=== PATIENT | male | born 1980 | race Caucasian/White ===

== ENCOUNTER 2021-01-06 10:34 | Outpatient (REF) | payer OTHER, SELFPAY | END 2021-01-06 10:35 | disposition home or self-care (01) | LOC: HO.LAB 10:34 | PROVIDERS: PCP Internal Medicine; Visit Provider Physician Assistant | DX: Z13.89 Encounter for screening for other disorder (principal) ==

== ENCOUNTER 2021-03-19 10:41 | Emergency (ER) | payer OTHER, SELFPAY ==
[2021-03-19 10:49] VITALS: BP 145/75; PULSE 93; RESP 16; TEMP 36.6; O2SAT 97; BMI 47.9
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
[2021-03-19 11:49] LABS: MANUAL DIFF FLAG NO
[2021-03-19 11:49] LABS: Appearance Urine CLEAR; Color Urine YELLOW; Glucose Urine UA 100 MG/DL (NEG); Leukocyte Esterase Urine NEG (NEG); Nitrite Urine NEG (NEG); Specific Gravity - Urine >= 1.030 (1.005-1.025); Urine Blood NEG (NEG); Urine Ketones 5 MG/DL (NEG); Urine Protein NEG (NEG-TRACE)
[2021-03-19 11:53] LABS: Basophils Absolute Auto 0.1 X10*3/uL (0.0-0.2); Basophils Percent Auto 0.5 % (0-2); Eosinophils Absolute Auto 0.3 X10*3/uL (0.0-0.4); Eosinophils Percent Auto 2.5 % (0-4); Hematocrit 42.9 % (42-52); Hemoglobin 13.9 g/dl (14.0-18.0); Imm Gran Abs Auto 0.04 X10*3/uL (0.00-0.03); Imm Gran Pct Auto 0.4 % (0.0-0.4); Mean Corpuscular HGB Conc 32.4 g/dl (31.0-36.0); Mean Corpuscular Hemoglobin 27.8 pg (27.0-33.0); Mean Corpuscular Volume 85.8 fL (80-98); Mean Platelet Volume 10.7 fL (9.4-12.4); Monocytes Absolute Auto 0.5 X10*3/uL (0.1-1.2); Monocytes Percent Auto 4.5 % (2-11); Neutrophils Absolute Auto 7.3 X10*3/uL (2.0-8.3); Neutrophils Percent Auto 72.1 % (45-73); Platelet Count 343 X10*3/uL (160-400); Red Cell Distribution Width 13.1 % (11.0-16.0); White Blood Count 10.2 X10*3/uL (4.8-10.8)
[2021-03-19 11:55] LABS: Amphetamine Screen Urine Not Detected (Not Detect); Barbiturates, Urine Not Detected (Not Detect); Benzodiazepines Screen Urine Not Detected (Not Detect); Cannabinoid Screen Urine Not Detected (Not Detect); Cocaine Screen Urine Not Detected (Not Detect); Fentanyl, urine Not Detected (Not Detect); Opiate Screen Urine Not Detected (Not Detect); Phencyclidine Screen Urine Not Detected (Not Detect)
[2021-03-19 11:55] LABS: COVID-19 Test Negative (Negative); IDNOW Serial# 9DD0AD1C
[2021-03-19 12:03] LABS: Ethanol < 10 mg/dL
[2021-03-19 12:05] LABS: Alanine Aminotransferase 43 U/L (0-40); Albumin Level 4.4 g/dL (3.5-5.0); Alkaline Phosphatase 139 U/L (39-117); Anion Gap 13 (12-20); Aspartate Amino Transferase 27 U/L (5-37); Bilirubin Direct 0.2 mg/dL (0.0-0.5); Bilirubin Total 0.6 mg/dL (0.0-1.0); Blood Urea Nitrogen 9 mg/dL (9-16); Calcium 9.5 mg/dL (8.4-10.2); Carbon Dioxide 27 mmol/L (22-29); Chloride 104 mmol/L (96-108); Creatinine Clr Calc Pharmacy 156.9; Estimated Glomerular Filt Rate > 60; Glucose Random 221 mg/dL (60-115); Lipase 32 U/L (8-78); Potassium 4.2 mmol/L (3.3-5.1); Sodium 140 mmol/L (135-145); Total Protein 7.3 g/dL (6.5-8.0)
--- NOTE | 2021-03-19 12:53 | PHA.MEDREC ---
Pharmacy Consult ? Medication Reconciliation Pharmacy has completed the medication reconciliation. There are no remarkable issues for provider's attention. Lily Lemus, MonicaD
--- NOTE | 2021-03-19 12:54 | PC.NURSE ---
Smart sheet sent to N. Pt resting quietly in bed watching tv at this time, TARUN.
[2021-03-19 14:10] LABS: Glucose, Whole Blood 270 mg/dL (60-115)
--- NOTE | 2021-03-19 16:09 | PC.NURSE ---
Per N a clinician will not be out here until 10 pm.
[2021-03-19 16:10] VITALS: RESP 16
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
== END 2021-03-19 19:08 | disposition home or self-care (01) ==
PROVIDERS: Emergency Provider Emergency Medicine; PCP Internal Medicine
DX: F33.1 Major depressive disorder, recurrent, moderate (principal); F25.9 Schizoaffective disorder, unspecified; F41.1 Generalized anxiety disorder; F43.0 Acute stress reaction; Z79.899 Other long term (current) drug therapy; Z20.822 Contact with and (suspected) exposure to COVID-19; Z87.891 Personal history of nicotine dependence
CPT/HCPCS: 36415; 80048; 80076; 80307; 81003; 82077; 82947; 83690; 85025; 87635; 99284

== ENCOUNTER 2022-01-02 11:40 | Inpatient (IN) | payer OTHER, SELFPAY ==
[2022-01-02 11:49] VITALS: BP 116/80; BP 124/86; PULSE 82; PULSE 95; RESP 16; TEMP 36.2; O2SAT 94; O2SAT 99; BMI 43.0
--- NOTE | 2022-01-02 12:24 | ED_ITS ---
HPI - General Adult General Chief complaint: General Medical Stated complaint: L sided weakness Time Seen by Provider: 01/02/22 12:11 Source: EMS Mode of arrival: EMS History of Present Illness HPI narrative: This is a 41 years old male with history of bipolar, schizophrenia, hypertension presented to the emergency department after a panic attack in [place]. He appeared very anxious, denies any SI and HI. Onset (ago): hour(s) (1) Radiation: non-radiation Severity: mild Relieving factors: none Exacerbating factors: none Related Data Home Medications Medication Instructions Recorded Confirmed albuterol sulfate 90 mcg/actuation 2 puff inhalation Q6H PRN Wheezing 06/16/20 03/19/21 aerosol inhaler clonidine HCl 0.1 mg tablet 0.1 mg PO BEDTIME 09/15/20 03/19/21 gabapentin 100 mg capsule 200 mg PO BEDTIME 09/15/20 03/19/21 lurasidone 80 mg tablet 80 mg PO QAM 01/06/21 03/19/21 hydroxyzine HCl 50 mg tablet 50 mg PO Q6H PRN anxiety 03/19/21 03/19/21 Previous Rx's Medication Instructions Recorded triamcinolone acetonide 0.025 % 1 appl topical BID #15 grams 06/15/20 topical cream blood-glucose meter (FreeStyle #1 ea 12/05/20 Lite Meter) atorvastatin 20 mg tablet 20 mg PO DAILY #90 tabs 12/29/20 lisinopril 5 mg tablet 5 mg PO DAILY #90 tabs 01/06/21 folic acid 1 mg tablet 1 mg PO DAILY #90 tabs 03/04/21 cholecalciferol (vitamin D3) 50 50 mcg PO DAILY #90 caps 03/07/21 mcg (2,000 unit) capsule (D3-2000) insulin aspart U-100 100 unit/mL 35 unit (0.35 mL) subcut BIDAC #15 04/26/21 (3 mL) subcutaneous pen (Novolog mL Flexpen U-100 Insulin aspart) metformin 500 mg tablet 1,000 mg PO BID #360 tabs 04/30/21 dulaglutide 1.5 mg/0.5 mL 1.5 mg (0.5 mL) subcut QWEEK #2 mL 06/13/21 subcutaneous pen injector (Trulicity) omeprazole 20 mg capsule,delayed 20 mg PO DAILY #30 caps 06/13/21 release alcohol swabs (Alcohol Pads) 1 pad topical QID #100 pad 08/06/21 insulin detemir U-100 100 unit/mL 80 unit (0.8 mL) subcut BID #30 mL 08/07/21 (3 mL) subcutaneous pen (Levemir FlexTouch U-100 Insulin) blood sugar diagnostic (FreeStyle #100 ea 08/31/21 Lite Strips) Allergies Allergy/AdvReac Type Severity Reaction Status Date / Time morphine [Morphine] Allergy Unknown HIVES Verified 01/02/22 11:58 shellfish derived Allergy Redness of Verified 01/02/22 11:58 Skin Iodinated Contrast Media AdvReac Anxiety Verified 01/02/22 11:58 [Contrast Dye] Review of Systems ENT: Reports system reviewed and no additional complaints, except as documented Musculoskeletal: Musculoskeletal: Reports no additional musculoskeletal complaints Psychiatric: Psychiatric: Reports anxiety [facility] Past Medical History Medical History Diabetes mellitus Essential (primary) hypertension GERD (gastroesophageal reflux disease) Schizoaffective disorder Surgical History No pertinent past surgical history Family History Family History Father Heart disease Chronic mental illness Depression Mother Cancer Sister Cancer Social History Social History Housing: Apartment Alcohol intake: current Alcohol intake frequency: holidays/special occasions only Patient Tobacco Use Status: Former Tobacco user e-Cigarette/Vaping Use: Never Used Advance Directives: No Advance Directives Information Provided: Yes service: No Current occupational status: disabled Physical Exam ED Vital Signs: Vital Signs - 24 hr 01/02/22 11:49 Temperature 97.2 F Pulse Rate 95 Respiratory Rate 16 Blood Pressure 116/80 Pulse Oximetry 94 Oxygen Delivery Method Room Air BMI result Body Mass Index 43.0 Const General: no acute distress, well developed and alert Nutritional Appearance: average body habitus Orientation/consciousness: patient oriented x3 HENMT Head: Yes normal to inspection Mouth: Normal oral and palatal mucosa present Neck Neck: Yes normal visual inspection Chest Chest palpation & inspection: normal inspection of the chest Resp Effort & Inspection: normal respiratory effort Auscultation: clear to auscultation bilaterally Cardio Jugular venous distension: no JVD Rate: regular rate Rhythm: regular rhythm GI Inspection: Yes normal to inspection Palpation (GI): Soft to palpation, not firm, nontender and no guarding General: Yes no CVA tenderness Back/Spine/Pelvis Back: no CVA tenderness Neuro General: patient oriented x3, gait normal, Normal light touch and pain sensation, no focal motor deficits and CN's II-XI intact bilaterally Cranial nerves: Yes CN's II-XII intact bilaterally Psych Affect: Animated affect present and Anxious affect present Attitude: cooperative Thought content: suicidality, no homicidality and no delusions Course Reevaluation(s) Reevaluation #1: we are waiting for crisis eval signed out to Dr Smallwood Medical Decision Making Lab Data Labs: Lab Results 01/02/22 01/02/22 Range/Units 12:37 15:41 POC Glucose 185 H (60-115) mg/dL COVID-19 (JULIO C) Negative (Negative) COVID-19 Clin Com See Note Discharge Plan Discharge Clinical Impression: Anxiety, Bipolar 1 disorder Patient Disposition: Still a Patient Prescriptions: No Action triamcinolone acetonide 0.025 % cream 1 appl topical BID Qty: 15 1RF albuterol sulfate 90 mcg/actuation HFA aerosol inhaler 2 puff inhalation Q6H PRN (Reason: Wheezing) (DME) blood-glucose meter [FreeStyle Lite Meter] Kit See Rx Instructions .ROUTE .MEDSUPPLY Qty: 1 0RF Rx Instructions: TEST 2 TIMES DAILY atorvastatin 20 mg tablet 20 mg PO DAILY Qty: 90 1RF folic acid 1 mg tablet 1 mg PO DAILY Qty: 90 0RF cholecalciferol (vitamin D3) [D3-2000] 50 mcg (2,000 unit) capsule 50 mcg PO DAILY Qty: 90 2RF insulin aspart U-100 [Novolog Flexpen U-100 Insulin] 100 unit/mL (3 mL) insulin pen 35 unit subcut BIDAC Qty: 15 1RF Rx Instructions: IF BG > 450 GIVE 50 UNITS metformin 500 mg tablet 1,000 mg PO BID Qty: 360 1RF Trulicity 1.5 mg/0.5 mL pen injector 1.5 mg subcut QWEEK Qty: 2 2RF omeprazole 20 mg capsule,delayed release(/EC) 20 mg PO DAILY Qty: 30 2RF alcohol swabs [Alcohol Pads] Pads, Medicated 1 pad topical QID Qty: 100 0RF Levemir FlexTouch U-100 Insuln 100 unit/mL (3 mL) insulin pen 80 unit subcut BID Qty: 30 2RF (DME) FreeStyle Lite Strips Strip See Rx Instructions .Route Qty: 100 0RF Rx Instructions: Check Blood sugar twice a day before meals hydroxyzine HCl 50 mg tablet 50 mg PO Q6H PRN (Reason: anxiety) Latuda 80 mg tablet 80 mg PO QAM lisinopril 5 mg tablet 5 mg PO DAILY Qty: 90 1RF gabapentin 100 mg capsule 200 mg PO BEDTIME clonidine HCl 0.1 mg tablet 0.1 mg PO BEDTIME
[2022-01-02 12:41] LABS: Glucose, Whole Blood 185 mg/dL (60-115)
--- NOTE | 2022-01-02 15:15 | MHC.CARE ---
CARE team did consult on PT today after MD referred him due to panic attack, history of bipolar disorder, anxiety and schizophrenia. Pt presents with pressured speech/hyper verbal, paranoia with labile mood. 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 He also takes out 4 bottles of medication and appears confused about his medication and what they are used for. Pt is difficult to engage on conversation as thoughts are disorganized at times. CARE team calls aunt who is his emergency contact and she reports Pt has been getting worse over the past 4 months, he believes he is homeless and went to another town to live in a [facility] despite having an apartment. Aunt reports audio hallucinations of voices that tell him to kill himself., he has a gambling problem, angers very quickly and has been reporting multiple somatic complaints over the past 4 months. In addition, he used to have an RN to administered his medications,however they terminated services and aunt states I know he can't do his medications on his own . Aunt reports he is need of inpatient level of care, medication and mood stabilization for safety. CARE team recommendation is for crisis evaluation, monotypist CARE team ELIDIA Paulson agreeable with plan.
[2022-01-02 16:01] LABS: COVID-19 Test Negative (Negative); IDNOW Serial# 16C4AD1C
[2022-01-02 16:15] LABS: Appearance Urine CLEAR; Color Urine YELLOW; Glucose Urine UA NEG (NEG); Leukocyte Esterase Urine NEG (NEG); Nitrite Urine NEG (NEG); PH 5.5 (5.0-8.0); Specific Gravity - Urine >= 1.030 (1.005-1.025); Urine Blood NEG (NEG); Urine Ketones NEG (NEG); Urine Protein NEG (NEG-TRACE)
[2022-01-02 16:15] LABS: MANUAL DIFF FLAG NO
[2022-01-02 16:17] LABS: Basophils Absolute Auto 0.1 X10*3/uL (0.0-0.2); Basophils Percent Auto 0.5 % (0-2); Eosinophils Absolute Auto 0.3 X10*3/uL (0.0-0.4); Eosinophils Percent Auto 2.5 % (0-4); Hemoglobin 13.3 g/dl (14.0-18.0); Imm Gran Abs Auto 0.04 X10*3/uL (0.00-0.03); Imm Gran Pct Auto 0.3 % (0.0-0.4); Lymphocytes Absolute Auto 2.8 X10*3/uL (1.2-4.9); Lymphocytes Percent Auto 21.5 % (20-40); Mean Corpuscular HGB Conc 32.4 g/dl (31.0-36.0); Mean Corpuscular Hemoglobin 27.6 pg (27.0-33.0); Mean Corpuscular Volume 85.1 fL (80.0-98.0); Mean Platelet Volume 11.2 fL (9.4-12.4); Monocytes Absolute Auto 0.5 X10*3/uL (0.1-1.2); Monocytes Percent Auto 4.1 % (2-11); Neutrophils Absolute Auto 9.2 x10*3/uL (2.0-8.3); Neutrophils Percent Auto 71.1 % (45-73); Platelet Count 294 X10*3/uL (160-400); Red Blood Count 4.82 X10*6/uL (4.60-5.80); Red Cell Distribution Width 12.9 % (11.0-16.0); White Blood Count 12.9 X10*3/uL (4.8-10.8)
[2022-01-02 16:23] LABS: Amphetamine Screen Urine Not Detected (Not Detect); Barbiturates, Urine Not Detected (Not Detect); Benzodiazepines Screen Urine Not Detected (Not Detect); Cannabinoid Screen Urine Not Detected (Not Detect); Cocaine Screen Urine Not Detected (Not Detect); Fentanyl, urine Not Detected (Not Detect); Opiate Screen Urine Not Detected (Not Detect); Phencyclidine Screen Urine Not Detected (Not Detect)
[2022-01-02 16:30] LABS: Mucus Urine 1+ /LPF; Squamous Epithelial Cell Urine 1+ /LPF
[2022-01-02 16:31] LABS: Bacteria Urine TRACE /LPF; RBC Urine 0-2 /HPF (0); WBC Urine 0-2 /HPF (0-4)
[2022-01-02 16:55] LABS: Alanine Aminotransferase 26 U/L (0-40); Albumin Level 4.4 g/dL (3.5-5.0); Alkaline Phosphatase 129 U/L (39-117); Anion Gap 14 (12-20); Aspartate Amino Transferase 18 U/L (5-37); Bilirubin Total 0.3 mg/dL (0.0-1.0); Blood Urea Nitrogen 16 mg/dL (9-16); Calcium 9.5 mg/dL (8.4-10.2); Carbon Dioxide 26 mmol/L (22-29); Chloride 101 mmol/L (96-108); Creatinine Clr Calc Pharmacy 151.5; Estimated Glomerular Filt Rate > 60; Glucose Random 270 mg/dL (60-115); Potassium 4.5 mmol/L (3.3-5.1); Sodium 136 mmol/L (135-145); Total Protein 7.5 g/dL (6.5-8.0)
[2022-01-02 17:49] LABS: Glucose, Whole Blood 310 mg/dL (60-115)
[2022-01-02 18:19] LABS: Glucose, Whole Blood 289 mg/dL (60-115)
[2022-01-02] MEDS: Insulin Lispro 100 UNIT/ML 3 ML VIAL 6 UNIT SUBCUT (18:34)
[2022-01-02 19:46] VITALS: BP 133/64; PULSE 101; RESP 20; TEMP 36.8; O2SAT 96
[2022-01-02 20:41] LABS: Glucose, Whole Blood 191 mg/dL (60-115)
[2022-01-02] MEDS: Insulin Lispro 100 UNIT/ML 3 ML VIAL SUBCUT (20:54)
--- NOTE | 2022-01-02 20:55 | PC.NURSE ---
POC 191 covered with 2 units of insulin per order.
--- NOTE | 2022-01-02 21:24 | PC.NURSE ---
[facility] bed search team called, medical record faxed at [phone] per request
[2022-01-02] MEDS: cloNIDine HCL 0.1 MG TABLET PO (23:46)
[2022-01-02 23:52] VITALS: BP 125/83; PULSE 76; RESP 16; TEMP 36; O2SAT 97
--- NOTE | 2022-01-03 05:22 | PC.NURSE ---
Patient slept through the night, no distress observed/reported, patient is hyper-verbal/tangential/pressured speech, VSS, med rec completed, pending provider's approval, disposition per N is section 12 inpatient bed search, behavior non concerning, will continue to monitor.
--- NOTE | 2022-01-03 07:04 | PC.NURSE ---
patient appears to remain asleep at present respirations appear to be unlabored patienbt appears in no distress
[2022-01-03 07:11] LABS: Glucose, Whole Blood 310 mg/dL (60-115)
[2022-01-03] MEDS: Insulin Lispro 100 UNIT/ML 3 ML VIAL SUBCUT ×3 (07:17→18:36)
[2022-01-03 08:02] VITALS: BP 140/86; PULSE 78; RESP 14; TEMP 36; O2SAT 98
--- NOTE | 2022-01-03 08:45 | PC.NURSE ---
patient calling administrative offices and threatening to [facility], cordless phone removed.
[2022-01-03] MEDS: Ondansetron ODT 4 MG TAB.RAPDIS TRANSLINGU (11:21)
[2022-01-03] MEDS: Throat Lozenge, Medicated LOZENGE 1 LOZENGE MUCOUS MEM (11:24)
[2022-01-03 12:18] LABS: Glucose, Whole Blood 294 mg/dL (60-115)
--- NOTE | 2022-01-03 15:01 | MHC.CARE ---
CARE Team meets with pt, as he continues to ask to be discharged. He presents with ulysses; flight of ideas mood lability, rapid and pressured speech, religiosity and delusional thinking. Pt is placed on a sect 12.
--- NOTE | 2022-01-03 15:13 | PC.NURSE ---
Consult had with pts nurse prior to approach. Pt continues to present with ulysses, pressured speech, labile mood, and agitation. Pt is unable to maintain focus necessary to engage in conversation or any intervention presented to him. Pts nurse is aware.
--- NOTE | 2022-01-03 15:51 | P.CNPS_ITS ---
History of Present Illness Date of Service: 01/03/2022 Chief Complaint: L sided weakness Reason for Consult: ulysses Discussed with referring provider: Yes Sources of Information: patient interviewed, chart reviewed and crisis/core team assessment reviewed HPI Narrative: Mr. Sutherland is a 41 year-old male with hx of Bipolar 1 disorder versus schizoaffective disorder bipolar type. He was initially brought in to [facility] ED due to panic attack. In the ED, utox is neg. Pt presents as hyperverbal, pressured speech, flight of ideas and labile. He has been calling LAW OFFICE MANAGER of hospital stating that he will [facility] the hospital because he receive paperwork from ED that says that he was a smoker and on the same page says he has never smoke. Pt asks if I would tell him the truth or not as he can tell if someone is a liar, stating that in the past God has made people fall if they lie. Pt jumps from topic of wanting to [facility] this hospital to recommending this policy writer sales different jobs I could apply to that he would give me recommendations, such as working in cancer treatment. He becomes very upset when discussing discharge as he states he is doing well and wants to be discharge as soon as possible. He denies SI/HI. He then throws food on the floor, as he reports he is upset about being here in the hospital. He does report that when not stable he is very irritable and talkative, which this policy writer sales pointed out is how he is currently presenting. Past Psychiatric History: Inpatient: many in the past but unknown last one OP: he currently denies having OP psychiatrist. Past trials: latuda, unknown other trials Medical Evaluation Reviewed: Yes [facility] Medical History Diabetes mellitus Essential (primary) hypertension GERD (gastroesophageal reflux disease) Schizoaffective disorder Surgical History No pertinent past surgical history Diagnostics Vital Signs (24Hr): Vital Signs - 24 hr 01/02/22 19:46 01/02/22 23:52 01/03/22 08:02 Temperature 98.3 F 96.8 F 96.8 F Pulse Rate 101 H 76 78 Respiratory Rate 20 16 14 Blood Pressure 133/64 125/83 140/86 H Pulse Oximetry 96 97 98 Oxygen Delivery Method Room Air Room Air Room Air BMI result Body Mass Index 43.0 Labs Results: 01/02/22 16:11 01/02/22 16:11 Labs: Laboratory Results - last 48 hr 01/02/22 01/02/22 01/02/22 12:37 15:41 16:03 WBC RBC Hgb Hct MCV MCH MCHC RDW Plt Count MPV Immature Gran % (Auto) Neut % (Auto) Lymph % (Auto) Mchenry % (Auto) Eos % (Auto) Baso % (Auto) Lymph # (Auto) Mchenry # (Auto) Eos # (Auto) Baso # (Auto) Abs Immat Gran (auto) Absolute Neuts (auto) Absolute Nucleated RBC Nucleated RBC % (auto) Sodium Potassium Chloride Carbon Dioxide Anion Gap BUN Creatinine Estim Creat Clear Calc Estimated GFR POC Glucose 185 H Random Glucose Calcium Total Bilirubin AST ALT Alkaline Phosphatase Total Protein Albumin Urine Color Urine Appearance Urine pH Ur Specific Gunn[place] Urine Protein Urine Glucose (UA) Urine Ketones Urine Blood Urine Nitrite Ur Leukocyte Esterase Urine RBC Urine WBC Ur Squamous Epith Cells Urine Bacteria Urine Mucus Urine Opiates Screen Not Detected Urine Fentanyl Screen Not Detected Ur Barbiturates Screen Not Detected Ur Phencyclidine Scrn Not Detected Ur Amphetamines Screen Not Detected U Benzodiazepines Scrn Not Detected Urine Cocaine Screen Not Detected U Marijuana (THC) Screen Not Detected COVID-19 (JULIO C) Negative COVID-19 Clin Com See Note 01/02/22 01/02/22 01/02/22 16:03 16:11 16:11 WBC 12.9 H RBC 4.82 Hgb 13.3 L Hct 41.0 L MCV 85.1 MCH 27.6 MCHC 32.4 RDW 12.9 Plt Count 294 MPV 11.2 Immature Gran % (Auto) 0.3 Neut % (Auto) 71.1 Lymph % (Auto) 21.5 Mchenry % (Auto) 4.1 Eos % (Auto) 2.5 Baso % (Auto) 0.5 Lymph # (Auto) 2.8 Mchenry # (Auto) 0.5 Eos # (Auto) 0.3 Baso # (Auto) 0.1 Abs Immat Gran (auto) 0.04 H Absolute Neuts (auto) 9.2 H Absolute Nucleated RBC 0.000 Nucleated RBC % (auto) 0.0 Sodium 136 Potassium 4.5 Chloride 101 Carbon Dioxide 26 Anion Gap 14 BUN 16 Creatinine 0.83 Estim Creat Clear Calc 151.5 Estimated GFR > 60 POC Glucose Random Glucose 270 H Calcium 9.5 Total Bilirubin 0.3 AST 18 ALT 26 Alkaline Phosphatase 129 H Total Protein 7.5 Albumin 4.4 Urine Color YELLOW Urine Appearance CLEAR Urine pH 5.5 Ur Specific Gunnison >= 1.030 H Urine Protein NEG Urine Glucose (UA) NEG Urine Ketones NEG Urine Blood NEG Urine Nitrite NEG Ur Leukocyte Esterase NEG Urine RBC 0-2 Urine WBC 0-2 Ur Squamous Epith Cells 1+ Urine Bacteria TRACE Urine Mucus 1+ Urine Opiates Screen Urine Fentanyl Screen Ur Barbiturates Screen Ur Phencyclidine Scrn Ur Amphetamines Screen U Benzodiazepines Scrn Urine Cocaine Screen U Marijuana (THC) Screen COVID-19 (JULIO C) COVID-19 [facility] 01/02/22 01/02/22 01/02/22 17:45 18:16 20:38 WBC RBC Hgb Hct MCV MCH MCHC RDW Plt Count MPV Immature Gran % (Auto) Neut % (Auto) Lymph % (Auto) Mchenry % (Auto) Eos % (Auto) Baso % (Auto) Lymph # (Auto) Mchenry # (Auto) Eos # (Auto) Baso # (Auto) Abs Immat Gran (auto) Absolute Neuts (auto) Absolute Nucleated RBC Nucleated RBC % (auto) Sodium Potassium Chloride Carbon Dioxide Anion Gap BUN Creatinine Estim Creat Clear Calc Estimated GFR POC Glucose 310 H 289 H 191 H Random Glucose Calcium Total Bilirubin AST ALT Alkaline Phosphatase Total Protein Albumin Urine Color Urine Appearance Urine pH Ur Specific [place] Urine Protein Urine Glucose (UA) Urine Ketones Urine Blood Urine Nitrite Ur Leukocyte Esterase Urine RBC Urine WBC Ur Squamous Epith Cells Urine Bacteria Urine Mucus Urine Opiates Screen Urine Fentanyl Screen Ur Barbiturates Screen Ur Phencyclidine Scrn Ur Amphetamines Screen U Benzodiazepines Scrn Urine Cocaine Screen U Marijuana (THC) Screen COVID-19 (JULIO C) COVID-19 [facility] 01/03/22 01/03/22 07:06 12:15 WBC RBC Hgb Hct MCV MCH MCHC RDW Plt Count MPV Immature Gran % (Auto) Neut % (Auto) Lymph % (Auto) Mchenry % (Auto) Eos % (Auto) Baso % (Auto) Lymph # (Auto) Mchenry # (Auto) Eos # (Auto) Baso # (Auto) Abs Immat Gran (auto) Absolute Neuts (auto) Absolute Nucleated RBC Nucleated RBC % (auto) Sodium Potassium Chloride Carbon Dioxide Anion Gap BUN Creatinine Estim Creat Clear Calc Estimated GFR POC Glucose 310 H 294 H Random Glucose Calcium Total Bilirubin AST ALT Alkaline Phosphatase Total Protein Albumin Urine Color Urine Appearance Urine pH Ur Specific [place] Urine Protein Urine Glucose (UA) Urine Ketones Urine Blood Urine Nitrite Ur Leukocyte Esterase Urine RBC Urine WBC Ur Squamous Epith Cells Urine Bacteria Urine Mucus Urine Opiates Screen Urine Fentanyl Screen Ur Barbiturates Screen Ur Phencyclidine Scrn Ur Amphetamines Screen U Benzodiazepines Scrn Urine Cocaine Screen U Marijuana (THC) Screen COVID-19 (JULIO C) COVID-19 Clin Com Mental Status Exam Mental Status Exam Narrative: Appearance: MO, wearing hospital gown, poor hygiene in NAD Behavior:irritable at times, but mostly cooperative psychomotor:agitation noted Speech:pressured, hyperverbal, spontaneous Thought process:flight of ideas Thought content:wanting to go, [facility], giving career advise to staff Mood: fine Affect: labile SI:denies HI:denies VH/AH:none Delusions:scientology delusions, some grandiosity Insight/judgment:impaired x 2. Memory/cog: alert, not oriented to situation. Medications Medications Current Medications Benzocaine (Throat Lozenge, Medicated Lozenge) 1 lozenge MUCOUS MEM ONCE PRN PRN Reason: Cough Last Admin: 01/03/22 11:24 Dose: 1 lozenge Insulin Human Lispro (Insulin Lispro 100 Unit/Ml 3 Ml Vial) 0 unit SUBCUT QIDACHS [facility]; Protocol Stop: 01/03/22 18:19 Last Admin: 01/03/22 13:40 Dose: 6 unit Lurasidone HCl (Lurasidone Hcl 40 Mg Tablet) 40 mg PO DAILY@1700 BOOGIE Olanzapine (Olanzapine 10 Mg Tablet) 10 mg PO Q6H PRN PRN Reason: agitation Ondansetron HCl (Ondansetron Odt 4 Mg Tab.Rapdis) 4 mg TRANSLINGU ONCE PRN PRN Reason: Nausea and Vomiting Last Admin: 01/03/22 11:21 Dose: 4 mg Allergies Allergies Allergy/AdvReac Type Severity Reaction Status Date / Time morphine [Morphine] Allergy Unknown HIVES Verified 01/02/22 11:58 shellfish derived Allergy Redness of Verified 01/02/22 11:58 Skin Iodinated Contrast Media AdvReac Anxiety Verified 01/02/22 11:58 [Contrast Dye] Assessment & Plan Assessment & Plan (1) Bipolar 1 disorder: Status: Acute Code(s): F31.9 - Bipolar disorder, unspecified Plan Mr. Sutherland is a 41 year-old male with hx of Bipolar, presented to [facility] ED initially for panic attacks however, pt presents with flight of ideas, hyperverbal, pressured labile mood. utox neg. Pt presents as disorganized, irritable, labile. PLAN 1. Pt meets criteria for ILOC for further stabilization, safety and containment. 2. restart latuda 40mg po daily with dinner, titrate 3. consider mood stabilizer 4. Olanzapine prn for agitation. I spent minutes with the patient and/or on the patient floor today, greater than?50% of which was spent counseling/coordinating care.
[2022-01-03 18:22] LABS: Glucose, Whole Blood 187 mg/dL (60-115)
[2022-01-03] MEDS: Lurasidone HCl 40 MG TABLET PO (18:36)
--- NOTE | 2022-01-04 | ECG_ITS ---
Test Reason : cp Blood Pressure : / mmHG Vent. Rate : 075 BPM Atrial Rate : 075 BPM P-R Int : 158 ms QRS Dur : 080 ms QT Int : 366 ms P-R-T Axes : 056 041 030 degrees QTc Int : 408 ms Normal sinus rhythm Normal ECG When compared with ECG of 25-NOV-2014 10:48, No significant change was found Referred By: Francesca Long Electronically Signed By:BRENDA HOGAN MD
--- NOTE | 2022-01-04 05:35 | PC.NURSE ---
Patient slept through the night, no distress observed/reported, patient is hyper-verbal/tangential, medication compliant, behavior unpredictable, VSS, disposition per [facility] is section 12 inpatient bed search, will continue to monitor.
--- NOTE | 2022-01-04 07:06 | PC.NURSE ---
patient appears to remain asleep respirations are even and unlabored patient appears in no distress
--- NOTE | 2022-01-04 10:37 | PC.NURSE ---
patient pushes emerghency button states feels like he cant stop shaking checked vital signs, all wnl offered meds which were declined
[2022-01-04 10:38] VITALS: BP 108/78; PULSE 83; RESP 15; O2SAT 98
[2022-01-04 14:26] LABS: COVID-19 Test Negative (Negative); IDNOW Serial# 16C4AD1C
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
--- NOTE | 2022-01-04 18:33 | PC.ADMIT ---
Nurse Admission Note Adrián is a a 41-year-old male admitted to ED Pod and transferred to M3 via wheelchair. Pt was a 12b but signed a CV and 3-day while on the unit. Pt was evaluated by [facility] wendy after arriving via EMS for panic attacks. Presenting diagnoses include schizoaffective disorder bipolar type, mild intellectual disability and gambling disorder. Pt also presented to ED with symptoms of ulysses marked by labile mood, tangential thought process, confucianism preoccupation, and agitated behavior (throwing food/substances on floor, clogging toilets with toilet paper). Pt has a hx of inpatient psychiatric admissions but is unknown to [facility]. Upon arrival to [facility], pt appeared to exhibit manic behavior. Speech was loud, expansive and pressured. Pt was extremely hyper-verbal and difficult to redirect. He was very paranoid of anyone knowing his name or stealing his belongings. This RN was unable to do a complete admission assessment due to patient's delusional thought process.
[2022-01-04 21:53] LABS: Glucose, Whole Blood 299 mg/dL (60-115)
[2022-01-04] MEDS: Insulin Lispro 100 UNIT/ML 3 ML VIAL SUBCUT (23:10)
[2022-01-04] MEDS: metFORMIN HCl 1,000 MG TABLET 1000 MG PO (23:11)
[2022-01-04 23:16] VITALS: BP 140/78; PULSE 88; TEMP 36.6; O2SAT 96
--- NOTE | 2022-01-05 05:26 | PC.NURSE ---
HS medications for 01/04/22=only accepted sliding scale insulin coverage and metformin given late due to admission time/process.
[2022-01-05] MEDS: Omeprazole 20 MG CAPSULE.DR PO (05:39)
[2022-01-05 08:57] LABS: Estimated Average Glucose 286 mg/dL; Hemoglobin A1c % 11.6 %
[2022-01-05 09:04] LABS: Glucose, Whole Blood 305 mg/dL (60-115)
[2022-01-05 09:11] LABS: Alanine Aminotransferase 19 U/L (0-40); Alkaline Phosphatase 121 U/L (39-117); Anion Gap 12 (12-20); Aspartate Amino Transferase 12 U/L (5-37); Bilirubin Total 0.2 mg/dL (0.0-1.0); Blood Urea Nitrogen 13 mg/dL (9-16); Calcium 9.4 mg/dL (8.4-10.2); Carbon Dioxide 29 mmol/L (22-29); Chloride 100 mmol/L (96-108); Cholesterol 209 mg/dL; Creatinine Clr Calc Pharmacy 142.9; Estimated Glomerular Filt Rate > 60; Glucose Fasting 330 mg/dL (60-99); HDL Cholesterol 35 mg/dL; LDL Cholesterol Calculated 125 mg/dl; Potassium 4.9 mmol/L (3.3-5.1); Sodium 136 mmol/L (135-145); Total Protein 7.1 g/dL (6.5-8.0); Triglycerides 246 mg/dL
--- NOTE | 2022-01-05 09:11 | MHC.CLN ---
Addendum entered by Rosario Gordon RD 01/05/22 11:27: ADVISED PATIENT OF CHANGE TO DIET. UNDERSTOOD THAT DIET CHANGE MADE DUE TO DM/HIGH BLOOD SUGARS. NO CONCERNS WITH DIET CHANGE. Original Note: NUTRITION CHANGED DIET TO DIABETIC 2000 KCALS. A1C=11.6 SHOWING POOR BLOOD GLUCOSE CONTROL. DX DM AND TAKES HUMALOG AND METFORMIN.
[2022-01-05 09:23] VITALS: BP 134/72; PULSE 91; RESP 17; TEMP 36.6; O2SAT 98
[2022-01-05 09:31] LABS: Thyroid Stimulating Hormone 1.61 uIU/mL (0.32-4.0)
[2022-01-05] MEDS: Insulin Lispro 100 UNIT/ML 3 ML VIAL SUBCUT ×3 (09:34→18:22)
[2022-01-05] MEDS: Lithium Carbonate 300 MG CAPSULE 600 MG PO (09:35)
[2022-01-05] MEDS: metFORMIN HCl 1,000 MG TABLET 1000 MG PO ×2 (09:35→18:22)
[2022-01-05 09:55] LABS: Folate 7.9 ng/mL (> or = 4.0); Vitamin B12 424 pg/mL (200-900)
[2022-01-05 12:55] LABS: Glucose, Whole Blood 225 mg/dL (60-115)
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
[2022-01-05] MEDS: OLANZapine ODT 10 MG TAB.RAPDIS 20 MG TRANSLINGU (16:22)
[2022-01-05 17:55] LABS: Glucose, Whole Blood 213 mg/dL (60-115)
[2022-01-05] MEDS: Lurasidone HCl 80 MG TABLET PO (18:22)
[2022-01-05 22:00] VITALS: RESP 16
[2022-01-06 07:00] VITALS: BMI 43.1
[2022-01-06 08:00] VITALS: BP 120/68; PULSE 71; RESP 16; TEMP 36.7; O2SAT 97
[2022-01-06 08:30] LABS: Glucose, Whole Blood 255 mg/dL (60-115)
[2022-01-06] MEDS: Insulin Lispro 100 UNIT/ML 3 ML VIAL SUBCUT ×4 (08:47→21:40)
[2022-01-06] MEDS: metFORMIN HCl 1,000 MG TABLET 1000 MG PO ×2 (08:48→17:32)
[2022-01-06] MEDS: Lithium Carbonate 300 MG CAPSULE 600 MG PO ×2 (08:48→21:40)
[2022-01-06] MEDS: Omeprazole 20 MG CAPSULE.DR PO (08:48)
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
[2022-01-06 11:31] LABS: Glucose, Whole Blood 280 mg/dL (60-115)
[2022-01-06 17:30] LABS: Glucose, Whole Blood 208 mg/dL (60-115)
[2022-01-06] MEDS: Lurasidone HCl 80 MG TABLET PO (17:32)
[2022-01-06 18:00] VITALS: BP 137/90; PULSE 87; RESP 18; TEMP 36.7; O2SAT 97
[2022-01-06 21:34] LABS: Glucose, Whole Blood 217 mg/dL (60-115)
[2022-01-06] MEDS: Magnesium Hydrox/Alum Hydrox 30 ML ORAL.SUSP PO (21:40)
[2022-01-06] MEDS: Atorvastatin Calcium 20 MG TABLET PO (21:40)
[2022-01-07 08:18] VITALS: BP 138/76; PULSE 85; RESP 17; TEMP 36.6; O2SAT 99
[2022-01-07] MEDS: Omeprazole 20 MG CAPSULE.DR PO (08:19)
[2022-01-07] MEDS: Lithium Carbonate 300 MG CAPSULE 600 MG PO ×2 (08:19→21:19)
[2022-01-07] MEDS: metFORMIN HCl 1,000 MG TABLET 1000 MG PO ×2 (08:20→18:03)
[2022-01-07 08:58] LABS: Glucose, Whole Blood 218 mg/dL (60-115)
[2022-01-07] MEDS: Insulin Lispro 100 UNIT/ML 3 ML VIAL SUBCUT ×3 (09:26→22:28)
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
--- NOTE | 2022-01-07 12:28 | PC.NURSE ---
This RN attempted to check lunch POC. Patient refused to allow POC. 11:30 Elpidio held d/t pt declining POC
[2022-01-07] MEDS: Lurasidone HCl 80 MG TABLET PO (18:03)
[2022-01-07 18:09] LABS: Glucose, Whole Blood 244 mg/dL (60-115)
[2022-01-07 21:10] VITALS: BP 132/85; PULSE 102; TEMP 36.7; O2SAT 98
[2022-01-07] MEDS: cloNIDine HCL 0.1 MG TABLET PO (21:18)
[2022-01-07] MEDS: Atorvastatin Calcium 20 MG TABLET PO (21:19)
[2022-01-07] MEDS: Magnesium Hydrox/Alum Hydrox 30 ML ORAL.SUSP PO (21:19)
[2022-01-07 22:27] LABS: Glucose, Whole Blood 213 mg/dL (60-115)
[2022-01-08] MEDS: Omeprazole 20 MG CAPSULE.DR PO (06:00)
[2022-01-08 09:00] VITALS: BP 117/63; PULSE 70; RESP 20; TEMP 36.6; O2SAT 98
[2022-01-08 09:13] LABS: Glucose, Whole Blood 187 mg/dL (60-115)
[2022-01-08] MEDS: metFORMIN HCl 1,000 MG TABLET 1000 MG PO ×2 (09:42→17:41)
[2022-01-08] MEDS: Lithium Carbonate 300 MG CAPSULE 600 MG PO ×2 (09:42→21:22)
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
[2022-01-08] MEDS: Insulin Lispro 100 UNIT/ML 3 ML VIAL SUBCUT ×4 (11:22→21:32)
[2022-01-08] MEDS: Acetaminophen 325 MG TABLET 650 MG PO (11:22)
[2022-01-08 12:48] LABS: Glucose, Whole Blood 271 mg/dL (60-115)
[2022-01-08] MEDS: Lidocaine 4 % Patch ADH..PATCH 2 PATCH TRANSDERMA (14:49)
--- NOTE | 2022-01-08 15:19 | PC.NURSE ---
Patient reports I can't breathe . No reparatory distress observed. No wheeze or SOB observed. Declines when newswriter asks to listen to listen to lung sounds. VS 142/88, HR 118, 96%RA. RR20. PRN medications administered Hydroxyzine and Olanzapine. Patient reports his heart is beating so fast . Patient then placed call to 911 stating staff is not listening. Inhaler offered however patient pushed writers hand away. Security called for additional support although not immediately available. Patient went to end of girard crying loudly for brief period. Staff support given although patient is difficult to redirect at this time. Requested inhaler, offered to patient although reported he has a machine at home and inhaler won't work. Ambulating girard with staff, assisted in calling mother. Respiratory called, nebulizer treatment requested, stated they would come see patient.
[2022-01-08] MEDS: Lurasidone HCl 80 MG TABLET PO (17:41)
[2022-01-08 17:46] LABS: Glucose, Whole Blood 233 mg/dL (60-115)
[2022-01-08 21:18] VITALS: BP 129/80; PULSE 88; TEMP 36.8; O2SAT 96
[2022-01-08] MEDS: Atorvastatin Calcium 20 MG TABLET PO (21:22)
[2022-01-08 21:28] LABS: Glucose, Whole Blood 262 mg/dL (60-115)
[2022-01-09] MEDS: Omeprazole 20 MG CAPSULE.DR PO (06:22)
[2022-01-09 08:30] VITALS: BP 137/72; PULSE 86; RESP 20; TEMP 36.6; O2SAT 99
[2022-01-09 08:55] LABS: Glucose, Whole Blood 282 mg/dL (60-115)
[2022-01-09] MEDS: Lithium Carbonate 300 MG CAPSULE 600 MG PO ×2 (09:01→20:59)
[2022-01-09] MEDS: metFORMIN HCl 1,000 MG TABLET 1000 MG PO ×2 (09:01→17:45)
[2022-01-09] MEDS: Insulin Lispro 100 UNIT/ML 3 ML VIAL SUBCUT ×4 (09:01→21:09)
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
[2022-01-09] MEDS: Throat Lozenge, Medicated LOZENGE 1 LOZENGE MUCOUS MEM (10:54)
[2022-01-09 13:02] LABS: Glucose, Whole Blood 230 mg/dL (60-115)
[2022-01-09] MEDS: Lurasidone HCl 80 MG TABLET PO (17:45)
[2022-01-09 17:51] LABS: Glucose, Whole Blood 265 mg/dL (60-115)
[2022-01-09 20:30] VITALS: BP 128/73; PULSE 82; RESP 18; TEMP 36.7; O2SAT 97
[2022-01-09] MEDS: Atorvastatin Calcium 20 MG TABLET PO (20:58)
[2022-01-09 21:07] LABS: Glucose, Whole Blood 271 mg/dL (60-115)
[2022-01-10 07:53] LABS: Glucose, Whole Blood 222 mg/dL (60-115)
[2022-01-10 08:30] VITALS: BP 125/72; PULSE 90; RESP 20; TEMP 36.4; O2SAT 98
[2022-01-10] MEDS: metFORMIN HCl 1,000 MG TABLET 1000 MG PO ×2 (08:56→18:11)
[2022-01-10] MEDS: Omeprazole 20 MG CAPSULE.DR PO (08:56)
[2022-01-10] MEDS: Lithium Carbonate 300 MG CAPSULE 600 MG PO ×2 (08:56→20:58)
[2022-01-10] MEDS: Insulin Lispro 100 UNIT/ML 3 ML VIAL SUBCUT ×4 (09:13→20:57)
--- NOTE | 2022-01-10 10:29 | P.PNPSI_ITS ---
Subjective Subjective Date of Service: 01/10/22 Reason For Visit: ulysses Subjective Notes: 3 Day Interim History: Pt presents as less hyperverbal and less pressured. He reports sleeping and eating well. He reports doing better as he notes he is calmer than when he came to hospital. He denies SI/HI. He is sleeping through the night. He reports he plans to continue OP psych services through [facility]. He also reports he goes to a day program in [place]. Medication Compliance: Yes Side effects from medications: No Review of Systems Review of Systems CVS: C/o chest pain, ordered EKG and reviewed, NSR, QTc 408, Denies palpitations, no SOB COMPONENT ENGINEER: No c/o dizziness, headache GI: No c/o Nausea, Vomiting, diarrhea, constipation or heartburn Reports system reviewed and no additional complaints, except as documented Musculoskeletal: Reports no additional musculoskeletal complaints Psychiatric: Reports anxiety Mental Status Exam Mental Status Exam Narrative: Appearance: MO, csually groomed, improved hygiene in NAD Behavior:calmer, cooperative psychomotor:no retardation or agitation noted Speech:clear, not pressured, still slightly hyperverbal, regular rhythm/volume, spontaneous Thought process:less flight of ideas. Thought content: more accepting of care, feeling calmer Mood: good Affect: less expansive SI:denies HI:denies VH/AH:none Delusions:no overt delusional content reported or noted. Insight/judgment:improving x 2. Memory/cog: alert, oriented x 3. Patient Appearance: Appropriate Patient Orientation: Person, Place, Time and Situation Level of Consciousness: Awake Patient Behavior: Talkative and Invasion - Personal Space Mood Description: Expansive Affect Description: Calm Patient Cognition Impaired: No Ability to Follow Directions: Fair Speech Pattern: Clear Diagnostics Vital Signs (24Hr): Vital Signs - 24 hr 01/09/22 20:30 01/10/22 08:30 Temperature 98.1 F 97.6 F Pulse Rate 82 90 Respiratory Rate 18 20 Blood Pressure 128/73 125/72 Pulse Oximetry 97 98 Oxygen Delivery Method Room Air Room Air BMI result Body Mass Index 43.1 Labs Results: 01/02/22 16:11 01/05/22 08:05 Labs: Laboratory Results - last 48 hr 01/08/22 01/08/22 01/08/22 12:43 17:40 21:21 POC Glucose 271 H 233 H 262 H 01/09/22 01/09/22 01/09/22 08:51 12:59 17:45 POC Glucose 282 H 230 H 265 H 01/09/22 01/10/22 20:57 07:46 POC Glucose 271 H 222 H Medications Medications Current Medications Acetaminophen (Acetaminophen 325 Mg Tablet) 650 mg PO Q6H PRN PRN Reason: Headache/Pain Mild Scale (1-3) Last Admin: 01/08/22 11:22 Dose: 650 mg Al Hydroxide/Mg Hydroxide (Magnesium Hydrox/Alum Hydrox 30 Ml Oral.Susp) 30 ml PO Q6H PRN PRN Reason: Heartburn/Nausea Last Admin: 01/07/22 21:19 Dose: 30 ml Atorvastatin Calcium (Atorvastatin Calcium 20 Mg Tablet) 20 mg PO BEDTIME [facility] Last Admin: 01/09/22 20:58 Dose: 20 mg Benzocaine (Throat Lozenge, Medicated Lozenge) 1 lozenge MUCOUS MEM ONCE PRN PRN Reason: Cough Last Admin: 01/09/22 10:54 Dose: 1 lozenge Benzocaine (Throat Lozenge, Medicated Lozenge) 1 lozenge MUCOUS MEM Q2H PRN PRN Reason: Sore Throat Clonidine HCl (Clonidine Hcl 0.1 Mg Tablet) 0.1 mg PO TID PRN; Protocol PRN Reason: hyperarousal Last Admin: 01/07/22 21:18 Dose: 0.1 mg Hydroxyzine HCl (Hydroxyzine Hcl 25 Mg Tablet) 25 mg PO Q6H PRN PRN Reason: Anxiety Ibuprofen (Ibuprofen 400 Mg Tablet) 400 mg PO TIDWM PRN PRN Reason: Pain, Moderate (Pain Scale 4-6 Insulin Human Lispro (Insulin Lispro 100 Unit/Ml 3 Ml Vial) 0 unit SUBCUT QIDACHS [facility]; Protocol Last Admin: 01/10/22 09:13 Dose: 4 unit Lidocaine (Lidocaine 4 % Patch Adh..Patch) 2 patch TRANSDERMA DAILY [facility]; Protocol Last Admin: 01/09/22 09:38 Dose: Not Given [place] Carbonate ([place] Carbonate 300 Mg Capsule) 600 mg PO BID [facility] Last Admin: 01/10/22 08:56 Dose: 600 mg Lorazepam (Lorazepam 1 Mg Tablet) 1 mg PO Q4H PRN PRN Reason: Anxiety Lurasidone HCl (Lurasidone Hcl 80 Mg Tablet) 80 mg PO DAILY@1700 [facility] Last Admin: 01/09/22 17:45 Dose: 80 mg Magnesium Hydroxide (Milk Of Magnesia 30 Ml Oral.Susp) 30 ml PO DAILY PRN PRN Reason: Constipation Metformin HCl (Metformin Hcl 1,000 Mg Tablet) 1,000 mg PO BIDWM [facility] Last Admin: 01/10/22 08:56 Dose: 1,000 mg Olanzapine (Olanzapine 10 Mg Tablet) 10 mg PO Q6H PRN PRN Reason: agitation Omeprazole (Omeprazole 20 Mg Capsule.Dr) 20 mg PO DAILY@0630 [facility] Last Admin: 01/10/22 08:56 Dose: 20 mg Ondansetron HCl (Ondansetron Odt 4 Mg Tab.Rapdis) 4 mg TRANSLINGU ONCE PRN PRN Reason: Nausea and Vomiting Last Admin: 01/03/22 11:21 Dose: 4 mg Allergies Allergies Allergy/AdvReac Type Severity Reaction Status Date / Time morphine [Morphine] Allergy Unknown HIVES Verified 01/02/22 11:58 shellfish derived Allergy Redness of Verified 01/02/22 11:58 Skin Iodinated Contrast Media AdvReac Anxiety Verified 01/02/22 11:58 [Contrast Dye] Assessment & Plan Assessment & Plan (1) Bipolar 1 disorder: Status: Acute Code(s): F31.9 - Bipolar disorder, unspecified Assessment and Plan: seems to be improving mood cerrato, less irritable, less manic- sleeping- redirectable somatic focus today used for diabetes management edu Plan Adrián is a 41 y.o. male who carries a dx of Bipolar 1 disorder versus schizoaffective disorder bipolar type. He presented to [facility] on 01/02/22 due to having a panic attack,? referred by a bystander due to manic presentation. Pt denies alcohol abuse. Utox is neg. Per [facility] crisis eval, pt stated ?I have demons in my body, I have snakes in my legs, just look at it, I feel nausea when people pray for me. ? Plan: 1. still on 3day, 15 minutes checks 2. continue current medications, olanzapine prn for agitation. ativan for anxiety 3. obtain collateral information 4. aftercare planning 01/06 continue lithium 600mg po BID, Latuda 80mg po dinner, prn olanzapine +ativan 01/07 continue current medications 01/08 no change to treatment plan. 7/17 no change 01/10 continue current medications, lithium level scheduled for 01/12/2022. Plan dc on 01/12/22. I spent minutes with the patient and/or on the patient floor today, great er than?50% of which was spent counseling/coordinating care. Reason for contiued inpatient stay Substantial Risk for: harm to others and inability to function
[2022-01-10 12:24] LABS: Glucose, Whole Blood 211 mg/dL (60-115)
[2022-01-10] MEDS: Ibuprofen 400 MG TABLET PO (13:15)
[2022-01-10] MEDS: LORazepam 1 MG TABLET PO (15:59)
[2022-01-10 17:28] LABS: Glucose, Whole Blood 261 mg/dL (60-115)
[2022-01-10 18:00] VITALS: BP 126/80; PULSE 88; RESP 20; TEMP 36.7; O2SAT 96
[2022-01-10] MEDS: Lurasidone HCl 80 MG TABLET PO (18:11)
[2022-01-10] MEDS: Atorvastatin Calcium 20 MG TABLET PO (20:58)
[2022-01-10 21:10] LABS: Glucose, Whole Blood 276 mg/dL (60-115)
[2022-01-11] MEDS: cloNIDine HCL 0.1 MG TABLET PO (00:47)
[2022-01-11 08:20] VITALS: BP 129/69; PULSE 77; RESP 18; TEMP 36.7; O2SAT 98
[2022-01-11 08:34] LABS: Glucose, Whole Blood 251 mg/dL (60-115)
[2022-01-11] MEDS: Lithium Carbonate 300 MG CAPSULE 600 MG PO ×2 (08:35→21:30)
[2022-01-11] MEDS: Omeprazole 20 MG CAPSULE.DR PO (08:35)
[2022-01-11] MEDS: metFORMIN HCl 1,000 MG TABLET 1000 MG PO ×2 (08:35→18:02)
[2022-01-11] MEDS: Insulin Lispro 100 UNIT/ML 3 ML VIAL SUBCUT ×4 (09:20→21:30)
--- NOTE | 2022-01-11 12:00 | P.PNPSI_ITS ---
Subjective Subjective Date of Service: 01/11/22 Reason For Visit: ulysses Subjective Notes: Conditional Voluntary and 3 Day Interim History: Pt had two incidents of agitation yesterday when requesting staff to help him switch insurance. He was informed this is something he has to do either on his own or with aid of health insurance office manager at health center. He was calmer this morning, slightly less pressured, still hyperverbal. He denies SI/HI. He reports medications helping mood in that he notes he is calmer. He reports he plans to continue OP psych services through [facility]. He also reports he goes to a day program in [place]. Medication Compliance: Yes Side effects from medications: No Review of Systems Review of Systems CVS: C/o chest pain, ordered EKG and reviewed, NSR, QTc 408, Denies palpitations, no SOB [employer]: No c/o dizziness, headache GI: No c/o Nausea, Vomiting, diarrhea, constipation or heartburn Reports system reviewed and no additional complaints, except as documented Musculoskeletal: Reports no additional musculoskeletal complaints Psychiatric: Reports anxiety Mental Status Exam Mental Status Exam Narrative: Appearance: MO, csually groomed, improved hygiene in NAD Behavior:calmer, cooperative psychomotor:no retardation or agitation noted Speech:clear, not pressured, still slightly hyperverbal, regular rhythm/volume, spontaneous Thought process:less flight of ideas. Thought content: more accepting of care, feeling calmer Mood: good Affect: less expansive SI:denies HI:denies VH/AH:none Delusions:no overt delusional content reported or noted. Insight/judgment:improving x 2. Memory/cog: alert, oriented x 3. Patient Appearance: Appropriate Patient Orientation: Person, Place, Time and Situation Level of Consciousness: Awake Patient Behavior: Talkative and Invasion - Personal Space Mood Description: Expansive Affect Description: Calm Patient Cognition Impaired: No Ability to Follow Directions: Fair Speech Pattern: Clear Diagnostics Vital Signs (24Hr): Vital Signs - 24 hr 01/10/22 18:00 01/11/22 08:20 Temperature 98.1 F 98.0 F Pulse Rate 88 77 Respiratory Rate 20 18 Blood Pressure 126/80 129/69 Pulse Oximetry 96 98 Oxygen Delivery Method Room Air Room Air BMI result Body Mass Index 43.1 Labs Results: 01/02/22 16:11 01/05/22 08:05 Labs: Laboratory Results - last 48 hr 01/09/22 01/09/22 01/09/22 12:59 17:45 20:57 POC Glucose 230 H 265 H 271 H 01/10/22 01/10/22 01/10/22 07:46 12:19 17:23 POC Glucose 222 H 211 H 261 H 01/10/22 01/11/22 20:56 08:30 POC Glucose 276 H 251 H Medications Medications Current Medications Acetaminophen (Acetaminophen 325 Mg Tablet) 650 mg PO Q6H PRN PRN Reason: Headache/Pain Mild Scale (1-3) Last Admin: 01/08/22 11:22 Dose: 650 mg Al Hydroxide/Mg Hydroxide (Magnesium Hydrox/Alum Hydrox 30 Ml Oral.Susp) 30 ml PO Q6H PRN PRN Reason: Heartburn/Nausea Last Admin: 01/07/22 21:19 Dose: 30 ml Atorvastatin Calcium (Atorvastatin Calcium 20 Mg Tablet) 20 mg PO BEDTIME BOOGIE Last Admin: 01/10/22 20:58 Dose: 20 mg Benzocaine (Throat Lozenge, Medicated Lozenge) 1 lozenge MUCOUS MEM ONCE PRN PRN Reason: Cough Last Admin: 01/09/22 10:54 Dose: 1 lozenge Benzocaine (Throat Lozenge, Medicated Lozenge) 1 lozenge MUCOUS MEM Q2H PRN PRN Reason: Sore Throat Clonidine HCl (Clonidine Hcl 0.1 Mg Tablet) 0.1 mg PO TID PRN; Protocol PRN Reason: hyperarousal Last Admin: 01/11/22 00:47 Dose: 0.1 mg Hydroxyzine HCl (Hydroxyzine Hcl 25 Mg Tablet) 25 mg PO Q6H PRN PRN Reason: Anxiety Ibuprofen (Ibuprofen 400 Mg Tablet) 400 mg PO TIDWM PRN PRN Reason: Pain, Moderate (Pain Scale 4-6 Last Admin: 01/10/22 13:15 Dose: 400 mg Insulin Human Lispro (Insulin Lispro 100 Unit/Ml 3 Ml Vial) 0 unit SUBCUT QIDACHS [facility]; Protocol Last Admin: 01/11/22 09:20 Dose: 6 unit Lidocaine (Lidocaine 4 % Patch Adh..Patch) 2 patch TRANSDERMA DAILY [facility]; Protocol Last Admin: 01/11/22 08:38 Dose: Not Given Pastoria Carbonate (Pastoria Carbonate 300 Mg Capsule) 600 mg PO BID [facility] Last Admin: 01/11/22 08:35 Dose: 600 mg Lorazepam (Lorazepam 1 Mg Tablet) 1 mg PO Q4H PRN PRN Reason: Anxiety Last Admin: 01/10/22 15:59 Dose: 1 mg Lurasidone HCl (Lurasidone Hcl 80 Mg Tablet) 80 mg PO DAILY@1700 [facility] Last Admin: 01/10/22 18:11 Dose: 80 mg Magnesium Hydroxide (Milk Of Magnesia 30 Ml Oral.Susp) 30 ml PO DAILY PRN PRN Reason: Constipation Metformin HCl (Metformin Hcl 1,000 Mg Tablet) 1,000 mg PO BIDWM [facility] Last Admin: 01/11/22 08:35 Dose: 1,000 mg Olanzapine (Olanzapine 10 Mg Tablet) 10 mg PO Q6H PRN PRN Reason: agitation Omeprazole (Omeprazole 20 Mg Capsule.Dr) 20 mg PO DAILY@0630 [facility] Last Admin: 01/11/22 08:35 Dose: 20 mg Ondansetron HCl (Ondansetron Odt 4 Mg Tab.Rapdis) 4 mg TRANSLINGU ONCE PRN PRN Reason: Nausea and Vomiting Last Admin: 01/03/22 11:21 Dose: 4 mg Allergies Allergies Allergy/AdvReac Type Severity Reaction Status Date / Time morphine [Morphine] Allergy Unknown HIVES Verified 01/02/22 11:58 shellfish derived Allergy Redness of Verified 01/02/22 11:58 Skin Iodinated Contrast Media AdvReac Anxiety Verified 01/02/22 11:58 [Contrast Dye] Assessment & Plan Assessment & Plan (1) Bipolar 1 disorder: Status: Acute Code(s): F31.9 - Bipolar disorder, unspecified Assessment and Plan: seems to be improving mood cerrato, less irritable, less manic- sleeping- redirectable somatic focus today used for diabetes management edu Frantz Adrián is a 41 y.o. male who carries a dx of Bipolar 1 disorder versus schizoaffective disorder bipolar type. He presented to [facility] ED on 01/02/22 due to having a panic attack,? referred by a bystander due to manic presentation. Pt denies alcohol abuse. Utox is neg. Per [facility] crisis eval, pt stated ?I have demons in my body, I have snakes in my legs, just look at it, I feel nausea when people pray for me. ? Plan: 1. still on 3day, 15 minutes checks 2. continue current medications, olanzapine prn for agitation. ativan for anxiety 3. obtain collateral information 4. aftercare planning 01/06 continue lithium 600mg po BID, Latuda 80mg po dinner, prn olanzapine +ativan 01/07 continue current medications 01/08 no change to treatment plan. 01/09 no change 01/10 continue current medications, lithium level scheduled for 01/12/2022. Plan dc on 01/12/22. 01/11 continue current medications. I spent minutes with the patient and/or on the patient floor today, greater than?50% of which was spent counseling/coordinating care. Reason for contiued inpatient stay Substantial Risk for: inability to function
[2022-01-11 12:58] LABS: Glucose, Whole Blood 218 mg/dL (60-115)
[2022-01-11 17:38] LABS: Glucose, Whole Blood 287 mg/dL (60-115)
[2022-01-11] MEDS: Ibuprofen 400 MG TABLET PO (18:02)
[2022-01-11] MEDS: Lurasidone HCl 80 MG TABLET PO (18:02)
[2022-01-11 21:25] LABS: Glucose, Whole Blood 282 mg/dL (60-115)
[2022-01-11 21:30] VITALS: BP 159/75; PULSE 89; RESP 18; TEMP 36.6; O2SAT 97
[2022-01-11] MEDS: Atorvastatin Calcium 20 MG TABLET PO (21:30)
[2022-01-12] MEDS: Omeprazole 20 MG CAPSULE.DR PO (05:18)
--- NOTE | 2022-01-12 07:32 | P.DS_ITS ---
DS: Providers Provider Date of admission: 01/04/22 16:23 Primary care physician: None Physician DS: Diagnosis Discharge Diagnosis (1) Bipolar 1 disorder: Status: Acute DS: Medications Discharge Medications Home Medications: Home Medications Medication Instructions Recorded Confirmed dulaglutide 1.5 mg/0.5 mL 1.5 mg subcut QWEEK 01/02/22 01/02/22 subcutaneous pen injector (Trulicity) Previous Rx's Medication Instructions Recorded atorvastatin 20 mg tablet 20 mg PO BEDTIME #30 tabs 01/12/22 lithium carbonate 450 mg 900 mg PO BEDTIME #60 tabs 01/12/22 tablet,extended release lurasidone 80 mg tablet (Latuda) 80 mg PO DAILY@1700 #30 tabs 01/12/22 metformin 1,000 mg tablet 1,000 mg PO BIDWM #60 tabs 01/12/22 omeprazole 20 mg capsule,delayed 20 mg PO DAILY@0630 #30 caps 01/12/22 release Data Data Completed and Pending Completed studies during hospitalization [Text1]: 01/05/22 01/05/22 01/05/22 08:05 08:05 08:05 Sodium 136 Potassium 4.9 Chloride 100 Carbon Dioxide 29 Anion Gap 12 BUN 13 Creatinine 0.88 Estim Creat Clear Calc 142.9 Estimated GFR > 60 POC Glucose Fasting Glucose 330 H Estimat Average Glucose 286 Hemoglobin A1c % 11.6 Calcium 9.4 Total Bilirubin 0.2 AST 12 ALT 19 Alkaline Phosphatase 121 H Total Protein 7.1 Albumin 4.0 Triglycerides 246 Cholesterol 209 LDL Cholesterol, Calc 125 HDL Cholesterol 35 Vitamin B12 424 Folate 7.9 TSH 1.61 01/05/22 01/05/22 01/05/22 08:52 12:51 17:49 Sodium Potassium Chloride Carbon Dioxide Anion Gap BUN Creatinine Estim Creat Clear Calc Estimated GFR POC Glucose 305 H 225 H 213 H Fasting Glucose Estimat Average Glucose Hemoglobin A1c % Calcium Total Bilirubin AST ALT Alkaline Phosphatase Total Protein Albumin Triglycerides Cholesterol LDL Cholesterol, Calc HDL Cholesterol Vitamin B12 Folate TSH 01/06/22 01/06/22 01/06/22 08:26 11:25 17:23 Sodium Potassium Chloride Carbon Dioxide Anion Gap BUN Creatinine Estim Creat Clear Calc Estimated GFR POC Glucose 255 H 280 H 208 H Fasting Glucose Estimat Average Glucose Hemoglobin A1c % Calcium Total Bilirubin AST ALT Alkaline Phosphatase Total Protein Albumin Triglycerides Cholesterol LDL Cholesterol, Calc HDL Cholesterol Vitamin B12 Folate TSH 01/06/22 01/07/22 01/07/22 21:31 08:51 17:12 Sodium Potassium Chloride Carbon Dioxide Anion Gap BUN Creatinine Estim Creat Clear Calc Estimated GFR POC Glucose 217 H 218 H 244 H Fasting Glucose Estimat Average Glucose Hemoglobin A1c % Calcium Total Bilirubin AST ALT Alkaline Phosphatase Total Protein Albumin Triglycerides Cholesterol LDL Cholesterol, Calc HDL Cholesterol Vitamin B12 Folate [facility] 01/07/22 01/08/22 01/08/22 22:23 09:10 12:43 Sodium Potassium Chloride Carbon Dioxide Anion Gap BUN Creatinine Estim Creat Clear Calc Estimated GFR POC Glucose 213 H 187 H 271 H Fasting Glucose Estimat Average Glucose Hemoglobin A1c % Calcium Total Bilirubin AST ALT Alkaline Phosphatase Total Protein Albumin Triglycerides Cholesterol LDL Cholesterol, Calc HDL Cholesterol Vitamin B12 Folate [facility] 01/08/22 01/08/22 01/09/22 17:40 21:21 08:51 Sodium Potassium Chloride Carbon Dioxide Anion Gap BUN Creatinine Estim Creat Clear Calc Estimated GFR POC Glucose 233 H 262 H 282 H Fasting Glucose Estimat Average Glucose Hemoglobin A1c % Calcium Total Bilirubin AST ALT Alkaline Phosphatase Total Protein Albumin Triglycerides Cholesterol LDL Cholesterol, Calc HDL Cholesterol Vitamin B12 Folate [facility] 01/09/22 01/09/22 01/09/22 12:59 17:45 20:57 Sodium Potassium Chloride Carbon Dioxide Anion Gap BUN Creatinine Estim Creat Clear Calc Estimated GFR POC Glucose 230 H 265 H 271 H Fasting Glucose Estimat Average Glucose Hemoglobin A1c % Calcium Total Bilirubin AST ALT Alkaline Phosphatase Total Protein Albumin Triglycerides Cholesterol LDL Cholesterol, Calc HDL Cholesterol Vitamin B12 Folate [facility] 01/10/22 01/10/22 01/10/22 07:46 12:19 17:23 Sodium Potassium Chloride Carbon Dioxide Anion Gap BUN Creatinine Estim Creat Clear Calc Estimated GFR POC Glucose 222 H 211 H 261 H Fasting Glucose Estimat Average Glucose Hemoglobin A1c % Calcium Total Bilirubin AST ALT Alkaline Phosphatase Total Protein Albumin Triglycerides Cholesterol LDL Cholesterol, Calc HDL Cholesterol Vitamin B12 Folate [facility] 01/10/22 01/11/22 01/11/22 20:56 08:30 12:40 Sodium Potassium Chloride Carbon Dioxide Anion Gap BUN Creatinine Estim Creat Clear Calc Estimated GFR POC Glucose 276 H 251 H 218 H Fasting Glucose Estimat Average Glucose Hemoglobin A1c % Calcium Total Bilirubin AST ALT Alkaline Phosphatase Total Protein Albumin Triglycerides Cholesterol LDL Cholesterol, Calc HDL Cholesterol Vitamin B12 Folate [facility] 01/11/22 01/11/22 17:33 21:20 Sodium Potassium Chloride Carbon Dioxide Anion Gap BUN Creatinine Estim Creat Clear Calc Estimated GFR POC Glucose 287 H 282 H Fasting Glucose Estimat Average Glucose Hemoglobin A1c % Calcium Total Bilirubin AST ALT Alkaline Phosphatase Total Protein Albumin Triglycerides Cholesterol LDL Cholesterol, Calc HDL Cholesterol Vitamin B12 Folate TSH DS: Summary Time Spent with Patient Time attestation: Total time spent providing and/or coordinating discharge services: Discharge Plan Discharge Patient Disposition: Home Health Service Discharge Diagnosis: bipolar disorder type 1 Referrals: Delores Ward (Therapy) [Other] - 01/18/22 10:00 am (IN OFFICE APPOINTMENT) Norah Hernandez (Psychiatry) [Other] - 02/14/22 3:00 pm (IN OFFICE APPOINTMENT -Psychiatric Evaluation ) Norah Hernandez (Psychiatry) [Other] - 03/16/22 11:00 am (IN OFFICE APPOINTMENT -Medication Management ) Roc Hwang MD [Physician] - 1 Week (Provider would call pt for follow up appt ) Discharge Medications: New atorvastatin 20 mg Tablet 20 mg PO BEDTIME Qty: 30 0RF lithium carbonate 450 mg tablet extended release 900 mg PO BEDTIME Qty: 60 0RF metformin 1,000 mg Tablet 1,000 mg PO BIDWM Qty: 60 0RF omeprazole 20 mg Capsule,Delayed Release(Dr/Ec) 20 mg PO DAILY@0630 Qty: 30 0RF Latuda 80 mg Tablet 80 mg PO DAILY@1700 Qty: 30 0RF Continued Trulicity 1.5 mg/0.5 mL pen injector 1.5 mg subcut QWEEK Discontinued metformin 500 mg tablet 2 tab PO BID atorvastatin 20 mg tablet 1 tab PO BEDTIME hydroxyzine HCl 50 mg tablet 1 tab PO Q6H PRN (Reason: anxiety) omeprazole 20 mg capsule,delayed release(DR/EC) 1 cap PO DAILY Latuda 80 mg tablet 1 tab PO QPM Discharge Orders: Discharge Order (Routine); Ordered 01/12/22 Ordered By: Shelly Conn Diet: Diabetic diet Activity on Discharge: As tolerated Stand Alone Forms: Patient Portal Discharge page, Community Support Care Plan Goals: 1. Maintain mood 2. No SI/HI 3. no aggression towards self or others. Health Concerns: Follow up with PCP Plan of Treatment: 1. Take medications as prescribed 2. Go to nearest ED or call 911 in event of emergency Assessment: Pt with less labile affect, less restorationism preoccupations. No SI/HI. No aggression towards self or others. Sleep improved. Discharge Date/Time: 01/12/22 09:03
[2022-01-12 08:00] VITALS: BP 137/83; PULSE 83; RESP 18; TEMP 36.2; O2SAT 97
[2022-01-12 08:00] LABS: Glucose, Whole Blood 258 mg/dL (60-115)
[2022-01-12] MEDS: Insulin Lispro 100 UNIT/ML 3 ML VIAL SUBCUT (08:01)
[2022-01-12] MEDS: metFORMIN HCl 1,000 MG TABLET 1000 MG PO (08:01)
[2022-01-12] MEDS: Lithium Carbonate 300 MG CAPSULE 600 MG PO (08:01)
[2022-01-12 09:35] LABS: Lithium 0.56 mmol/L (0.60-1.20)
[2022-01-12 09:40] LABS: Creatinine Clr Calc Pharmacy 155.4; Estimated Glomerular Filt Rate > 60
[2022-01-12 10:02] LABS: TSH reflex Free T4 3.76 uIU/mL (0.32-4.0)
--- NOTE | 2022-01-12 11:13 | P.DS_ITS ---
DS: Providers Provider Date of Service: 01/12/22 Date of admission: 01/04/22 16:23 Date of discharge: 01/12/22 Primary care physician: None Physician Attending physician on discharge: Wes Hill DS: Diagnosis Discharge Diagnosis (1) Bipolar 1 disorder: Status: Acute DS: Medications Discharge Medications Home Medications: Home Medications Medication Instructions Recorded Confirmed dulaglutide 1.5 mg/0.5 mL 1.5 mg subcut QWEEK 01/02/22 01/02/22 subcutaneous pen injector (Trulicity) Previous Rx's Medication Instructions Recorded atorvastatin 20 mg tablet 20 mg PO BEDTIME #30 tabs 01/12/22 lithium carbonate 450 mg 900 mg PO BEDTIME #60 tabs 01/12/22 tablet,extended release lurasidone 80 mg tablet (Latuda) 80 mg PO DAILY@1700 #30 tabs 01/12/22 metformin 1,000 mg tablet 1,000 mg PO BIDWM #60 tabs 01/12/22 omeprazole 20 mg capsule,delayed 20 mg PO DAILY@0630 #30 caps 01/12/22 release Mental Status Exam Mental Status Exam Narrative: Appearance: MO, casually groomed, improved hygiene in NAD Behavior:calmer, cooperative psychomotor:no retardation or agitation noted Speech:clear, not pressured, regular rhythm/volume, spontaneous Thought process:tangential but not flight of ideas Thought content: more accepting of care, feeling calmer Mood: good Affect: less expansive SI:denies HI:denies VH/AH:none Delusions:no overt delusional content reported or noted. Insight/judgment:improving x 2. Memory/cog: alert, oriented x 3. DS: Summary Hospital Course Hospital Course: Subjective Notes: Calixto Warning, Conditional Voluntary and 3 Day Healthcare Proxy: No Guardianship: No Medical Problems Affecting Mental Status: No Narrative: Adrián is a 41 y.o. male who carries a dx of Bipolar 1 disorder versus schizoaffective disorder bipolar type. He presented to [facility] ED on 01/02/22 due to having a panic attack,? referred by a bystander due to manic presentation. Pt denies alcohol abuse. Utox is neg. Per [facility] crisis eval, pt stated ?I have demons in my body, I have snakes in my legs, just look at it, I feel nausea when people pray for me. I evaluated the pt this evening and upon interview he states ?I called the court office, this hospital will be completely shut down,? says he filed a police report and he is suing the hospital because ?Im not supposed to be on this unit.? Says a person from [facility] called 911 due to him having a panic attack. During the interview, pt says he is having an ?anxious panic attack,? complains chest pain, asks for an EKG. Pt denies depression, says ?Im happy, i?m always happy.? Denies SI/SIB. Feels safe. Denies A/VH. Pt presents as hyperverbal, pressured, labile, expansive, and manic. Says if he is ?not getting my food hot? then he will throw a chair, ?they gotta order what I asked for and bring it on time.? He is paranoid and has multiple somatic complaints. Says his ?kidney hurts and is red,? then points to his R abdomen. When told his UA and renal labs are wnl, he said he does not believe the results are real. He asks for a scan of his kidneys and chest, tells me he vomits blood when he has panic attacks. Reports he recently came back from [place], [place] after briefly moving there 08/2021-11/2021 because he was ?running from problems, people want to kill me.? He was homeless, in a correction while there. Prior to that he was hospitalized at [facility] in [place] in 0 07/2021. Had been non-adherent on meds due to the pharmacies in [place] not taking his insurance.? Past Psychiatric History: -Past meds: Latuda 80 mg last filled 07/2021 (from provider Andrea Valle at [facility] in [place]), prior to that it had not been filled since 04/2021 (from Katarzyna Reyez, psych POST PRODUCTION ASSISTANT at [facility]), Clonidine 0.1 mg QAM (prescribed in 07/2021), risperdal, abilify 30 mg, tr azodone, wellbutrin XL 150 mg. -No OP psych services. Previously at [facility], saw Katarzyna Reyez, Psych POST PRODUCTION ASSISTANT. Attends [employer] every week. -Hx of IPLOC, last at [facility] in [place] in 07/2021, [facility] 01/2021, [facility] 2018, [facility] 2016, and [facility] 2015. Hx of CCS and PHP admissions. -Hx of crisis eval on 08/17/21 after he asked [facility] staff to call 911 due to experiencing A/VH.? -Hx of inability to care for self, non-adherence with medication including for his diabetes, paranoia, assaultive ideation, and gambling addiction. Medical Evaluation Reviewed: Yes HOSPITAL COURSE On the unit, Mr. Sutherland was admitted on a CV and placed on 15 minutes checks for safety. Pt presented as labile, agitated, adventism delusions, HI towards neighbors and poor sleep. He denied SI. After discussing risks, benefits and alternative treatment options, pt agreed to continue latuda which was titrated to 80mg po daily with dinner. He also agreed to start lithium for mood stabilization. His affect gradually presented as much less labile. He reported less adventism delusions. He was much less hyperverbal. He showed increased insight into his symptoms and need for treatment. He denied SI/HI. He did not show any signs of aggression towards self or others several days prior to discharge. Collateral information gathered from his aunt who denied safety concerns at time of discharge and reported that pt appeared in much improved conditions. Status at Discharge Cognitive/behavioral status at discharge: Pt with much less labile affect. No SI/HI. Less adventism delusions. No signs of aggression towards self or others. He was sleeping and eating well. No VH/AH. Functional status at discharge: independent ambulation Overall status at discharge: patient is not back to baseline Time Spent with Patient Time attestation: Total time spent providing and/or coordinating discharge services: Discharge Plan Discharge Patient Disposition: Home Health Service Discharge Diagnosis: bipolar disorder type 1 Referrals: Delores Ward (Therapy) [Other] - 01/18/22 10:00 am (IN OFFICE APPOINTMENT) Norah Hernandez (Psychiatry) [Other] - 02/14/22 3:00 pm (IN OFFICE APPOINTMENT -Psychiatric Evaluation ) Norah Hernandez (Psychiatry) [Other] - 03/16/22 11:00 am (IN OFFICE APPOINTMENT -Medication Management ) Roc Hwang MD [Physician] - 1 Week (Provider would call pt for follow up appt ) Discharge Medications: New atorvastatin 20 mg Tablet 20 mg PO BEDTIME Qty: 30 0RF lithium carbonate 450 mg tablet extended release 900 mg PO BEDTIME Qty: 60 0RF metformin 1,000 mg Tablet 1,000 mg PO BIDWM Qty: 60 0RF omeprazole 20 mg Capsule,Delayed Release(Dr/Ec) 20 mg PO DAILY@0630 Qty: 30 0RF Latuda 80 mg Tablet 80 mg PO DAILY@1700 Qty: 30 0RF Continued Trulicity 1.5 mg/0.5 mL pen injector 1.5 mg subcut QWEEK Discontinued metformin 500 mg tablet 2 tab PO BID atorvastatin 20 mg tablet 1 tab PO BEDTIME hydroxyzine HCl 50 mg tablet 1 tab PO Q6H PRN (Reason: anxiety) omeprazole 20 mg capsule,delayed release(DR/EC) 1 cap PO DAILY Latuda 80 mg tablet 1 tab PO QPM Discharge Orders: Discharge Order (Routine); Ordered 01/12/22 Ordered By: Shelly Conn Diet: Diabetic diet Activity on Discharge: As tolerated Stand Alone Forms: Patient Portal Discharge page, Community Support Care Plan Goals: 1. Maintain mood 2. No SI/HI 3. no aggression towards self or others. Health Concerns: Follow up with PCP Plan of Treatment: 1. Take medications as prescribed 2. Go to nearest ED or call 911 in event of emergency Assessment: Pt with less labile affect, less adventism preoccupations. No SI/HI. No aggression towards self or others. Sleep improved. Discharge Date/Time: 01/12/22 09:03
== END 2022-01-12 09:03 | disposition home health service (06) | DRG 885 ==
LOC: HO.ED 16:09 → HO.PADLT16 01-04 16:30
PROVIDERS: Physician Assistant Medical; Admitting Provider Psychiatry & Neurology Psychiatry; Emergency Provider Emergency Medicine; Visit Provider Social Worker
DX: F31.9 Bipolar disorder, unspecified (principal); R45.851 Suicidal ideations; K21.9 Gastro-esophageal reflux disease without esophagitis; I10 Essential (primary) hypertension; E11.9 Type 2 diabetes mellitus without complications; Z20.822 Contact with and (suspected) exposure to COVID-19; Z91.013 Allergy to seafood; Z91.041 Radiographic dye allergy status; Z88.5 Allergy status to narcotic agent; Z79.84 Long term (current) use of oral hypoglycemic drugs; Z79.899 Other long term (current) drug therapy
CPT/HCPCS: 36415; 80053; 80061; 80178; 80307; 81001; 82565; 82607; 82746; 82947; 83036; 84443; 85025; 87635; 93005; 99285

== ENCOUNTER 2022-04-08 08:43 | Emergency (ER) | payer OTHER, MEDICAID, SELFPAY ==
--- NOTE | ~2022-04-08 | XR_ITS ---
EXAMINATION: XR CHEST CLINICAL INFORMATION: Chest radiograph dated 11/25/2014. COMPARISON: None TECHNIQUE: Frontal view of the chest was obtained. FINDINGS: No significant abnormality is noted involving the heart, lungs, mediastinum, bony thorax or soft tissues. XR/XR chest 1V IMPRESSION: No acute cardiopulmonary process.
--- NOTE | ~2022-04-08 | CT_ITS ---
EXAMINATION: CT ABDOMEN AND PELVIS WITHOUT CONTRAST CLINICAL INFORMATION: Abdominal pain. Elevated white count COMPARISON: None TECHNIQUE: Multidetector volumetric imaging was performed from the superior aspect of the liver through the pubic symphysis. Sagittal and coronal reformatted images were obtained on the technologist's workstation. This CT examination was performed using dose optimization techniques as appropriate, variously including the following: *Automated exposure control *Adjustment of mA and/or kV according to patient size (this includes techniques or standardized protocols for targeted exams where dose is matched to indication/reason for exam; i.e. extremities or head) *Use of iterative reconstruction technique DLP: 1263 mGy-cm FINDINGS: LUNG BASES: The visualized lung bases are unremarkable. LIVER, GALLBLADDER, AND BILIARY TREE: Slight hepatic steatosis but no focal mass. No intrahepatic biliary dilatation. The gallbladder is unremarkable with no evidence of radiopaque gallstones, gallbladder wall thickening, or obvious pericholecystic inflammatory changes. PANCREAS: Unremarkable. SPLEEN: Unremarkable. ADRENAL GLANDS: Unremarkable. KIDNEYS AND URETERS: The kidneys are normal in size, shape, and attenuation. No hydronephrosis, hydroureter, or calculi seen. No perinephric stranding. BLADDER: Bladder is thick walled but decompressed. GASTROINTESTINAL TRACT: Appendix normal. No bowel obstruction or left lower quadrant inflammatory change. ABDOMINAL WALL: No significant hernia is appreciated. LYMPH NODES: Normal. VASCULAR: Minor atherosclerotic change at the iliac bifurcation. No aneurysm. PELVIC VISCERA: Seminal vesicles and prostate are age-appropriate. OSSEOUS STRUCTURES: There is spondylitic and degenerative change in the lower thoracic spine. CT/CT abdomen pelvis wo IV con IMPRESSION: Thick walled bladder which is decompressed. Cystitis not excluded. Please correlate with laboratory values. The appendix is normal.
[2022-04-08 08:57] VITALS: BP 137/83; BP 146/80; PULSE 100; PULSE 85; RESP 16; TEMP 36.9; O2SAT 96; O2SAT 98; BMI 44.7
[2022-04-08 09:35] LABS: MANUAL DIFF FLAG NO
[2022-04-08 09:40] LABS: Basophils Absolute Auto 0.1 X10*3/uL (0.0-0.2); Basophils Percent Auto 0.3 % (0-2); Eosinophils Absolute Auto 0.2 X10*3/uL (0.0-0.4); Eosinophils Percent Auto 1.5 % (0-4); Hematocrit 37.8 % (42.0-52.0); Hemoglobin 12.3 g/dl (14.0-18.0); Imm Gran Abs Auto 0.07 X10*3/uL (0.00-0.03); Imm Gran Pct Auto 0.4 % (0.0-0.4); Lymphocytes Absolute Auto 1.4 X10*3/uL (1.2-4.9); Lymphocytes Percent Auto 8.7 % (20-40); Mean Corpuscular HGB Conc 32.5 g/dl (31.0-36.0); Mean Corpuscular Hemoglobin 27.8 pg (27.0-33.0); Mean Corpuscular Volume 85.3 fL (80.0-98.0); Mean Platelet Volume 10.5 fL (9.4-12.4); Monocytes Absolute Auto 0.9 X10*3/uL (0.1-1.2); Monocytes Percent Auto 5.6 % (2-11); Neutrophils Absolute Auto 13.7 x10*3/uL (2.0-8.3); Neutrophils Percent Auto 83.5 % (45-73); Platelet Count 323 X10*3/uL (160-400); Red Blood Count 4.43 X10*6/uL (4.60-5.80); Red Cell Distribution Width 13.1 % (11.0-16.0); White Blood Count 16.4 X10*3/uL (4.8-10.8)
--- NOTE | 2022-04-08 09:43 | ED_ITS ---
HPI - General Adult General Chief complaint: Abdominal Pain Stated complaint: ABD DISTENTION Time Seen by Provider: 04/08/22 09:01 Source: patient Mode of arrival: ambulatory Limitations: no limitations History of Present Illness HPI narrative: 41 yold malel with pmh fo schizophrenia, Bipolar, DM, GERD, HTN presents to the ED for chest pain for one year and abdominal pain for one year. Patient denies any suicidal/homicidal thoughts. Patient was seen at [facility] and states nothing was done. patient denies any dysuria, hematuria, fever, chills, leg swelling, calf pain, coughing up blood, recent long travel, recent surgery, or any history of blood clots. Related Data Home Medications Medication Instructions Recorded Confirmed dulaglutide 1.5 mg/0.5 mL 1.5 mg subcut QWEEK 01/02/22 01/02/22 subcutaneous pen injector (Trulicity) Previous Rx's Medication Instructions Recorded atorvastatin 20 mg tablet 20 mg PO BEDTIME #30 tabs 01/12/22 lithium carbonate 450 mg 900 mg PO BEDTIME #60 tabs 01/12/22 tablet,extended release lurasidone 80 mg tablet (Latuda) 80 mg PO DAILY@1700 #30 tabs 01/12/22 metformin 1,000 mg tablet 1,000 mg PO BIDWM #60 tabs 01/12/22 omeprazole 20 mg capsule,delayed 20 mg PO DAILY@0630 #30 caps 01/12/22 release naproxen 500 mg tablet 500 mg PO BID PRN pain 10 days #20 04/08/22 tabs Allergies Allergy/AdvReac Type Severity Reaction Status Date / Time morphine [Morphine] Allergy Unknown HIVES Verified 01/02/22 11:58 shellfish derived Allergy Redness of Verified 01/02/22 11:58 Skin Iodinated Contrast Media AdvReac Anxiety Verified 01/02/22 11:58 [Contrast Dye] Review of Systems Review of Systems: Chest pain abdominal pain for 1 year Yes all other systems are reviewed and are negative [facility] Past Medical History Medical History Diabetes mellitus Essential (primary) hypertension GERD (gastroesophageal reflux disease) Schizoaffective disorder Surgical History No pertinent past surgical history Family History Family History Father Heart disease Chronic mental illness Depression Mother Cancer Sister Cancer Social History Social History Household Members: Unknown / Unable to assess Housing: Apartment Unable to assess alcohol history related to: Unknown Alcohol intake: former Patient Tobacco Use Status: Former Tobacco user e-Cigarette/Vaping Use: Never Used service: No Current occupational status: disabled Sexual orientation: Don't Know Physical Exam ED Vital Signs: Vital Signs - 24 hr 04/08/22 08:57 04/08/22 10:10 04/08/22 11:57 Temperature 98.5 F 97.9 F 97.6 F Pulse Rate 85 77 81 Respiratory Rate 16 24 H 15 Blood Pressure 137/83 141/80 H 141/92 H Pulse Oximetry 96 92 95 Oxygen Delivery Method Room Air Room Air Room Air 04/08/22 12:00 Temperature 97.9 F Pulse Rate 71 Respiratory Rate 14 Blood Pressure 159/96 H Pulse Oximetry 96 Oxygen Delivery Method Room Air BMI result Body Mass Index 44.7 Const General: cooperative, healthy appearing, comfortable, no acute distress, well developed, alert, awake and Physically active Orientation/consciousness: patient oriented x3 HENMT Head: Yes normal to inspection, Yes No palpable skull fracture present, Yes normocephalic, Yes atraumatic and No abrasion Eyes General: appearance normal, both eyes and all related structures Neck Neck: Yes normal visual inspection, Yes full ROM, Yes no lymphadenopathy, Yes no meningeal signs, Yes trachea midline, Yes supple, No anterior neck swelling and No tender Chest Chest palpation & inspection: normal inspection of the chest and normal palp ation of entire chest wall Resp Effort & Inspection: normal respiratory effort and able to speak in complete sentences Auscultation: clear to auscultation bilaterally Cardio Jugular venous distension: no JVD Heart sounds: S1 normal heart sound present and S2 normal heart sound present GI Other: Patient obese. He states abdomen is normal size. Abdomen is not hard. Negative for fluid shift. Negative for Telencgtasia Inspection: Yes normal to inspection, No abdominal wall ecchymosis and No distended Palpation (GI): Soft to palpation, not firm, nontender, no guarding and not rigid General: No CVA tenderness and Yes no CVA tenderness Back/Spine/Pelvis Back: no CVA tenderness, No CVA tenderness and No back tenderness Skin General skin exam: no rashes or lesions noted and elasticity normal Neuro General: patient oriented x3, gait normal, tone normal and no meningeal signs Cranial nerves: Yes CN's II-XII intact bilaterally Extrem Other: Bilateral lower extremities negative for swelling, pitting edema, calf tenderness General: Yes normal to inspection and Yes full ROM Psych Other: Flat affect Appearance: grossly normal and well kempt Mental Status: mental status grossly normal Thought process: Tangential thought process present Course Course Course Narrative: Patient any distress. Patient not suicidal homicidal. Patient talking in a tangent not in distress. Will do basic labs. Reevaluation(s) Reevaluation #1: EKG negative STEMI. Two troponins negative. Not suspecting PE. No need for D- dimer. Perc score 0. BNP negative chest x-ray negative for cardiomegaly. Not suspecting CHF. Abdominal CT scan normal. Patient is sleeping comfortably in bed. UA negative for UTI. Patient is safe for discharge. Chest x-ray normal Time: 15:46 Medical Decision Making [facility] Narrative Medical decision making narrative: Chest pain abdominal pain Lab Data Result diagrams: 04/08/22 09:29 04/08/22 09:29 Labs: Lab Results 04/08/22 04/08/22 04/08/22 Range/Units 09:29 09:29 09:29 WBC 16.4 H (4.8-10.8) X10*3/uL RBC 4.43 L (4.60-5.80) X10*6/uL Hgb 12.3 L (14.0-18.0) g/dl Hct 37.8 L (42.0-52.0) % MCV 85.3 (80.0-98.0) fL MCH 27.8 (27.0-33.0) pg MCHC 32.5 (31.0-36.0) g/dl RDW 13.1 (11.0-16.0) % Plt Count 323 (160-400) X10*3/uL MPV 10.5 (9.4-12.4) fL Immature Gran % (Auto) 0.4 (0.0-0.4) % Neut % (Auto) 83.5 H (45-73) % Lymph % (Auto) 8.7 L (20-40) % [place] % (Auto) 5.6 (2-11) % Eos % (Auto) 1.5 (0-4) % Baso % (Auto) 0.3 (0-2) % Lymph # (Auto) 1.4 (1.2-4.9) X10*3/uL [place] # (Auto) 0.9 (0.1-1.2) X10*3/uL Eos # (Auto) 0.2 (0.0-0.4) X10*3/uL Baso # (Auto) 0.1 (0.0-0.2) X10*3/uL Abs Immat Gran (auto) 0.07 H (0.00-0.03) X10*3/uL Absolute Neuts (auto) 13.7 H (2.0-8.3) x10*3/uL Absolute Nucleated RBC 0.000 (0.0-0.012) X10*3/uL Nucleated RBC % (auto) 0.0 (0.0-0.2) /100WBC PT 11.9 (10.0-13.1) SEC INR 1.0 (0.9-1.1) APTT 32.4 (26.0-36.4) SEC Sodium 137 (135-145) mmol/L Potassium 4.1 (3.3-5.1) mmol/L Chloride 99 (96-108) mmol/L Carbon Dioxide 28 (22-29) mmol/L Anion Gap 14 (12-20) BUN 18 H (9-16) mg/dL Creatinine 0.82 (0.5-1.4) mg/dL Estim Creat Clear Calc 156.7 Estimated GFR > 60 Random Glucose 268 H (60-115) mg/dL Calcium 9.0 (8.4-10.2) mg/dL Total Bilirubin 0.5 (0.0-1.0) mg/dL AST 15 (5-37) U/L ALT 29 (0-40) U/L Alkaline Phosphatase 117 (39-117) U/L Troponin I High Sens (<3.5-35.0) ng/L B-Natriuretic Peptide (<100) pg/mL Total Protein 7.0 (6.5-8.0) g/dL Albumin 4.0 (3.5-5.0) g/dL Lipase 33 (8-78) U/L Urine Color Urine Appearance Urine pH (5.0-9.0) Ur Specific [place] (1.005-1.025) Urine Protein (Neg-Trace) mg/dL Urine Glucose (UA) (Negative) mg/dL Urine Ketones (Negative) mg/dL Urine Blood (Negative) Urine Nitrite (Negative) Ur Leukocyte Esterase (Negative) Urine RBC (0-2) /HPF Urine WBC (0-5) /HPF Ur Squamous Epith Cells (0-2) /HPF Urine Bacteria (None Seen) Hyaline Casts (0-2) /LPF 04/08/22 04/08/22 04/08/22 Range/Units 09:29 09:40 13:45 WBC (4.8-10.8) X10*3/uL RBC (4.60-5.80) X10*6/uL Hgb (14.0-18.0) g/dl Hct (42.0-52.0) % MCV (80.0-98.0) fL MCH (27.0-33.0) pg MCHC (31.0-36.0) g/dl RDW (11.0-16.0) % Plt Count (160-400) X10*3/uL MPV (9.4-12.4) fL Immature Gran % (Auto) (0.0-0.4) % Neut % (Auto) (45-73) % Lymph % (Auto) (20-40) % [place] % (Auto) (2-11) % Eos % (Auto) (0-4) % Baso % (Auto) (0-2) % Lymph # (Auto) (1.2-4.9) X10*3/uL [place] # (Auto) (0.1-1.2) X10*3/uL Eos # (Auto) (0.0-0.4) X10*3/uL Baso # (Auto) (0.0-0.2) X10*3/uL Abs Immat Gran (auto) (0.00-0.03) X10*3/uL Absolute Neuts (auto) (2.0-8.3) x10*3/uL Absolute Nucleated RBC (0.0-0.012) X10*3/uL Nucleated RBC % (auto) (0.0-0.2) /100WBC PT (10.0-13.1) SEC INR (0.9-1.1) APTT (26.0-36.4) SEC Sodium (135-145) mmol/L Potassium (3.3-5.1) mmol/L Chloride (96-108) mmol/L Carbon Dioxide (22-29) mmol/L Anion Gap (12-20) BUN (9-16) mg/dL Creatinine (0.5-1.4) mg/dL Estim Creat Clear Calc Estimated GFR Random Glucose (60-115) mg/dL Calcium (8.4-10.2) mg/dL Total Bilirubin (0.0-1.0) mg/dL AST (5-37) U/L ALT (0-40) U/L Alkaline Phosphatase (39-117) U/L Troponin I High Sens < 3.5 < 3.5 (<3.5-35.0) ng/L B-Natriuretic Peptide < 10 (<100) pg/mL Total Protein (6.5-8.0) g/dL Albumin (3.5-5.0) g/dL Lipase (8-78) U/L Urine Color Yellow Urine Appearance Clear Urine pH 7.0 (5.0-9.0) Ur Specific [place] >= 1.030 H (1.005-1.025) Urine Protein Negative (Neg-Trace) mg/dL Urine Glucose (UA) >=1000 H (Negative) mg/dL Urine Ketones Trace (Negative) mg/dL Urine Blood Negative (Negative) Urine Nitrite Negative (Negative) Ur Leukocyte Esterase Negative (Negative) Urine RBC 0-2 (0-2) /HPF Urine WBC 0-5 (0-5) /HPF Ur Squamous Epith Cells 0-2 (0-2) /HPF Urine Bacteria None Seen (None Seen) Hyaline Casts 0-2 (0-2) /LPF ECG Data Interpretation: Normal sinus rhythm. Ventricular rate 75. KS interval 154. QRS 84 pr QTC 4 8. Negative STEMI Discharge Plan Discharge Clinical Impression: Chest pain, Abdominal pain Patient Disposition: Home, Self-Care Instructions: Chest Pain (DC), Abdominal Pain (ED) Additional Instructions: EKG, chest x-ray, troponins, PNB, abdominal CT scans came back negative. Please follow-up with the primary care provider. Return to ED for any weakness, dizziness, chest pain, shortness of breath, abdominal pain, fever, chills, dysuria, hematuria, or any other concerning symptoms. Prescriptions: New naproxen 500 mg tablet 500 mg PO BID PRN (Reason: pain) 10 Days Qty: 20 0RF No Action Trulicity 1.5 mg/0.5 mL pen injector 1.5 mg subcut QWEEK atorvastatin 20 mg Tablet 20 mg PO BEDTIME Qty: 30 0RF lithium carbonate 450 mg tablet extended release 900 mg PO BEDTIME Qty: 60 0RF metformin 1,000 mg Tablet 1,000 mg PO BIDWM Qty: 60 0RF omeprazole 20 mg Capsule,Delayed Release(Dr/Ec) 20 mg PO DAILY@0630 Qty: 30 0RF Latuda 80 mg Tablet 80 mg PO DAILY@1700 Qty: 30 0RF Interventions: ED Discharge Assessment Last Done: 04/08/22 16:16 Discharge Date/Time: 04/08/22 16:17 Print Language: Burkinan
[2022-04-08 09:52] LABS: Appearance Urine Clear; Color Urine Yellow; Glucose Urine UA >=1000 mg/dL (Negative); Leukocyte Esterase Urine Negative (Negative); Nitrite Urine Negative (Negative); Specific Gravity - Urine >= 1.030 (1.005-1.025); UMIC TRIGGER UACC YES; Urine Blood Negative (Negative); Urine Ketones Trace mg/dL (Negative); Urine Protein Negative (Neg-Trace)
[2022-04-08 09:52] LABS: Prothrombin Time 11.9 SEC (10.0-13.1)
--- NOTE | 2022-04-08 09:54 | ECG_ITS ---
Test Reason : chest pain for 1yr Blood Pressure : / mmHG Vent. Rate : 075 BPM Atrial Rate : 075 BPM P-R Int : 154 ms QRS Dur : 084 ms QT Int : 366 ms P-R-T Axes : 011 039 013 degrees QTc Int : 408 ms Normal sinus rhythm Normal ECG When compared with ECG of 04-JAN-2022 22:47, No significant changes seen Referred By: Randy Cleary Electronically Signed By:LINCOLN CHEATHAM MD
[2022-04-08 09:55] LABS: Partial Thromboplastin Time 32.4 SEC (26.0-36.4)
[2022-04-08 09:58] LABS: Bacteria Urine None Seen (None Seen); Hyaline Casts Urine 0-2 /LPF (0-2); RBC Urine 0-2 /HPF (0-2); Squamous Epithelial Cell Urine 0-2 /HPF (0-2); WBC Urine 0-5 /HPF (0-5)
[2022-04-08 10:02] LABS: Alanine Aminotransferase 29 U/L (0-40); Alkaline Phosphatase 117 U/L (39-117); Anion Gap 14 (12-20); Aspartate Amino Transferase 15 U/L (5-37); Bilirubin Total 0.5 mg/dL (0.0-1.0); Blood Urea Nitrogen 18 mg/dL (9-16); Carbon Dioxide 28 mmol/L (22-29); Chloride 99 mmol/L (96-108); Creatinine Clr Calc Pharmacy 156.7; Estimated Glomerular Filt Rate > 60; Glucose Random 268 mg/dL (60-115); Lipase 33 U/L (8-78); Potassium 4.1 mmol/L (3.3-5.1); Sodium 137 mmol/L (135-145)
[2022-04-08 10:10] VITALS: BP 141/80; PULSE 77; RESP 24; TEMP 36.6; O2SAT 92
[2022-04-08 10:10] LABS: B Type Natriuretic Peptide < 10 pg/mL (<100); Troponin-I High Sensitivity < 3.5 ng/L (<3.5-35.0)
[2022-04-08 11:57] VITALS: BP 141/92; PULSE 81; RESP 15; TEMP 36.4; O2SAT 95
[2022-04-08 12:00] VITALS: BP 159/96; PULSE 71; RESP 14; TEMP 36.6; O2SAT 96
[2022-04-08 14:12] LABS: Troponin-I High Sensitivity < 3.5 ng/L (<3.5-35.0)
== END 2022-04-08 16:17 | disposition home or self-care (01) ==
PROVIDERS: Physician Assistant; Emergency Provider Student in an Organized Health Care Education/Training Program
DX: R07.89 Other chest pain (principal); R10.32 Left lower quadrant pain; R06.02 Shortness of breath; Z79.899 Other long term (current) drug therapy; Z87.891 Personal history of nicotine dependence
CPT/HCPCS: 36415; 71045; 74176; 80053; 81001; 83690; 83880; 84484; 85025; 85610; 85730; 93005; 99284

== ENCOUNTER 2022-06-02 15:30 | Emergency (ER) | payer OTHER, MEDICAID, SELFPAY ==
[2022-06-02 15:51] VITALS: BP 152/95; PULSE 106; RESP 20; TEMP 36.7; O2SAT 97; BMI 40.3
--- NOTE | 2022-06-02 15:51 | ED.ABDPAIN ---
HPI - Abdominal Pain General Chief Complaint: Nausea/Vomiting/Diarrhea <Jennifer Ibrahim NP - Last Filed: 06/02/22 15:54> Stated Complaint: Abdominal Pain/ Headache <Jennifer Ibrahim NP - Last Filed: 06/02/22 15:54> Time Seen by Provider: 06/03/22 06:38 <Jennifer Ibrahim NP - Last Filed: 06/02/22 15:54> Source: patient <Stephan Infante MD - Last Filed: 06/03/22 07:10> Mode of arrival: ambulatory <Stephan Infante MD - Last Filed: 06/03/22 07:10> Limitations: no limitations <Stephan Infante MD - Last Filed: 06/03/22 07:10> History of Present Illness HPI narrative: 41-year-old male who presents emergency department for evaluation of headache, abdominal pain, nausea, vomiting, diarrhea, subjective fever, chills, cough x4 days. The patient states that he has been vomiting 2 to 3 times a day. He states he has also had 2-3 episodes of loose, watery diarrheal stools. The patient states that he has felt hot and cold but did not take his temperature. He denied rhinorrhea or sore throat. He states that is an occasional nonproductive cough. Denies chest pain he states he feels weak and fatigued and short of breath. He denied frequency, urgency or dysuria. Patient states he was evaluated yesterday at [facility] Emergency Department and diagnosed with a stomach virus and discharged home. Patient states he is homeless and he has soiled himself several times secondary to his diarrhea therefore he came to the emergency department for evaluation. He states that he is having abdominal pain, he points to his epigastric area when asked to localize the pain. He states that it is a constant, burning sensation which is relieved by vomiting. The pain is 6/10 at its worst. <Stephan Infante MD - Last Filed: 06/03/22 07:10> Related Data Home Medications: Home Medications Medication Instructions Recorded Confirmed dulaglutide 1.5 mg/0.5 mL 1.5 mg subcut QWEEK 01/02/22 01/02/22 subcutaneous pen injector (Trulicity) Previous Rx's Medication Instructions Recorded atorvastatin 20 mg tablet 20 mg PO BEDTIME #30 tabs 01/12/22 lithium carbonate 450 mg 900 mg PO BEDTIME #60 tabs 01/12/22 tablet,extended release lurasidone 80 mg tablet (Latuda) 80 mg PO DAILY@1700 #30 tabs 01/12/22 metformin 1,000 mg tablet 1,000 mg PO BIDWM #60 tabs 01/12/22 omeprazole 20 mg capsule,delayed 20 mg PO DAILY@0630 #30 caps 01/12/22 release naproxen 500 mg tablet 500 mg PO BID PRN pain 10 days #20 04/08/22 tabs albuterol sulfate 90 mcg/actuation 2 puff inhalation Q4-6H PRN 06/03/22 aerosol inhaler (ProAir HFA) shortness of breath or wheezing #8.5 grams blood-glucose meter (FreeStyle #1 ea 06/03/22 System Kit) lancets 28 gauge (FreeStyle #100 ea 06/03/22 Lancets) loperamide 2 mg tablet (Imodium 2 mg PO QID PRN loose stool #14 06/03/22 A-D) tabs <Jennifer Ibrahim NP - Last Filed: 06/02/22 15:54> Allergies/Adverse Reactions: Allergies Allergy/AdvReac Type Severity Reaction Status Date / Time morphine [Morphine] Allergy Unknown HIVES Verified 01/02/22 11:58 shellfish derived Allergy Redness of Verified 01/02/22 11:58 Skin Iodinated Contrast Media AdvReac Anxiety Verified 01/02/22 11:58 [Contrast Dye] <Jennifer Ibrahim NP - Last Filed: 06/02/22 15:54> Review of Systems Review of Systems Yes all other systems are reviewed and are negative <Stephan Infante MD - Last Filed: 06/03/22 07:10> [facility] Past Medical History [facility] Narrative: Social history: He states that he is homeless, he has been homeless since 03/21/2022 states that he stays on the bus mainly since this free and he can ride the bus all day. He occasionally stays [facility] [place] [facility] and sleeps outside. He denies tobacco, alcohol and drug use. <Stephan Infante MD - Last Filed: 06/03/22 07:10> Medical History: Medical History Diabetes mellitus Essential (primary) hypertension GERD (gastroesophageal reflux disease) Schizoaffective disorder <Jennifer Ibrahim NP - Last Filed: 06/02/22 15:54> Surgical History: Surgical History No pertinent past surgical history <Jennifer Ibrahim NP - Last Filed: 06/02/22 15:54> Family History Family History: Family History Father Heart disease Chronic mental illness Depression Mother Cancer Sister Cancer <Jennifer Ibrahim NP - Last Filed: 06/02/22 15:54> Social History Social History: Social History Household Members: Unknown / Unable to assess Housing: Apartment Unable to assess alcohol history related to: Unknown Alcohol intake: former Patient Tobacco Use Status: Former Tobacco user e-Cigarette/Vaping Use: Never Used Advance Directives: No Advance Directives Information Provided: No service: No Current occupational status: disabled Sexual orientation: Don't Know <Jennifer Ibrahim NP - Last Filed: 06/02/22 15:54> Physical Exam ED Vital Signs: Vital Signs - 24 hr 06/02/22 15:51 06/03/22 01:25 06/03/22 04:36 Temperature 98.0 F 98.0 F 98.4 F Pulse Rate 106 H 83 68 Respiratory Rate 20 18 18 Blood Pressure 152/95 H 121/71 107/66 Pulse Oximetry 97 94 95 Oxygen Delivery Method Room Air Room Air Room Air BMI result Body Mass Index 40.3 <Jennifer Ibrahim NP - Last Filed: 06/02/22 15:54> Vital Signs - 24 hr 06/02/22 15:51 06/03/22 01:25 06/03/22 04:36 Temperature 98.0 F 98.0 F 98.4 F Pulse Rate 106 H 83 68 Respiratory Rate 20 18 18 Blood Pressure 152/95 H 121/71 107/66 Pulse Oximetry 97 94 95 Oxygen Delivery Method Room Air Room Air Room Air BMI result Body Mass Index 40.3 <Stephan Infante MD - Last Filed: 06/03/22 07:10> Const General: cooperative and no acute distress <MD Dorian Inman Last Filed: 06/03/22 07:10> Orientation/consciousness: oriented to person and oriented to place <MD Dorian Inman Last Filed: 06/03/22 07:10> Limitations: no limitations <MD Dorian Inman Last Filed: 06/03/22 07:10> HENMT Head: Yes normal to inspection, Yes normocephalic and Yes atraumatic <Stephan Infante MD - Last Filed: 06/03/22 07:10> Ears: external ears normal <MD Dorian Inman Last Filed: 06/03/22 07:10> General nose exam: Normal external nose present <MD Dorian Inman Last Filed: 06/03/22 07:10> Face and sinus: Yes normal facial exam <MD Dorian Inman Last Filed: 06/03/22 07:10> Mouth: Normal oral and palatal mucosa present <MD Dorian Inman Last Filed: 06/03/22 07:10> Throat: Yes posterior oropharynx normal <MD Dorian Inman Last Filed: 06/03/22 07:10> Eyes General: appearance normal, both eyes and all related structures <MD Dorian Inman Last Filed: 06/03/22 07:10> Pupils: Equal, round and reactive pupils present <MD Dorian Inman Last Filed: 06/03/22 07:10> Neck Neck: Yes normal visual inspection, Yes no lymphadenopathy, Yes trachea midline and Yes supple <MD Dorian Inman Last Filed: 06/03/22 07:10> Chest Chest palpation & inspection: normal inspection of the chest and normal palpation of entire chest wall <MD Dorian Inman Last Filed: 06/03/22 07:10> Resp Effort & Inspection: normal respiratory effort and able to speak in complete sentences <Stephan Infante MD - Last Filed: 06/03/22 07:10> Auscultation: clear to auscultation bilaterally <MD Dorian Inman Last Filed: 06/03/22 07:10> Cardio Rate: regular rate <Stephan Infante MD - Last Filed: 06/03/22 07:10> Rhythm: regular rhythm <Stephan Infante MD - Last Filed: 06/03/22 07:10> Heart sounds: S1 normal heart sound present, S2 normal heart sound present and no murmurs <Stephan Infante MD - Last Filed: 06/03/22 07:10> GI Inspection: Yes normal to inspection <MD Dorian Inman Last Filed: 06/03/22 07:10> Palpation (GI): Soft to palpation, Tenderness to palpation present (GI) (Mild epigastric pain) and no guarding <MD Dorian Inman Last Filed: 06/03/22 07:10> Auscultation: normal bowel sounds <MD Dorian Inman Last Filed: 06/03/22 07:10> General: Yes no CVA tenderness <Stephan Infante MD - Last Filed: 06/03/22 07:10> Back/Spine/Pelvis Back: no CVA tenderness <Stephan Infante MD - Last Filed: 06/03/22 07:10> Skin General skin exam: no rashes or lesions noted <MD Dorian Inman Last Filed: 06/03/22 07:10> Neuro General: oriented to person and oriented to place <Stephan Infante MD - Last Filed: 06/03/22 07:10> Cranial nerves: Yes CN's II-XII intact bilaterally and Yes Equal, round and reactive pupils present <MD Dorian Inman Last Filed: 06/03/22 07:10> Cognition (Neuro): normal cognition <MD Dorian Inman Last Filed: 06/03/22 07:10> Motor exam (neuro): 5/5 motor strength present throughout <Stephan Infante MD - Last Filed: 06/03/22 07:10> Extrem General: Yes normal to inspection <Stephan Infante MD - Last Filed: 06/03/22 07:10> Psych Appearance: grossly normal <Stephan Infante MD - Last Filed: 06/03/22 07:10> Speech and movement: Normal speech and movement present <Stephan Infante MD - Last Filed: 06/03/22 07:10> Affect: normal affect <Stephan Infante MD - Last Filed: 06/03/22 07:10> Attitude: cooperative <Stephan Infante MD - Last Filed: 06/03/22 07:10> Thought process: Normal thought process present <Stephan Infante MD - Last Filed: 06/03/22 07:10> Thought content: Normal thought content present <Stephan Infante MD - Last Filed: 06/03/22 07:10> Course Course Course Narrative: This is a rapid medical exam. Deferred HPI, ROS, PE to primary provider. 41 yo male with history of bipolar disorder, diabetes, htn, schizoaffective disorder, GERD here with complaints of 3 days of abdominal pain, vomiting, diarrhea. Patient was at [facility] today and had some tests done, received fluids and Zofran and was discharged. Patient comes to [place] [facility] with complaints of continued abdominal pain. Patient states he is homeless and believes he should be able to stay in the hospital for a few days until he is better. VSS <Jennifer Ibrahim NP - Last Filed: 06/02/22 15:54> This is a rapid medical exam. Deferred HPI, ROS, PE to primary provider. 41 yo male with history of bipolar disorder, diabetes, htn, schizoaffective disorder, GERD here with complaints of 3 days of abdominal pain, vomiting, diarrhea. Patient was at [facility] today and had some tests done, received fluids and Zofran and was discharged. Patient comes to [place] [facility] with complaints of continued abdominal pain. Patient states he is homeless and believes he should be able to stay in the hospital for a few days until he is better. S [id number]: Coarse: 41-year-old male who presents emergency department for evaluation viral-like illness with nausea, vomiting, subjective fever, cough, diarrhea, abdominal pain. Patient was seen yesterday at [facility] and discharged with a prescription for Zofran and diagnosed with an acute viral illness/gastroenteritis. Vital signs initially revealed tachycardia with a pulse of 106, repeat was 68. Exam did reveal midepigastric tenderness otherwise was unremarkable. Laboratory evaluation revealed an elevated WBC 23242, elevated glucose 197, LFTs and lipase were normal. Patient's COVID-19, influenza and RSV were negative. Patient was treated with Zofran 4 mg sublingually and Imodium 4 mg orally for his diarrhea. Patient will be prescribed Imodium 2 mg 4times a day for 3 days to help with his diarrhea. Patient is requesting that I prescribe a glucometer and lancets for him as well. He also is requesting a refill of his albuterol for his asthma. Patient will be discharged home. He was given printed and verbal instructions. <Stephan Infante MD - Last Filed: 06/03/22 07:10> Medical Decision Making Medical Decision Making Differential Diagnoses: Differential diagnosis (Gastritis, peptic ulcer disease, viral lung infection (influenza, COVID, RSV), infectious diarrhea, C diff) <Stephan Infante MD - Last Filed: 06/03/22 07:10> Consideration of admission/observation: Consideration of Admission/Observation (Yes) <Stephan Infante MD - Last Filed: 06/03/22 07:10> Discussion of management with other physician/healthcare provider/other source (e.g., hospitalist, food consultant, behavioral health): Discussion w/other physician/healthcare provider (No) My interpretation is <Stephan Infante MD - Last Filed: 06/03/22 07:10> Lab Attestation: I reviewed the patient's lab results. (Please see course) <Stephan Infante MD - Last Filed: 06/03/22 07:10> Non-ED record review: Review of External (Non-ED) Record (Yes) External record reviewed:: Office record <Stephan Infante MD - Last Filed: 06/03/22 07:10> Tests considered but not performed: Tests Considered But Not Performed (CT scan abdomen pelvis) <Stephan Infante MD - Last Filed: 06/03/22 07:10> Care significantly affected by Social Determinants of Health (e.g., housing and economic circumstances, unemployment): Care affected by Social Determinants of Health Patient's care limited by Social Determinants of Health: Inadequate housing and Other Social Determinant of Health (Schizophrenia bipolar disorder) <Stephan Infante MD - Last Filed: 06/03/22 07:10> Medications Administered Discontinued Medications Generic Name Dose Route Start Last Admin Trade Name Freq PRN Reason Stop Dose Admin Loperamide HCl 4 mg 06/03/22 06:49 06/03/22 07:04 Loperamide Hcl 2 Mg Capsule PO 06/03/22 06:50 4 mg ONCE ONE Administration Ondansetron HCl 4 mg 06/03/22 06:49 06/03/22 07:04 Ondansetron Odt 4 Mg Tab.Rapdis TRANSLINGU 06/03/22 06:50 4 mg ONCE STA Administration <Jennifer Ibrahim NP - Last Filed: 06/02/22 15:54> Medications Administered Discontinued Medications Generic Name Dose Route Start Last Admin Trade Name Freq PRN Reason Stop Dose Admin Loperamide HCl 4 mg 06/03/22 06:49 06/03/22 07:04 Loperamide Hcl 2 Mg Capsule PO 06/03/22 06:50 4 mg ONCE ONE Administration Ondansetron HCl 4 mg 06/03/22 06:49 06/03/22 07:04 Ondansetron Odt 4 Mg Tab.Rapdis TRANSLINGU 06/03/22 06:50 4 mg ONCE STA Administration <Stephan Infante MD - Last Filed: 06/03/22 07:10> Discharge Plan Discharge Clinical Impression: Viral syndrome, Homeless Vomiting Qualifiers: Vomiting type: unspecified Nausea presence: with nausea Qualified Code(s): R11.2 - Nausea with vomiting, unspecified Diarrhea Qualifiers: Diarrhea type: unspecified type Qualified Code(s): R19.7 - Diarrhea, unspecified <Jennifer Ibrahim NP - Last Filed: 06/02/22 15:54> Patient Disposition: Home, Self-Care <Jennifer Ibrahim NP - Last Filed: 06/02/22 15:54> Instructions: Acute Diarrhea (ED), Viral Syndrome (ED) <Jennifer Ibrahim NP - Last Filed: 06/02/22 15:54> Additional Instructions: User Zofran as prescribed by [facility] for nausea and vomiting Take Imodium 2 mg pills, 1 pill 4 times a day as needed for diarrhea. Use your albuterol inhaler 2 puffs every 4-6 hours as needed for shortness of breath Follow-up with your doctor in 2 days. Please return to the emergency department if your symptoms get worse or if you develop any symptoms that are concerning to you. <Jennifer Ibrahim NP - Last Filed: 06/02/22 15:54> Prescriptions: New loperamide [Imodium A-D] 2 mg tablet 2 mg PO QID PRN (Reason: loose stool) Qty: 14 0RF (DME) lancets [FreeStyle Lancets] 28 gauge misc See Rx Instructions .Route Qty: 100 0RF Rx Instructions: As directed albuterol sulfate [ProAir HFA] 90 mcg/actuation HFA aerosol inhaler 2 puff inhalation Q4-6H PRN (Reason: shortness of breath or wheezing) Qty: 8.5 0RF (DME) blood-glucose meter [FreeStyle System Kit] Kit See Rx Instructions .Route Qty: 1 0RF Rx Instructions: As directed No Action Trulicity 1.5 mg/0.5 mL pen injector 1.5 mg subcut QWEEK atorvastatin 20 mg Tablet 20 mg PO BEDTIME Qty: 30 0RF lithium carbonate 450 mg tablet extended release 900 mg PO BEDTIME Qty: 60 0RF metformin 1,000 mg Tablet 1,000 mg PO BIDWM Qty: 60 0RF omeprazole 20 mg Capsule,Delayed Release(Dr/Ec) 20 mg PO DAILY@0630 Qty: 30 0RF Latuda 80 mg Tablet 80 mg PO DAILY@1700 Qty: 30 0RF naproxen 500 mg tablet 500 mg PO BID PRN (Reason: pain) 10 Days Qty: 20 0RF <Jennifer Ibrahim NP - Last Filed: 06/02/22 15:54> Interventions: ED Discharge Assessment Last Done: 06/03/22 00:35 <Jennifer Ibrahim NP - Last Filed: 06/02/22 15:54>
[2022-06-02 16:54] LABS: MANUAL DIFF FLAG NO
[2022-06-02 16:56] LABS: Basophils Percent Auto 0.3 % (0-2); Eosinophils Absolute Auto 0.1 X10*3/uL (0.0-0.4); Eosinophils Percent Auto 0.6 % (0-4); Hematocrit 42.3 % (42.0-52.0); Hemoglobin 13.7 g/dl (14.0-18.0); Imm Gran Abs Auto 0.03 X10*3/uL (0.00-0.03); Imm Gran Pct Auto 0.2 % (0.0-0.4); Lymphocytes Absolute Auto 1.1 X10*3/uL (1.2-4.9); Lymphocytes Percent Auto 8.9 % (20-40); Mean Corpuscular HGB Conc 32.4 g/dl (31.0-36.0); Mean Corpuscular Hemoglobin 27.4 pg (27.0-33.0); Mean Corpuscular Volume 84.6 fL (80.0-98.0); Mean Platelet Volume 10.6 fL (9.4-12.4); Monocytes Absolute Auto 0.7 X10*3/uL (0.1-1.2); Monocytes Percent Auto 5.2 % (2-11); Neutrophils Absolute Auto 10.9 x10*3/uL (2.0-8.3); Neutrophils Percent Auto 84.8 % (45-73); Platelet Count 294 X10*3/uL (160-400); Red Cell Distribution Width 13.1 % (11.0-16.0); White Blood Count 12.8 X10*3/uL (4.8-10.8)
[2022-06-02 17:19] LABS: Alanine Aminotransferase 20 U/L (0-40); Albumin Level 4.3 g/dL (3.5-5.0); Alkaline Phosphatase 103 U/L (39-117); Anion Gap 13 (12-20); Aspartate Amino Transferase 19 U/L (5-37); Bilirubin Direct 0.3 mg/dL (0.0-0.5); Blood Urea Nitrogen 17 mg/dL (9-16); Calcium 9.4 mg/dL (8.4-10.2); Carbon Dioxide 28 mmol/L (22-29); Chloride 101 mmol/L (96-108); Creatinine Clr Calc Pharmacy 159.6; Estimated Glomerular Filt Rate > 60; Glucose Random 197 mg/dL (60-115); Lipase 14 U/L (8-78); Potassium 4.3 mmol/L (3.3-5.1); Sodium 138 mmol/L (135-145); Total Protein 7.3 g/dL (6.5-8.0)
[2022-06-02 17:34] LABS: Influenza A PCR NEGATIVE (Negative); Influenza B PCR NEGATIVE (Negative); Resp Syncy Virus RNA Qual PCR NEGATIVE (Negative); SARS COV2 PCR INHOUSE NEGATIVE (Negative)
[2022-06-02 17:50] LABS: Bilirubin Total 0.7 mg/dL (0.0-1.0)
[2022-06-03 01:25] VITALS: BP 121/71; PULSE 83; RESP 18; TEMP 36.7; O2SAT 94
[2022-06-03 04:36] VITALS: BP 107/66; PULSE 68; RESP 18; TEMP 36.9; O2SAT 95
[2022-06-03] MEDS: Ondansetron ODT 4 MG TAB.RAPDIS TRANSLINGU (07:04)
[2022-06-03] MEDS: Loperamide HCl 2 MG CAPSULE 4 MG PO (07:04)
== END 2022-06-03 07:20 | disposition home or self-care (01) ==
PROVIDERS: Nurse Practitioner Family; Emergency Provider Emergency Medicine Emergency Medical Services
DX: B34.9 Viral infection, unspecified (principal); R11.2 Nausea with vomiting, unspecified; R51.9 Headache, unspecified; R10.13 Epigastric pain; R19.7 Diarrhea, unspecified; Z20.822 Contact with and (suspected) exposure to COVID-19; Z87.891 Personal history of nicotine dependence; Z59.00 Homelessness unspecified; Z79.899 Other long term (current) drug therapy
CPT/HCPCS: 0241U; 36415; 80048; 80076; 83690; 85025; 99283

== ENCOUNTER 2022-06-25 01:15 | Emergency (ER) | payer OTHER, MEDICAID, SELFPAY ==
[2022-06-25 01:58] VITALS: BP 127/61; PULSE 88; RESP 20; TEMP 36.6; O2SAT 98; BMI 45.4
[2022-06-25 02:08] VITALS: BP 170/100; PULSE 86; O2SAT 97
[2022-06-25 03:24] VITALS: BP 156/79; PULSE 86; RESP 18; TEMP 36.7; O2SAT 97
--- OUTSIDE RECORDS SUMMARY | 2022-06-25 03:29 | XMS_ITS | Continuity of Care Document ---
:1980 Author Organization [employer] Address [address] [place] [id number]- Care Team Providers Name Role Phone Eri ARZOLA, Roc Stewart Primary Care Physician [place] [facility] 05/03/21 - 05/03/[address] [address]- Encounter Diagnosis Chest wall pain (Final) - 05/03/21 Discharge Disposition: A-D/C Home Attending Physician: Suzan Coelho DO Admitting Physician: Suzan Coelho DO Referring Physician: Not on Staff, Referring MD Allergies, Adverse Reactions, Alerts Substance Reaction Severity Status shellfish Active Morphine Sulfate SR Active Immunizations Not Given Vaccine Date Status Refusal Reason pneumococcal 23-valent vaccine 06/09/15 Not Given P atient Refuses Medications atorvastatin 20 mg oral tablet 1 tablet = 20 mg, By Mouth, Daily at bedtime, # 30 tablet, 0 Refills, Maintenance, 02/24/21 11:36:00EDT, Tablet, [facility] [id number], Partial fill upon patient request if the prescription is for a schedule II opioid drug. Start Date: 02/24/21 Status: OrderedcloNIDine 0.1 mg oral tablet 0.1 mg, 1, tablet, By Mouth, Daily, # 30 tablet, Refills 0, Tot. Refills 0, Maintenance, 02/24/21 11:37:00 EDT, Route to Pharmacy Electronically, [facility] [id number], Partialfill upon patient request if the prescription is... Start Date: 02/24/21 Status: Orderedgabapentin 100 mg oral capsule 200 mg, 2, capsule, By Mouth, Daily at bedtime, # 60 capsule, Refills 0, Tot. Refills 0, Maintenance, 02/24/21 11:37:00 EDT, Route to Pharmacy Electronically, [facility] [id number], Partial fill upon patient request if the pre... Start Date: 02/24/21 Status: OrderedhydrOXYzine hydrochloride 50 mg oral tablet 1 tablet = 50 mg, By Mouth, Every 6 hours, PRN as needed for anxiety, # 60 tablet, 0 Refills, Maintenance, 02/24/21 11:39:00 EDT, [facility] [id number], Partial fill upon patient request if the prescription is for a schedule I... Start Date: 02/24/21 Status: Orderedinsulin isophane human recombinant 100 u/ml subcutaneous injection = 35 units, Subcutaneous Injection, 2 times a day before breakfast and dinne, # 10 mL, 0 Refills, Maintenance, 02/24/21 11:37:00 EDT, Injection, [facility] [id number], Partial fill upon patient request if the prescription is f... Start Date: 02/24/21 Status: OrderedLevemir Inj Subcutaneous Infusion, 0 Refills, Maintenance, 04/17/21 1:39:00 EDT, Partial fill upon patient request if the prescription is for a schedule II opioid drug. Start Date: 04/17/21 Status: Orderedlisinopril 5 mg oral tablet 5 mg, 1, tablet, By Mouth, Daily, # 30 tablet, Refills 0, Tot. Refills 0, Maintenance, 02/24/21 11:36:00 EDT, Route to Pharmacy Electronically, [facility] [id number], Partial fill upon patient request if the prescription is fo... Start Date: 02/24/21 Status: Orderedlurasidone 80 mg oral tablet 1 tablet = 80 mg, By Mouth, Daily, # 30 tablet, 0 Refills, Maintenance, 02/24/21 11:37:00 EDT, Tablet, [facility] [id number], Partial fill upon patient request if the prescription is for a schedule II opioid drug. Start Date: 02/24/21 Status: OrderedmetFORMIN 500 mg oral tablet 2 each = 1,000 mg, By Mouth, 2 times a day with meals, # 120 tablet, 0 Refills, Maintenance, 02/24/21 11:36:00 EDT, Tablet, [place] - [id number], Partial fill upon patient request if the prescription is for a schedule II opio... Start Date: 02/24/21 Status: OrderedNovoLIN 70/30 FlexPen Subcutaneous Infusion, 0 Refills, Maintenance, 04/17/21 1:40:00 EDT, Partial fill upon patient request if the prescription is for a schedule II opioid drug. Start Date: 04/17/21 Status: OrderedTrulicity Pen 1.5 mg/0.5 mL subcutaneous solution 0.5 mL = 1.5 mg, Subcutaneous Injection, Every week, rotate injection sites, # 2 mL, 0 Refills, Maintenance, 04/17/21 1:37:00 EDT, Solution, Partial fill upon patient request if the prescription is fora schedule II opioid drug. Start Date: 04/17/21 Status: Ordered Problem List Condition Effective Dates Status Health Status Informant Asthma(Confirmed) Active Diabetes mellitus(Confirmed) Active GERD (gastroesophageal reflux Active disease)(Confirmed) Schizoaffective disorder(Confirmed) Active Results Radiology Reports Exam Date Time Procedure Performing Provider Status 05/03/21 2:56 AM Chest 2 Views Frontal and Lat Vero Lim; Auth (Verified) Notes:(Chest 2 Views Frontal and Lat) Reason For Exam: Chest Pain;Other:RESULT: Chest 2 Views Frontal and Lat Chest 2 Views Frontal and Lat Hx of Present Illness: cp x 6 days and coughing x 3 mths; Reason: Other:; Chest Pain; Clinical Question(s): Other: COMPARISON: 04/27/2021. FINDINGS: LINES AND TUBES: None. LUNGS AND PLEURA: Lung volumes are low, accentuating the pulmonary vasculature and mediastinal silhouette. No confluent airspace opacity. No pleural effusion. No pneumothorax. HEART, MEDIASTINUM AND JEROMY: Cardiomediastinal silhouette is accentuated due to low lung volumes. BONES AND SOFT TISSUES: No acute abnormality. IMPRESSION: No acute abnormality. WSN: [id number] Ordering Physician: Ignacio Grayson Dictated By: Bev Alegria MD Dictated Date/Time: 05/03/21 7:41 am Reviewed By: Bev Alegria MD Signed By: Bev Alegria MD Signed Date/Time: 05/03/21 7:41 am Transcribed By: DARWIN Transcribed Date/Time: 05/03/21 7:40 am Vital Signs Most recent to oldest [Reference Range]: 1 2 Weight 143 kg 143 kg (05/03/21 3:44 AM) (05/03/21 2:07 AM) Oxygen Saturation [94-100 %] 97 % 97 % (05/03/21 3:44 AM) (05/03/21 2:07 AM) Pulse Rate [55-90 bpm] 91 bpm 86 bpm *H* (05/03/21 2:07 AM) (05/03/21 3:44 AM) Blood Pressure [90-138/55-84 mm Hg] 113/73 mm Hg 121/ 76 mm Hg (05/03/21 3:44 AM) (05/03/21 2:07 AM) Respiratory Rate [16-30 br/min] 16 br/min 17 br/mi n (05/03/21 3:44 AM) (05/03/21 2:07 AM) Temperature [96.8-100.4 DegF] 98.8 DegF (05/03/21 2:07 AM) Mode of Delivery (Oxygen) Room air Room air (05/03/21 3:44 AM) (05/03/21 2:07 AM) Blood pressure sites Arm, left Arm, left (05/03/21 3:44 AM) (05/03/21 2:07 AM) Temperature Route Oral (05/03/21 2:07 AM) Dry Weight 143 kg 143 kg (05/03/21 3:44 AM) (05/03/21 2:07 AM) Social History Social History Type Response Smoking Status Never smoker entered on: 07/22/14 Sex
--- OUTSIDE RECORDS SUMMARY | 2022-06-25 03:29 | XMS_ITS | Continuity of Care Document ---
:1980 Author Organization [facility] [place] Address [address] [place] [address]- Care Team Providers Name Role Phone Eri ARZOLA, Roc Stewart Primary Care Physician [phone] [place] [facility] [place] 05/10/22 - 05/10/22 [facility] [place] [address] [place] [address]- Encounter Diagnosis Suicidal ideation (Final) - 05/10/22 Homelessness (Final) - 05/10/22 Discharge Disposition: A-D/C Home Attending Physician: Edmar Pena MD Admitting Physician: Edmar Pena MD Referring Physician: Not on Staff, Referring MD Allergies, Adverse Reactions, Alerts Substance Reaction Severity Status shellfish Active Morphine Sulfate SR Active Immunizations Not Given Vaccine Date Status Refusal Reason pneumococcal 23-valent vaccine 06/09/15 Not Given P atient Refuses Medications Albuterol (Eqv-ProAir HFA) 90 mcg/inh inhalation aerosol 2 puffs, Inhalation, Every 6 hours, FOR bronchospasm Start Date: 06/14/21 Status: Orderedatorvastatin 20 mg oral tablet 1 tablet = 20 mg, By Mouth, Daily at bedtime, # 30 tablet, 3 Refills, Maintenance, 12/05/21 18:04:00EDT, Tablet, [facility] [id number], Partial fill upon patient request if the prescription is for a schedule II opioid drug.,... Start Date: 12/05/21 Status: OrderedcloNIDine 0.1 mg oral tablet 0.1 mg, 1, tablet, By Mouth, Daily, # 30 tablet, Refills 0, Tot. Refills 0, Maintenance, 02/24/21 11:37:00 EDT, Route to Pharmacy Electronically, [facility] [id number], Partialfill upon patient request if the prescription is... Start Date: 02/24/21 Status: Ordereddexamethasone 6 mg oral tablet 1 tablet = 6 mg, By Mouth, Daily, INITIAL START FROM [facility] ON 06/09. Take medicine for 2 more days with final day of medication 06/19, 0 Refills, Maintenance, 06/17/21 12:38:00 EST, Tablet, Partial fill upon patient request if the prescriptio... Start Date: 06/17/21 Status: OrderedEliquis Starter Pack 5 mg oral tablet Take 10 Mg Twice a day for 6 days then reduce dose to 5 mg twice a day for 3 months of treatment original discharge 06/10/21, 0 Refills, Maintenance, 06/14/21 16:50:00 EST, Partial fill upon patient request if the prescription is for a schedule II op... Start Date: 06/14/21 Status: Orderedfolic acid 1 mg oral tablet 1 mg, 1, tablet, By Mouth, Daily, # 30 tablet, Refills 0, Maintenance, 06/14/21 16:57:00 EST, Partial fill upon patient request if the prescription is for a schedule II opioid drug. Start Date: 06/14/21 Status: OrderedFreestyle Lite Monitor See Instructions, # 1 each, Refills 5, Tot. Refills 5, Maintenance, use as directed for Type 2 Diabetes Mellitus, 12/05/21 18:25:00 EDT, Supply, 173, cm, 12/05/21 14:30:00 EDT, Height, 132.9, kg, 12/05/21 14:30:00 EDT, Dry Weight Start Date: 12/05/21 Stop Date: 06/03/22 Status: OrderedFreestyle Lite Test Strips See Instructions, # 200 each, Tot. Refills 5, Maintenance, use as directed for Type 2 Diabetes Mellitus, 12/05/21 18:25:00 EDT, Supply, 173, cm, 12/05/21 14:30:00 EDT, Height, 132.9, kg, 12/05/21 14:30:00 EDT, Dry Weight Start Date: 12/05/21 Stop Date: 01/04/22 Status: Orderedgabapentin 100 mg oral capsule 200 mg, 2, capsule, By Mouth, Daily at bedtime, # 60 capsule, Refills 0, Tot. Refills 0, Maintenance, 02/24/21 11:37:00 EDT, Route to Pharmacy Electronically, [facility] [id number], Partial fill upon patient request if the pre... Start Date: 02/24/21 Status: OrderedguaiFENesin 200 mg oral tablet 1 tablet = 200 mg, By Mouth, 4 times a day, PRN Cough, 0 Refills, Maintenance, 06/14/21 16:54:00 EST, Tablet, Partial fill upon patient request if the prescription is for a schedule II opioid drug. Start Date: 06/14/21 Status: OrderedhydrALAZINE 25 mg oral tablet 25 mg, 1, tablet, By Mouth, Daily, # 30 tablet, Refills 0, Maintenance, 06/14/21 16:56:00 EST, Partial fill upon patient request if the prescription is for a schedule II opioid drug. Start Date: 06/14/21 Status: OrderedhydrOXYzine hydrochloride 50 mg oral tablet 1 tablet = 50 mg, By Mouth, Every 6 hours, PRN as needed for anxiety, # 60 tablet, 3 Refills, Maintenance, 12/05/21 18:03:00 EDT, [facility] [id number], Partial fill upon patient request if the prescription is for a schedule I... Start Date: 12/05/21 Status: OrderedLevemir Inj = 85 units, Subcutaneous Infusion, 2 times a day, 0 Refills, Maintenance, 04/17/21 1:39:00 EDT, Partial fill upon patient request if the prescription is for a schedule II opioid drug. Start Date: 04/17/21 Status: Orderedlisinopril 5 mg oral tablet 5 mg, 1, tablet, By Mouth, Daily, # 30 tablet, Refills 0, Tot. Refills 0, Maintenance, 02/24/21 11:36:00 EDT, Route to Pharmacy Electronically, [facility] [id number], Partial fill upon patient request if the prescription is fo... Start Date: 02/24/21 Status: Orderedlurasidone 80 mg oral tablet 1 tablet = 80 mg, By Mouth, Daily, # 30 tablet, 0 Refills, Maintenance, 02/24/21 11:37:00 EDT, Tablet, [facility] [id number], Partial fill upon patient request if the prescription is for a schedule II opioid drug. Start Date: 02/24/21 Status: OrderedmetFORMIN 500 mg oral tablet 2 each = 1,000 mg, By Mouth, 2 times a day with meals, # 120 tablet, 3 Refills, Maintenance, 12/05/21 18:03:00 EDT, Tablet, [facility], [facility] [id number], Partial fill upon patient request if the prescription is for a schedule II opio... Start Date: 12/05/21 Status: OrderedNovoLOG 100 units/mL subcutaneous solution = 35 units, Subcutaneous Infusion, 2 times a day with meals, 0 Refills, Maintenance, 06/14/21 16:57:00 EST, Partial fill upon patient request if the prescription is for a schedule II opioid drug. Start Date: 06/14/21 Status: Orderedolmesartan 5 mg oral tablet 1 tablet = 5 mg, By Mouth, Daily, # 30 tablet, 3 Refills, Maintenance, 12/05/21 18:07:00 EDT, Tablet, [facility] [id number], Partial fill upon patient request if the prescription is for a schedule II opioid drug., 173, cm, ... Start Date: 12/05/21 Status: Orderedomeprazole 20 mg oral enteric coated capsule 1 capsule = 20 mg, By Mouth, Daily, # 30 capsule, 0 Refills, Maintenance, 06/14/21 17:08:00 EST, EC Capsule, Partial fill upon patient request if the prescription is for a schedule II opioid drug. Start Date: 06/14/21 Status: OrderedTrulicity Pen 1.5 mg/0.5 mL subcutaneous solution 0.5 mL = 1.5 mg, Subcutaneous Injection, Every week, rotate injection sites, # 2.5 mL, 3 Refills, Maintenance, 12/05/21 18:04:00 EDT, Solution, [facility] [id number], Partial fill upon patient request if the prescription is fo... Start Date: 12/05/21 Status: Ordered Problem List Condition Confirmation Course Effective Dates Status Health I nformant Status Asthma Confirmed Active Diabetes mellitus Confirmed Active GERD Confirmed Active (gastroesophageal reflux disease) Schizoaffective Confirmed Active disorder Severe obesity Confirmed Active Vital Signs Most recent to oldest [Reference Range]: 1 2 Height 175 cm (05/10/22 5:21 AM) Weight 113.6 kg (05/10/22 5:21 AM) Oxygen Saturation [94-100 %] 99 % 97 % (05/10/22 11:25 AM) (05/10/22 4:58 AM) Pulse Rate [55-90 bpm] 92 bpm 74 bpm *H* (05/10/22 4:58 AM) (05/10/22 11:25 AM) Blood Pressure [90-138/55-84 mm Hg] 134/99 mm Hg 128/ 79 mm Hg (05/10/22 11:25 AM) (05/10/22 4:58 AM) Respiratory Rate [16-30 br/min] 16 br/min 20 br/mi n (05/10/22 11:25 AM) (05/10/22 4:58 AM) Temperature [96.8-100.4 DegF] 98.8 DegF 98.4 DegF (05/10/22 11:25 AM) (05/10/22 4:58 AM) Mode of Delivery (Oxygen) Room air Room air (05/10/22 11:25 AM) (05/10/22 4:58 AM) Blood pressure sites Arm, right Arm, right (05/10/22 11:25 AM) (05/10/22 4:58 AM) Temperature Route Oral Oral (05/10/22 11:25 AM) (05/10/22 4:58 AM) Dry Weight 113.6 kg (05/10/22 5:21 AM) Social History Social History Type Response Smoking Status Never smoker entered on: 07/22/14 Sex Note Edmar Pena MD: PERFORM, SIGN, VERIFY Event Display: Patient Education Handout Authored Date: [id number] Patient Care team information Care Team PersonnelName: Alonso Field RN Position: S RN Member Role: Primary Care Nurse Name: Ander Meraz RN Position: S RN Member Role: Primary Care Nurse Name: Eva Ramirez RN Position: S RN Member Role: Primary Care Nurse Name: Edmar Chavira RN Position: S RN Member Role: Primary Care Nurse Name: Roc Hwang MD Position: Reference Physician Member Role: PCP Address: Address: [address] [place] [address]- Name: *[facility], ED Attending Position: [facility] ED Attendings Patient Name: Taylor Samuel RN Position: [facility] ED RN W/OE and Tasks Member Role: Patient Care Provider Name: Edmar Pena MD Position: [facility] ED Medicine MD Member Role: Admitting Physician Address: Address: [address] [place] [address] [place] [address]- Care Team Related PersonsName: MARINA SOTOMAYOR Address: home [address] [place] [address] Name: NONE, GIVEN Address: home XX XX, [place] [address]
--- OUTSIDE RECORDS SUMMARY | 2022-06-25 03:29 | XMS_ITS | Continuity of Care Document ---
:1980 Author Organization [facility] Address [address] [place] [address]- Care Team Providers Name Role Phone Eri ARZOLA, Roc Stewart Primary Care Physician [phone] [facility] [place] Date(s): 05/23/22 - 05/23/22 [facility] [address] [place] [address]- Discharge Disposition: A-D/C Walkout Attending Physician: Not on Staff, Attending MD Admitting Physician: Not on Staff, Admitting MD Referring Physician: Not on Staff, Referring [...] tablet, 3 Refills, Maintenance, 12/05/21 18:04:00EDT, Tablet, [facility] [id number], Partial fill upon patient request if the prescription is for a schedule II opioid drug.,... Start Date: 12/05/21 Status: OrderedcloNIDine 0.1 mg oral tablet 0.1 mg, 1, tablet, By Mouth, Daily, # 30 tablet, Refills 0, Tot. Refills 0, Maintenance, 02/24/21 11:37:00 EDT, Route to Pharmacy Electronically, [facility] [id number], Partialfill upon patient request if the prescription is... Start Date: 02/24/21 Status: Ordereddexamethasone 6 mg oral tablet 1 tablet = 6 mg, By Mouth, Daily, INITIAL START FROM [facility] ON 06/09. Take medicine for 2 more [...] 02/24/21 11:37:00 EDT, Route to Pharmacy Electronically, [facility] [id number], Partial fill upon patient request if the [...] tablet, 3 Refills, Maintenance, 12/05/21 18:03:00 EDT, [facility] [id number], Partial fill upon patient request if the [...] 02/24/21 11:36:00 EDT, Route to Pharmacy Electronically, [facility] [id number], Partial fill upon patient request if the prescription is fo... Start Date: 02/24/21 Status: Orderedlurasidone 80 mg oral tablet 1 tablet = 80 mg, By Mouth, Daily, # 30 tablet, 0 Refills, Maintenance, 02/24/21 11:37:00 EDT, Tablet, [facility] [id number], Partial fill upon patient request if the prescription is for a schedule II opioid drug. Start Date: 02/24/21 Status: OrderedmetFORMIN 500 mg oral tablet 2 each = 1,000 mg, By Mouth, 2 times a day with meals, # 120 tablet, 3 Refills, Maintenance, 12/05/21 18:03:00 EDT, Tablet, [facility] [id number], Partial fill upon patient request if the [...] 3 Refills, Maintenance, 12/05/21 18:07:00 EDT, Tablet, [facility] [id number], Partial fill upon patient request if the [...] 3 Refills, Maintenance, 12/05/21 18:04:00 EDT, Solution, [facility] [id number], Partial fill upon patient request if the prescription is fo... Start Date: 12/05/21 Status: Ordered Problem List Condition Confirmation Course Effective Dates Status Health I nformant Status Asthma Confirmed Active Diabetes mellitus Confirmed Active GERD Confirmed Active (gastroesophageal reflux disease) Obese class II Confirmed Active Schizoaffective Confirmed Active disorder Vital Signs Most recent to oldest 1 2 3 [Reference Range]: Height 172 cm 172 cm (05/23/22 1:51 AM) (05/23/22 1:07 AM) Weight 133.7 kg 109.09 kg (05/23/22 1:51 AM) (05/23/22 1:07 AM) Oxygen Saturation [94-100 97 % 97 % 98 % %] (05/23/22 6:31 AM) (05/23/22 3:09 AM) (05/23/22 1:07 AM) Pulse Rate [55-90 bpm] 71 bpm 72 bpm 79 bpm (05/23/22:31 AM) (05/23/22 3:09 AM) (05/23/22 1:07 AM) Body Mass Index 36.87 kg/m2 [18.5-24.99 kg/m2] *>HHI* (05/23/22 1:07 AM) Blood Pressure 132/72 mm Hg 128/75 mm Hg 129/66 mm Hg [90-138/55-84 mm Hg] (05/23/22:31 AM) (05/23/22 3:09 AM) (04/27 02/14 1:07 AM) Respiratory Rate [16-30 16 br/min br/min] (05/23/22 1:07 AM) Temperature [96.8-100.4 98.2 DegF 98.2 DegF 97.8 Deg F DegF] (05/23/22 6:31 AM) (05/23/22 3:09 AM) (05/23/22 1:07 AM) Mode of Delivery (Oxygen) Room air Room air Room a ir (05/23/22:31 AM) (05/23/22 3:09 AM) (05/23/22 1:07 AM) Blood pressure sites Arm, right Arm, left Arm, left (05/23/22:31 AM) (05/23/22 3:09 AM) (05/23/22 1:07 AM) Temperature Route Oral Oral Oral (05/23/22:31 AM) (05/23/22 3:09 AM) (05/23/22 1:07 AM) Dry Weight 133.7 kg (05/23/22 1:51 AM) Weight Obtained Via Patient/family stated (05/23/22 1:07 AM) Social History Social History Type Response Smoking Status Never smoker entered on: 1/27/15 Sex Patient Care team information Care Team PersonnelName: Alonso Field RN Position: S RN Member Role: Primary Care Nurse Name: Ander Meraz RN Position: S RN Member Role: Primary Care Nurse Name: Eva Ramirez RN Position: S RN Member Role: Primary Care Nurse Name: Edmar Chavira RN Position: S RN Member Role: Primary Care Nurse Name: Eri ARZOLA, Roc Stewart Position: Reference Physician Member Role: PCP Address: Address: [address] [place] [address]- Care Team Related PersonsName: MARINA SOTOMAYOR Address: home [address] [place] [address] Name: NONE, GIVEN Address: home XX [place], [place] [address]
--- OUTSIDE RECORDS SUMMARY | 2022-06-25 03:29 | XMS_ITS | Continuity of Care Document ---
:1980 Author Organization [facility] Address [address] [place] [address]- Care Team Providers Name Role Phone Eri ARZOLA, Roc Stewart Primary Care Physician [phone] Encounter [facility] [place] Date(s): 06/14/21 - 06/17/[address] [address] Encounter Diagnosis COVID-19 (Final) - 06/14/21 Hypoxia (Final) - 06/14/21 Pneumonia due to COVID-19 virus (Final) - 06/14/21 Discharge Disposition: A-Transfer VNA/Home Health Attending Physician: Taylor Pantoja MD Admitting Physician: Julianna Levine MD Referring Physician: Not on Staff, Referring [...] tablet, 0 Refills, Maintenance, 02/24/21 11:36:00EDT, Tablet, [place], [place] - [id number], Partial fill upon patient request if the prescription is for a schedule II opioid drug. Start Date: 02/24/21 Status: OrderedcloNIDine 0.1 mg oral tablet 0.1 mg, 1, tablet, By Mouth, Daily, # 30 tablet, Refills 0, Tot. Refills 0, Maintenance, 02/24/21 11:37:00 EDT, Route to Pharmacy Electronically, [place], [place] - [id number], Partialfill upon patient request if the prescription is... Start Date: 02/24/21 Status: Ordereddexamethasone 6 mg oral tablet 1 tablet = 6 mg, By Mouth, Daily, INITIAL START FROM [facility] ON 06/09. Take medicine for 2 [...] II opioid drug. Start Date: 06/14/21 Status: Orderedgabapentin 100 mg oral capsule 200 mg, 2, capsule, By Mouth, Daily at bedtime, # 60 capsule, Refills 0, Tot. Refills 0, Maintenance, 02/24/21 11:37:00 EDT, Route to Pharmacy Electronically, [place], [place] - [id number], Partial fill upon patient request if the pre... Start Date: 02/24/21 Status: Orderedgabapentin 100 mg oral capsule 200 mg, Capsule, By Mouth, 06/16/21 21:00:00 EST Start Date: 06/16/21 Stop Date: 06/16/21 Status: CompletedguaiFENesin 200 mg oral tablet 1 tablet = [...] tablet, 0 Refills, Maintenance, 02/24/21 11:39:00 EDT, [facility] [id number], Partial fill upon patient request if the prescription is for a schedule I... Start Date: 02/24/21 Status: OrderedLevemir Inj = 85 units, Subcutaneous Infusion, 2 times a day, 0 Refills, Maintenance, 04/17/21 1:39:00 EDT, Partial fill upon patient request if the prescription is for a schedule II opioid drug. Start Date: 04/17/21 Status: Orderedlisinopril 5 mg oral tablet 5 mg, Tablet, By Mouth, 06/17/21 9:00:00 EST Start Date: 06/17/21 Stop Date: 06/17/21 Status: Completedlisinopril 5 mg oral tablet 5 mg, 1, tablet, By Mouth, Daily, # 30 tablet, Refills 0, Tot. Refills 0, Maintenance, 02/24/21 11:36:00 EDT, Route to Pharmacy Electronically, [facility] [id number], Partial fill upon patient request if the prescription is fo... Start Date: 02/24/21 Status: Orderedlurasidone 80 mg oral tablet 1 tablet = 80 mg, By Mouth, Daily, # 30 tablet, 0 Refills, Maintenance, 02/24/21 11:37:00 EDT, Tablet, [facility] [id number], Partial fill upon patient request if the prescription is for a schedule II opioid drug. Start Date: 02/24/21 Status: OrderedmetFORMIN 500 mg oral tablet 2 each = 1,000 mg, By Mouth, 2 times a day with meals, # 120 tablet, 0 Refills, Maintenance, 02/24/21 11:36:00 EDT, Tablet, [facility] [id number], Partial fill upon patient request if the prescription is for a schedule II opio... Start Date: 02/24/21 Status: OrderedNovoLOG 100 units/mL subcutaneous solution = 35 units, Subcutaneous Infusion, 2 times a day with meals, 0 Refills, Maintenance, 06/14/21 16:57:00 EST, Partial fill upon patient request if the prescription is for a schedule II opioid drug. Start Date: 06/14/21 Status: Orderedomeprazole 20 mg oral enteric coated [...] mellitus(Confirmed) Active GERD (gastroesophageal reflux Active disease)(Confirmed) Obese class I(Confirmed) Active Schizoaffective disorder(Confirmed) Active Results Radiology Reports Exam Date Time Procedure Performing Provider Status 06/14/21 6:55 AM Chest Single Frontal View Jacqueline Arriola; Aut h (Verified) Notes:(Chest Single Frontal View) Reason For Exam: COVID 19;Shortness of Breath RESULT: Chest Single Frontal View Chest Single Frontal View INDICATION/CLINICAL QUESTION: Difficulty breathing.: COVID 19 positive test today. TECHNIQUE: PA chest 0649 hours 06/14/2021.. COMPARISON: 05/03/2021. FINDINGS: LINES AND TUBES: Absent. LUNGS AND PLEURA: Patchy opacity widely distributed throughout each lung. No dense consolidation, mass, effusion, or pneumothorax. HEART AND MEDIASTINAL CONTOURS: Normal. BONES AND SOFT TISSUES: No acute abnormality.. IMPRESSION: 1. Widespread patchy opacity both lungs. Given new onset of symptoms and the new COVID 19 positive test, the appearance is consistent with viral pneumonia. 2. No other abnormality. WSN: [id number] Ordering Physician: Ignacio Grayson Dictated By: Cr Callaway MD Dictated Date/Time: 06/14/21 7:14 am Reviewed By: Cr Callaway MD Signed By: Cr Callaway MD Signed Date/Time: 06/14/21 7:14 am Transcribed By: DARWIN Transcribed Date/Time: 06/14/21 7:11 am Vital Signs Most recent to oldest 1 2 3 [Reference Range]: Height 173 cm 173 cm 173 cm (06/17/21 12:00 AM) (06/16/21 7:50 PM) (06/16/21 3:54 AM) Weight 103.6 kg (06/14/21 7:30 PM) Oxygen Saturation [94-100 97 % 96 % 97 % %] (06/17/21 12:00 PM) (06/17/21 8:40 AM) (06/17/21 4:00 AM) Pulse Rate [55-90 bpm] 89 bpm 79 bpm 87 bpm (06/17/21 12:00 PM) (06/17/21 8:40 AM) (06/17/21 4:00 AM) Body Mass Index 34.62 [18.5-24.99] *>HHI* (06/14/21 7:30 PM) Blood Pressure 142/89 mm Hg 128/82 mm Hg 116/87 mm Hg [90-138/55-84 mm Hg] *H* (06/17/21 9:21 AM) ( 1 8:40 AM) (06/17/21 12:00 PM) Respiratory Rate [16-30 24 br/min 17 br/min 20 br/mi n br/min] (06/17/21 12:00 PM) (06/16/21 10:46 PM) ( 1 7:50 PM) Temperature [96.8-100.4 98.2 DegF 98.8 DegF 97.8 Deg F DegF] (06/17/21 12:00 PM) (06/17/21 8:40 AM) (06/17/21 4:00 AM) Liters per Minute 2 L/min 2 L/min 2 L/min (06/17/21 12:00 PM) (06/17/21 8:40 AM) (06/17/21 4:00 AM) Mode of Delivery (Oxygen) Nasal cannula Nasal cannula Nasal cannula (06/17/21 12:00 PM) (06/17/21 8:40 AM) (06/17/21 4:00 AM) Blood pressure sites Arm, right Arm, right Arm, left (06/17/21 12:00 PM) (06/17/21 8:40 AM) (06/17/21 4:00 AM) Temperature Route Oral Oral Oral (06/17/21 12:00 PM) (06/17/21 8:40 AM) (06/17/21 4:00 AM) Dry Weight 103.6 kg (06/14/21 7:30 PM) Social History Social History Type Response Smoking Status Never smoker entered on: 07/22/14 Sex
--- OUTSIDE RECORDS SUMMARY | 2022-06-25 03:29 | XMS_ITS | Continuity of Care Document ---
:1980 Author Organization [facility] Address [address] [place] [address]- Care Team Providers Name Role Phone Eri ARZOLA, Roc Stewart Primary Care Physician Encounter [facility] [place] Date(s): 12/06/21 - 12/06/[address] [address]- Encounter Diagnosis Diabetes (Final) - 12/06/21 Hyperglycemia (Final) - 12/06/21 Bipolar 1 disorder (Final) - 12/06/21 Discharge Disposition: A-D/C Home Attending Physician: Moises Llanes DO Admitting Physician: Moises Llanes DO Referring Physician: Not on Staff, Referring [...] tablet, 3 Refills, Maintenance, 12/05/21 18:04:00EDT, Tablet, [facility] [id number], Partial fill upon patient request if the prescription is for a schedule II opioid drug.,... Start Date: 12/05/21 Status: OrderedcloNIDine 0.1 mg oral tablet 0.1 mg, 1, tablet, By Mouth, Daily, # 30 tablet, Refills 0, Tot. Refills 0, Maintenance, 02/24/21 11:37:00 EDT, Route to Pharmacy Electronically, [facility] [id number], Partialfill upon patient request if the prescription is... Start Date: 02/24/21 Status: Ordereddexamethasone 6 mg oral tablet 1 tablet = 6 mg, By Mouth, Daily, INITIAL START FROM [facility] ON 06/09. Take medicine for 2 more [...] 02/24/21 11:37:00 EDT, Route to Pharmacy Electronically, [facility] [id number], Partial fill upon patient request if the [...] tablet, 3 Refills, Maintenance, 12/05/21 18:03:00 EDT, [facility] [id number], Partial fill upon patient request if the [...] 02/24/21 11:36:00 EDT, Route to Pharmacy Electronically, [facility] [id number], Partial fill upon patient request if the prescription is fo... Start Date: 02/24/21 Status: Orderedlurasidone 80 mg oral tablet 1 tablet = 80 mg, By Mouth, Daily, # 30 tablet, 0 Refills, Maintenance, 02/24/21 11:37:00 EDT, Tablet, [facility] [id number], Partial fill upon patient request if the prescription is for a schedule II opioid drug. Start Date: 02/24/21 Status: OrderedmetFORMIN 500 mg oral tablet 2 each = 1,000 mg, By Mouth, 2 times a day with meals, # 120 tablet, 3 Refills, Maintenance, 12/05/21 18:03:00 EDT, Tablet, [facility] [id number], Partial fill upon patient request if the [...] 3 Refills, Maintenance, 12/05/21 18:07:00 EDT, Tablet, [facility] [id number], Partial fill upon patient request if the [...] 3 Refills, Maintenance, 12/05/21 18:04:00 EDT, Solution, [facility] [id number], Partial fill upon patient request if the prescription is fo... Start Date: 12/05/21 Status: Ordered Problem List Condition Effective Dates Status Health Status Informant Asthma(Confirmed) Active Diabetes mellitus(Confirmed) Active GERD (gastroesophageal reflux Active disease)(Confirmed) Schizoaffective disorder(Confirmed) Active Severe obesity(Confirmed) Active Vital Signs Most recent to oldest [Reference Range]: 1 2 Oxygen Saturation [94-100 %] 96 % 98 % (12/06/21 1:28 PM) (12/06/21 12:33 PM) Pulse Rate [55-90 bpm] 63 bpm 78 bpm (12/06/21 1:28 PM) (12/06/21 12:33 PM) Blood Pressure [90-138/55-84 mm Hg] 142/84 mm Hg 134/ 91 mm Hg *H* (12/06/21 12:33 PM) (12/06/21 1:28 PM) Respiratory Rate [16-30 br/min] 16 br/min 20 br/mi n (12/06/21 1:28 PM) (12/06/21 12:33 PM) Temperature [96.8-100.4 DegF] 98.4 DegF (12/06/21 12:33 PM) Mode of Delivery (Oxygen) Room air Room air (12/06/21 1:28 PM) (12/06/21 12:33 PM) Blood pressure sites Arm, left Arm, left (12/06/21 1:28 PM) (12/06/21 12:33 PM) Temperature Route Oral (12/06/21 12:33 PM) Social History Social History Type Response Smoking Status Never smoker entered on: 07/22/14 Sex
--- OUTSIDE RECORDS SUMMARY | 2022-06-25 03:29 | XMS_ITS | Continuity of Care Document ---
:1980 Author Organization [facility] Address [address] [place] [address]- Care Team Providers Name Role Phone Eri ARZOLA, Roc Stewart Primary Care Physician Encounter [facility] [place] Date(s): 12/14/21 - 12/15/[address] [address]- Encounter Diagnosis Bilateral flank pain (Final) - 12/15/21 Discharge Disposition: A-D/C Home Attending Physician: Godfrey Iyer MD Admitting Physician: Godfrye Iyer MD Referring Physician: Not on Staff, Referring [...] tablet, 3 Refills, Maintenance, 12/05/21 18:04:00EDT, Tablet, [facility] [id number], Partial fill upon patient request if the prescription is for a schedule II opioid drug.,... Start Date: 12/05/21 Status: OrderedcloNIDine 0.1 mg oral tablet 0.1 mg, 1, tablet, By Mouth, Daily, # 30 tablet, Refills 0, Tot. Refills 0, Maintenance, 02/24/21 11:37:00 EDT, Route to Pharmacy Electronically, [facility] [id number], Partialfill upon patient request if the prescription is... Start Date: 02/24/21 Status: Ordereddexamethasone 6 mg oral tablet 1 tablet = 6 mg, By Mouth, Daily, IN[facility]IAL START FROM [facility] ON 06/09. Take medicine for 2 more [...] 02/24/21 11:37:00 EDT, Route to Pharmacy Electronically, [facility] [id number], Partial fill upon patient request if the [...] tablet, 3 Refills, Maintenance, 12/05/21 18:03:00 EDT, [facility] [id number], Partial fill upon patient request if the [...] 02/24/21 11:36:00 EDT, Route to Pharmacy Electronically, [facility] [id number], Partial fill upon patient request if the prescription is fo... Start Date: 02/24/21 Status: Orderedlurasidone 80 mg oral tablet 1 tablet = 80 mg, By Mouth, Daily, # 30 tablet, 0 Refills, Maintenance, 02/24/21 11:37:00 EDT, Tablet, [facility] [id number], Partial fill upon patient request if the prescription is for a schedule II opioid drug. Start Date: 02/24/21 Status: OrderedmetFORMIN 500 mg oral tablet 2 each = 1,000 mg, By Mouth, 2 times a day with meals, # 120 tablet, 3 Refills, Maintenance, 12/05/21 18:03:00 EDT, Tablet, [facility] [id number], Partial fill upon patient request if the [...] 3 Refills, Maintenance, 12/05/21 18:07:00 EDT, Tablet, [facility] [id number], Partial fill upon patient request if the [...] 3 Refills, Maintenance, 12/05/21 18:04:00 EDT, Solution, [facility] [id number], Partial fill upon patient request if the prescription is fo... Start Date: 12/05/21 Status: Ordered Problem List Condition Effective Dates Status Health Status Informant Asthma(Confirmed) Active Diabetes mellitus(Confirmed) Active GERD (gastroesophageal reflux Active disease)(Confirmed) Schizoaffective disorder(Confirmed) Active Severe obesity(Confirmed) Active Vital Signs Most recent to oldest 1 2 3 [Reference Range]: Weight 133 kg 133 kg 133 kg (12/15/21 6:04 AM) (12/15/21 12:44 AM) (12/15/21 12 :18 AM) Oxygen Saturation [94-100 %] 100 % 99 % 97 % (12/15/21 9:00 AM) (12/15/21 6:04 AM) (12/15/21 2:1 2 AM) Pulse Rate [55-90 bpm] 103 bpm 74 bpm 81 bpm *H* (12/15/21 6:04 AM) (12/15/21 2:12 AM) (12/15/21 9:00 AM) Blood Pressure [90-138/55-84 131/86 mm Hg 145/67 mm Hg 135 /92 mm Hg mm Hg] (12/15/21 9:00 AM) *H* (12/15/21 2:12 AM) (12/15/21 6:04 AM) Respiratory Rate [16-30 16 br/min 18 br/min br/min] (12/15/21 6:04 AM) (12/15/21 12:18 AM) Temperature [96.8-100.4 98.0 DegF 98.2 DegF 97.9 Deg F DegF] (12/15/21 6:04 AM) (12/15/21 2:12 AM) (12/15/21 12: 18 AM) Mode of Delivery (Oxygen) Room air Room air Room a ir (12/15/21 9:00 AM) (12/15/21 6:04 AM) (12/15/21 12: 18 AM) Blood pressure sites Arm, left Arm, left Arm, left (12/15/21 9:00 AM) (12/15/21 6:04 AM) (12/15/21 2:1 2 AM) Temperature Route Oral Axillary Oral (12/15/21 6:04 AM) (12/15/21 2:12 AM) (12/15/21 12: 18 AM) Dry Weight 133 kg 133 kg 133 kg (12/15/21 6:04 AM) (12/15/21 12:44 AM) (12/15/21 12 :18 AM) Weight Obtained Via Standing scale (12/15/21 12:18 AM) Dry Weight Obtained Via Standing scale (12/15/21 12:18 AM) Social History Social History Type Response Smoking Status Never smoker entered on: 07/22/14 Sex
--- OUTSIDE RECORDS SUMMARY | 2022-06-25 03:29 | XMS_ITS | Continuity of Care Document ---
:1980 Author Organization [facility] Address [address] [place] [address]- Care Team Providers Name Role Phone Eri ARZOLA, Roc Stewart Primary Care Physician Encounter [facility] [place] Date(s): 04/27/21 - 04/27/[address] [address]- Encounter Diagnosis Chest pain (Final) - 04/27/21 Discharge Disposition: A-D/C Home Attending Physician: Myriam Miller MD Admitting Physician: Myriam Miller MD Referring Physician: Not on Staff, Referring [...] tablet, 0 Refills, Maintenance, 02/24/21 11:36:00EDT, Tablet, [facility] [id number], Partial fill upon patient request if the prescription is for a schedule II opioid drug. Start Date: 02/24/21 Status: OrderedcloNIDine 0.1 mg oral tablet 0.1 mg, 1, tablet, By Mouth, Daily, # 30 tablet, Refills 0, Tot. Refills 0, Maintenance, 02/24/21 11:37:00 EDT, Route to Pharmacy Electronically, [facility] [id number], Partialfill upon patient request if the prescription is... Start Date: 02/24/21 Status: Orderedgabapentin 100 mg oral capsule 200 mg, 2, capsule, By Mouth, Daily at bedtime, # 60 capsule, Refills 0, Tot. Refills 0, Maintenance, 02/24/21 11:37:00 EDT, Route to Pharmacy Electronically, [facility] [id number], Partial fill upon patient request if the pre... Start Date: 02/24/21 Status: OrderedhydrOXYzine hydrochloride 50 mg oral tablet 1 tablet = 50 mg, By Mouth, Every 6 hours, PRN as needed for anxiety, # 60 tablet, 0 Refills, Maintenance, 02/24/21 11:39:00 EDT, [facility] [id number], Partial fill upon patient request if the prescription is for a schedule I... Start Date: 02/24/21 Status: Orderedinsulin isophane human recombinant 100 u/ml subcutaneous injection = 35 units, Subcutaneous Injection, 2 times a day before breakfast and dinne, # 10 mL, 0 Refills, Maintenance, 02/24/21 11:37:00 EDT, Injection, [facility] [id number], Partial fill upon patient request if the [...] 02/24/21 11:36:00 EDT, Route to Pharmacy Electronically, [facility] [id number], Partial fill upon patient request if the prescription is fo... Start Date: 02/24/21 Status: Orderedlurasidone 80 mg oral tablet 1 tablet = 80 mg, By Mouth, Daily, # 30 tablet, 0 Refills, Maintenance, 02/24/21 11:37:00 EDT, Tablet, [facility] [id number], Partial fill upon patient request if the prescription is for a schedule II opioid drug. Start Date: 02/24/21 Status: OrderedmetFORMIN 500 mg oral tablet 2 each = 1,000 mg, By Mouth, 2 times a day with meals, # 120 tablet, 0 Refills, Maintenance, 02/24/21 11:36:00 EDT, Tablet, [facility], [place] - [id number], Partial fill upon patient request if the [...] Exam Date Time Procedure Performing Provider Status 04/27/21 12:22 PM Chest 2 Views Frontal and Lat Foreign Marcial; Merlin (Verified) Notes:(Chest 2 Views Frontal and Lat) Reason For Exam: Chest Pain;Other:RESULT: Chest 2 Views Frontal and Lat Chest 2 Views Frontal and Lat INDICATION: Left-sided chest pain. COMPARISON: 04/17/2021. FINDINGS: LINES AND TUBES: None. LUNGS AND PLEURA: Clear lungs. Normal pulmonary vascularity. No pleural effusion. No pneumothorax. HEART, MEDIASTINUM AND JEROMY: Heart is normal in size. Normal upper mediastinal and hilar contour. BONES AND SOFT TISSUES: No acute abnormality. IMPRESSION: No acute abnormality. WSN: [id number] Ordering Physician: Ayo Hodgson Dictated By: Brandon Hay MD Dictated Date/Time: 04/27/21 12:24 p Reviewed By: Brandon Hay MD Signed By: Brandon Hay MD Signed Date/Time: 04/27/21 12:24 pm Transcribed By: DARWIN Transcribed Date/Time: 04/27/21 12:23 pm Vital Signs Most recent to oldest 1 2 3 [Reference Range]: Height 191 cm (04/27/21 2:15 PM) Weight 118.1 kg (04/27/21 2:15 PM) Oxygen Saturation [94-100 %] 99 % 98 % 98 % (04/27/21 6:09 PM) (04/27/21 2:15 PM) (04/27/21 1:3 3 PM) Pulse Rate [55-90 bpm] 77 bpm 79 bpm 89 bpm (04/27/21 6:09 PM) (04/27/21 2:15 PM) (04/27/21 1:3 3 PM) Blood Pressure [90-138/55-84 125/78 mm Hg 128/77 mm Hg 133 /71 mm Hg mm Hg] (04/27/21 6:09 PM) (04/27/21 2:15 PM) (04/27/21 1:3 3 PM) Respiratory Rate [16-30 19 br/min 20 br/min 20 br/mi n br/min] (04/27/21 6:09 PM) (04/27/21 2:15 PM) (04/27/21 1:3 3 PM) Temperature [96.8-100.4 DegF] 97.8 DegF 97.6 DegF 98 .1 DegF (04/27/21 6:09 PM) (04/27/21 2:15 PM) (04/27/21 1:3 3 PM) Liters per Minute 0 L/min (04/27/21 11:17 AM) Mode of Delivery (Oxygen) Room air Room air Room a ir (04/27/21 6:09 PM) (04/27/21 2:15 PM) (04/27/21 1:3 3 PM) Blood pressure sites Arm, left Arm, right Arm, left (04/27/21 6:09 PM) (04/27/21 2:15 PM) (04/27/21 1:3 3 PM) Temperature Route Oral Oral Oral (04/27/21 2:15 PM) (04/27/21 1:33 PM) (04/27/21 11: 17 AM) Dry Weight 118.1 kg (04/27/21 2:15 PM) Social History Social History Type Response Smoking Status Never smoker entered on: 07/22/14 Sex
--- OUTSIDE RECORDS SUMMARY | 2022-06-25 03:29 | XMS_ITS | Continuity of Care Document ---
:1980 Author Organization [facility] Address [address] [place] [address]- Care Team Providers Name Role Phone Eri ARZOLA, Roc Stewart Primary Care Physician Encounter [facility] [place] Date(s): 02/03/22 - 02/04/[address] [address]- Encounter Diagnosis Hyperglycemia (Final) - 02/03/22 Diabetes (Final) - 02/03/22 Hematoma of left foot (Final) - 02/03/22 Back pain (Final) - 02/03/22 Discharge Disposition: A-D/C Home Attending Physician: Henrietta Jha MD Admitting Physician: Henrietta Jha MD Referring Physician: Not on Staff, Referring [...] tablet, 3 Refills, Maintenance, 12/05/21 18:04:00EDT, Tablet, [place], [place] - [id number], Partial fill upon patient request if the prescription is for a schedule II opioid drug.,... Start Date: 12/05/21 Status: OrderedcloNIDine 0.1 mg oral tablet 0.1 mg, 1, tablet, By Mouth, Daily, # 30 tablet, Refills 0, Tot. Refills 0, Maintenance, 02/24/21 11:37:00 EDT, Route to Pharmacy Electronically, [place], [place] - [id number], Partialfill upon patient request if the prescription is... Start Date: 02/24/21 Status: Ordereddexamethasone 6 mg oral tablet 1 tablet = 6 mg, By Mouth, Daily, INITIAL START FROM [facility] ON 06/09. Take medicine for 2 more [...] 02/24/21 11:37:00 EDT, Route to Pharmacy Electronically, [facility] [id number], Partial fill upon patient request if the [...] tablet, 3 Refills, Maintenance, 12/05/21 18:03:00 EDT, [facility] [id number], Partial fill upon patient request if the [...] 02/24/21 11:36:00 EDT, Route to Pharmacy Electronically, [facility] [id number], Partial fill upon patient request if the prescription is fo... Start Date: 02/24/21 Status: Orderedlurasidone 80 mg oral tablet 1 tablet = 80 mg, By Mouth, Daily, # 30 tablet, 0 Refills, Maintenance, 02/24/21 11:37:00 EDT, Tablet, [facility] [id number], Partial fill upon patient request if the prescription is for a schedule II opioid drug. Start Date: 02/24/21 Status: OrderedmetFORMIN 500 mg oral tablet 2 each = 1,000 mg, By Mouth, 2 times a day with meals, # 120 tablet, 3 Refills, Maintenance, 12/05/21 18:03:00 EDT, Tablet, [facility] [id number], Partial fill upon patient request if the [...] 3 Refills, Maintenance, 12/05/21 18:07:00 EDT, Tablet, [facility] [id number], Partial fill upon patient request if the [...] 3 Refills, Maintenance, 12/05/21 18:04:00 EDT, Solution, [facility], [place] - [id number], Partial fill upon patient request if the prescription is fo... Start Date: 12/05/21 Status: Ordered Problem List Condition Effective Dates Status Health Status Informant Asthma(Confirmed) Active Diabetes mellitus(Confirmed) Active GERD (gastroesophageal reflux Active disease)(Confirmed) Schizoaffective disorder(Confirmed) Active Severe obesity(Confirmed) Active Vital Signs Most recent to oldest 1 2 3 [Reference Range]: Height 173 cm (02/03/22 9:03 PM) Weight 134 kg (02/03/22 9:03 PM) Oxygen Saturation [94-100 %] 97 % 91 % 98 % (02/04/22 12:09 AM) *L* (02/03/22 10:0 5 PM) (02/03/22 11:01 PM) Pulse Rate [55-90 bpm] 88 bpm 89 bpm 96 bpm (02/04/22 12:09 AM) (02/03/22 11:01 PM) *H* (02/03/22 10:05 P M) Body Mass Index [18.5-24.99] 44.77 *>HHI* (02/03/22 9:03 PM) Blood Pressure [90-138/55-84 142/84 mm Hg 130/80 mm Hg 120 /88 mm Hg mm Hg] *H* (02/03/22 11:01 PM) (02/03/22 10:0 5 PM) (02/04/22 12:09 AM) Respiratory Rate [16-30 20 br/min 18 br/min 20 br/mi n br/min] (02/04/22 12:09 AM) (02/03/22 11:01 PM) (02/03/22 1 0:05 PM) Temperature [96.8-100.4 98.2 DegF 98 DegF 97.9 Deg F DegF] (02/04/22 12:09 AM) (02/03/22 11:01 PM) (02/03/22 1 0:05 PM) Mode of Delivery (Oxygen) Room air Room air Room a ir (02/04/22 12:09 AM) (02/03/22 11:01 PM) (02/03/22 1 0:05 PM) Blood pressure sites Arm, right (02/03/22 9:03 PM) Temperature Route Oral Oral Oral (02/04/22 12:09 AM) (02/03/22 11:01 PM) (02/03/22 1 0:05 PM) Dry Weight 134 kg (02/03/22 9:03 PM) Weight Obtained Via Standing scale (02/03/22 9:03 PM) Dry Weight Obtained Via Standing scale (02/03/22 9:03 PM) Social History Social History Type Response Smoking Status Never smoker entered on: 07/22/14 Sex
--- OUTSIDE RECORDS SUMMARY | 2022-06-25 03:29 | XMS_ITS | Continuity of Care Document ---
:1980 Author Organization [facility] Address [address] [place] [address]- Care Team Providers Name Role Phone Eri ARZOLA, Roc Stewart Primary Care Physician Encounter [facility] [place] Date(s): 03/26/20 - 03/27/[address] [address]- [facility] Encounter Diagnosis Depression (Final) - 03/27/20 Gambling problem (Final) - 03/27/20 Discharge Disposition: A-D/C Home Attending Physician: Tracy Levi MD Admitting Physician: Tracy Levi MD Referring Physician: Not on Staff, Referring MD Allergies, Adverse Reactions, Alerts Substance Reaction Severity Status shellfish Active Morphine Sulfate SR Active Immunizations Not Given Vaccine Date Status Refusal Reason pneumococcal 23-valent vaccine 06/09/15 Not Given P atient Refuses Medications Abilify 15 mg oral tablet 2 tablet = 30 mg, By Mouth, Daily, FOR THOUGHTS, # 60 tablet, 0 Refills, Maintenance, 03/30/15 0:03:10, Tablet, 2 tablet By Mouth Daily,Instr:FOR THOUGHTS Start Date: 03/30/15 Status: Orderedalbuterol CFC free 90 mcg/inh inhalation aerosol 2 puffs, Inhalation, 4 times a day, PRN Wheezing/Shortness of Breath, # 1 each, 0 Refills, Maintenance, 03/30/15 0:03:17, 2 puffs Inhalation 4 times a day,PRN:Wheezing/Shortness of Breath Start Date: 03/30/15 Status: Orderedcholecalciferol 2000 intl units oral tablet = 2,000 International_Units, By Mouth, Daily, 0 Refills, Maintenance, 06/11/15 10:19:09, Tablet Start Date: 06/11/15 Status: OrderedHumalog Kwik Pen 100 units/mL subcutaneous injection Subcutaneous Infusion, tid sliding scale, per instructions, 0 Refills, Maintenance, 06/11/15 10:17:33 Start Date: 06/11/15 Status: OrderedLevemir Inj See Instructions, Subcutaneous Injection, Daily, 40 units Subcutaneous Infusion Daily, 0 Refills, Maintenance, 06/11/15 10:09:12 Start Date: 06/11/15 Status: Orderedlisinopril 5 mg oral tablet 1 tablet = 5 mg, By Mouth, Daily, FOR BLOOD PRESSURE, # 30 tablet, 0 Refills, Maintenance, 03/30/15 0:02:34, Tablet, 1 tablet By Mouth Daily,Instr:FOR BLOOD PRESSURE Start Date: 03/30/15 Status: Orderedmelatonin 3 mg oral tablet 2 tablet = 6 mg, By Mouth, Daily at bedtime, 0 Refills, Maintenance, 06/11/15 10:05:41, Tablet Start Date: 06/11/15 Status: OrderedmetFORMIN 500 mg oral tablet 2 tablet = 1,000 mg, By Mouth, 2 times a day, FOR BLOOD SUGAR/DIABETES, # 120 tablet, 0 Refills, Maintenance, 03/30/15 0:02:29, Tablet, 2 tablet By Mouth 2 times a day,Instr:FOR BLOOD SUGAR/DIABETES Start Date: 03/30/15 Status: Orderedomeprazole 20 mg oral delayed release tablet 1 tablet = 20 mg, By Mouth, Daily, 0 Refills, Maintenance, 06/11/15 10:05:12 Start Date: 06/11/15 Status: Orderedsimvastatin 40 mg oral tablet 1 tablet = 40 mg, By Mouth, Daily at bedtime, FOR CHOLESTEROL, # 30 tablet, 0 Refills, Maintenance, 03/30/15 0:01:56, Tablet, 1 tablet By Mouth Daily at bedtime,Instr:FOR CHOLESTEROL Start Date: 03/30/15 Status: OrderedTylenol Caplet Extra Strength = 1,000 mg, By Mouth, 3 times a day, PRN Pain , Mild, 0 Refills, Maintenance, 06/11/15 10:11:50 Start Date: 06/11/15 Status: OrderedWellbutrin XL 150 mg/24 hours oral tablet, extended release 1 tablet = 150 mg, By Mouth, Every 24 hours, 0 Refills, Maintenance, 06/11/15 10:06:33 Start Date: 06/11/15 Status: Ordered Problem List Condition Effective Dates Status Health Status Informant Asthma(Confirmed) Active Diabetes mellitus(Confirmed) Active GERD (gastroesophageal reflux Active disease)(Confirmed) Schizoaffective disorder(Confirmed) Active Vital Signs Most recent to oldest [Reference Range]: 1 2 Oxygen Saturation [94-100 %] 99 % 98 % (03/27/20 7:08 AM) (03/27/20 12:27 AM) Pulse Rate [55-90 bpm] 88 bpm 89 bpm (03/27/20 7:08 AM) (03/27/20 12:27 AM) Blood Pressure [90-138/55-84 mm Hg] 123/68 mm Hg 121/ 72 mm Hg (03/27/20 7:08 AM) (03/27/20 12:27 AM) Respiratory Rate [16-30 br/min] 18 br/min 16 br/mi n (03/27/20 7:08 AM) (03/27/20 12:27 AM) Temperature [96.8-100.4 DegF] 97.6 DegF 97.5 DegF (03/27/20 7:08 AM) (03/27/20 12:27 AM) Mode of Delivery (Oxygen) Room air Room air (03/27/20 7:08 AM) (03/27/20 12:27 AM) Blood pressure sites Arm, right Arm, right (03/27/20 7:08 AM) (03/27/20 12:27 AM) Temperature Route Oral Oral (03/27/20 7:08 AM) (03/27/20 12:27 AM) Social History Social History Type Response Smoking Status Never smoker entered on: 07/22/14 Sex
--- OUTSIDE RECORDS SUMMARY | 2022-06-25 03:29 | XMS_ITS | Continuity of Care Document ---
:1980 Author Organization [facility] Address [address] [place] [address]- Care Team Providers Name Role Phone Eri ARZOLA, Roc Stewart Primary Care Physician [phone] [place] [facility] [place] [facility] [address] [place] [address]- Discharge Disposition: A-D/C Home Attending Physician: Suzan [...] tablet, 3 Refills, Maintenance, 12/05/21 18:04:00EDT, Tablet, [facility] [id number], Partial fill upon patient request if the prescription is for a schedule II opioid drug.,... Start Date: 12/05/21 Status: OrderedcloNIDine 0.1 mg oral tablet 0.1 mg, 1, tablet, By Mouth, Daily, # 30 tablet, Refills 0, Tot. Refills 0, Maintenance, 02/24/21 11:37:00 EDT, Route to Pharmacy Electronically, [facility] [id number], Partialfill upon patient request if the prescription is... Start Date: 02/24/21 Status: Ordereddexamethasone 6 mg oral tablet 1 tablet = 6 mg, By Mouth, Daily, INITIAL START FROM [facility] ON 06/09. Take medicine for [...] 02/24/21 11:37:00 EDT, Route to Pharmacy Electronically, [facility] [id number], Partial fill upon patient request if the [...] tablet, 3 Refills, Maintenance, 12/05/21 18:03:00 EDT, [facility] [id number], Partial fill upon patient request if the [...] 02/24/21 11:36:00 EDT, Route to Pharmacy Electronically, [facility] [id number], Partial fill upon patient request if the prescription is fo... Start Date: 02/24/21 Status: Orderedlurasidone 80 mg oral tablet 1 tablet = 80 mg, By Mouth, Daily, # 30 tablet, 0 Refills, Maintenance, 02/24/21 11:37:00 EDT, Tablet, [facility] [id number], Partial fill upon patient request if the prescription is for a schedule II opioid drug. Start Date: 02/24/21 Status: OrderedmetFORMIN 500 mg oral tablet 2 each = 1,000 mg, By Mouth, 2 times a day with meals, # 120 tablet, 3 Refills, Maintenance, 12/05/21 18:03:00 EDT, Tablet, [facility] [id number], Partial fill upon patient request if the [...] 3 Refills, Maintenance, 12/05/21 18:07:00 EDT, Tablet, [facility] [id number], Partial fill upon patient request if the [...] 3 Refills, Maintenance, 12/05/21 18:04:00 EDT, Solution, [facility] [id number], Partial fill upon patient request if the prescription is fo... Start Date: 12/05/21 Status: Ordered Problem List Condition Effective Dates Status Health Status Informant Asthma(Confirmed) Active Diabetes mellitus(Confirmed) Active GERD (gastroesophageal reflux Active disease)(Confirmed) Schizoaffective disorder(Confirmed) Active Severe obesity(Confirmed) Active Vital Signs Most recent to oldest 1 2 3 [Reference Range]: Height 173 cm (12/05/21 2:30 PM) Weight 132.9 kg (12/05/21 2:30 PM) Oxygen Saturation [94-100 %] 100 % 98 % 98 % (12/05/21 6:21 PM) (12/05/21 4:34 PM) (12/05/21 2:3 0 PM) Pulse Rate [55-90 bpm] 79 bpm 86 bpm 79 bpm (12/05/21 6:21 PM) (12/05/21 4:34 PM) (12/05/21 2:3 0 PM) Body Mass Index [18.5-24.99] 44.41 *>HHI* (12/05/21 2:30 PM) Blood Pressure [90-138/55-84 mm 134/81 mm Hg 149/89 mm Hg 138/72 mm Hg Hg] (12/05/21 6:21 PM) *H* (12/05/21 2:30 PM) (12/05/21 4:34 PM) Respiratory Rate [16-30 br/min] 19 br/min 18 br/min 18 br/min (12/05/21 6:21 PM) (12/05/21 4:34 PM) (12/05/21 2:3 0 PM) Temperature [96.8-100.4 DegF] 98.2 DegF 97.9 DegF 97 .8 DegF (12/05/21 6:21 PM) (12/05/21 4:34 PM) (12/05/21 2:3 0 PM) Mode of Delivery (Oxygen) Room air Room air Room a ir (12/05/21 6:21 PM) (12/05/21 4:34 PM) (12/05/21 2:3 0 PM) Blood pressure sites Arm, right Arm, right Arm, right (12/05/21 6:21 PM) (12/05/21 4:34 PM) (12/05/21 2:3 0 PM) Temperature Route Oral Oral Oral (12/05/21 6:21 PM) (12/05/21 4:34 PM) (12/05/21 2:3 0 PM) Dry Weight 132.9 kg (12/05/21 2:30 PM) Weight Obtained Via Standing scale (12/05/21 2:30 PM) Dry Weight Obtained Via Standing scale (12/05/21 2:30 PM) Social History Social History Type Response Smoking Status Never smoker entered on: 07/22/14 Sex
--- OUTSIDE RECORDS SUMMARY | 2022-06-25 03:29 | XMS_ITS | Continuity of Care Document ---
:1980 Author Organization [facility] Address [address] [place] [id number]- Care Team Providers Name Role Phone Eri ARZOLA, Roc Stewart Primary Care Physician [place] [facility] [place] Date(s): 02/18/21 - 02/19/[address] [address]- Encounter Diagnosis Poorly controlled diabetes mellitus (Final) - 02/19/21 Discharge Disposition: Transfer to [facility] Facility Attending Physician: Henrietta Collier MD Admitting Physician: Henrietta Collier MD Referring Physician: Not on Staff, Referring [...] 06/11/15 10:19:09, Tablet Start Date: 06/11/15 Status: Orderedgabapentin 100 mg oral capsule 100 mg, Capsule, By Mouth, 02/19/21 9:00:00 EDT Start Date: 02/19/21 Stop Date: 02/19/21 Status: CompletedHumalog Kwik Pen 100 units/mL subcutaneous injection Subcutaneous Infusion, tid sliding scale, per instructions, 0 Refills, Maintenance, 06/11/15 10:17:33 Start Date: 06/11/15 Status: OrderedLevemir Inj See Instructions, Subcutaneous Injection, Daily, 40 units Subcutaneous Infusion Daily, 0 Refills, Maintenance, 06/11/15 10:09:12 Start Date: 06/11/15 Status: Orderedlisinopril 5 mg oral tablet 5 mg, Tablet, By Mouth, 02/19/21 9:00:00 EDT Start Date: 02/19/21 Stop Date: 02/19/21 Status: Completedlisinopril 5 mg oral tablet 1 tablet = [...] to oldest 1 2 3 [Reference Range]: Oxygen Saturation [94-100 %] 100 % 99 % (02/19/21 1:30 AM) (02/18/21 10:19 PM) Pulse Rate [55-90 bpm] 82 bpm 85 bpm (02/19/21 1:30 AM) (02/18/21 10:19 PM) Blood Pressure [90-138/55-84 128/72 mm Hg 128/72 mm Hg 134 /74 mm Hg mm Hg] (02/19/21 8:50 AM) (02/19/21 1:30 AM) (02/18/21 10: 19 PM) Respiratory Rate [16-30 18 br/min 16 br/min 16 br/mi n br/min] (02/19/21 8:49 AM) (02/19/21 1:30 AM) (02/18/21 10: 19 PM) Temperature [96.8-100.4 DegF] 97.8 DegF 98.3 DegF (02/19/21 1:30 AM) (02/18/21 10:19 PM) Mode of Delivery (Oxygen) Room air room air (02/19/21 1:30 AM) (02/18/21 10:19 PM) Blood pressure sites Arm, right Arm, right (02/19/21 1:30 AM) (02/18/21 10:19 PM) Temperature Route Oral Oral (02/19/21 1:30 AM) (02/18/21 10:19 PM) Social History Social History Type Response Smoking Status Never smoker entered on: 07/22/14 Sex
--- OUTSIDE RECORDS SUMMARY | 2022-06-25 03:29 | XMS_ITS | Continuity of Care Document ---
:1980 Author Organization [facility] Address [address] [place] [address]- Care Team Providers Name Role Phone Eri ARZOLA, Roc Stewart Primary Care Physician [place] [facility] [place] 03/28/22 [facility] [address] [place] [address]- Discharge Disposition: A-D/C Home Attending Physician: Russel Terrazas MD Admitting Physician: Russel Terrazas MD Referring Physician: Not on Staff, Referring [...] tablet, 3 Refills, Maintenance, 12/05/21 18:04:00EDT, Tablet, [facility] [id number], Partial fill upon patient request if the prescription is for a schedule II opioid drug.,... Start Date: 12/05/21 Status: OrderedcloNIDine 0.1 mg oral tablet 0.1 mg, 1, tablet, By Mouth, Daily, # 30 tablet, Refills 0, Tot. Refills 0, Maintenance, 02/24/21 11:37:00 EDT, Route to Pharmacy Electronically, [facility] [id number], Partialfill upon patient request if the prescription is... Start Date: 02/24/21 Status: Ordereddexamethasone 6 mg oral tablet 1 tablet = 6 mg, By Mouth, Daily, INITIAL START FROM [facility] ON 06/09. Take medicine for 2 [...] 02/24/21 11:37:00 EDT, Route to Pharmacy Electronically, [facility] [id number], Partial fill upon patient request if the [...] tablet, 3 Refills, Maintenance, 12/05/21 18:03:00 EDT, [facility] [id number], Partial fill upon patient request if the [...] 02/24/21 11:36:00 EDT, Route to Pharmacy Electronically, [facility] [id number], Partial fill upon patient request if the prescription is fo... Start Date: 02/24/21 Status: Orderedlurasidone 80 mg oral tablet 1 tablet = 80 mg, By Mouth, Daily, # 30 tablet, 0 Refills, Maintenance, 02/24/21 11:37:00 EDT, Tablet, [facility] [id number], Partial fill upon patient request if the prescription is for a schedule II opioid drug. Start Date: 02/24/21 Status: OrderedmetFORMIN 500 mg oral tablet 2 each = 1,000 mg, By Mouth, 2 times a day with meals, # 120 tablet, 3 Refills, Maintenance, 12/05/21 18:03:00 EDT, Tablet, [facility] [id number], Partial fill upon patient request if the [...] 3 Refills, Maintenance, 12/05/21 18:07:00 EDT, Tablet, [facility] [id number], Partial fill upon patient request if the [...] 3 Refills, Maintenance, 12/05/21 18:04:00 EDT, Solution, [facility] [id number], Partial fill upon patient request if the prescription is fo... Start Date: 12/05/21 Status: Ordered Problem List Condition Confirmation Course Effective Dates Status Health I nformant Status Asthma Confirmed Active Diabetes mellitus Confirmed Active GERD Confirmed Active (gastroesophageal reflux disease) Schizoaffective Confirmed Active disorder Severe obesity Confirmed Active Vital Signs Most recent to oldest 1 2 3 [Reference Range]: Oxygen Saturation [94-100 %] 98 % 100 % 100 % (03/28/22 2:17 PM) (03/28/22 6:01 AM) (03/27/22 7:3 8 PM) Pulse Rate [55-90 bpm] 98 bpm 85 bpm 87 bpm *H* (03/28/22 6:01 AM) (03/27/22 7:38 PM) (03/28/22 2:17 PM) Blood Pressure [90-138/55-84 156/81 mm Hg 140/79 mm Hg 142 /81 mm Hg mm Hg] *H* *H* *H* (03/28/22 2:17 PM) (03/28/22 6:01 AM) (03/27/22 7:3 8 PM) Respiratory Rate [16-30 17 br/min 16 br/min 18 br/mi n br/min] (03/28/22 6:01 AM) (03/27/22 7:38 PM) (03/27/22 1:4 4 PM) Temperature [96.8-100.4 DegF] 98.0 DegF 98.2 DegF 98 .5 DegF (03/28/22 2:17 PM) (03/28/22 6:01 AM) (03/27/22 7:3 8 PM) Liters per Minute 0 L/min 0 L/min 0 L/min (03/26/22 4:19 PM) (03/26/22 1:23 PM) (03/26/22 10: 26 AM) Mode of Delivery (Oxygen) Room air Room air Room a ir (03/28/22 6:01 AM) (03/27/22 7:38 PM) (03/27/22 1:4 4 PM) Blood pressure sites Arm, right Arm, right Arm, right (03/28/22 2:17 PM) (03/28/22 6:01 AM) (03/27/22 7:3 8 PM) Temperature Route Oral Oral Oral (03/28/22 2:17 PM) (03/28/22 6:01 AM) (03/27/22 7:3 8 PM) Social History Social History Type Response Smoking Status Never smoker entered on: 07/22/14 Sex Patient Care team information PersonnelName: Eri ARZOLA, Roc Stewart Address: Address: [address] [place] [address]-
--- OUTSIDE RECORDS SUMMARY | 2022-06-25 03:29 | XMS_ITS | Continuity of Care Document ---
:1980 Author Organization [facility] Address [address] [place] [address]- Care Team Providers Name Role Phone Eri ARZOLA, Roc Stewart Primary Care Physician [phone] [id number] Date(s): 04/17/21 - 04/17/[address] [address]- Encounter Diagnosis Chest pain (Final) - 04/17/21 Hyperglycemia (Final) - 04/17/21 Discharge Disposition: A-D/C Home Attending Physician: Shaw Oviedo MD Admitting Physician: Shaw Oviedo MD Referring Physician: Not on Staff, Referring [...] tablet, 0 Refills, Maintenance, 02/24/21 11:36:00EDT, Tablet, [facility] [id number], Partial fill upon patient request if the prescription is for a schedule II opioid drug. Start Date: 02/24/21 Status: OrderedcloNIDine 0.1 mg oral tablet 0.1 mg, 1, tablet, By Mouth, Daily, # 30 tablet, Refills 0, Tot. Refills 0, Maintenance, 02/24/21 11:37:00 EDT, Route to Pharmacy Electronically, [facility] [id number], Partialfill upon patient request if the prescription is... Start Date: 02/24/21 Status: Orderedgabapentin 100 mg oral capsule 200 mg, 2, capsule, By Mouth, Daily at bedtime, # 60 capsule, Refills 0, Tot. Refills 0, Maintenance, 02/24/21 11:37:00 EDT, Route to Pharmacy Electronically, [facility] [id number], Partial fill upon patient request if the pre... Start Date: 02/24/21 Status: OrderedhydrOXYzine hydrochloride 50 mg oral tablet 1 tablet = 50 mg, By Mouth, Every 6 hours, PRN as needed for anxiety, # 60 tablet, 0 Refills, Maintenance, 02/24/21 11:39:00 EDT, [facility] [id number], Partial fill upon patient request if the prescription is for a schedule I... Start Date: 02/24/21 Status: Orderedinsulin isophane human recombinant 100 u/ml subcutaneous injection = 35 units, Subcutaneous Injection, 2 times a day before breakfast and dinne, # 10 mL, 0 Refills, Maintenance, 02/24/21 11:37:00 EDT, Injection, [facility] [id number], Partial fill upon patient request if the [...] 02/24/21 11:36:00 EDT, Route to Pharmacy Electronically, [facility] [id number], Partial fill upon patient request if the prescription is fo... Start Date: 02/24/21 Status: Orderedlurasidone 80 mg oral tablet 1 tablet = 80 mg, By Mouth, Daily, # 30 tablet, 0 Refills, Maintenance, 02/24/21 11:37:00 EDT, Tablet, [facility] [id number], Partial fill upon patient request if the prescription is for a schedule II opioid drug. Start Date: 02/24/21 Status: OrderedmetFORMIN 500 mg oral tablet 2 each = 1,000 mg, By Mouth, 2 times a day with meals, # 120 tablet, 0 Refills, Maintenance, 02/24/21 11:36:00 EDT, Tablet, [place], [place] - [id number], Partial fill upon patient request if the [...] Exam Date Time Procedure Performing Provider Status 04/17/21 3:26 AM Chest 2 Views Frontal and Lat Olya Green (Verified) Notes:(Chest 2 Views Frontal and Lat) Reason For Exam: Chest Pain;Other:RESULT: Chest 2 Views Frontal and Lat Chest 2 Views Frontal and Lat Hx of Present Illness: chest pain and anxiety and elevated blood sugar; Reason: Other:; Chest Pain; Clinical Question(s): Other: COMPARISON: 07/12/2019 FINDINGS: LINES AND TUBES: None. LUNGS AND PLEURA: Low lung volumes. Minor medial right basilar opacity probably atelectasis rather than pneumonia. Otherwise clear lungs. No edema. No pleural effusion. No pneumothorax. HEART, MEDIASTINUM AND JEROMY: Heart is normal in size. Normal upper mediastinal and hilar contour. BONES AND SOFT TISSUES: Normal. IMPRESSION: Low lung volumes and minor medial right basilar opacity, probably atelectasis. WSN: [id number] Ordering Physician: Danny Mcnulty Dictated By: Ayo Garcia MD Dictated Date/Time: 04/17/21 8:51 am Reviewed By: Ayo Garcia MD Signed By: Ayo Garcia MD Signed Date/Time: 04/17/21 8:51 am Transcribed By: DARWIN Transcribed Date/Time: 04/17/21 8:50 am Vital Signs Most recent to oldest 1 2 3 [Reference Range]: Weight 148.5 kg 148.5 kg 148.5 kg (04/17/21 2:18 PM) (04/17/21 8:14 AM) (04/17/21 1:43 AM) Oxygen Saturation [94-100 99 % 99 % 99 % %] (04/17/21 2:18 PM) (04/17/21 11:43 AM) (04/17/21 8:14 AM) Pulse Rate [55-90 bpm] 78 bpm 82 bpm 70 bpm (04/17/21 2:18 PM) (04/17/21 11:43 AM) (04/17/21 8:14 AM) Blood Pressure 128/68 mm Hg 134/79 mm Hg 138/90 mm Hg [90-138/55-84 mm Hg] (04/17/21 11:43 AM) (04/17/21 8:14 AM) ( 6:01 AM) Respiratory Rate [16-30 20 br/min 16 br/min 16 br/mi n br/min] (04/17/21 2:18 PM) (04/17/21 11:43 AM) (04/17/21 8:14 AM) Temperature [96.8-100.4 98.1 DegF 98.0 DegF 97.8 Deg F DegF] (04/17/21 8:14 AM) (04/17/21 6:01 AM) (04/17/21 1:43 AM) Mode of Delivery (Oxygen) Room air Room air Room a ir (04/17/21 2:18 PM) (04/17/21 11:43 AM) (04/17/21 8:14 AM) Blood pressure sites Arm, left Arm, right Arm, right (04/17/21 11:43 AM) (04/17/21 8:14 AM) (04/17/21 6:01 AM) Temperature Route Oral Oral Oral (04/17/21 8:14 AM) (04/17/21 6:01 AM) (04/17/21 1:43 AM) Social History Social History Type Response Smoking Status Never smoker entered on: 07/22/14 Sex
--- OUTSIDE RECORDS SUMMARY | 2022-06-25 03:29 | XMS_ITS | Continuity of Care Document ---
:1980 Author Organization [facility] Address [address] [place] [address]- Care Team Providers Name Role Phone Eri ARZOLA, Roc Stewart Primary Care Physician Encounter [facility] [place] Date(s): 12/05/21 - 12/05/[address] [address]- Discharge Disposition: A-D/C Walkout Attending Physician: Not [...] tablet, 3 Refills, Maintenance, 12/05/21 18:04:00EDT, Tablet, [facility] [id number], Partial fill upon patient request if the prescription is for a schedule II opioid drug.,... Start Date: 12/05/21 Status: OrderedcloNIDine 0.1 mg oral tablet 0.1 mg, 1, tablet, By Mouth, Daily, # 30 tablet, Refills 0, Tot. Refills 0, Maintenance, 02/24/21 11:37:00 EDT, Route to Pharmacy Electronically, [facility] [id number], Partialfill upon patient request if the prescription is... Start Date: 02/24/21 Status: Ordereddexamethasone 6 mg oral tablet 1 tablet = 6 mg, By Mouth, Daily, INITIAL START FROM [facility] ON 06/09. Take medicine for 2 [...] 02/24/21 11:37:00 EDT, Route to Pharmacy Electronically, [facility] [place] [place] - [id number], Partial fill upon patient request if the [...] tablet, 3 Refills, Maintenance, 12/05/21 18:03:00 EDT, [facility] [id number], Partial fill upon patient request if the [...] EDT, Route to Pharmacy Electronically, [facility] [id number], Partial fill upon patient request if the prescription is fo... Start Date: 02/24/21 Status: Orderedlurasidone 80 mg oral tablet 1 tablet = 80 mg, By Mouth, Daily, # 30 tablet, 0 Refills, Maintenance, 02/24/21 11:37:00 EDT, Tablet, [facility] [id number], Partial fill upon patient request if the prescription is for a schedule II opioid drug. Start Date: 02/24/21 Status: OrderedmetFORMIN 500 mg oral tablet 2 each = 1,000 mg, By Mouth, 2 times a day with meals, # 120 tablet, 3 Refills, Maintenance, 12/05/21 18:03:00 EDT, Tablet, [facility] [id number], Partial fill upon patient request if the [...] 3 Refills, Maintenance, 12/05/21 18:07:00 EDT, Tablet, [facility] [id number], Partial fill upon patient request if the [...] 3 Refills, Maintenance, 12/05/21 18:04:00 EDT, Solution, [facility] [id number], Partial fill upon patient request if the prescription is fo... Start Date: 12/05/21 Status: Ordered Problem List Condition Effective Dates Status Health Status Informant Asthma(Confirmed) Active Diabetes mellitus(Confirmed) Active GERD (gastroesophageal reflux Active disease)(Confirmed) Schizoaffective disorder(Confirmed) Active Severe obesity(Confirmed) Active Social History Social History Type Response Smoking Status Never smoker entered on: 07/22/14 Sex
--- OUTSIDE RECORDS SUMMARY | 2022-06-25 03:30 | XMS_ITS | Continuity of Care Document ---
:1980 Author Organization [facility] Address [address] [place] [address]- Care Team Providers Name Role Phone Eri ARZOLA, Roc Stewart Primary Care Physician Encounter [id number] Date(s): 07/12/19 - 07/13/[address] [address]- [facility] Encounter Diagnosis Noncompliance (Final) - 07/12/19 Discharge Disposition: A-D/C Home Attending Physician: Devang Ahn DO Admitting Physician: Devang Ahn DO Referring Physician: Not on Staff, Referring [...] Exam Date Time Procedure Performing Provider Status 07/12/19 11:15 PM Chest 2 Views Frontal and Lat Shona Lucero; Merlin (Verified) Notes:(Chest 2 Views Frontal and Lat) Reason For Exam: DKA;Other:RESULT: Chest 2 Views Frontal and Lat Chest 2 Views Frontal and Lat Reason: Other:; DKA; Clinical Question(s): Other:; Infiltrate; Hx of Present Illness: reports blood sugars running high, ate dinner at 7pm COMPARISON: 03/15/2019 FINDINGS: LINES AND TUBES: None. LUNGS AND PLEURA: Clear lungs. Normal pulmonary vascularity. No pleural effusion. No pneumothorax. HEART, MEDIASTINUM AND JEROMY: Heart is normal in size. Normal mediastinal and hilar contour. BONES AND SOFT TISSUES: No acute abnormality. IMPRESSION: No acute abnormality. WSN: [id number] Dictated By: Dony Brooks DO Dictated Date/Time: 07/12/19 11:20 p Reviewed By: Dony Brooks DO Signed By: Dony Brooks DO Signed Date/Time: 07/12/19 11:20 pm Transcribed By: DARWIN Transcribed Date/Time: 07/12/19 11:20 pm Vital Signs Most recent to oldest 1 2 3 [Reference Range]: Oxygen Saturation [94-100 %] 96 % 96 % 95 % (07/13/19 12:35 AM) (07/12/19 8:58 PM) (07/12/19 8: 53 PM) Pulse Rate [55-90 bpm] 95 bpm 82 bpm 95 bpm *H* (07/12/19 8:58 PM) *H* (07/13/19 12:35 AM) (07/12/19 8:53 PM) Blood Pressure [90-138/55-84 107/55 mm Hg 133/67 mm Hg mm Hg] (07/13/19 12:35 AM) (07/12/19 8:58 PM) Systolic Blood Pressure 114 mm Hg [90-138 mm Hg] (07/12/19 8:53 PM) Respiratory Rate [16-30 19 br/min 19 br/min 18 br/mi n br/min] (07/13/19 12:36 AM) (07/13/19 12:35 AM) (07/12/19 8 :58 PM) Temperature [96.8-100.4 DegF] 97.9 DegF (07/12/19 8:53 PM) Mode of Delivery (Oxygen) Room air Room air Room a ir (07/13/19 12:35 AM) (07/12/19 8:58 PM) (07/12/19 8: 53 PM) Blood pressure sites Arm, left (07/12/19 8:58 PM) Temperature Route Oral (07/12/19 8:53 PM) Social History Social History Type Response Smoking Status Never smoker entered on: 07/22/14 Sex
[2022-06-25 04:43] LABS: Glucose, Whole Blood 225 mg/dL (60-115)
--- NOTE | 2022-06-25 04:55 | ED.GENADULT ---
HPI - General Adult General Chief complaint: General Medical Stated complaint: WEAKNESS Time Seen by Provider: 06/25/22 04:30 Source: patient Mode of arrival: ambulatory Limitations: no limitations History of Present Illness HPI narrative: Patient homeless with multiple complaints history of sleep apnea not using the machine diabetes taking his medication report multiple complains when examined patient was sleeping without any distress history of bipolar disorder also no suicidal ideation Related Data Home Medications Medication Instructions Recorded Confirmed dulaglutide 1.5 mg/0.5 mL 1.5 mg subcut QWEEK 01/02/22 01/02/22 subcutaneous pen injector (Trulicity) Previous Rx's Medication Instructions Recorded atorvastatin 20 mg tablet 20 mg PO BEDTIME #30 tabs 01/12/22 lithium carbonate 450 mg 900 mg PO BEDTIME #60 tabs 01/12/22 tablet,extended release lurasidone 80 mg tablet (Latuda) 80 mg PO DAILY@1700 #30 tabs 01/12/22 metformin 1,000 mg tablet 1,000 mg PO BIDWM #60 tabs 01/12/22 omeprazole 20 mg capsule,delayed 20 mg PO DAILY@0630 #30 caps 01/12/22 release naproxen 500 mg tablet 500 mg PO BID PRN pain 10 days #20 04/08/22 tabs albuterol sulfate 90 mcg/actuation 2 puff inhalation Q4-6H PRN 06/03/22 aerosol inhaler (ProAir HFA) shortness of breath or wheezing #8.5 grams blood sugar diagnostic (Freestyle #100 ea 06/03/22 [employer] Test Strips) blood-glucose meter (FreeStyle #1 ea 06/03/22 System Kit) lancets 28 gauge (FreeStyle #100 ea 06/03/22 Lancets) loperamide 2 mg tablet (Imodium 2 mg PO QID PRN loose stool #14 06/03/22 A-D) tabs Allergies Allergy/AdvReac Type Severity Reaction Status Date / Time morphine [Morphine] Allergy Unknown HIVES Verified 01/02/22 11:58 shellfish derived Allergy Redness of Verified 01/02/22 11:58 Skin Iodinated Contrast Media AdvReac Anxiety Verified 01/02/22 11:58 [Contrast Dye] Review of Systems Review of Systems: Yes all other systems are reviewed and are negative PMFSH Past Medical History Medical History Diabetes mellitus Essential (primary) hypertension GERD (gastroesophageal reflux disease) Schizoaffective disorder Surgical History No pertinent past surgical history Family History Family History Father Heart disease Chronic mental illness Depression Mother Cancer Sister Cancer Social History Social History Household Members: Unknown / Unable to assess Housing: Apartment Unable to assess alcohol history related to: Unknown Alcohol intake: former Patient Tobacco Use Status: Former Tobacco user e-Cigarette/Vaping Use: Never Used Advance Directives: No Advance Directives Information Provided: Yes service: No Current occupational status: disabled Sexual orientation: Don't Know Physical Exam ED Vital Signs: Vital Signs - 24 hr 06/25/22 01:58 06/25/22 03:24 Temperature 97.8 F 98.1 F Pulse Rate 88 86 Respiratory Rate 20 18 Blood Pressure 127/61 156/79 H Pulse Oximetry 98 97 Oxygen Delivery Method Room Air Room Air BMI result Body Mass Index 45.4 Appearance: Alert. Oriented X3. No acute distress. Obese Eyes: PERRLA, No Nystagmus ENT: Pharynx normal. Oral Mucosa moist Neck: Normal inspection. Neck supple. CVS: Normal heart rate and rhythm. Pulses normal. Respiratory: No respiratory distress. Equal air entry bilateral, no wheezing/rales/rhonchi Abdomen: Soft and nontender. Bowel sounds are present, no mass palpable, no CVA tenderness Skin: Skin warm and dry. Normal skin color. Normal skin turgor. Extremities: No lower extremity edema. No calf tenderness Neuro: Oriented X 3. No motor deficit. Medical Decision Making Medical Decision Making MDM Narrative: Patient homeless with multiple complaints will discharge patient home advised to follow with PCP no acute medical emergency noticed patient has mostly social issues Lab Data Labs: Lab Results 06/25/22 Range/Units 04:36 POC Glucose 225 H (60-115) mg/dL Discharge Plan Discharge Clinical Impression: Bipolar 1 disorder, Diabetes mellitus, WILLY (obstructive sleep apnea) Patient Disposition: Home, Self-Care Instructions: Sleep Apnea (DC), Bipolar Disorder (ED), Type 2 Diabetes Management for Adults (ED) Additional Instructions: Follow with PCP Take your medication as prescribed Prescriptions: No Action Trulicity 1.5 mg/0.5 mL pen injector 1.5 mg subcut QWEEK atorvastatin 20 mg Tablet 20 mg PO BEDTIME Qty: 30 0RF lithium carbonate 450 mg tablet extended release 900 mg PO BEDTIME Qty: 60 0RF metformin 1,000 mg Tablet 1,000 mg PO BIDWM Qty: 60 0RF omeprazole 20 mg Capsule,Delayed Release(Dr/Ec) 20 mg PO DAILY@0630 Qty: 30 0RF Latuda 80 mg Tablet 80 mg PO DAILY@1700 Qty: 30 0RF loperamide [Imodium A-D] 2 mg tablet 2 mg PO QID PRN (Reason: loose stool) Qty: 14 0RF (DME) lancets [FreeStyle Lancets] 28 gauge misc See Rx Instructions .Route Qty: 100 0RF Rx Instructions: As directed albuterol sulfate [ProAir HFA] 90 mcg/actuation HFA aerosol inhaler 2 puff inhalation Q4-6H PRN (Reason: shortness of breath or wheezing) Qty: 8.5 0RF (DME) blood-glucose meter [FreeStyle System Kit] Kit See Rx Instructions .Route Qty: 1 0RF Rx Instructions: As directed (DME) Freestyle [employer] Test Strips Strip See Rx Instructions .Route Qty: 100 0RF Rx Instructions: Test glucose t.i.d. naproxen 500 mg tablet 500 mg PO BID PRN (Reason: pain) 10 Days Qty: 20 0RF
--- NOTE | 2022-06-25 05:28 | PC.NURSE ---
pt okay by provider dr erickson to remain in room until 0600 for discharge.
[2022-06-25 06:34] VITALS: BP 117/80; PULSE 94; RESP 18; TEMP 36.8; O2SAT 95
--- NOTE | 2022-06-25 06:36 | PC.NURSE ---
pt ambulatory at discharge. pt discharged to waiting. pt allowed to sleep in emc room until discharge @ [address] erickson. VSS. skin pwd. discharge packet provided to pt. pt verbalized understanding of discharge packet
== END 2022-06-25 06:38 | disposition home or self-care (01) ==
PROVIDERS: Emergency Provider Internal Medicine
DX: F25.0 Schizoaffective disorder, bipolar type (principal); E11.9 Type 2 diabetes mellitus without complications; G47.33 Obstructive sleep apnea (adult) (pediatric); I10 Essential (primary) hypertension; E66.9 Obesity, unspecified; Z68.42 Body mass index [BMI] 45.0-49.9, adult; Z79.02 Long term (current) use of antithrombotics/antiplatelets; Z79.899 Other long term (current) drug therapy; Z79.84 Long term (current) use of oral hypoglycemic drugs; Z79.85 Long-term (current) use of injectable non-insulin antidiabetic drugs; Z87.891 Personal history of nicotine dependence
CPT/HCPCS: 82947; 99283; 99284

== ENCOUNTER 2022-07-21 02:36 | Emergency (ER) | payer MEDICARE, MEDICAID, SELFPAY ==
[2022-07-21 02:42] VITALS: BP 141/77; BP 158/90; PULSE 68; PULSE 72; RESP 18; TEMP 36.4; O2SAT 98; O2SAT 99; BMI 38.5
--- NOTE | 2022-07-21 02:47 | MHC.EDTECH ---
PT POC @ 291. RN Yenny made aware
[2022-07-21 02:48] LABS: Glucose, Whole Blood 291 mg/dL (60-115)
--- NOTE | 2022-07-21 02:53 | PC.NURSE ---
PT A&Ox4, reports 10/10 bilateral leg pain. states I walk from [place] to [place], without any sleep, It's cold outside, I'm homeless chronically ill . Pressured speech. POC 291. Denies SI/HI. Denies visual/auditory hallucinations.
[2022-07-21] MEDS: metFORMIN HCl 1,000 MG TABLET 1000 MG PO (03:06)
[2022-07-21] MEDS: LORazepam 1 MG TABLET 2 MG PO (03:06)
--- NOTE | 2022-07-21 03:16 | ED_ITS ---
HPI - General Adult General Chief complaint: Extremity Problem Stated complaint: Bilateral Leg pain Time Seen by Provider: 07/21/22 02:51 Source: patient Mode of arrival: EMS Limitations: no limitations History of Present Illness HPI narrative: Patient homeless walking long distances called the EMS because of leg pain. Patient does have schizophrenia, diabetes and diabetic neuropathy noncompliant to his medication patient delusional and vague. Denies any substance abuse denies any injury Related Data Home Medications Medication Instructions Recorded Confirmed dulaglutide 1.5 mg/0.5 mL 1.5 mg subcut QWEEK 01/02/22 01/02/22 subcutaneous pen injector (Trulicity) Previous Rx's Medication Instructions Recorded atorvastatin 20 mg tablet 20 mg PO BEDTIME #30 tabs 01/12/22 lithium carbonate 450 mg 900 mg PO BEDTIME #60 tabs 01/12/22 tablet,extended release lurasidone 80 mg tablet (Latuda) 80 mg PO DAILY@1700 #30 tabs 01/12/22 metformin 1,000 mg tablet 1,000 mg PO BIDWM #60 tabs 01/12/22 omeprazole 20 mg capsule,delayed 20 mg PO DAILY@0630 #30 caps 01/12/22 release naproxen 500 mg tablet 500 mg PO BID PRN pain 10 days #20 04/08/22 tabs albuterol sulfate 90 mcg/actuation 2 puff inhalation Q4-6H PRN 06/03/22 aerosol inhaler (ProAir HFA) shortness of breath or wheezing #8.5 grams blood sugar diagnostic (Freestyle #100 ea 06/03/22 [employer] Test Strips) blood-glucose meter (FreeStyle #1 ea 06/03/22 System Kit) lancets 28 gauge (FreeStyle #100 ea 06/03/22 Lancets) loperamide 2 mg tablet (Imodium 2 mg PO QID PRN loose stool #14 06/03/22 A-D) tabs Allergies Allergy/AdvReac Type Severity Reaction Status Date / Time morphine [Morphine] Allergy Unknown HIVES Verified 01/02/22 11:58 shellfish derived Allergy Redness of Verified 01/02/22 11:58 Skin Iodinated Contrast Media AdvReac Anxiety Verified 01/02/22 11:58 [Contrast Dye] Review of Systems Review of Systems: Yes all other systems are reviewed and are negative [facility] Past Medical History Medical History Diabetes mellitus Essential (primary) hypertension GERD (gastroesophageal reflux disease) Schizoaffective disorder Surgical History No pertinent past surgical history Family History Family History Father Heart disease Chronic mental illness Depression Mother Cancer Sister Cancer Social History Social History Household Members: Unknown / Unable to assess Housing: Apartment Unable to assess alcohol history related to: Unknown Alcohol intake: former Patient Tobacco Use Status: Former Tobacco user Smoked in Last 30 Days: No e-Cigarette/Vaping Use: Never Used Use of substances other than those prescribed or required for medical reasons: No Advance Directives: No service: No Current occupational status: disabled Sexual orientation: Don't Know Physical Exam ED Vital Signs: Vital Signs - 24 hr 07/21/22 02:42 07/21/22 05:45 07/21/22 07:05 Temperature 97.6 F 97.8 F Pulse Rate 68 69 82 Respiratory Rate 18 17 16 Blood Pressure 141/77 H 138/68 138/82 Pulse Oximetry 99 97 100 Oxygen Delivery Method Room Air Room Air Room Air BMI result Body Mass Index 38.5 Appearance: Alert. Oriented X3. No acute distress. Eyes: PERRLA, No Nystagmus ENT: Pharynx normal. Oral Mucosa moist Neck: Normal inspection. Neck supple. CVS: Normal heart rate and rhythm. Pulses normal. Respiratory: No respiratory distress. Equal air entry bilateral, no wheezing/rales/rhonchi Abdomen: Soft and nontender. Bowel sounds are present, no mass palpable, no CVA tenderness Skin: Skin warm and dry. Normal skin color. Normal skin turgor. Extremities: No lower extremity edema. No calf tenderness Neuro: Oriented X 3. No motor deficit. No sensory deficit.No cerebellar signs , cranial nerves II-XII intact Medications Administered Discontinued Medications Generic Name Dose Route Start Last Admin Trade Name Freq PRN Reason Stop Dose Admin Lorazepam 2 mg 07/21/22 02:53 07/21/22 03:06 Lorazepam 1 Mg Tablet PO 07/21/22 02:54 2 mg ONCE ONE Administration Metformin HCl 1,000 mg 07/21/22 02:53 07/21/22 03:06 Metformin Hcl 1,000 Mg Tablet PO 07/21/22 02:54 1,000 mg ONCE ONE Administration Medical Decision Making Medical Decision Making [facility] Narrative: patient with schizophrenia noncompliant with medication delusional will get care team involved for adjustment of patient medication and proper follow-up Lab Data MDM Lab Attestation statement: I reviewed the patient's lab results. 07/21/22 03:19 07/21/22 03:19 Labs: Lab Results 07/21/22 07/21/22 07/21/22 Range/Units 02:46 03:19 03:19 WBC 8.4 (4.8-10.8) X10*3/uL RBC 4.95 (4.60-5.80) X10*6/uL Hgb 13.7 L (14.0-18.0) g/dl Hct 42.8 (42.0-52.0) % MCV 86.5 (80.0-98.0) fL MCH 27.7 (27.0-33.0) pg MCHC 32.0 (31.0-36.0) g/dl RDW 13.2 (11.0-16.0) % Plt Count 282 (160-400) X10*3/uL MPV 10.6 (9.4-12.4) fL Immature Gran % (Auto) 0.4 (0.0-0.4) % Neut % (Auto) 59.8 (45-73) % Lymph % (Auto) 27.1 (20-40) % [place] % (Auto) 8.5 (2-11) % Eos % (Auto) 3.6 (0-4) % Baso % (Auto) 0.6 (0-2) % Lymph # (Auto) 2.3 (1.2-4.9) X10*3/uL [place] # (Auto) 0.7 (0.1-1.2) X10*3/uL Eos # (Auto) 0.3 (0.0-0.4) X10*3/uL Baso # (Auto) 0.1 (0.0-0.2) X10*3/uL Abs Immat Gran (auto) 0.03 (0.00-0.03) X10*3/uL Absolute Neuts (auto) 5.0 (2.0-8.3) x10*3/uL Absolute Nucleated RBC 0.000 (0.0-0.012) X10*3/uL Nucleated RBC % (auto) 0.0 (0.0-0.2) /100WBC Sodium 138 (135-145) mmol/L Potassium 4.3 (3.3-5.1) mmol/L Chloride 99 (96-108) mmol/L Carbon Dioxide 30 H (22-29) mmol/L Anion Gap 13 (12-20) BUN 16 (9-16) mg/dL Creatinine 0.78 (0.5-1.4) mg/dL Estim Creat Clear Calc 151.7 Estimated GFR > 60 POC Glucose 291 H (60-115) mg/dL Random Glucose 248 H (60-115) mg/dL Calcium 9.0 (8.4-10.2) mg/dL Total Bilirubin 0.5 (0.0-1.0) mg/dL AST 14 (5-37) U/L ALT 21 (0-40) U/L Alkaline Phosphatase 143 H (39-117) U/L Total Protein 6.8 (6.5-8.0) g/dL Albumin 4.0 (3.5-5.0) g/dL Urine Opiates Screen (Not Detect) Urine Fentanyl Screen (Not Detect) Ur Barbiturates Screen (Not Detect) Ur Phencyclidine Scrn (Not Detect) Ur Amphetamines Screen (Not Detect) U Benzodiazepines Scrn (Not Detect) Urine Cocaine Screen (Not Detect) U Marijuana (THC) Screen (Not Detect) 07/21/22 07/21/22 Range/Units 04:08 07:09 WBC (4.8-10.8) X10*3/uL RBC (4.60-5.80) X10*6/uL Hgb (14.0-18.0) g/dl Hct (42.0-52.0) % MCV (80.0-98.0) fL MCH (27.0-33.0) pg MCHC (31.0-36.0) g/dl RDW (11.0-16.0) % Plt Count (160-400) X10*3/uL MPV (9.4-12.4) fL Immature Gran % (Auto) (0.0-0.4) % Neut % (Auto) (45-73) % Lymph % (Auto) (20-40) % [place] % (Auto) (2-11) % Eos % (Auto) (0-4) % Baso % (Auto) (0-2) % Lymph # (Auto) (1.2-4.9) X10*3/uL [place] # (Auto) (0.1-1.2) X10*3/uL Eos # (Auto) (0.0-0.4) X10*3/uL Baso # (Auto) (0.0-0.2) X10*3/uL Abs Immat Gran (auto) (0.00-0.03) X10*3/uL Absolute Neuts (auto) (2.0-8.3) x10*3/uL Absolute Nucleated RBC (0.0-0.012) X10*3/uL Nucleated RBC % (auto) (0.0-0.2) /100WBC Sodium (135-145) mmol/L Potassium (3.3-5.1) mmol/L Chloride (96-108) mmol/L Carbon Dioxide (22-29) mmol/L Anion Gap (12-20) BUN (9-16) mg/dL Creatinine (0.5-1.4) mg/dL Estim Creat Clear Calc Estimated GFR POC Glucose 252 H (60-115) mg/dL Random Glucose (60-115) mg/dL Calcium (8.4-10.2) mg/dL Total Bilirubin (0.0-1.0) mg/dL AST (5-37) U/L ALT (0-40) U/L Alkaline Phosphatase (39-117) U/L Total Protein (6.5-8.0) g/dL Albumin (3.5-5.0) g/dL Urine Opiates Screen Not Detected (Not Detect) Urine Fentanyl Screen Not Detected (Not Detect) Ur Barbiturates Screen Not Detected (Not Detect) Ur Phencyclidine Scrn Not Detected (Not Detect) Ur Amphetamines Screen Not Detected (Not Detect) U Benzodiazepines Scrn Not Detected (Not Detect) Urine Cocaine Screen Not Detected (Not Detect) U Marijuana (THC) Screen Not Detected (Not Detect) Discharge Plan Discharge Clinical Impression: Bipolar 1 disorder, Schizoaffective disorder Patient Disposition: Still a Patient Prescriptions: No Action Trulicity 1.5 mg/0.5 mL pen injector 1.5 mg subcut QWEEK atorvastatin 20 mg Tablet 20 mg PO BEDTIME Qty: 30 0RF lithium carbonate 450 mg tablet extended release 900 mg PO BEDTIME Qty: 60 0RF metformin 1,000 mg Tablet 1,000 mg PO BIDWM Qty: 60 0RF omeprazole 20 mg Capsule,Delayed Release(Dr/Ec) 20 mg PO DAILY@0630 Qty: 30 0RF Latuda 80 mg Tablet 80 mg PO DAILY@1700 Qty: 30 0RF loperamide [Imodium A-D] 2 mg tablet 2 mg PO QID PRN (Reason: loose stool) Qty: 14 0RF (DME) lancets [FreeStyle Lancets] 28 gauge misc See Rx Instructions .Route Qty: 100 0RF Rx Instructions: As directed albuterol sulfate [ProAir HFA] 90 mcg/actuation HFA aerosol inhaler 2 puff inhalation Q4-6H PRN (Reason: shortness of breath or wheezing) Qty: 8.5 0RF (DME) blood-glucose meter [FreeStyle System Kit] Kit See Rx Instructions .Route Qty: 1 0RF Rx Instructions: As directed (DME) Freestyle [employer] Test Strips Strip See Rx Instructions .Route Qty: 100 0RF Rx Instructions: Test glucose t.i.d. naproxen 500 mg tablet 500 mg PO BID PRN (Reason: pain) 10 Days Qty: 20 0RF
--- NOTE | 2022-07-21 03:22 | MHC.EDTECH ---
PT made aware that urine sample needed. PT States he needs water to go because he hasn't had water in three days . PT given a cup of ice water, urinal in reach and call evans placed in reach
[2022-07-21 03:24] LABS: Basophils Absolute Auto 0.1 X10*3/uL (0.0-0.2); Basophils Percent Auto 0.6 % (0-2); Eosinophils Absolute Auto 0.3 X10*3/uL (0.0-0.4); Eosinophils Percent Auto 3.6 % (0-4); Hematocrit 42.8 % (42.0-52.0); Hemoglobin 13.7 g/dl (14.0-18.0); Imm Gran Abs Auto 0.03 X10*3/uL (0.00-0.03); Imm Gran Pct Auto 0.4 % (0.0-0.4); Lymphocytes Absolute Auto 2.3 X10*3/uL (1.2-4.9); Lymphocytes Percent Auto 27.1 % (20-40); MANUAL DIFF FLAG NO; Mean Corpuscular Hemoglobin 27.7 pg (27.0-33.0); Mean Corpuscular Volume 86.5 fL (80.0-98.0); Mean Platelet Volume 10.6 fL (9.4-12.4); Monocytes Absolute Auto 0.7 X10*3/uL (0.1-1.2); Monocytes Percent Auto 8.5 % (2-11); Neutrophils Percent Auto 59.8 % (45-73); Platelet Count 282 X10*3/uL (160-400); Red Blood Count 4.95 X10*6/uL (4.60-5.80); Red Cell Distribution Width 13.2 % (11.0-16.0); White Blood Count 8.4 X10*3/uL (4.8-10.8)
[2022-07-21 03:44] LABS: Alanine Aminotransferase 21 U/L (0-40); Alkaline Phosphatase 143 U/L (39-117); Anion Gap 13 (12-20); Aspartate Amino Transferase 14 U/L (5-37); Bilirubin Total 0.5 mg/dL (0.0-1.0); Blood Urea Nitrogen 16 mg/dL (9-16); Carbon Dioxide 30 mmol/L (22-29); Chloride 99 mmol/L (96-108); Creatinine Clr Calc Pharmacy 151.7; Estimated Glomerular Filt Rate > 60; Glucose Random 248 mg/dL (60-115); Potassium 4.3 mmol/L (3.3-5.1); Sodium 138 mmol/L (135-145); Total Protein 6.8 g/dL (6.5-8.0)
[2022-07-21 04:23] LABS: Amphetamine Screen Urine Not Detected (Not Detect); Barbiturates, Urine Not Detected (Not Detect); Benzodiazepines Screen Urine Not Detected (Not Detect); Cannabinoid Screen Urine Not Detected (Not Detect); Cocaine Screen Urine Not Detected (Not Detect); Fentanyl, urine Not Detected (Not Detect); Opiate Screen Urine Not Detected (Not Detect); Phencyclidine Screen Urine Not Detected (Not Detect)
[2022-07-21 05:45] VITALS: BP 138/68; PULSE 69; RESP 17; TEMP 36.6; O2SAT 97
[2022-07-21 07:05] VITALS: BP 138/82; PULSE 82; RESP 16; O2SAT 100
[2022-07-21 07:12] LABS: Glucose, Whole Blood 252 mg/dL (60-115)
--- NOTE | 2022-07-21 09:59 | MHC.CARE ---
attempted CARE assessment, patient preseverative on needing a social media sr strategy manager for housing.
--- NOTE | 2022-07-21 11:11 | MHC.CARE ---
attempted to wake pt x2, following the first attempt at a care evaluation, for which he denied SI HI AH VH, and was focused on needing a social service manager for housing, the housing paperwork expiring. t/w will attempt to meet with patient again.
[2022-07-21 13:15] LABS: Glucose, Whole Blood 194 mg/dL (60-115)
[2022-07-21 13:51] VITALS: BP 151/108; PULSE 103; RESP 16; O2SAT 98
== END 2022-07-21 14:37 | disposition home or self-care (01) ==
PROVIDERS: Emergency Provider Internal Medicine
DX: F25.0 Schizoaffective disorder, bipolar type (principal); M79.604 Pain in right leg; M79.605 Pain in left leg; Z79.899 Other long term (current) drug therapy; Z87.891 Personal history of nicotine dependence
CPT/HCPCS: 36415; 80053; 80307; 82947; 85025; 99284; S9485

== ENCOUNTER 2022-08-08 03:35 | Emergency (ER) | payer MEDICARE, MEDICAID, SELFPAY ==
[2022-08-08 03:59] VITALS: BP 139/68; PULSE 71; PULSE 98; RESP 16; O2SAT 98; BMI 45.6
--- NOTE | 2022-08-08 04:04 | PC.NURSE ---
pt mold insert changer to hospital attire, red socks given. Will continue montior.
--- NOTE | 2022-08-08 04:43 | ED.FALL ---
HPI - Fall General Chief Complaint: Fall Stated Complaint: Fall Time Seen by Provider: 08/08/22 04:08 Source: patient and EMS Mode of arrival: EMS Limitations: no limitations History of Present Illness HPI Narrative: 41-year-old male homeless in [facility] who sustained a mechanical fall patient stated that his leg gave out causing him to fall and declined using any alcohol or drugs, decline head injury or LOC, patient tried to ease the fall with right hand. Complaining of slight right hand and right elbow pain, no headache, no chest pain, no abdominal pain, no hip pain, able to ambulate in the emergency department. Related Data Home Medications Medication Instructions Recorded Confirmed dulaglutide 1.5 mg/0.5 mL 1.5 mg subcut QWEEK 01/02/22 01/02/22 [facility] Previous Rx's Medication Instructions Recorded atorvastatin 20 mg tablet 20 mg PO BEDTIME #30 tabs 01/12/22 lithium carbonate 450 mg 900 mg PO BEDTIME #60 tabs 01/12/22 tablet,extended release lurasidone 80 mg tablet (Latuda) 80 mg PO DAILY@1700 #30 tabs 01/12/22 metformin 1,000 mg tablet 1,000 mg PO BIDWM #60 tabs 01/12/22 omeprazole 20 mg capsule,delayed 20 mg PO DAILY@0630 #30 caps 01/12/22 release naproxen 500 mg tablet 500 mg PO BID PRN pain 10 days #20 04/08/22 tabs albuterol sulfate 90 mcg/actuation 2 puff inhalation Q4-6H PRN 06/03/22 aerosol inhaler (ProAir HFA) shortness of breath or wheezing #8.5 grams blood sugar diagnostic (Freestyle #100 ea 06/03/22 [employer] Test Strips) blood-glucose meter (FreeStyle #1 ea 06/03/22 System Kit) lancets 28 gauge (FreeStyle #100 ea 06/03/22 Lancets) loperamide 2 mg tablet (Imodium 2 mg PO QID PRN loose stool #14 06/03/22 A-D) tabs Allergies Allergy/AdvReac Type Severity Reaction Status Date / Time morphine [Morphine] Allergy Unknown HIVES Verified 01/02/22 11:58 shellfish derived Allergy Redness of Verified 01/02/22 11:58 Skin Iodinated Contrast Media AdvReac Anxiety Verified 01/02/22 11:58 [Contrast Dye] Review of Systems Review of Systems: All other systems are reviewed and are negative Constitutional: Reports as per HPI and Reports no additional constitutional complaints Eyes: Reports as per HPI and Reports no additional eye complaints Reports system reviewed and no additional complaints, except as documented Cardiovascular: Reports as per HPI and Reports no additional cardiovascular complaints Respiratory: Reports as per HPI and Reports no additional respiratory complaints Gastrointestinal: Reports as per HPI and Reports no additional gastrointestinal complaints Genitourinary: Reports no additional female genitourinary complaints Musculoskeletal: Reports no additional musculoskeletal complaints Skin/Breast: Reports system reviewed and no additional complaints, except as docu Psychiatric: Reports no additional psychiatric complaints Endocrine: Reports no additional endocrine complaints Hematologic/Lymphatic: Reports no additional hematologic/lymphatic complaints Allergic/Immunologic: Reports no additional allergic/immunologic complaints Reports system reviewed and no additional complaints, except as documented and Reports Abnormal speech present [facility] Past Medical History Medical History Diabetes mellitus Essential (primary) hypertension GERD (gastroesophageal reflux disease) Schizoaffective disorder Surgical History No pertinent past surgical history Family History Family History Father Heart disease Chronic mental illness Depression Mother Cancer Sister Cancer Social History Social History Household Members: Unknown / Unable to assess Housing: Apartment Unable to assess alcohol history related to: Unknown Alcohol intake: former Patient Tobacco Use Status: Former Tobacco user e-Cigarette/Vaping Use: Never Used Advance Directives: No service: No Current occupational status: disabled Sexual orientation: Don't Know Physical Exam Vital Signs: Vital Signs: Last Vital Signs Pulse 98 08/08/22 03:59 Resp 16 08/08/22 03:59 BP 139/68 08/08/22 03:59 Pulse Ox 98 08/08/22 03:59 O2 Del Method 08/08/22 03:59 BMI result Body Mass Index 45.6 Vital signs have been reviewed as appeared to be correct. Blood pressure normal. Heart rate normal. Respiration rate normal. Temperature normal. Oxygen saturation normal. Appearance: Disheveled, Alert. Oriented X3. No acute distress. Head: Normal external exam. Normocephalic. Atraumatic. No Clifford signs noted. No raccoon eyes noted Eyes: PERRLA. EOMI. Conjunctiva and sclera normal. Eyelids normal. ENT: TM's Normal. Pharynx normal. Uvula midline. Moist mucous membranes. No trismus noted. No drooling noted. No muffled voice noted. Neck: Normal inspection. Neck supple. FROM. No adenopathy. Thyroid Normal. No meningeal signs. No neck mass noted. CVS: Normal heart rate and rhythm. Heart sound normal. No murmurs noted. Pulses normal throughout. Respiratory: No respiratory distress. Painless inspiration. Breath sounds normal. No wheezes/rales/rhonchi noted. Chest nontender. No accessory muscle usage noted or decreased air movement noted. Abdomen: Soft and nontender. Bowel sounds normal in all 4 quadrants. No distention noted. No organomegaly noted. No visible injury noted. Back: No CVA tenderness. Full range of motion noted. Skin: Skin warm and dry. Normal skin color. Normal skin turgor. No rashes/lesions/lacerations noted. Extremities: No lower extremity edema. No right hand deformity with full range of motion, no focal tenderness, no step-off. Right elbow with full range of motion, no deformity, no step-off. Normal neurovascular exam to the right upper extremity. Extremities exhibit normal range of motion. Extremities nontender. Neuro: Oriented X 3. Cranial nerve exam: II-XII are grossly intact No motor deficit. No sensory deficit. Reflexes normal. Course Course Course Narrative: Fall with no injuries, no need for radiographic study will discharge the patient. Medical Decision Making Differential Diagnosis Differential Diagnoses: The differential diagnosis associated with the presentation includes Mechanical fall, superficial contusion. Discharge Plan Discharge Clinical Impression: Accident due to mechanical fall without injury Patient Disposition: Home, Self-Care Instructions: Contusion in Adults (ED) Prescriptions: No Action Trulicity 1.5 mg/0.5 mL pen injector 1.5 mg subcut QWEEK atorvastatin 20 mg Tablet 20 mg PO BEDTIME Qty: 30 0RF lithium carbonate 450 mg tablet extended release 900 mg PO BEDTIME Qty: 60 0RF metformin 1,000 mg Tablet 1,000 mg PO BIDWM Qty: 60 0RF omeprazole 20 mg Capsule,Delayed Release(Dr/Ec) 20 mg PO DAILY@0630 Qty: 30 0RF Latuda 80 mg Tablet 80 mg PO DAILY@1700 Qty: 30 0RF loperamide [Imodium A-D] 2 mg tablet 2 mg PO QID PRN (Reason: loose stool) Qty: 14 0RF (DME) lancets [FreeStyle Lancets] 28 gauge misc See Rx Instructions .Route Qty: 100 0RF Rx Instructions: As directed albuterol sulfate [ProAir HFA] 90 mcg/actuation HFA aerosol inhaler 2 puff inhalation Q4-6H PRN (Reason: shortness of breath or wheezing) Qty: 8.5 0RF (DME) blood-glucose meter [FreeStyle System Kit] Kit See Rx Instructions .Route Qty: 1 0RF Rx Instructions: As directed (DME) Freestyle [employer] Test Strips Strip See Rx Instructions .Route Qty: 100 0RF Rx Instructions: Test glucose t.i.d. naproxen 500 mg tablet 500 mg PO BID PRN (Reason: pain) 10 Days Qty: 20 0RF Referrals: Physician,Unknown J [Primary Care Provider] -
--- NOTE | 2022-08-08 04:53 | PC.NURSE ---
pt a&o, no sob or chest pain. Pt discharged by Charge Nurse Melvi.
== END 2022-08-08 04:56 | disposition home or self-care (01) ==
PROVIDERS: Emergency Provider Emergency Medicine
DX: Z04.3 Encounter for examination and observation following other accident (principal); Z91.81 History of falling; E11.9 Type 2 diabetes mellitus without complications; I10 Essential (primary) hypertension; F25.9 Schizoaffective disorder, unspecified; Z79.02 Long term (current) use of antithrombotics/antiplatelets; Z79.84 Long term (current) use of oral hypoglycemic drugs; Z79.899 Other long term (current) drug therapy; Z87.891 Personal history of nicotine dependence; Z79.85 Long-term (current) use of injectable non-insulin antidiabetic drugs
CPT/HCPCS: 99282; 99284

== ENCOUNTER 2023-01-06 02:32 | Emergency (ER) | payer OTHER, SELFPAY ==
[2023-01-06 02:58] VITALS: BP 119/63; BP 121/74; PULSE 60; PULSE 73; RESP 18; TEMP 36.6; O2SAT 73; O2SAT 97; BMI 40.2
--- NOTE | 2023-01-06 02:59 | MHC.EDTECH ---
Patient arrived by ambulance,pt was changed into hospital attire,vitals taken and pt ambulated to bathroom and gave a urine specimen,this tech collected and sent to lab.
[2023-01-06 03:13] LABS: Glucose, Whole Blood 157 mg/dL (60-115)
--- NOTE | 2023-01-06 03:13 | PC.NURSE ---
Pt A&Ox4, reports calling EMS for hypoglycemia, reporting bilateral leg pain r/t walking a lot and neuropathy . Pt rambling thoughts with pressured speech, requesting marketing information manager so they can help with extra money . Denies SI/HI, denies auditory/visual hallucinations. Blood glucose obtained, pt ambulated independently with steady gait, urine collected and sent to lab, VSS.
[2023-01-06 03:27] LABS: Amphetamine Screen Urine Not Detected (Not Detect); Barbiturates, Urine Not Detected (Not Detect); Benzodiazepines Screen Urine Not Detected (Not Detect); Cannabinoid Screen Urine Not Detected (Not Detect); Cocaine Screen Urine Not Detected (Not Detect); Fentanyl, urine Not Detected (Not Detect); Opiate Screen Urine Not Detected (Not Detect); Phencyclidine Screen Urine Not Detected (Not Detect)
[2023-01-06 03:28] LABS: MANUAL DIFF FLAG NO
[2023-01-06 03:29] LABS: Basophils Absolute Auto 0.1 X10*3/uL (0.0-0.2); Basophils Percent Auto 0.6 % (0-2); Eosinophils Absolute Auto 0.3 X10*3/uL (0.0-0.4); Hematocrit 36.5 % (42.0-52.0); Hemoglobin 11.8 g/dl (14.0-18.0); Imm Gran Abs Auto 0.02 X10*3/uL (0.00-0.03); Imm Gran Pct Auto 0.2 % (0.0-0.4); Lymphocytes Absolute Auto 2.2 X10*3/uL (1.2-4.9); Lymphocytes Percent Auto 25.1 % (20-40); Mean Corpuscular HGB Conc 32.3 g/dl (31.0-36.0); Mean Corpuscular Hemoglobin 28.1 pg (27.0-33.0); Mean Corpuscular Volume 86.9 fL (80.0-98.0); Mean Platelet Volume 10.4 fL (9.4-12.4); Monocytes Absolute Auto 0.5 X10*3/uL (0.1-1.2); Monocytes Percent Auto 6.1 % (2-11); Neutrophils Absolute Auto 5.7 x10*3/uL (2.0-8.3); Platelet Count 265 X10*3/uL (160-400); Red Cell Distribution Width 13.1 % (11.0-16.0); White Blood Count 8.8 X10*3/uL (4.8-10.8)
[2023-01-06 03:29] LABS: Appearance Urine Clear; Color Urine Yellow; Glucose Urine UA 500 mg/dL (Negative); Leukocyte Esterase Urine Negative (Negative); Nitrite Urine Negative (Negative); Specific Gravity - Urine 1.025 (1.005-1.025); Urine Blood Negative (Negative); Urine Ketones Trace mg/dL (Negative); Urine Protein Negative (Neg-Trace)
[2023-01-06 03:58] LABS: Glucose, Whole Blood 167 mg/dL (60-115)
[2023-01-06 04:19] LABS: Alanine Aminotransferase 20 U/L (0-40); Albumin Level 3.6 g/dL (3.5-5.0); Alkaline Phosphatase 95 U/L (39-117); Calcium 9.5 mg/dL (8.4-10.2); Chloride 106 mmol/L (96-108); Creatinine Clr Calc Pharmacy 174.5; Estimated Glomerular Filt Rate > 60; Ethanol < 10 mg/dL; Glucose Random 166 mg/dL (60-115); Potassium 4.1 mmol/L (3.3-5.1); Sodium 140 mmol/L (135-145); Total Protein 6.6 g/dL (6.5-8.0)
[2023-01-06 04:20] LABS: Aspartate Amino Transferase 17 U/L (5-37); Bilirubin Total 0.6 mg/dL (0.0-1.0); Blood Urea Nitrogen 15 mg/dL (9-16)
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
--- NOTE | 2023-01-06 05:33 | PC.NURSE ---
Pt requesting to be discharge, states im here for a medical reason, I don't want to speak to care team . Provider Dr. Squires aware.
[2023-01-06 08:07] LABS: Anion Gap 12 (12-20); Carbon Dioxide 26 mmol/L (22-29)
== END 2023-01-06 06:16 | disposition home or self-care (01) ==
PROVIDERS: Emergency Provider Student in an Organized Health Care Education/Training Program
DX: F30.9 Manic episode, unspecified (principal); F22 Delusional disorders; Z79.899 Other long term (current) drug therapy
CPT/HCPCS: 36415; 80053; 80307; 81003; 82947; 85025; 99284

== ENCOUNTER 2023-05-11 17:14 | Inpatient (IN) | payer OTHER, SELFPAY ==
--- NOTE | ~2023-05-11 | CT_ITS ---
EXAMINATION: CT FACIAL BONES WITH CONTRAST CLINICAL INFORMATION: Severe cellulitis in the posterior neck. Facial swelling. COMPARISON: None available. TECHNIQUE: Multidetector volumetric imaging was obtained through the upper neck/face and head from the level of the frontal sinuses through the level of the mandible in order to image the posterior occipital soft tissues. Images were obtained following intravenous administration of 100 mL Omnipaque 350. Multiplanar reformatted images in coronal and sagittal orientations were submitted. This CT examination was performed using dose optimization techniques as appropriate, variously including the following: *Automated exposure control *Adjustment of mA and/or kV according to patient size (this includes techniques or standardized protocols for targeted exams where dose is matched to indication/reason for exam; i.e. extremities or head) *Use of iterative reconstruction technique DLP: 591 mGy-cm FINDINGS: Skin thickening is evident in the posterior soft tissues of the neck and head, centered in the suboccipital region. There is a small gas containing skin wound in the midline just caudal to the external occipital protuberance, measuring approximately 1 x 0.4 cm in area. There is associated gas and fat stranding in the underlying subcutaneous fat superficial to the posterior paraspinal musculature including the trapezius and semispinalis muscles. A poorly marginated pocket of gas and fluid attenuation material in the subcutaneous soft tissues in this region measures approximately 3 x 3 x 1.2 cm, primarily gas containing. A few small suboccipital reactive lymph nodes are identified in this region. No separate fluid collections are identified. No evidence of underlying osteomyelitis. The mastoids and paranasal sinuses are are clear. The orbits are normal in appearance. Nasal cavity, nasopharynx, oropharynx, and hypopharynx are unremarkable. No abnormal enhancement or parapharyngeal fluid collections. Numerous small subcentimeter reactive lymph nodes are present in the cervical soft tissues bilaterally. Carotid and jugular vasculature is patent. Imaged intracranial structures are normal in appearance. Minimal spondylosis in the cervical spine. CT/CT facial bones w IV con IMPRESSION: Cellulitis in the posterior neck and suboccipital region with a skin wound and an underlying abscess which is primarily gas containing. No appreciable extension into the deep fascial layers. No osteomyelitis.
[2023-05-11 17:36] VITALS: BP 128/70; BP 131/84; PULSE 90; PULSE 91; RESP 16; TEMP 36.9; O2SAT 92; O2SAT 97; BMI 46.1
[2023-05-11] MEDS: Lactated Ringers 1,000 ML 999 ML IV (18:33)
[2023-05-11 18:37] LABS: Appearance Urine Clear; Color Urine Yellow; Glucose Urine UA >=1000 mg/dL (Negative); Leukocyte Esterase Urine Negative (Negative); Nitrite Urine Negative (Negative); PH 6.5 (5.0-9.0); Specific Gravity - Urine >= 1.030 (1.005-1.025); UMIC TRIGGER UACC YES; Urine Blood Small (1+) (Negative); Urine Ketones 15 mg/dL (Negative); Urine Protein Negative (Neg-Trace)
[2023-05-11 18:42] LABS: Bacteria Urine None Seen (None Seen); Hyaline Casts Urine 0-2 /LPF (0-2); RBC Urine >20 /HPF (0-2); Squamous Epithelial Cell Urine 0-2 /HPF (0-2); WBC Urine 0-5 /HPF (0-5)
[2023-05-11 18:47] LABS: Hematocrit 37.1 % (42.0-52.0); Mean Corpuscular HGB Conc 32.3 g/dl (31.0-36.0); Mean Corpuscular Hemoglobin 28.2 pg (27.0-33.0); Mean Corpuscular Volume 87.1 fL (80.0-98.0); Mean Platelet Volume 10.6 fL (9.4-12.4); Platelet Count 409 X10*3/uL (160-400); Red Blood Count 4.26 X10*6/uL (4.60-5.80); Red Cell Distribution Width 13.2 % (11.0-16.0); White Blood Count 13.1 X10*3/uL (4.8-10.8)
--- NOTE | 2023-05-11 18:48 | ED_ITS ---
HPI - Skin/Abscess/Foreign Bdy General Chief complaint: Skin/Abscess/Foreign Body Stated complaint: PUSS LEAKING FROM BVACK OF HEAD,DIZZY Time Seen by Provider: 05/11/23 17:43 Source: patient, EMS, RN notes reviewed and old records reviewed Mode of arrival: EMS History of Present Illness HPI narrative: 42-year-old male with a past medical history of schizoaffective disorder, diabetes, HTN, GERD, presenting to the ED via EMS complaining of continued pain & drainage noted to abscess on back of head/upper neck. Patient states he left AMA from admission at [facility] today, presented to this ED due to continued drainage. Patient is poor historian. Denies fever/chills, SOB, nausea/vomiting. MD complaint: abscess/boil Related Data Home Medications Medication Instructions Recorded Confirmed cholecalciferol (vitamin D3) 50 50 mcg PO DAILY 01/06/23 01/06/23 mcg (2,000 unit) capsule folic acid 1 mg tablet 1 mg PO DAILY 01/06/23 01/06/23 hydrochlorothiazide 25 mg tablet 25 mg PO DAILY 01/06/23 01/06/23 metformin 1,000 mg tablet 1,000 mg PO BID 01/06/23 01/06/23 olmesartan 5 mg tablet 5 mg PO DAILY 01/06/23 01/06/23 risperidone 1 mg tablet 1 mg PO BID 01/06/23 01/06/23 simvastatin 40 mg tablet 40 mg PO BEDTIME 01/06/23 01/06/23 Previous Rx's Medication Instructions Recorded albuterol sulfate 90 mcg/actuation 2 puff inhalation Q4-6H PRN 06/03/22 aerosol inhaler (ProAir HFA) shortness of breath or wheezing #8.5 grams Allergies Allergy/AdvReac Type Severity Reaction Status Date / Time morphine [Morphine] Allergy Unknown HIVES Verified 01/06/23 03:13 shellfish derived Allergy Redness of Verified 01/06/23 03:13 Skin Iodinated Contrast Media AdvReac Anxiety Verified 01/06/23 03:13 [Contrast Dye] Review of Systems 2 Review of Systems: Constitutional: No Fever, No Chills ENT/Mouth: No Ear Pain, No Nasal Congestion, No sore throat, No Rhinorrhea, No Swallowing Difficulty Cardiovascular: No Chest Pain, No SOB Respiratory: No Cough, No Sputum Gastrointestinal: No Nausea, No Vomiting, No Diarrhea, No Constipation, No Abdominal pain Musculoskeletal: No joint pain, No Myalgias, No Joint Swelling Skin: + Skin Lesions, No rash Neuro: No Weakness, No Numbness, No Paresthesias Yes all other systems are reviewed and are negative Constitutional: Constitutional: Reports as per [facility] Past Medical History Attestation statement: The following information was validated with the patient. Source: old records reviewed Medical History GERD (gastroesophageal reflux disease) Essential (primary) hypertension Diabetes mellitus Schizoaffective disorder Surgical History No pertinent past surgical history Family History Family History Father Heart disease Chronic mental illness Depression Mother Cancer Sister Cancer Social History Social History Household Members: Unknown / Unable to assess Housing: Apartment Unable to assess alcohol history related to: Unknown Alcohol intake: former Patient Tobacco Use Status: Former Tobacco user Smoked in Last 30 Days: No e-Cigarette/Vaping Use: Never Used Use of substances other than those prescribed or required for medical reasons: No Substance Use Type: Hallucinogens Advance Directives: No Advance Directives Information Provided: No service: No Current occupational status: disabled Sexual orientation: Don't Know Physical Exam 2 Vital Signs: Vital Signs: Last Vital Signs Temp 99.0 F 05/12/23 00:46 Pulse 72 05/12/23 00:46 Resp 20 05/12/23 00:46 BP 143/83 H 05/12/23 00:46 Pulse Ox 92 05/12/23 00:46 O2 Del Method Room Air 05/12/23 00:46 BMI result Body Mass Index 46.1 Const: General: cooperative, healthy appearing and no acute distress O rientation/consciousness: patient oriented x3 Limitations: no limitations HEENT: Other: Large indurated abscess noted to occipital region extending to bilateral mastoids. + erythema and tenderness. Open I&D site wound w/expressible pus/bloody drainage. No fluctuance. No crepitus Head: Yes normal to inspection and Yes atraumatic Ears: hearing grossly normal bilaterally General nose exam: Normal external nose present Face and sinus: Yes normal facial exam Eyes: General: appearance normal, both eyes and all related structures EOM: EOMs intact bilaterally Neck: Neck: Yes no meningeal signs and No anterior neck swelling Resp: Effort & Inspection: normal respiratory effort and no respiratory distress Cardio: Rate: regular rate Skin: Rashes: no rashes Wounds: no wounds Neuro: General: patient oriented x3, tone normal and no meningeal signs C ranial nerves: Yes CN's II-XII intact bilaterally Extrem: General: Yes normal to inspection Course Course Course Narrative: -1854--pH 7.44 -CRP elevated to 15.76. UA with blood, not infected. Dose of IV Doxycycline and Rocephin ordered. -1922--glucose elevated to 456. Sodium mildly low to 132 > likely pseudohyponatremia from hyperglycemia. No anion gap. No evidence of DKA. >> patient unsure if he took his medications today. Will give 5 units of IV insulin. - + transaminitis -1924--ED care transferred to [facility] pending remaining labs & possible admission, dispo per results Reevaluation(s) Reevaluation #1: patient advised me that he left all a home visit today because they were not do anything , he was upset that they were not expelling cause from is present neck which is felt was most necessary. CBC with leukocytosis of 13.1, ESR of 96. Reviewed records obtained from [facility], status post with history of schizoaffective disorder, hypertension, GERD, diabetes left AMA from their hospital today , on vanco and Unasyn IV, MSSA bacteremia, CT with contrast obtained on 05/09 revealing severe cellulitis intermixed bubbles of air which could be due to gas forming organism, inflammatory changes involving the entire face periorbital soft tissue left greater than right, and Circumferentially around the neck no osseous erosion or suspicious osseous lesions at that time. Upon speaking with patient he is agreeable to admission here. I consulted with hospitalist; Dr. Babb requests repeat CT imaging at this time prior to admission, should there be facial abscess, concern for whether patient will require transfer. Our medical records indicate a contrast allergy, patient confirms this, he is unaware of what the reaction is he states they gave me a shot right before and I am okay . Patient was premedicated with Solu-Medrol, Benadryl, and Pepcid IV, CT scan with contrast was able to be obtained without reaction. CT shows cellulitis with gas containing abscess of the subcutaneous fat posterior to paraspinal muscles/trapezius muscle, Dr. Babb agreeable to admit patient at this time to medicine service, will consult General surgery in the morning for further management and treatment. Time: 01:12 Medications Administered Discontinued Medications Generic Name Dose Route Start Last Admin Trade Name Freq PRN Reason Stop Dose Admin Diphenhydramine HCl 50 mg 05/11/23 22:00 05/11/23 22:20 Diphenhydramine Hcl 50 Mg/Ml Vial IVPUSH 05/11/23 22:01 50 mg ONCE ONE Administration Famotidine 20 mg 05/11/23 22:00 05/11/23 22:20 Famotidine/Pf 20 Mg/2 Ml Vial IVPUSH 05/11/23 22:01 20 mg ONCE ONE Administration Lactated Ringer's 1,000 mls @ 999 mls/hr 05/11/23 17:45 05/11/23 19:47 Lr IV 05/11/23 18:45 Infused .Q1H1M BOOGIE Infusion Doxycycline Hyclate 100 mg/ 250 mls @ 166.67 mls/hr 05/11/23 19:16 05/11/23 22:21 Sodium Chloride IV 05/11/23 20:45 Infused ONCE ONE Infusion Ceftriaxone Sodium 1 gm/ 50 mls @ 100 mls/hr 05/11/23 19:16 05/11/23 20:38 Sodium Chloride IV 05/11/23 19:45 Infused ONCE ONE Infusion Insulin Human Regular 5 unit 05/11/23 19:25 05/11/23 19:42 Insulin Regular, Human 100 Unit/Ml 3 Ml Vial IVPUSH 05/11/23 19:26 5 unit ONCE ONE Administration Iohexol 100 ml 05/11/23 23:40 05/11/23 23:41 Iohexol 350 Mg/Ml 100 Ml Infus..Btl IV 05/11/23 23:41 100 ml ONCE ONE Administration Methylprednisolone Sodium Succinate 125 mg 05/11/23 22:00 05/11/23 22:20 Methylprednisolone Sod Succ 125 Mg/2 Ml Vial IVPUSH 05/11/23 22:01 125 mg ONCE ONE Administration Medical Decision Making Medical Decision Making MDM Narrative: 42-year-old male with a past medical history of schizoaffective disorder, diabetes, HTN, GERD, presenting to the ED via EMS complaining of continued pain & drainage noted to abscess on back of head/upper neck. Patient states he left AMA from admission at [facility] today. On exam vital signs stable, NAD, nontoxic appearing, per EMS POC > 400. Patient poor historian states he was admitted at [facility], unknown when he arrived, was receiving IV antibiotics. Large indurated abscess with expressible pus drainage and overlying erythema noted to occipital region. Concern for deeper abscess/infection with edema vs ?osteo vs bacteremia. Concern for hyperglycemia vs DKA Records requested from [facility] Plan: Labs, lactic/blood cultures, IVF Please refer to course for remaining clinical decision making, interpretation of labs/imaging results, and discussions with consultants and/or family members. Differential Diagnosis Differential Diagnoses: The differential diagnosis associated with the presentation includes As above Admission/Observation Consideration of admission/observation: Escalation of care including admission/observation considered Lab Data [facility] Lab Attestation statement: I reviewed the patient's lab results. 05/11/23 18:29 05/11/23 18:31 Labs: Lab Results 05/11/23 05/11/23 05/11/23 Range/Units 18:29 18:31 18:45 WBC 13.1 H (4.8-10.8) X10*3/uL RBC 4.26 L (4.60-5.80) X10*6/uL Hgb 12.0 L (14.0-18.0) g/dl Hct 37.1 L (42.0-52.0) % MCV 87.1 (80.0-98.0) fL MCH 28.2 (27.0-33.0) pg MCHC 32.3 (31.0-36.0) g/dl RDW 13.2 (11.0-16.0) % Plt Count 409 H D (160-400) X10*3/uL MPV 10.6 (9.4-12.4) fL Immature Gran % (Auto) Cancelled Neut % (Auto) Cancelled Lymph % (Auto) Cancelled [place] % (Auto) Cancelled Eos % (Auto) Cancelled Baso % (Auto) Cancelled Lymph # (Auto) Cancelled [place] # (Auto) Cancelled Eos # (Auto) Cancelled Baso # (Auto) Cancelled Abs Immat Gran (auto) Cancelled Absolute Neuts (auto) Cancelled Absolute Nucleated RBC 0.000 (0.0-0.012) X10*3/uL Nucleated RBC % (auto) 0.0 (0.0-0.2) /100WBC Neutrophils % (Manual) 68 (45-73) % Band Neutrophils % 3 (3-5) % Lymphocytes % (Manual) 11 L (20-40) % Atypical Lymphs % (Man) 3 (0-6) % Monocytes % (Manual) 6 (2-11) % Eosinophils % (Manual) 2 (0-4) % Basophils % (Manual) 1 (0-2) % Metamyelocytes % 6 % Abs Neuts (Manual) 9.3 H (2.0-8.3) X10*3/uL Lymphocytes # (Manual) 1.4 (1.2-4.9) X10*3/uL Atyp Lymphs # (Manual) 0.4 x10*3/uL Monocytes # (Manual) 0.8 (0.1-1.2) X10*3/uL Eosinophils # (Manual) 0.3 (0.0-0.4) X10*3/uL Basophils # (Manual) 0.1 (0.0-0.2) X10*3/uL Metamyelocytes # 0.8 X10*3/uL Platelet Estimate NORMAL (NORMAL) Plt Morphology Comment NORMAL RBC Morphology NORMAL Shay Cells 1+ (0-2) /OIF ESR 96 H (0-15) MM/HR VBG pH 7.44 H (7.32-7.43) VBG pCO2 54 mmHg VBG pO2 42 mmHg VBG HCO3 37 H (22-26) mmol/L VBG O2 Saturation 68.0 % VBG Base Excess 11.2 mmol/L Sodium 132 L (135-145) mmol/L Potassium 4.1 (3.3-5.1) mmol/L Chloride 93 L (96-108) mmol/L Carbon Dioxide 31 H (22-29) mmol/L Anion Gap 12 (12-20) BUN 10 (9-16) mg/dL Creatinine 0.74 (0.5-1.4) mg/dL Estim Creat Clear Calc 174.8 Estimated GFR > 60 POC Glucose (60-115) mg/dL Random Glucose 456 H* (60-115) mg/dL Lactic Acid 1.3 (0.5-2.0) mmol/L Calcium 9.0 (8.4-10.2) mg/dL Magnesium 2.2 (1.6-2.6) mg/dL Total Bilirubin 0.3 (0.0-1.0) mg/dL Direct Bilirubin 0.2 (0.0-0.5) mg/dL AST 47 H (5-37) U/L ALT 45 H (0-40) U/L Alkaline Phosphatase 169 H (39-117) U/L C-Reactive Protein 15.76 H (< or = 0.50) mg/dL Total Protein 7.1 (6.5-8.0) g/dL Albumin 3.1 L (3.5-5.0) g/dL Beta-Hydroxybutyrate 0.10 (0.02-0.27) mmol/L Urine Color Yellow Urine Appearance Clear Urine pH 6.5 (5.0-9.0) Ur Specific [place] >= 1.030 H (1.005-1.025) Urine Protein Negative (Neg-Trace) mg/dL Urine Glucose (UA) >=1000 H (Negative) mg/dL Urine Ketones 15 (Negative) mg/dL Urine Blood Small (1+) H (Negative) Urine Nitrite Negative (Negative) Ur Leukocyte Esterase Negative (Negative) Urine RBC >20 H (0-2) /HPF Urine WBC 0-5 (0-5) /HPF Ur Squamous Epith Cells 0-2 (0-2) /HPF Urine Bacteria None Seen (None Seen) Hyaline Casts 0-2 (0-2) /LPF 05/11/23 05/12/23 Range/Units 21:16 00:53 WBC (4.8-10.8) X10*3/uL RBC (4.60-5.80) X10*6/uL Hgb (14.0-18.0) g/dl Hct (42.0-52.0) % MCV (80.0-98.0) fL MCH (27.0-33.0) pg MCHC (31.0-36.0) g/dl RDW (11.0-16.0) % Plt Count (160-400) X10*3/uL MPV (9.4-12.4) fL Immature Gran % (Auto) Neut % (Auto) Lymph % (Auto) [place] % (Auto) Eos % (Auto) Baso % (Auto) Lymph # (Auto) [place] # (Auto) Eos # (Auto) Baso # (Auto) Abs Immat Gran (auto) Absolute Neuts (auto) Absolute Nucleated RBC (0.0-0.012) X10*3/uL Nucleated RBC % (auto) (0.0-0.2) /100WBC Neutrophils % (Manual) (45-73) % Band Neutrophils % (3-5) % Lymphocytes % (Manual) (20-40) % Atypical Lymphs % (Man) (0-6) % Monocytes % (Manual) (2-11) % Eosinophils % (Manual) (0-4) % Basophils % (Manual) (0-2) % Metamyelocytes % % Abs Neuts (Manual) (2.0-8.3) X10*3/uL Lymphocytes # (Manual) (1.2-4.9) X10*3/uL Atyp Lymphs # (Manual) x10*3/uL Monocytes # (Manual) (0.1-1.2) X10*3/uL Eosinophils # (Manual) (0.0-0.4) X10*3/uL Basophils # (Manual) (0.0-0.2) X10*3/uL Metamyelocytes # X10*3/uL Platelet Estimate (NORMAL) Plt Morphology Comment RBC Morphology Shay Cells /OIF ESR (0-15) MM/HR VBG pH (7.32-7.43) VBG pCO2 mmHg VBG pO2 mmHg VBG HCO3 (22-26) mmol/L VBG O2 Saturation % VBG Base Excess mmol/L Sodium (135-145) mmol/L Potassium (3.3-5.1) mmol/L Chloride (96-108) mmol/L Carbon Dioxide (22-29) mmol/L Anion Gap (12-20) BUN (9-16) mg/dL Creatinine (0.5-1.4) mg/dL Estim Creat Clear Calc Estimated GFR POC Glucose 356 H* 389 H* (60-115) mg/dL Random Glucose (60-115) mg/dL Lactic Acid (0.5-2.0) mmol/L Calcium (8.4-10.2) mg/dL Magnesium (1.6-2.6) mg/dL Total Bilirubin (0.0-1.0) mg/dL Direct Bilirubin (0.0-0.5) mg/dL AST (5-37) U/L ALT (0-40) U/L Alkaline Phosphatase (39-117) U/L C-Reactive Protein (< or = 0.50) mg/dL Total Protein (6.5-8.0) g/dL Albumin (3.5-5.0) g/dL Beta-Hydroxybutyrate (0.02-0.27) mmol/L Urine Color Urine Appearance Urine pH (5.0-9.0) Ur Specific [place] (1.005-1.025) Urine Protein (Neg-Trace) mg/dL Urine Glucose (UA) (Negative) mg/dL Urine Ketones (Negative) mg/dL Urine Blood (Negative) Urine Nitrite (Negative) Ur Leukocyte Esterase (Negative) Urine RBC (0-2) /HPF Urine WBC (0-5) /HPF Ur Squamous Epith Cells (0-2) /HPF Urine Bacteria (None Seen) Hyaline Casts (0-2) /LPF Radiology Impression Discussion of test interpretation with radiology: I have reviewed the radiologist's reading. Radiologist Impression: CT/CT facial bones w IV con IMPRESSION: Cellulitis in the posterior neck and suboccipital region with a skin wound and an underlying abscess which is primarily gas containing. No appreciable extension into the deep fascial layers. No osteomyelitis. Independent Historian Clinical information obtained from an independent historian. History obtained from or confirmed by: EMS External Record Review External record reviewed: Inpatient record, Office record, Outpatient record, Prior outpatient labs, Prior outpatient radiology, Primary care record and Outside ED record Tests considered The following testing was considered but not selected: As above Prescription Management I considered prescription management with: Pain Medication and Antibiotic Chronic Conditions Patient?s care impacted by: Diabetes Critical Care Time Critical Care Time Critical Care Time: Yes Total Critical Care Time: 50 Attestation: I have personally provided critical care time exclusive of time spent on separately billable procedures. Time includes review of lab data, radiology results, discussion with consultants, and monitoring for potential decompensation. Intervention performed as documented. Discharge Plan Discharge Clinical Impression: Abscess, Hyperglycemia Patient Disposition: Admitted As Inpatient Prescriptions: No Action albuterol sulfate [ProAir HFA] 90 mcg/actuation HFA aerosol inhaler 2 puff inhalation Q4-6H PRN (Reason: shortness of breath or wheezing) Qty: 8.5 0RF simvastatin 40 mg tablet 40 mg PO BEDTIME metformin 1,000 mg tablet 1,000 mg PO BID folic acid 1 mg tablet 1 mg PO DAILY hydrochlorothiazide 25 mg tablet 25 mg PO DAILY olmesartan 5 mg tablet 5 mg PO DAILY cholecalciferol (vitamin D3) 50 mcg (2,000 unit) capsule 50 mcg PO DAILY risperidone 1 mg tablet 1 mg PO BID
[2023-05-11 18:49] LABS: C Reactive Protein 15.76 mg/dL (< or = 0.50)
[2023-05-11 18:51] LABS: VBG Base Excess 11.2 mmol/L; VBG HCO3 37 mmol/L (22-26); VBG pCO2 54 mmHg; VBG pH 7.44 (7.32-7.43); VBG pO2 42 mmHg
[2023-05-11 18:55] LABS: Venous Blood Gas Refer to POC result
[2023-05-11 19:01] LABS: Lactic Acid 1.3 mmol/L (0.5-2.0)
[2023-05-11 19:22] LABS: Alanine Aminotransferase 45 U/L (0-40); Albumin Level 3.1 g/dL (3.5-5.0); Alkaline Phosphatase 169 U/L (39-117); Anion Gap 12 (12-20); Aspartate Amino Transferase 47 U/L (5-37); Bilirubin Direct 0.2 mg/dL (0.0-0.5); Bilirubin Total 0.3 mg/dL (0.0-1.0); Blood Urea Nitrogen 10 mg/dL (9-16); Carbon Dioxide 31 mmol/L (22-29); Chloride 93 mmol/L (96-108); Creatinine Clr Calc Pharmacy 174.8; Estimated Glomerular Filt Rate > 60; Glucose Random 456 mg/dL (60-115); Magnesium 2.2 mg/dL (1.6-2.6); Potassium 4.1 mmol/L (3.3-5.1); Sodium 132 mmol/L (135-145); Total Protein 7.1 g/dL (6.5-8.0)
[2023-05-11 19:34] LABS: Erythrocyte Sedimentation Rate 96 MM/HR (0-15)
[2023-05-11] MEDS: cefTRIAXone sodium 1 GM in 0.9 % Sodium Chloride 50 ML IV (19:40)
[2023-05-11] MEDS: Insulin Regular, Human 100 UNIT/ML 3 ML VIAL IVPUSH (19:42)
[2023-05-11 20:12] LABS: Atypical Lymph Absolute Manual 0.4 x10*3/uL; Atypical Lymphs Percent Manual 3 % (0-6); Band Neutrophils Percent 3 % (3-5); Basophils Abs Manual 0.1 X10*3/uL (0.0-0.2); Basophils Percent Manual 1 % (0-2); Eosinophils Absolute Manual 0.3 X10*3/uL (0.0-0.4); Eosinophils Percent Manual 2 % (0-4); Lymphocytes Absolute Manual 1.4 X10*3/uL (1.2-4.9); Lymphocytes Percent Manual 11 % (20-40); Metamyelocytes Absolute 0.8 X10*3/uL; Metamyelocytes Percent 6 %; Monocytes Absolute Manual 0.8 X10*3/uL (0.1-1.2); Monocytes Percent Manual 6 % (2-11); Neutrophils Absolute Manual 9.3 X10*3/uL (2.0-8.3); Neutrophils Percent Manual 68 % (45-73)
[2023-05-11 20:15] LABS: Burr Cells 1+ (0-2) /OIF; Platelet Estimate NORMAL (NORMAL); Platelet Morphology Comment NORMAL; RBC Morphology NORMAL
[2023-05-11] MEDS: Doxycycline Hyclate 100 MG in 0.9 % Sodium Chloride 250 ML 166.67 MG IV (20:38)
[2023-05-11 21:04] VITALS: BP 126/72; PULSE 85; RESP 16; TEMP 37.1; O2SAT 96
[2023-05-11 21:19] LABS: Glucose, Whole Blood 356 mg/dL (60-115)
[2023-05-11] MEDS: methylPREDNISolone Sod Succ 125 MG/2 ML VIAL IVPUSH (22:20)
[2023-05-11] MEDS: Famotidine/PF 20 MG/2 ML VIAL IVPUSH (22:20)
[2023-05-11] MEDS: diphenhydrAMINE HCL 50 MG/ML VIAL IVPUSH (22:20)
--- NOTE | 2023-05-11 22:28 | PC.NURSE ---
pt premedicated for CT scan, CT notified.
[2023-05-11] MEDS: iohexoL 350 MG/ML 100 ML INFUS..BTL IV (23:41)
--- NOTE | 2023-05-12 00:42 | PC.NURSE ---
This insurance underwriter sales assumed care of this Pt at 2300. Pt appears to be sleeping, equal non-labored respirations, no respiratory distress noted. Awakens with verbal stimuli, denies any pain. Pt updated on plan of care.
[2023-05-12 00:46] VITALS: BP 143/83; PULSE 72; RESP 20; TEMP 37.2; O2SAT 92
[2023-05-12 00:57] LABS: Glucose, Whole Blood 389 mg/dL (60-115)
--- NOTE | 2023-05-12 01:03 | PC.NURSE ---
Swelling/redness noted to lower back of head with open area draining pus, Pt states they opened it up at [facility] . POC 389, Dr. Babb at bedside made aware. Pt requesting food, TV, and telephone.
--- NOTE | 2023-05-12 01:20 | PM.IMHP ---
History of Present Illness Date of Service: 05/12/23 Chief Complaint: Back abscess This is a 42-year-old male with pertinent history of poorly controlled insulin-dependent diabetes mellitus, schizoaffective disorder, essential hypertension who presents to the emergency department for evaluation of infection on the back of the head. Patient states he his uncle shaved his head about 1 week prior to presentation. Soon after, patient began having purulent drainage. Also had associated erythema, warmth, tenderness and swelling. Patient went to [facility] where it was incised and drained and patient was put on empiric antibiotics. He left AMA from [facility] on the day of presentation as he was not happy with the care. States the drainage continued when he went home and hence he presented to the ER. No fever, chills, chest discomfort, palpitations, shortness of breath, abdominal pain, changes in urinary or bowel habits. In the emergency department, patient was found to be septic and imaging concerning for cellulitis in the posterior neck with underlying abscess. Review of Systems Constitutional: Constitutional: Reports no additional constitutional complaints Cardiovascular: Cardiovascular: Reports no additional cardiovascular complaints Respiratory: Respiratory: Reports no additional respiratory complaints Gastrointestinal: Gastrointestinal: Reports no additional gastrointestinal complaints Genitourinary: Genitourinary: Reports no additional male genitourinary complaints [facility] Medical History GERD (gastroesophageal reflux disease) Essential (primary) hypertension Diabetes mellitus Schizoaffective disorder Family History Father Heart disease Chronic mental illness Depression Mother Cancer Sister Cancer Surgical History No pertinent past surgical history Social History Household Members: Unknown / Unable to assess Housing: Apartment Unable to assess alcohol history related to: Unknown Alcohol intake: former Patient Tobacco Use Status: Former Tobacco user Smoked in Last 30 Days: No e-Cigarette/Vaping Use: Never Used Use of substances other than those prescribed or required for medical reasons: No Substance Use Type: Hallucinogens Advance Directives: No Advance Directives Information Provided: No service: No Current occupational status: disabled Sexual orientation: Don't Know Meds Allergies Allergy/AdvReac Type Severity Reaction Status Date / Time morphine [Morphine] Allergy Unknown HIVES Verified 01/06/23 03:13 shellfish derived Allergy Redness of Verified 01/06/23 03:13 Skin Iodinated Contrast Media AdvReac Anxiety Verified 01/06/23 03:13 [Contrast Dye] Home Medications Medication Instructions Recorded Confirmed Last Taken Type cholecalciferol (vitamin D3) 50 50 mcg PO DAILY 01/06/23 01/06/23 Unknown History mcg (2,000 unit) capsule folic acid 1 mg tablet 1 mg PO DAILY 01/06/23 01/06/23 Unknown History hydrochlorothiazide 25 mg tablet 25 mg PO DAILY 01/06/23 01/06/23 Unknown History metformin 1,000 mg tablet 1,000 mg PO BID 01/06/23 01/06/23 Unknown History olmesartan 5 mg tablet 5 mg PO DAILY 01/06/23 01/06/23 Unknown History risperidone 1 mg tablet 1 mg PO BID 01/06/23 01/06/23 Unknown History simvastatin 40 mg tablet 40 mg PO BEDTIME 01/06/23 01/06/23 Unknown History Physical Exam Vital Signs and Narrative: Vital Signs: Last Vital Signs Temp 99.0 F 05/12/23 00:46 Pulse 72 05/12/23 00:46 Resp 20 05/12/23 00:46 BP 143/83 H 05/12/23 00:46 Pulse Ox 92 05/12/23 00:46 O2 Del Method Room Air 05/12/23 00:46 BMI result Body Mass Index 46.1 Middle-aged male lying in bed in no distress Neck supple, no JVD Regular rate and rhythm, S1-S2 heard Regular breath sounds bilaterally, no wheezing or crackles appreciated Abdomen soft nontender, no guarding, no rigidity Skin: Area of swelling, erythema, fluctuance, warmth and tenderness seen in the posterior neck Patient is awake, alert and oriented to self, place, disoriented to time and person ; no focal motor deficit Psych: Flat affect No pedal edema Results Labs 05/11/23 18:29 05/11/23 18:31 Labs: Laboratory Results - last 24 hr 05/11/23 05/11/23 05/11/23 18:29 18:31 18:45 MCV 87.1 MCH 28.2 MCHC 32.3 RDW 13.2 Plt Count 409 H D MPV 10.6 Immature Gran % (Auto) Cancelled Neut % (Auto) Cancelled Lymph % (Auto) Cancelled [place] % (Auto) Cancelled Eos % (Auto) Cancelled Baso % (Auto) Cancelled Lymph # (Auto) Cancelled [place] # (Auto) Cancelled Eos # (Auto) Cancelled Baso # (Auto) Cancelled Abs Immat Gran (auto) Cancelled Absolute Neuts (auto) Cancelled Absolute Nucleated RBC 0.000 Nucleated RBC % (auto) 0.0 Neutrophils % (Manual) 68 Band Neutrophils % 3 Lymphocytes % (Manual) 11 L Atypical Lymphs % (Man) 3 Monocytes % (Manual) 6 Eosinophils % (Manual) 2 Basophils % (Manual) 1 Metamyelocytes % 6 Abs Neuts (Manual) 9.3 H Lymphocytes # (Manual) 1.4 Atyp Lymphs # (Manual) 0.4 Monocytes # (Manual) 0.8 Eosinophils # (Manual) 0.3 Basophils # (Manual) 0.1 Metamyelocytes # 0.8 Platelet Estimate NORMAL Plt Morphology Comment NORMAL RBC Morphology NORMAL [place] Cells 1+ (0-2) ESR 96 H VBG pH 7.44 H VBG pCO2 54 VBG pO2 42 VBG HCO3 37 H VBG O2 Saturation 68.0 VBG Base Excess 11.2 Anion Gap 12 Estim Creat Clear Calc 174.8 Estimated GFR > 60 POC Glucose Random Glucose 456 H* Lactic Acid 1.3 Calcium 9.0 Magnesium 2.2 Total Bilirubin 0.3 Direct Bilirubin 0.2 AST 47 H ALT 45 H Alkaline Phosphatase 169 H C-Reactive Protein 15.76 H Total Protein 7.1 Albumin 3.1 L Beta-Hydroxybutyrate 0.10 Urine Color Yellow Urine Appearance Clear Urine pH 6.5 Ur Specific [place] >= 1.030 H Urine Protein Negative Urine Glucose (UA) >=1000 H Urine Ketones 15 Urine Blood Small (1+) H Urine Nitrite Negative Ur Leukocyte Esterase Negative Urine RBC >20 H Urine WBC 0-5 Ur Squamous Epith Cells 0-2 Urine Bacteria None Seen Hyaline Casts 0-2 05/11/23 05/12/23 21:16 00:53 MCV MCH MCHC RDW Plt Count MPV Immature Gran % (Auto) Neut % (Auto) Lymph % (Auto) [place] % (Auto) Eos % (Auto) Baso % (Auto) Lymph # (Auto) [place] # (Auto) Eos # (Auto) Baso # (Auto) Abs Immat Gran (auto) Absolute Neuts (auto) Absolute Nucleated RBC Nucleated RBC % (auto) Neutrophils % (Manual) Band Neutrophils % Lymphocytes % (Manual) Atypical Lymphs % (Man) Monocytes % (Manual) Eosinophils % (Manual) Basophils % (Manual) Metamyelocytes % Abs Neuts (Manual) Lymphocytes # (Manual) Atyp Lymphs # (Manual) Monocytes # (Manual) Eosinophils # (Manual) Basophils # (Manual) Metamyelocytes # Platelet Estimate Plt Morphology Comment RBC Morphology [place] Cells ESR VBG pH VBG pCO2 VBG pO2 VBG HCO3 VBG O2 Saturation VBG Base Excess Anion Gap Estim Creat Clear Calc Estimated GFR POC Glucose 356 H* 389 H* Random Glucose Lactic Acid Calcium Magnesium Total Bilirubin Direct Bilirubin AST ALT Alkaline Phosphatase C-Reactive Protein Total Protein Albumin Beta-Hydroxybutyrate Urine Color Urine Appearance Urine pH Ur Specific [place] Urine Protein Urine Glucose (UA) Urine Ketones Urine Blood Urine Nitrite Ur Leukocyte Esterase Urine RBC Urine WBC Ur Squamous Epith Cells Urine Bacteria Hyaline Casts Imaging Radiologist's Impressions: Impressions Face CT 05/11/23 23:40 IMPRESSION: Cellulitis in the posterior neck and suboccipital region with a skin wound and an underlying abscess which is primarily gas containing. No appreciable extension into the deep fascial layers. No osteomyelitis. Assessment and Plan (1) Cellulitis: Status: Acute (2) Abscess: Status: Acute Plan This is a 42-year-old male with pertinent history of poorly controlled insulin-dependent diabetes mellitus, schizoaffective disorder, essential hypertension who presents to the emergency department for evaluation of infection on the back of the head. #. Sepsis due to posterior neck/suboccipital cellulitis with underlying abscess: Resuscitating with IV crystalloids. Initiating empiric IV antibiotics. Lactic acid and blood culture obtained. Consulted General surgery for incision and drainage. #. Uncontrolled insulin-dependent diabetes mellitus with hyperglycemia: Initiating basal plus insulin regimen #. Bipolar disorder: Continue home mood stabilizers #. Essential hypertension: Continue home p.o. antihypertensives Med rec pending DVT prophylaxis: Lovenox Admit as inpatient and will require two night minimum hospital stay for IV antibiotics (as above), which is not possible in a lesser acute setting. Specialist consult pending Quality Stroke Does the patient have a stroke diagnosis?: No VTE Prior VTE?: No VTE Risk Level:: Medical - moderate - high VTE Device Contraindication: Treatment Not Indicated VTE Drug Contraindication: N/A - Med Ordered
[2023-05-12] MEDS: Piperacillin Sodium/Tazobactam 4.5 GM in 0.9 % Sodium Chloride 100 ML IV ×2 (01:41→09:18)
[2023-05-12] MEDS: Insulin Glargine,Hum.rec.anlog 100 UNIT/ML 10 ML VIAL 25 UNIT SUBCUT (01:45)
[2023-05-12] MEDS: Enoxaparin Sodium 40 MG/0.4 ML SYRINGE SUBCUT (01:46)
[2023-05-12] MEDS: 0.9 % Sodium Chloride 1,000 ML 999 ML IV (01:50)
[2023-05-12] MEDS: vancomycin/NS 2,000 MG/500 ML PLAST..BAG 250 MG IV (02:25)
--- NOTE | 2023-05-12 02:58 | PC.NURSE ---
Pt ambulated to BR independently with steady gait. Requesting food. [place] and tea given.
--- NOTE | 2023-05-12 03:37 | PC.NURSE ---
Report given to ED over flow nurse, Pt will be transported via w/c. Pt aware of plan.
[2023-05-12 03:55] VITALS: BP 122/65; PULSE 77; RESP 18; TEMP 36.6; O2SAT 96
[2023-05-12] MEDS: Insulin Regular, Human 100 UNIT/ML 3 ML VIAL IVPUSH (04:23)
[2023-05-12 06:33] LABS: Hematocrit 37.7 % (42.0-52.0); Hemoglobin 12.2 g/dl (14.0-18.0); Mean Corpuscular HGB Conc 32.4 g/dl (31.0-36.0); Mean Corpuscular Hemoglobin 28.2 pg (27.0-33.0); Mean Corpuscular Volume 87.3 fL (80.0-98.0); Mean Platelet Volume 10.6 fL (9.4-12.4); Platelet Count 419 X10*3/uL (160-400); Red Blood Count 4.32 X10*6/uL (4.60-5.80); Red Cell Distribution Width 13.2 % (11.0-16.0); White Blood Count 13.5 X10*3/uL (4.8-10.8)
[2023-05-12 06:55] LABS: Anion Gap 13 (12-20); Blood Urea Nitrogen 12 mg/dL (9-16); Calcium 9.2 mg/dL (8.4-10.2); Carbon Dioxide 26 mmol/L (22-29); Chloride 101 mmol/L (96-108); Creatinine Clr Calc Pharmacy 184.8; Estimated Glomerular Filt Rate > 60; Glucose Random 431 mg/dL (60-115); Potassium 5.1 mmol/L (3.3-5.1); Sodium 135 mmol/L (135-145)
[2023-05-12] MEDS: Insulin Lispro 100 UNIT/ML 3 ML VIAL SUBCUT ×2 (07:08→11:27)
[2023-05-12 07:20] LABS: Band Neutrophils Percent 9 % (3-5); Basophils Abs Manual 0.1 X10*3/uL (0.0-0.2); Basophils Percent Manual 1 % (0-2); Eosinophils Absolute Manual 0.1 X10*3/uL (0.0-0.4); Eosinophils Percent Manual 1 % (0-4); Lymphocytes Absolute Manual 0.3 X10*3/uL (1.2-4.9); Lymphocytes Percent Manual 2 % (20-40); Metamyelocytes Absolute 0.3 X10*3/uL; Metamyelocytes Percent 2 %; Neutrophils Absolute Manual 12.7 X10*3/uL (2.0-8.3)
[2023-05-12 07:21] LABS: Neutrophils Percent Manual 85 % (45-73)
[2023-05-12 07:22] LABS: Platelet Estimate SLIGHTLY INCREASED (NORMAL); Platelet Morphology Comment NORMAL; RBC Morphology NORMAL
[2023-05-12 07:26] LABS: Glucose, Whole Blood 409 mg/dL (60-115)
[2023-05-12 07:26] LABS: Glucose, Whole Blood 360 mg/dL (60-115)
--- NOTE | 2023-05-12 08:32 | PHA.PROG ---
Admission Date/Time: May 12, 2023 01:18 Indication: SKIN Weight in k.5 kg Adjusted body weight in K.04 [place] body weight in K.4 Obesity Dosing Indication % IBW: 46.1 Serum Creatinine - Last 168 Hours 05/11/23 05/12/23 18:31 05:53 Creatinine 0.74 0.70 Estimated CrCl and GFR - Last 168 Hours 05/11/23 05/12/23 18:31 05:53 Estim Creat Clear Calc 174.8 184.8 Estimated GFR > 60 > 60 Vancomycin Loading Dose: 2000 MG Current Vancomycin Dosing Regimen: 1500 Q12 Vancomycin Monitoring using AUC goal of 400 - 600 range with trough as surrogate marker: 424 Date and Time for next Vancomycin Level to be drawn: 05/13 @1100 Pharmacist Comments on Vancomycin Plan: INSIGHT SUGGESTS AUC 424 WITH TROUGH 11.1 BUT PT IS MORBIDLY OBESE WITH BMI 46.1. AFTER FIRST TROUGH ON 05/13 CHANGE INSIGHT TO OBESE MODEL AND MAY NEED TO ADJUST DOSING AT THAT TIME. MONITOR CLOSELY FOR POSSIBILITY OF DOSE DUMPING AND CHECK RENAL FUNCTION DAILY TO ENSURE SAFETY. Vancomycin dosing will take advantage of [employer] as a clinical decision support tool that uses Bayesian modeling to calculate individual patient's pharmacokinetic parameters and forecast the patient's drug concentration time course with the target goal AUC 24 range of 400 - 600 mg/L/hr.
--- NOTE | 2023-05-12 08:42 | PHA.MEDREC ---
Pharmacy Consult ? Medication Reconciliation Pharmacy has completed the medication reconciliation. Patient poor historian, unwilling to speak about medications. States whatever he gets at the pharmacy. I did ask about the ARB and whether he takes olmesartan or valsartan (both prescribed same day) and he did note it was valsartan. I also asked about recent doxycycline prescription but he states that he doesn't know what that is and doesn't take it, even after explaining it's an antibiotic. Nurse had done med rec prior and annotated she spoke to the patient, used her previous confirmations as well as recent claim history. Patient unsure of when he last took medications.
--- NOTE | 2023-05-12 08:52 | PM.CNGS ---
History of Present Illness Consult details Consult date: 05/12/23 <JAMES Azevedo Last Filed: 05/12/23 12:47> Reason for consult: other (neck abscess) <JAMES Azevedo Last Filed: 05/12/23 12:47> Requesting physician: Priscila Babb <JAMES Azevedo Last Filed: 05/12/23 12:47> Narrative: This is a 42-year-old male with PMH of poorly controlled insulin-dependent diabetes mellitus, schizoaffective disorder, hypertension who presented to the ED for evaluation of infection of the head/neck. He reports his uncle shaved his head about 1 week ago and soon after, patient began having pain, redness, swelling and developed purulent drainage. He initially went to [facility] for evaluation where it was drained and patient was started on empiric antibiotics. He however left AMA from [facility] as he was not happy with the care. He continued to have a significant amount of drainage from the wound when he went home and therefore presented to [facility]. He was found to be septic with imaging concerning for cellulitis in the posterior neck with underlying abscess. He was admitted to the hospitalist service for further treatment and is on IV zosyn. <Mary Jo Henning PA-C Last Filed: 05/12/23 12:47> Review of Systems Constitutional: Constitutional: Denies chills and Denies fever(s) <JAMES Azevedo Last Filed: 05/12/23 12:47> ENT: Denies dizziness <JAMES Azevedo Last Filed: 05/12/23 12:47> Cardiovascular: Cardiovascular: Denies chest pain, Denies palpitations and Denies dyspnea <JAMES Azevedo Last Filed: 05/12/23 12:47> Respiratory: Respiratory: Denies dyspnea <JAMES Azevedo Last Filed: 05/12/23 12:47> Gastrointestinal: Gastrointestinal: Denies abdominal pain and Denies vomiting <JAMES Azevedo Last Filed: 05/12/23 12:47> Integumentary/Breasts: Skin/Breast: Reports as per HPI <Mary Jo Henning PA-C Last Filed: 05/12/23 12:47> Neurologic: Denies dizziness <Mary Jo Henning PA-C Last Filed: 05/12/23 12:47> Endocrine: Endocrine: Denies palpitations <Mary Jo Hennign PA-C Last Filed: 05/12/23 12:47> PMFSH Past Medical History Medical History: Medical History GERD (gastroesophageal reflux disease) Essential (primary) hypertension Diabetes mellitus Schizoaffective disorder <Mary Jo Henning PA-C Last Filed: 05/12/23 12:47> Family History Family History: Family History Father Heart disease Chronic mental illness Depression Mother Cancer Sister Cancer <Mary Jo Henning PA-C Last Filed: 05/12/23 12:47> Surgical History Surgical History: Surgical History No pertinent past surgical history <Mary Jo Henning PA-C Last Filed: 05/12/23 12:47> Social History Social History: Social History Household Members: Unknown / Unable to assess Housing: Apartment Unable to assess alcohol history related to: Unknown Alcohol intake: former Patient Tobacco Use Status: Former Tobacco user Smoked in Last 30 Days: No e-Cigarette/Vaping Use: Never Used Use of substances other than those prescribed or required for medical reasons: No Substance Use Type: Hallucinogens Advance Directives: No Advance Directives Information Provided: No Nutrition Risks: No Nutritional Risk service: No Current occupational status: disabled Sexual orientation: Don't Know <Mary Jo Henning PA-C Last Filed: 05/12/23 12:47> Meds Allergies/Adverse reactions: Allergies Allergy/AdvReac Type Severity Reaction Status Date / Time morphine [Morphine] Allergy Unknown HIVES Verified 05/12/23 03:10 shellfish derived Allergy Redness of Verified 05/12/23 03:10 Skin Iodinated Contrast Media AdvReac Anxiety Verified 05/12/23 03:10 [Contrast Dye] <Mary Jo Henning PA-C - Last Filed: 05/12/23 12:47> Active Medications: Current Medications Acetaminophen (Acetaminophen 325 Mg Tablet) 650 mg PO Q6H PRN PRN Reason: Pain, Mild (Pain Scale 1-3) Albuterol Sulfate (Albuterol Sulfate 90 Mcg 8 Gm Inhaler) 2 puff INHALE Q4H PRN PRN Reason: shortness of breath or wheezing Dextrose (Dextrose 50 % 25 Gm/50 Ml Syringe) 25 gm IVPUSH Q15M PRN; Protocol PRN Reason: per Hypoglycemia Standing Ord. Enoxaparin Sodium (Enoxaparin Sodium 40 Mg/0.4 Ml Syringe) 40 mg SUBCUT BEDTIME [facility] Last Admin: 05/12/23 01:46 Dose: 40 mg Folic Acid (Folic Acid 1 Mg Tablet) 1 mg PO DAILY [facility] Glucose (Glucose Gel 15 Gm Gel..Gram.) 15 gm PO Q15M PRN; Protocol PRN Reason: per Hypoglycemia Standing Ord. Hydrochlorothiazide (Hydrochlorothiazide 25 Mg Tablet) 25 mg PO DAILY [facility]; Protocol Hydroxyzine HCl (Hydroxyzine Hcl 50 Mg Tablet) 50 mg PO Q8H PRN PRN Reason: anxiety Piperacillin Sod/Tazobactam (Sod 4.5 gm/ Sodium Chloride) 100 mls @ 200 mls/hr IV Q6H [facility] Last Infusion: 05/12/23 02:15 Dose: Infused Vancomycin HCl 1,500 mg/ (Sodium Chloride) 500 mls @ 333.333 mls/hr IV Q12H [facility] Insulin Human Lispro (Insulin Lispro 100 Unit/Ml 3 Ml Vial) 0 unit SUBCUT QIDACHS [facility]; Protocol Last Admin: 05/12/23 07:08 Dose: 10 unit Melatonin (Melatonin 3 Mg Tablet) 6 mg PO BEDTIME PRN PRN Reason: Insomnia Non-Formulary Medication (Simvastatin) 40 mg PO BEDTIME [facility] Ondansetron HCl (Ondansetron Hcl 4 Mg/2 Ml Vial) 4 mg IVPUSH Q8H PRN PRN Reason: Nausea and Vomiting Pharmacy Consult (Consult Rx Vancomycin Dosing) 1 each MISCELLANE DAILY PRN PRN Reason: Consult order Risperidone (Risperidone 1 Mg Tablet) 1 mg PO BID [facility] Sodium Chloride (0.9 % Sodium Chloride Flush 3 Ml Syringe) 3 ml IVFLUSH QSHIFT [facility] Vitamin D (Cholecalciferol (Vitamin D3) 25 Mcg Tablet) 50 mcg PO DAILY [place] <Mary Jo Henning PA-C - Last Filed: 05/12/23 12:47> Home medications: Home Medications Medication Instructions Recorded Confirmed Last Taken Type cholecalciferol (vitamin D3) 50 50 mcg PO DAILY 01/06/23 05/12/23 Unknown History mcg (2,000 unit) capsule folic acid 1 mg tablet 1 mg PO DAILY 01/06/23 05/12/23 Unknown History hydrochlorothiazide 25 mg tablet 25 mg PO DAILY 01/06/23 05/12/23 Unknown History risperidone 1 mg tablet 1 mg PO BID 01/06/23 05/12/23 Unknown History simvastatin 40 mg tablet 40 mg PO BEDTIME 01/06/23 05/12/23 Unknown History clotrimazole 1 % topical cream 1 appl topical DAILY 05/12/23 05/12/23 Unknown History docusate sodium 100 mg capsule 100 mg PO BID 05/12/23 05/12/23 Unknown History hydroxyzine HCl 50 mg tablet 50 mg PO Q8H PRN anxiety 05/12/23 05/12/23 Unknown History ketoconazole 2 % shampoo 1 appl topical MOWEFR 05/12/23 05/12/23 Unknown History sitagliptin phosphate 50 1 tab PO BID 05/12/23 05/12/23 Unknown History mg-metformin 1,000 mg tablet (Jun[place]usef) valsartan 160 mg tablet 160 mg PO DAILY 05/12/23 05/12/23 Unknown History <Mary Jo Henning PA-C - Last Filed: 05/12/23 12:47> Physical Exam Vital Signs: Vital Signs: Last Vital Signs Temp 97.8 F 05/12/23 03:55 Pulse 77 05/12/23 03:55 Resp 18 05/12/23 03:55 BP 122/65 05/12/23 03:55 Pulse Ox 96 05/12/23 03:55 O2 Del Method Room Air 05/12/23 03:55 BMI result Body Mass Index 46.1 <Mary Jo Henning PA-C - Last Filed: 05/12/23 12:47> Const: General: comfortable, no acute distress and alert <JAMES Azevedo Last Filed: 05/12/23 12:47> Orientation/consciousness: patient oriented x3 <JAMES Azevedo Last Filed: 05/12/23 12:47> Neck: Other: posterior neck with I&D site open and draining moderate amount of purulence, surrounding erythema and edema that extends inferiorly into trapezius muscles, no further fluctuance appreciated <Mary Jo Henning PA-C - Last Filed: 05/12/23 12:47> Resp: Effort & Inspection: normal respiratory effort <JAMES Azevedo Last Filed: 05/12/23 12:47> Skin: General skin exam: no rashes or lesions noted <JAMES Azevedo Last Filed: 05/12/23 12:47> Neuro: General: patient oriented x3 and moves all extremities <JAMES Azevedo Last Filed: 05/12/23 12:47> Results Labs Result diagrams: 05/12/23 05:53 05/12/23 05:53 <JAMES Azevedo Last Filed: 05/12/23 12:47> Labs: Abnormal lab results 05/11/23 05/11/23 05/11/23 Range/Units 18:29 18:31 18:45 WBC 13.1 H (4.8-10.8) X10*3/uL RBC 4.26 L (4.60-5.80) X10*6/uL Hgb 12.0 L (14.0-18.0) g/dl Hct 37.1 L (42.0-52.0) % Plt Count 409 H D (160-400) X10*3/uL Neutrophils % (Manual) (45-73) % Band Neutrophils % (3-5) % Lymphocytes % (Manual) 11 L (20-40) % Abs Neuts (Manual) 9.3 H (2.0-8.3) X10*3/uL Lymphocytes # (Manual) (1.2-4.9) X10*3/uL ESR 96 H (0-15) MM/HR VBG pH 7.44 H (7.32-7.43) VBG HCO3 37 H (22-26) mmol/L Sodium 132 L (135-145) mmol/L Chloride 93 L (96-108) mmol/L Carbon Dioxide 31 H (22-29) mmol/L POC Glucose (60-115) mg/dL Random Glucose 456 H* (60-115) mg/dL AST 47 H (5-37) U/L ALT 45 H (0-40) U/L Alkaline Phosphatase 169 H (39-117) U/L C-Reactive Protein 15.76 H (< or = 0.50) mg/dL Albumin 3.1 L (3.5-5.0) g/dL Ur Specific [place] >= 1.030 H (1.005-1.025) Urine Glucose (UA) >=1000 H (Negative) mg/dL Urine Blood Small (1+) H (Negative) Urine RBC >20 H (0-2) /HPF 05/11/23 05/12/23 05/12/23 Range/Units 21:16 00:53 03:58 WBC (4.8-10.8) X10*3/uL RBC (4.60-5.80) X10*6/uL Hgb (14.0-18.0) g/dl Hct (42.0-52.0) % Plt Count (160-400) X10*3/uL Neutrophils % (Manual) (45-73) % Band Neutrophils % (3-5) % Lymphocytes % (Manual) (20-40) % Abs Neuts (Manual) (2.0-8.3) X10*3/uL Lymphocytes # (Manual) (1.2-4.9) X10*3/uL ESR (0-15) MM/HR VBG pH (7.32-7.43) VBG HCO3 (22-26) mmol/L Sodium (135-145) mmol/L Chloride (96-108) mmol/L Carbon Dioxide (22-29) mmol/L POC Glucose 356 H* 389 H* 409 H* (60-115) mg/dL Random Glucose (60-115) mg/dL AST (5-37) U/L ALT (0-40) U/L Alkaline Phosphatase (39-117) U/L C-Reactive Protein (< or = 0.50) mg/dL Albumin (3.5-5.0) g/dL Ur Specific [place] (1.005-1.025) Urine Glucose (UA) (Negative) mg/dL Urine Blood (Negative) Urine RBC (0-2) /HPF 05/12/23 05/12/23 Range/Units 05:53 06:57 WBC 13.5 H (4.8-10.8) X10*3/uL RBC 4.32 L (4.60-5.80) X10*6/uL Hgb 12.2 L (14.0-18.0) g/dl Hct 37.7 L (42.0-52.0) % Plt Count 419 H (160-400) X10*3/uL Neutrophils % (Manual) 85 H (45-73) % Band Neutrophils % 9 H (3-5) % Lymphocytes % (Manual) 2 L (20-40) % Abs Neuts (Manual) 12.7 H (2.0-8.3) X10*3/uL Lymphocytes # (Manual) 0.3 L (1.2-4.9) X10*3/uL ESR (0-15) MM/HR VBG pH (7.32-7.43) VBG HCO3 (22-26) mmol/L Sodium (135-145) mmol/L Chloride (96-108) mmol/L Carbon Dioxide (22-29) mmol/L POC Glucose 360 H* (60-115) mg/dL Random Glucose 431 H* (60-115) mg/dL AST (5-37) U/L ALT (0-40) U/L Alkaline Phosphatase (39-117) U/L C-Reactive Protein (< or = 0.50) mg/dL Albumin (3.5-5.0) g/dL Ur Specific [place] (1.005-1.025) Urine Glucose (UA) (Negative) mg/dL Urine Blood (Negative) Urine RBC (0-2) /HPF Short CBC 05/11/23 05/12/23 Range/Units 18:29 05:53 WBC 13.1 H 13.5 H (4.8-10.8) X10*3/uL Hgb 12.0 L 12.2 L (14.0-18.0) g/dl Hct 37.1 L 37.7 L (42.0-52.0) % Plt Count 409 H D 419 H (160-400) X10*3/uL BMP 05/11/23 05/12/23 18:31 05:53 Sodium 132 L 135 Potassium 4.1 5.1 D Chloride 93 L 101 Carbon Dioxide 31 H 26 BUN 10 12 Creatinine 0.74 0.70 Calcium 9.0 9.2 Liver Function 05/11/23 Range/Units 18:31 Total Bilirubin 0.3 (0.0-1.0) mg/dL Direct Bilirubin 0.2 (0.0-0.5) mg/dL AST 47 H (5-37) U/L ALT 45 H (0-40) U/L Alkaline Phosphatase 169 H (39-117) U/L Albumin 3.1 L (3.5-5.0) g/dL Urine 05/11/23 Range/Units 18:29 Urine Color Yellow Urine Appearance Clear Urine pH 6.5 (5.0-9.0) Ur Specific [place] >= 1.030 H (1.005-1.025) Urine Protein Negative (Neg-Trace) mg/dL Urine Glucose (UA) >=1000 H (Negative) mg/dL All other labs normal. <Mary Jo Henning PA-C - Last Filed: 05/12/23 12:47> Assessment and Plan (1) Abscess: Status: Acute <Mary Jo Henning PA-C - Last Filed: 05/12/23 12:47> (2) Cellulitis: Qualifiers: Site of cellulitis: neck Qualified Code(s): L03.221 - Cellulitis of neck <Mary Jo Henning PA-C - Last Filed: 05/12/23 12:47> Status: Acute <Mary Jo Henning PA-C - Last Filed: 05/12/23 12:47> 42 year old diabetic male admitted with cellulitis and abscess of posterior neck. The abscess was previously I&D and remains open and draining. He does have significant surrounding edema but no further fluctuance appreciated. The site was very loosely packed with a fluff. Can continue with IV abx, warm compresses to the area. At this point the abscess appears appropriately drained without any further abscess appreciated. Will continue to follow. Discussed control of POCs for wound healing, prevent further infections. <Mary Jo Henning PA-C - Last Filed: 05/12/23 12:47> Procedures Date of Service Date of Service: 05/12/23 <Mary Jo Henning PA-C - Last Filed: 05/12/23 12:47> 05/12/23 <Vin Connelly MD - Last Filed: 05/12/23 14:47>
[2023-05-12 09:17] VITALS: BP 117/69; PULSE 71; RESP 20; TEMP 36.8; O2SAT 94
[2023-05-12] MEDS: hydroCHLOROthiazide 25 MG TABLET PO (09:18)
[2023-05-12] MEDS: Folic Acid 1 MG TABLET PO (09:18)
[2023-05-12] MEDS: Cholecalciferol (Vitamin D3) 25 MCG TABLET 50 MCG PO (09:18)
[2023-05-12] MEDS: 0.9 % Sodium Chloride Flush 3 ML SYRINGE IVFLUSH (09:24)
[2023-05-12 10:57] LABS: Estimated Average Glucose 295 mg/dL; Hemoglobin A1c % 11.9 % (<6.0)
[2023-05-12 11:25] LABS: Glucose, Whole Blood 382 mg/dL (60-115)
[2023-05-12] MEDS: Insulin Glargine,Hum.rec.anlog 100 UNIT/ML 10 ML VIAL 15 UNIT SUBCUT (11:26)
[2023-05-12] MEDS: risperiDONE 1 MG TABLET PO (11:26)
[2023-05-12] MEDS: Valsartan 160 MG TABLET PO (11:48)
[2023-05-12] MEDS: metFORMIN HCl 850 MG TABLET PO (11:48)
--- NOTE | 2023-05-12 13:02 | P.CDIM_ITS ---
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 Please review below and update the documentation accordingly. Clinical Indicators: BMI: 46.1 137.5kg 5ft 8in If possible, please provide an associated diagnosis related to the abnormal BMI, such as: Obesity Due to excess calories Obesity Due to other cause Specify the other cause Severe or Morbid Obesity With alveolar hypoventilation Severe or Morbid Obesity Without alveolar hypoventilation Other (explain) Clinically unable to determine (explain) Thank you, Pina Chavez, CCS, CDIS Use of terms such as suspected, likely, concern for, or probable (associated with a specific diagnosi s that is being evaluated, monitored, or treated as if it exists) are acceptable and can be coded in the inpatient se tting, when documented at the time of discharge. Please use your independent medical judgment in providing your response. THIS QUERY IS PART OF THE PERMANENT MEDICAL RECORD
--- NOTE | 2023-05-12 13:07 | PM.EVENT ---
Event Note Date of Service: 05/12/23 Event Note: Seen and evaluated Feels better after I\& Surgery input appreciated PEnding cultures Continue IV antibiotics for now Time Spent With Patient Time: Total time managing care of this patient today ____ minutes.
[2023-05-12] MEDS: vancomycin HCL 1,500 MG in 0.9 % Sodium Chloride 500 ML 333.33 MG IV (13:17)
--- NOTE | 2023-05-12 15:08 | PC.NURSE ---
this RN in patients room to re dress area to back of head. while in room patient informed Rn that he would rather go home because the doctors are not at his beside to take care of him. explained to patient his care plan and that at this time doctors have assessed him today and have a plan for IV antibiotics to be given. patient continued to state that he is in hospital for no reason and for RN to let Dr know he wants to sign out AMA. hospitalist notified, waiting for response at this time. patient resting in room. will not follow instructions to keep arm straight for IV antibiotic infusion because he says he wants to go home.
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
--- NOTE | 2023-05-13 08:20 | MHC.CM.PN ---
Patient left AMA before being seen by case management.
--- NOTE | 2023-05-16 11:32 | P.CDIM_ITS ---
PROVIDER RESPONSE TEXT: To clarify, the appropriate diagnosis supported by the clinical indicators: Sepsis is/was present and is a clinical diagnosis based on QUERY TEXT: PHYSICIAN'S DOCUMENTATION REQUEST Date of Query: 05/15/2023 12:18 PM EST Patient Name: Adrián Sutherland Admit Date: 05/12/2023 RETROSPECTIVE QUERY Dear Yuri Day, A review of the medical record indicates additional documentation may be needed. Please review below and update the documentation accordingly. Sepsis - confirmed, treating, ruled out, suspected, probable, possible, resolved etc. H&P: Patient had previously gone to [facility] for cellulitis and abscess/ placed on empiric antibiotics an d left AMA. Ed: pus leaking from back of head, dizzy IV cystalloids started, initiating IV antibiotics WBC 13.1 HR 91 RR 16 glucose elevated 456 LA 1.3 BANDS 3 Dx: Sepsis due to posterior neck/sub-occipital cellulitis with underlying abscess. Sepsis Systemic manifestations of infection, with 2 or more SIRS criteria which include: Fever > 100.4?F or hypothermia < 96.8?F Leukocytosis - WBC > 12,000 or leukopenia, WBC < 4,000, or > 10% bands Tachycardia- > 90 beats/minute Tachypnea- RR > 20 breaths/minute or PaCO2 < 32mmHg Based on the above information and the recognized standard for sepsis, could you please clarify if th is diagnoses is still accurate and reflective of the patient's condition to ensure quality of the medical record. Sepsis is/was present and is a clinical diagnosis based on After study (the condition) has been ruled out Other (explain) Clinically unable to determine (explain) Thank you, Pina Chavez, CCS, CDIS Use of terms such as suspected, likely, concern for, or probable (associated with a specific diagnosi s that is being evaluated, monitored, or treated as if it exists) are acceptable and can be coded in the inpatient se tting, when documented at the time of discharge. Please use your independent medical judgment in providing your response. THIS QUERY IS PART OF THE PERMANENT MEDICAL RECORD
== END 2023-05-12 16:45 | disposition left against medical advice (07) | DRG 872 ==
LOC: HO.ED 05-12 01:13 → HO.EDOVER 05-12 01:24
PROVIDERS: Physician Assistant; Admitting Provider Student in an Organized Health Care Education/Training Program; Emergency Provider Emergency Medicine; Visit Provider Student in an Organized Health Care Education/Training Program
DX: A41.9 Sepsis, unspecified organism (principal); L03.221 Cellulitis of neck; Z68.42 Body mass index [BMI] 45.0-49.9, adult; L02.11 Cutaneous abscess of neck; E11.65 Type 2 diabetes mellitus with hyperglycemia; K21.9 Gastro-esophageal reflux disease without esophagitis; F25.9 Schizoaffective disorder, unspecified; E66.01 Morbid (severe) obesity due to excess calories; Z79.4 Long term (current) use of insulin; Z87.891 Personal history of nicotine dependence; Z79.899 Other long term (current) drug therapy
CPT/HCPCS: 36415; 70487; 80048; 80076; 81001; 82010; 82803; 82947; 83036; 83605; 83735; 85007; 85025; 85027; 85652; 86140; 87040; 99285; J0696; J1200; J1650; J2543; J2930; J3370; J3371; J7120; Q9967

== ENCOUNTER → 2023-05-12 01:18 | Outpatient (BNV) | payer OTHER, SELFPAY | PROVIDERS: Admitting Provider Student in an Organized Health Care Education/Training Program; Emergency Provider Emergency Medicine; Visit Provider Physician Assistant Surgical | DX: L02.91 Cutaneous abscess, unspecified (principal); L03.221 Cellulitis of neck | CPT/HCPCS: 99222 ==

== ENCOUNTER → 2023-05-12 01:18 | Outpatient (BNV) | payer OTHER, SELFPAY | PROVIDERS: Admitting Provider Student in an Organized Health Care Education/Training Program; Emergency Provider Emergency Medicine; Visit Provider Student in an Organized Health Care Education/Training Program | DX: L03.221 Cellulitis of neck (principal); L02.91 Cutaneous abscess, unspecified | CPT/HCPCS: 99235; 99499 ==

== ENCOUNTER 2024-02-14 10:44 | Emergency (ER) | payer OTHER, SELFPAY ==
[2024-02-14 10:56] VITALS: BP 114/70; PULSE 69; RESP 18; TEMP 36.5; O2SAT 100; BMI 43.2
== END 2024-02-14 16:59 | disposition left against medical advice (07) ==
PROVIDERS: Emergency Provider Emergency Medicine
DX: S99.921A Unspecified injury of right foot, initial encounter (principal); X58.XXXA Exposure to other specified factors, initial encounter; Y93.9 Activity, unspecified; Y92.9 Unspecified place or not applicable; Y99.9 Unspecified external cause status; Z53.21 Procedure and treatment not carried out due to patient leaving prior to being seen by health care provider
CPT/HCPCS: 99281

== ENCOUNTER 2024-04-20 11:15 | Inpatient (IN) | payer OTHER, SELFPAY ==
--- NOTE | ~2024-04-20 | XR_ITS ---
EXAMINATION: XR FOOT, RIGHT CLINICAL INFORMATION: Question osteomyelitis. COMPARISON: None available. TECHNIQUE: AP, lateral, and oblique views of the right foot. FINDINGS: No acute fracture or dislocation. No periosteal reaction or cortical erosion. Osteomyelitis may be occult on radiographs. Tibiotalar joint space narrowing with small marginal osteophytes. Plantar and dorsal calcaneal spurs. XR/XR foot RT min 3V IMPRESSION: 1. No periosteal reaction or cortical erosion. Osteomyelitis may be occult on radiographs. 2. [id number] tibiotalar osteoarthritis. Electronically signed by: Brian Davis MD 04/20/2024 03:57 PM EDT
[2024-04-20 11:21] VITALS: BP 122/86; PULSE 83; O2SAT 96; BMI 42.2
[2024-04-20 11:29] LABS: Glucose, Whole Blood 190 mg/dL (60-115)
[2024-04-20 11:49] LABS: Appearance Urine Clear; Color Urine Yellow; Glucose Urine UA 100 mg/dL (Negative); Leukocyte Esterase Urine Negative (Negative); Nitrite Urine Negative (Negative); Specific Gravity - Urine 1.025 (1.005-1.025); Urine Blood Negative (Negative); Urine Ketones Trace mg/dL (Negative); Urine Protein Negative (Neg-Trace)
[2024-04-20 11:52] VITALS: BP 161/71; PULSE 74; RESP 22; TEMP 36.6; O2SAT 98
[2024-04-20 11:52] LABS: Bacteria Urine None Seen (None Seen); Hyaline Casts Urine 0-2 /LPF (0-2); RBC Urine 0-2 /HPF (0-2); Squamous Epithelial Cell Urine 0-2 /HPF (0-2); WBC Urine 0-5 /HPF (0-5)
[2024-04-20 12:19] LABS: Amphetamine Screen Urine Not Detected (Not Detect); Barbiturates, Urine Not Detected (Not Detect); Benzodiazepines Screen Urine Not Detected (Not Detect); Buprenorphine Scr Not Detected (Not Detect); Cannabinoid Screen Urine Not Detected (Not Detect); Cocaine Screen Urine Not Detected (Not Detect); Fentanyl, urine Not Detected (Not Detect); Methadone Screen, Urine Not Detected (Not Detect); Opiate Screen Urine Not Detected (Not Detect); Oxycodone Screen Urine Not Detected (Not Detect); Phencyclidine Screen Urine Not Detected (Not Detect)
[2024-04-20 12:25] LABS: MANUAL DIFF FLAG NO
[2024-04-20 12:27] LABS: Basophils Percent Auto 0.5 % (0-2); Eosinophils Absolute Auto 0.3 X10*3/uL (0.0-0.4); Eosinophils Percent Auto 3.2 % (0-4); Hematocrit 38.6 % (42.0-52.0); Hemoglobin 12.8 g/dl (14.0-18.0); Imm Gran Abs Auto 0.02 X10*3/uL (0.00-0.03); Imm Gran Pct Auto 0.2 % (0.0-0.4); Lymphocytes Absolute Auto 1.9 X10*3/uL (1.2-4.9); Lymphocytes Percent Auto 22.4 % (20-40); Mean Corpuscular HGB Conc 33.2 g/dl (31.0-36.0); Mean Corpuscular Hemoglobin 28.4 pg (27.0-33.0); Mean Corpuscular Volume 85.8 fL (80.0-98.0); Mean Platelet Volume 10.8 fL (9.4-12.4); Monocytes Absolute Auto 0.6 X10*3/uL (0.1-1.2); Monocytes Percent Auto 6.6 % (2-11); Neutrophils Absolute Auto 5.6 x10*3/uL (2.0-8.3); Neutrophils Percent Auto 67.1 % (45-73); Platelet Count 276 X10*3/uL (160-400); Red Cell Distribution Width 13.2 % (11.0-16.0); White Blood Count 8.3 X10*3/uL (4.8-10.8)
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
[2024-04-20 12:38] LABS: Lactic Acid 1.3 mmol/L (0.5-2.0)
--- NOTE | 2024-04-20 12:44 | ED_ITS ---
HPI - Psych General Chief Complaint: Psychiatric Symptoms Stated Complaint: CRISIS,HALLUC,SEC 12,WOUND RT FOOT PER EMS Time Seen by Provider: 04/20/24 12:28 Source: patient, EMS and RN notes reviewed Mode of arrival: EMS Limitations: altered mental status History of Present Illness ED Provider: Viviana HPI Narrative: Patient is a 43-year-old male with history of bipolar 1 disorder, schizoaffective disorder, HTN, DM, GERD, chronic wound to right foot presenting to the emergency department via ambulance from [facility] [place] on a section 12 with reported paranoid delusions, auditory and visual hallucinations. Patient has not been compliant with his medications including insulin, psychiatric medications. Has chronic wound to plantar surface of right foot, [place] [facility] [place] refused to take antibiotics for this. Patient stating he does not want evaluation of wound today. MD complaint: altered mental status and hallucinations History of same: Yes Context: not taking psychiatric medications Associated psychiatric symptoms: auditory hallucinations, visual hallucinations and delusions Treatments prior to arrival: placed on mental health hold Related Data Home Medications ?Medication ?Instructions ?Recorded ?Confirmed cholecalciferol (vitamin D3) 50 50 mcg PO DAILY 01/06/23 05/12/23 mcg (2,000 unit) capsule folic acid 1 mg tablet 1 mg PO DAILY 01/06/23 05/12/23 hydrochlorothiazide 25 mg tablet 25 mg PO DAILY 01/06/23 05/12/23 risperidone 1 mg tablet 1 mg PO BID 01/06/23 05/12/23 simvastatin 40 mg tablet 40 mg PO BEDTIME 01/06/23 05/12/23 clotrimazole 1 % topical cream 1 appl topical DAILY 05/12/23 05/12/23 docusate sodium 100 mg capsule 100 mg PO BID 05/12/23 05/12/23 hydroxyzine HCl 50 mg tablet 50 mg PO Q8H PRN anxiety 05/12/23 05/12/23 ketoconazole 2 % shampoo 1 appl topical MOWEFR 05/12/23 05/12/23 sitagliptin phosphate 50 1 tab PO BID 05/12/23 05/12/23 mg-metformin 1,000 mg tablet (Janumet) valsartan 160 mg tablet 160 mg PO DAILY 05/12/23 05/12/23 Previous Rx's ?Medication ?Instructions ?Recorded albuterol sulfate 90 mcg/actuation 2 puff inhalation Q4-6H PRN 06/03/22 aerosol inhaler (ProAir HFA) shortness of breath or wheezing #8.5 grams Allergies Allergy/AdvReac Type Severity Reaction Status Date / Time morphine [Morphine] Allergy Unknown HIVES Verified 04/20/24 11:27 shellfish derived Allergy Redness of Verified 04/20/24 11:27 Skin Iodinated Contrast Media AdvReac Anxiety Verified 04/20/24 11:27 [Contrast Dye] Review of Systems 2 Review of Systems: As per HPI. Yes all other systems are reviewed and are negative Constitutional: Constitutional: Reports as per HPI [facility] Past Medical History Medical History GERD (gastroesophageal reflux disease) Essential (primary) hypertension Diabetes mellitus Schizoaffective disorder Surgical History No pertinent past surgical history Family History Family History Father Heart disease Chronic mental illness Depression Mother Cancer Sister Cancer Social History Social History Household Members: Unknown / Unable to assess Housing: Apartment Unable to assess alcohol history related to: Unknown Alcohol intake: former Patient Tobacco Use Status: Former Tobacco user Smoked in Last 30 Days: No e-Cigarette/Vaping Use: Never Used Use of substances other than those prescribed or required for medical reasons: No Substance Use Type: Hallucinogens Advance Directives: No Advance Directives Information Provided: Yes Do you have a plan to hurt others: No Plan service: No Current occupational status: disabled Sexual orientation: Don't Know Physical Exam 2 Vital Signs: Vital Signs: Last Vital Signs Temp 97.9 F 04/20/24 11:52 Pulse 74 04/20/24 11:52 Resp 22 H 04/20/24 11:52 BP 161/71 H 04/20/24 11:52 Pulse Ox 98 04/20/24 11:52 O2 Del Method Room Air 04/20/24 11:52 BMI result Body Mass Index 42.2 Vital signs have been reviewed and appear to be correct. Blood pressure elevated. Heart rate normal. Respiratory rate normal. Temperature normal. Oxygen saturation normal. Const: General: healthy appearing and no acute distress O rientation/consciousness: oriented to person, oriented to place, oriented to time and patient oriented x3 Limitations: no limitations HEENT: Head: Yes normocephalic and Yes atraumatic Ears: external ears normal General nose exam: Normal external nose present Face and sinus: Yes face symmetric Mouth: oropharynx normal and moist mucous membranes Throat: Yes uvula midline Eyes: Pupils: Equal, round and reactive pupils present Neck: Neck: Yes normal visual inspection and Yes supple Resp: Effort & Inspection: normal respiratory effort and able to speak in complete sentences Auscultation: clear to auscultation bilaterally Cardio: Rate: regular rate Rhythm: regular rhythm Heart sounds: S1 normal heart sound present and S2 normal heart sound present GI: Palpation (GI): Soft to palpation and nontender Auscultation: n ormoactive bowel sounds : General: Yes no CVA tenderness Back/Spine/Pelvis: Back: no CVA tenderness Skin: General skin exam: elasticity normal and turgor normal Neuro: General: oriented to person, oriented to place, oriented to time, patient oriented x3, moves all extremities, no focal motor deficits and CN's II- XI intact bilaterally Cranial nerves: Yes Equal, round and reactive pupils present Cognition (Neuro): normal cognition Extrem: General: Yes full ROM, Yes no pedal edema and Yes no calf tenderness Right lower extremity: foot Details: toes with normal ROM and other (chronic appearing wound to plantar surface over 2nd/3rd MTPs, no erythema, drainage, warmth) Psych: Appearance: grossly normal Speech and movement: Pressured speech present (tangential) Attitude: cooperative Thought process: Flight of ideas present and Racing thoughts present Thought content: suicidality, no homicidality, Paranoid delusions present and Hallucination(s) present auditory and visual Insight: Limited insight present (Psych) Judgement: Limited judgement present (Psych) Medical Decision Making Medical Decision Making MDM Narrative: Patient is a 43-year-old male with history of bipolar 1 disorder, schizoaffective disorder, HTN, DM, GERD, chronic wound to right foot presenting to the emergency department via ambulance from [facility] [place] on a section 12 with reported paranoid delusions, auditory and visual hallucinations. On exam patient is awake, A+Ox3, VS WNL, afebrile, normal neurological exam without focal deficits, physical exam findings as above. Given reported symptoms and physical exam findings, initial differential includes bipolar disorder, schizoaffective disorder, chronic wound. Labs notable for no leukocytosis or left shift, mildly elevated ESR and CRP. Urine drug screen and ethanol negative. Patient is refusing x-ray of foot at this time. Case discussed with Dr. Infante who feels CARE team evaluation is priority, wound is chronic and does not appear acutely infected. CARE team spoke with N and are recommending inpatient admission for decompensation. Patient placed on physician observation pending bed placement. Differential Diagnosis Differential Diagnoses: The differential diagnosis associated with the presentation includes As per [facility] Admission/Observation Consideration of admission/observation: Escalation of care including admission/observation considered Consult Healthcare Provider Management of the patient was discussed with: Behavioral Health Provider Lab Data [facility] Lab Attestation statement: I reviewed the patient's lab results. As per [facility] 04/20/24 12:12 04/20/24 12:12 Labs: Lab Results 04/20/24 04/20/24 04/20/24 Range/Units 11:25 11:41 12:12 WBC 8.3 (4.8-10.8) X10*3/uL RBC 4.50 L (4.60-5.80) X10*6/uL Hgb 12.8 L (14.0-18.0) g/dl Hct 38.6 L (42.0-52.0) % MCV 85.8 (80.0-98.0) fL MCH 28.4 (27.0-33.0) pg MCHC 33.2 (31.0-36.0) g/dl RDW 13.2 (11.0-16.0) % Plt Count 276 D (160-400) X10*3/uL MPV 10.8 (9.4-12.4) fL Immature Gran % (Auto) 0.2 (0.0-0.4) % Neut % (Auto) 67.1 (45-73) % Lymph % (Auto) 22.4 (20-40) % [place] % (Auto) 6.6 (2-11) % Eos % (Auto) 3.2 (0-4) % Baso % (Auto) 0.5 (0-2) % Lymph # (Auto) 1.9 (1.2-4.9) X10*3/uL [place] # (Auto) 0.6 (0.1-1.2) X10*3/uL Eos # (Auto) 0.3 (0.0-0.4) X10*3/uL Baso # (Auto) 0.0 (0.0-0.2) X10*3/uL Abs Immat Gran (auto) 0.02 (0.00-0.03) X10*3/uL Absolute Neuts (auto) 5.6 (2.0-8.3) x10*3/uL Absolute Nucleated RBC 0.000 (0.0-0.012) X10*3/uL Nucleated RBC % (auto) 0.0 (0.0-0.2) /100WBC ESR 32 H (0-15) MM/HR Sodium 139 (135-145) mmol/L Potassium 4.0 (3.3-5.1) mmol/L Chloride 106 (96-108) mmol/L Carbon Dioxide 26 (22-29) mmol/L Anion Gap 11 L (12-20) BUN 14 (9-16) mg/dL Creatinine 0.71 (0.5-1.4) mg/dL Estim Creat Clear Calc 171.7 Estimated GFR > 60 POC Glucose 190 H (60-115) mg/dL Random Glucose 180 H (60-115) mg/dL Lactic Acid (0.5-2.0) mmol/L Calcium 9.6 (8.4-10.2) mg/dL Total Bilirubin 0.2 (0.0-1.0) mg/dL AST 23 (5-37) U/L ALT 22 (0-40) U/L Alkaline Phosphatase 107 (39-117) U/L C-Reactive Protein (< or = 0.50) mg/dL B-Natriuretic Peptide (<100) pg/mL Total Protein 7.0 (6.5-8.0) g/dL Albumin 3.8 (3.5-5.0) g/dL Urine Color Yellow Urine Appearance Clear Urine pH 6.0 (5.0-9.0) Ur Specific [place] 1.025 (1.005-1.025) Urine Protein Negative (Neg-Trace) mg/dL Urine Glucose (UA) 100 H (Negative) mg/dL Urine Ketones Trace (Negative) mg/dL Urine Blood Negative (Negative) Urine Nitrite Negative (Negative) Ur Leukocyte Esterase Negative (Negative) Urine RBC 0-2 (0-2) /HPF Urine WBC 0-5 (0-5) /HPF Ur Squamous Epith Cells 0-2 (0-2) /HPF Urine Bacteria None Seen (None Seen) Hyaline Casts 0-2 (0-2) /LPF Urine Opiates Screen Not Detected (Not Detect) Ur Buprenorphine Scrn Not Detected (Not Detect) ng/mL Ur Oxycodone Screen Not Detected (Not Detect) ng/mL Urine Methadone Screen Not Detected (Not Detect) ng/mL Urine Fentanyl Screen Not Detected (Not Detect) Ur Barbiturates Screen Not Detected (Not Detect) Ur Phencyclidine Scrn Not Detected (Not Detect) Ur Amphetamines Screen Not Detected (Not Detect) U Benzodiazepines Scrn Not Detected (Not Detect) Urine Cocaine Screen Not Detected (Not Detect) U Marijuana (THC) Screen Not Detected (Not Detect) Ethyl Alcohol < 10 mg/dL 04/20/24 Range/Units 12:13 WBC (4.8-10.8) X10*3/uL RBC (4.60-5.80) X10*6/uL Hgb (14.0-18.0) g/dl Hct (42.0-52.0) % MCV (80.0-98.0) fL MCH (27.0-33.0) pg MCHC (31.0-36.0) g/dl RDW (11.0-16.0) % Plt Count (160-400) X10*3/uL MPV (9.4-12.4) fL Immature Gran % (Auto) (0.0-0.4) % Neut % (Auto) (45-73) % Lymph % (Auto) (20-40) % [place] % (Auto) (2-11) % Eos % (Auto) (0-4) % Baso % (Auto) (0-2) % Lymph # (Auto) (1.2-4.9) X10*3/uL [place] # (Auto) (0.1-1.2) X10*3/uL Eos # (Auto) (0.0-0.4) X10*3/uL Baso # (Auto) (0.0-0.2) X10*3/uL Abs Immat Gran (auto) (0.00-0.03) X10*3/uL Absolute Neuts (auto) (2.0-8.3) x10*3/uL Absolute Nucleated RBC (0.0-0.012) X10*3/uL Nucleated RBC % (auto) (0.0-0.2) /100WBC ESR (0-15) MM/HR Sodium (135-145) mmol/L Potassium (3.3-5.1) mmol/L Chloride (96-108) mmol/L Carbon Dioxide (22-29) mmol/L Anion Gap (12-20) BUN (9-16) mg/dL Creatinine (0.5-1.4) mg/dL Estim Creat Clear Calc Estimated GFR POC Glucose (60-115) mg/dL Random Glucose (60-115) mg/dL Lactic Acid 1.3 (0.5-2.0) mmol/L Calcium (8.4-10.2) mg/dL Total Bilirubin (0.0-1.0) mg/dL AST (5-37) U/L ALT (0-40) U/L Alkaline Phosphatase (39-117) U/L C-Reactive Protein 1.60 H (< or = 0.50) mg/dL B-Natriuretic Peptide 11 (<100) pg/mL Total Protein (6.5-8.0) g/dL Albumin (3.5-5.0) g/dL Urine Color Urine Appearance Urine pH (5.0-9.0) Ur Specific [place] (1.005-1.025) Urine Protein (Neg-Trace) mg/dL Urine Glucose (UA) (Negative) mg/dL Urine Ketones (Negative) mg/dL Urine Blood (Negative) Urine Nitrite (Negative) Ur Leukocyte Esterase (Negative) Urine RBC (0-2) /HPF Urine WBC (0-5) /HPF Ur Squamous Epith Cells (0-2) /HPF Urine Bacteria (None Seen) Hyaline Casts (0-2) /LPF Urine Opiates Screen (Not Detect) Ur Buprenorphine Scrn (Not Detect) ng/mL Ur Oxycodone Screen (Not Detect) ng/mL Urine Methadone Screen (Not Detect) ng/mL Urine Fentanyl Screen (Not Detect) Ur Barbiturates Screen (Not Detect) Ur Phencyclidine Scrn (Not Detect) Ur Amphetamines Screen (Not Detect) U Benzodiazepines Scrn (Not Detect) Urine Cocaine Screen (Not Detect) U Marijuana (THC) Screen (Not Detect) Ethyl Alcohol mg/dL Discharge Plan Discharge Clinical Impression: Bipolar 1 disorder, Schizoaffective disorder Patient Disposition: Still a Patient Prescriptions: No Action albuterol sulfate [ProAir HFA] 90 mcg/actuation HFA aerosol inhaler 2 puff inhalation Q4-6H PRN (Reason: shortness of breath or wheezing) Qty: 8.5 0RF simvastatin 40 mg tablet 40 mg PO BEDTIME folic acid 1 mg tablet 1 mg PO DAILY hydrochlorothiazide 25 mg tablet 25 mg PO DAILY cholecalciferol (vitamin D3) 50 mcg (2,000 unit) capsule 50 mcg PO DAILY risperidone 1 mg tablet 1 mg PO BID hydroxyzine HCl 50 mg tablet 50 mg PO Q8H PRN (Reason: anxiety) Janumet 50-1,000 mg tablet 1 tab PO BID ketoconazole 2 % shampoo 1 appl topical MOWEFR docusate sodium 100 mg capsule 100 mg PO BID clotrimazole 1 % cream 1 appl topical DAILY valsartan 160 mg tablet 160 mg PO DAILY Interventions: [place]-Suicide Risk Severity Scale Last Done: 04/20/24 13:14 Print Language: Yoruba
[2024-04-20 12:47] LABS: Alanine Aminotransferase 22 U/L (0-40); Albumin Level 3.8 g/dL (3.5-5.0); Alkaline Phosphatase 107 U/L (39-117); Anion Gap 11 (12-20); Aspartate Amino Transferase 23 U/L (5-37); Bilirubin Total 0.2 mg/dL (0.0-1.0); Blood Urea Nitrogen 14 mg/dL (9-16); Calcium 9.6 mg/dL (8.4-10.2); Carbon Dioxide 26 mmol/L (22-29); Chloride 106 mmol/L (96-108); Creatinine Clr Calc Pharmacy 171.7; Estimated Glomerular Filt Rate > 60; Ethanol < 10 mg/dL; Glucose Random 180 mg/dL (60-115); Sodium 139 mmol/L (135-145)
[2024-04-20 12:47] LABS: B Type Natriuretic Peptide 11 pg/mL (<100)
[2024-04-20 13:05] LABS: Erythrocyte Sedimentation Rate 32 MM/HR (0-15)
--- NOTE | 2024-04-20 13:32 | PC.NURSE ---
pt originally not agreeable to have xray of right foot taken. after multiple attempts - pt finally agreeable. xray completed at this time.
--- NOTE | 2024-04-20 14:30 | MHC.CARE ---
Bed Rubber spoke with Jenifer at [facility]. She is sending completed assessment to CARE Team. Patient is IPLOC bedsearch. ED provider notified and in agreement with POC.
[2024-04-20 15:35] VITALS: BP 128/61; PULSE 81; RESP 18; TEMP 36.8; O2SAT 100
[2024-04-20 17:31] VITALS: BP 121/76; PULSE 78; RESP 20; TEMP 36.8; O2SAT 98
--- NOTE | 2024-04-20 17:39 | PC.NURSE ---
patient ambulated onto unit with steady gait, patient had IV in arm from main ED, this RN removed from patient arm. patient yelling and threatening staff. security called for assistance.
[2024-04-20 18:31] LABS: Glucose, Whole Blood 91 mg/dL (60-115)
[2024-04-20 22:43] VITALS: BP 126/69; PULSE 60; RESP 16; TEMP 36.6; O2SAT 100
[2024-04-21] MEDS: HaloperidoL 5 MG TABLET PO (00:01)
[2024-04-21] MEDS: LORazepam 1 MG TABLET 2 MG PO (00:02)
[2024-04-21 10:37] VITALS: BP 163/84; PULSE 80; RESP 16; TEMP 36.5; O2SAT 98
--- NOTE | 2024-04-21 10:42 | PC.NURSE ---
vss and up to date. pt requesting for POC to be obtained - POC displaying 120mg/dL. pt remains w/ paranoid behavior. flight of ideas. acting delusional and erratic. requesting to speak w/ care team in regards to plan of care. care team notified/aware. plan of care ongoing.
[2024-04-21 10:46] LABS: Glucose, Whole Blood 120 mg/dL (60-115)
--- NOTE | 2024-04-21 11:12 | MHC.CARE ---
Pt will be an inpatient bedsearch
--- NOTE | 2024-04-21 11:16 | PC.NURSE ---
pt requesting belongings list. rn printed out for pt to see his belongings list per request. calm, cooperative. pressured speech. pt denies having hallucinations/delusions. normal breathing. skin wound to right foot- eschar/serous draining/callous/tunnelling. pt ambulatory, favoring his left foot when walking. eating snack. poc checked pre-snacks: 120. denies SI/HI. watching TV in common room.
--- NOTE | 2024-04-21 11:26 | PC.NURSE ---
Addendum entered by Ernestine Kaye 04/21/24 11:29: got voicemail at [facility] unable to verify meds officially. pt states he does not believe in meds and does not take any at home. Original Note: called [facility] to verify meds. no answer. called [facility] to chec med hx.
--- NOTE | 2024-04-21 13:22 | MHC.CARE ---
Insurance form faxed to [facility]
--- NOTE | 2024-04-21 17:09 | PC.NURSE ---
Right plantar wound examined. WOund is deep, circular, serous drainage (minimal) within wound only. Caloused periwound area. Wound cleansed superficially at pt request. Pt declined dressing.
--- NOTE | 2024-04-21 19:16 | PC.NURSE ---
patient appears to remain at rest at present resp[irations are even and unlabored patient appearsin no distress.
[2024-04-22 00:16] VITALS: BP 134/65; PULSE 67; RESP 16; O2SAT 97
[2024-04-22 00:22] LABS: Glucose, Whole Blood 177 mg/dL (60-115)
--- NOTE | 2024-04-22 00:24 | PC.NURSE ---
patient redirected about trying to get rest but seems very resistant to laying in his room.
--- NOTE | 2024-04-22 01:11 | PC.NURSE ---
patient when offered selection of two sandwiches seemingly got upset when told he must pick one. clinet then stated he wanted no snadwich and t/w removed offerings from room.
--- NOTE | 2024-04-22 07:41 | PC.NURSE ---
Assumed care of patient at 0645, patient appears to be in no apparent distress this am, sitting in common area eating breakfast with another patient. pt reporting to this RN that he does not need to be here in the pod and it was a mistake that he was brought in here. Pt ambulates away from nurses station before this RN has the opportunity to explain reason for inpatient disposition. Pt now continues to sit in common area, no distress noted.
[2024-04-22 10:51] VITALS: RESP 14
--- NOTE | 2024-04-22 10:52 | PC.NURSE ---
Pt refusing to allow this RN to examine the wound on his right foot stating Abdullahi has taken care of it, it is down to the bone but Abdullahi has it . This RN attempted to educate patient on the importance of receiving medical attention to prevent further tissue breakdown but patient refused
[2024-04-22 11:52] LABS: Glucose, Whole Blood 93 mg/dL (60-115)
--- NOTE | 2024-04-22 12:57 | PHA.MEDREC ---
Addendum entered by Fabiola Browning manjula 04/22/24 13:40: REVIEWED Original Note: Pharmacy Consult ? Medication Reconciliation Pharmacy reviewed med rec done by nursing. Per nurse in list patient is not taking any medications and looking in claims nothing has been filled since 01/2024 for Test Strips at [facility]. I called [facility] since that is the patient preferred pharmacy and they state he has not filled with them in over 6 months. I called [facility] and they confirmed he has not filled with them since the test strips in January
--- NOTE | 2024-04-22 13:59 | MHC.CARE ---
Notification of bed found, form faxed to [facility]
[2024-04-22 14:47] VITALS: RESP 18; BMI 41.6
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
[2024-04-22 18:12] LABS: Glucose, Whole Blood 196 mg/dL (60-115)
[2024-04-22 19:46] VITALS: BP 140/71; PULSE 95; RESP 16; TEMP 36.9; O2SAT 94
[2024-04-23 07:49] VITALS: BP 144/67; PULSE 81; TEMP 36.6; O2SAT 97
[2024-04-23 07:49] LABS: Glucose, Whole Blood 176 mg/dL (60-115)
[2024-04-23 10:23] LABS: Cholesterol 193 mg/dL (<200); HDL Cholesterol 36 mg/dL (>40); LDL Cholesterol Calculated 99 mg/dL (<100); Triglycerides 291 mg/dL (<150)
[2024-04-23 10:26] LABS: Estimated Average Glucose 163 mg/dL; Hemoglobin A1C 201.4796 umol/L; Hemoglobin A1c % 7.3 % (<6.0)
[2024-04-23 10:46] LABS: Thyroid Stimulating Hormone 1.51 uIU/mL (0.32-4.0)
[2024-04-23 10:59] LABS: Vitamin B12 310 pg/mL (200-900)
[2024-04-23 12:05] LABS: Free T4 (Free Thyroxine) 0.84 ng/dL (0.71-1.85)
[2024-04-23 12:17] LABS: Folate 7.4 ng/mL (> or = 4.0)
[2024-04-23 12:38] LABS: Glucose, Whole Blood 157 mg/dL (60-115)
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
--- NOTE | 2024-04-23 17:11 | PC.NURSE ---
Called [facility] for pt per his request. Left message with his information per pink sign on unit
[2024-04-23 17:16] LABS: Glucose, Whole Blood 133 mg/dL (60-115)
--- NOTE | 2024-04-23 18:50 | PM.EVENT ---
Event Note Date of Service: 04/23/24 Event Note: Patient is a 43-year-old male with a PMH significant for HTN, poorly controlled insulin-dependent type 2 diabetes, and schizoaffective disorder who was admitted to [facility] due to paranoid delusions, auditory and visual hallucinations, noncompliance with medications including insulin, and HI. Patient is actively manic at time of interview and exam and unable to obtain clear or accurate history. Pt tells me he has had wound on the bottom of his right foot for the last 3-4 weeks, though review of records indicates patient's foot wound may have been ongoing for more than 1 year. Patient reportedly carries a diagnosis of osteomyelitis, though it is unclear where this diagnosis was made or if patient received full treatment for it. Also unclear if patient has been following with Wound Care. Patient has a long history of medication noncompliance and leaving hospitals AMA. Physical Exam: General: AOx3, actively manic with pressured speech. Difficult to redirect. In no acute distress Resp: CTA bilaterally CVS: S1, S2, RRR Neuro: Cranial nerves II-XII grossly intact bilaterally. Motor grossly intact bilaterally Extremities: Chronic-looking ulcer on plantar aspect of right foot. No noticeable drainage. Foot mildly swollen. No clear erythema or warmth. As pictured below. Plan: Will empirically start on Keflex 500 mg q6hr x7 days Xray negative for acute osteo changes; CRP 1.60, ESR 32 both mildly elevated ID consult for abx recommendations due to ?hx of osteo Wound care consult No sepsis: No fever, tachypnea, or leukocytosis Time Spent With Patient Time: Total time managing care of this patient today ____ minutes.
[2024-04-23 20:00] VITALS: BP 111/67; PULSE 85; TEMP 36.8; O2SAT 98
[2024-04-23] MEDS: cephALEXin 500 MG CAPSULE PO (21:00)
[2024-04-23 21:07] LABS: Glucose, Whole Blood 199 mg/dL (60-115)
[2024-04-23] MEDS: Magnesium Hydrox/Alum Hydrox 30 ML ORAL.SUSP PO (22:13)
[2024-04-24] MEDS: cephALEXin 500 MG CAPSULE PO ×2 (01:55→08:08)
[2024-04-24 07:51] LABS: Glucose, Whole Blood 119 mg/dL (60-115)
[2024-04-24 07:59] VITALS: BP 124/76; PULSE 83; RESP 16; TEMP 37; O2SAT 97
[2024-04-24 12:26] LABS: Glucose, Whole Blood 142 mg/dL (60-115)
--- NOTE | 2024-04-24 16:06 | P.CNID_ITS ---
History of Present Illness Data of Consult Service Date: 04/24/24 Requesting physician: Jojo Quiñonez Primary Care Provider: Unknown Physician HPI Reason for consult: right foot chronic wound He presents for psychiatric care with delusions about God. He also says he has had chronic wound right foot XRay foot neg OM. He has no fever or drainage. Review of Systems 2 Review of Systems: Yes all other systems are reviewed and are negative PMFSH Past Medical History Medical History Wound of right foot GERD (gastroesophageal reflux disease) Essential (primary) hypertension Diabetes mellitus Schizoaffective disorder Family History Family History Father Heart disease Chronic mental illness Depression Mother Cancer Sister Cancer Family history: reviewed and not pertinent Surgical History Surgical History No pertinent past surgical history Social History Social History Household Members: Unknown / Unable to assess Housing: Apartment Do you presently have visiting nurse or other home services: No Unable to assess alcohol history related to: Unknown Alcohol intake: former Patient Tobacco Use Status: Never used Tobacco Smoked in Last 30 Days: No e-Cigarette/Vaping Use: Never Used Patient Interested in Nicotine Replacement: No Second Hand Smoke Exposure: No Use of substances other than those prescribed or required for medical reasons: Yes Substance Use Type: Marijuana Currently Displaying Signs/Symptoms of Drug Intoxication Withdrawal: No Other Past Substance Use Problem:: Last use 8 years ago Any prior treatment program specific to substance use: Yes [facility] Practices: States Abdullahi is his medicine Advance Directives: No Advance Directives Information Provided: Yes Do you have thoughts of harming others: None Do you have a plan to hurt others: No Plan Recently lost weight without trying: No Nutrition Risks: No Nutritional Risk Poor oral hygiene: No service: No Current occupational status: disabled Sexual orientation: Straight/Heterosexual Meds Allergies Allergy/AdvReac Type Severity Reaction Status Date / Time morphine [Morphine] Allergy Unknown HIVES Verified 04/20/24 11:27 shellfish derived Allergy Redness of Verified 04/20/24 11:27 Skin Iodinated Contrast Media AdvReac Anxiety Verified 04/20/24 11:27 [Contrast Dye] Active Medications: Current Medications Acetaminophen (Acetaminophen 325 Mg Tablet) 650 mg PO Q6H PRN PRN Reason: Headache/Pain Mild Scale (1-3) Al Hydroxide/Mg Hydroxide (Magnesium Hydrox/Alum Hydrox 30 Ml Oral.Susp) 30 ml PO Q6H PRN PRN Reason: Heartburn/Nausea Last Admin: 04/23/24 22:13 Dose: 30 ml Hydroxyzine HCl (Hydroxyzine Hcl 25 Mg Tablet) 25 mg PO Q6H PRN PRN Reason: Anxiety Lorazepam (Lorazepam 1 Mg Tablet) 1 mg PO Q4H PRN PRN Reason: agitation Magnesium Hydroxide (Milk Of Magnesia 30 Ml Oral.Susp) 30 ml PO DAILY PRN PRN Reason: Constipation Nicotine (Nicotine 21 Mg Patch.Td24) 21 mg TRANSDERMA DAILY PRN PRN Reason: nicotine cravings Nicotine Polacrilex (Nicotine Polacrilex 2 Mg Gum) 4 mg BUCCAL Q2H PRN PRN Reason: Nicotine Cravings Olanzapine (Olanzapine 5 Mg Tablet) 5 mg PO TID PRN PRN Reason: agitation, ulysses, psychosis Trazodone HCl (Trazodone Hcl 50 Mg Tablet) 50 mg PO BEDTIME MRX1 PRN PRN Reason: Insomnia Home Medications ?Medication ?Instructions ?Recorded ?Confirmed ?Last Taken ?Type No Known Home Meds 04/22/24 04/22/24 Unknown History Physical Exam 2 Vital Signs: Vital Signs: Last Vital Signs Temp 98.6 F 04/24/24 07:59 Pulse 83 04/24/24 07:59 Resp 16 04/24/24 07:59 BP 124/76 04/24/24 07:59 Pulse Ox 97 04/24/24 07:59 O2 Del Method Room Air 04/24/24 07:59 BMI result Body Mass Index 41.6 Extrem: Other: wound bottom right foot,chronic,no drainage Results Labs 04/20/24 12:12 04/20/24 12:12 Microbiology Microbiology Results: Microbiology 04/20/24 12:19 Foot Right Gram Stain - Final 04/20/24 12:19 Foot Right Routine Culture - Final Staphylococcus aureus Proteus penneri 04/20/24 12:13 Blood - Venous Blood Culture - Preliminary No growth after 48 hours. 04/20/24 12:18 Blood - Venous Blood Culture - Preliminary No growth after 48 hours. Assessment and Plan (1) Schizoaffective disorder: Status: Acute (2) Diabetes mellitus: Status: Acute (3) Wound of right foot: Status: Acute Plan Wound looks chronic There is no acute drainage. Even if wound OM there is no active are at this time so unlikely antibiotics do much to close wound. Follow per Wound Clinic and can readdress in future.
--- NOTE | 2024-04-24 16:43 | HO.WOUND ---
Wound Consult: Initial 43yr old?Male admitted to [facility] behavioral Health Unit on 04/22/24 - See progress notes and H&P for detailed history.? Wound consult placed for Diabetic Wound on Right Plantar Foot.? Patient agreeable to assessment and photo documentation.? Right Plantar Foot Etiology: ??Diabetic Wound Measurements: see charting for detailed measurement Wound Bed: pale pink moist tissue with thin yellow slough noted Drainage / Odor: None noted Edges: ? unattached Cathi wound: dry thickened callused tissue - No erythema, ? No Induration, No Fluctuance or Warmth noted - No s/s of active infection at this time Pain: denies Goals of Treatment: ? Iodosorb to treat biofilm and advance towards healing Patient encourage to limit time walking and pressure of standing. Recommendations: 1. Maintain blood glucose levels per Providers order. 2. Right Plantar Foot - Cleanse with saline, pat dry. ?Apply Iodosorb to wound bed cover with gauze and tape. ?Change every other day to start, note the product will be applied brown and over the course of time as the Iodine is absorbed into the wound bed / drainage the color will change to yellow / cream signifying time to replace the product.?Iodosorb was left with direct care nurse in patient specific bin this is only available from wound nurse when runs out please contact Inpt wound care nurse Alanis via [place] [employer] to obtain more supply. Re-consult wound care Nurse for wound deterioration or wound changes.
--- NOTE | 2024-04-24 16:52 | HO.PSYCHPN ---
Subjective Subjective Date of Service: 04/24/24 Reason For Visit: schizoaffective disorder bipolar type Subjective Notes: Conditional Voluntary and 3 Day Healthcare Proxy: No Guardianship: No Medical Problems Affecting Mental Status: No Interim History: Pt signed CV and TDN. He agreed to begin medicine. Olanzapine 10 mg HS ordered. He presents with ulysses, hyperverbal, rapid speech, FOI, intermittent agitation with no loss of control in the milieu. He is very interactive with peers. He worries about having money stolen from his bank account. Medication Compliance: No Side effects from medications: No Attending Groups: No Review of Systems Acute medical concerns: No Medical Review of Systems: unchanged Review of Systems Review of Systems Denies Mental Status Exam Mental Status Exam Patient Appearance: Fatigued and Disheveled Patient Orientation: Person and Place Level of Consciousness: Awake, Restless and Alert Patient Behavior: Talkative, Hyperactive, Cooperative, Restless, Anxious, Resistive to Care, Distractible, Confused and Good Eye Contact Mood Description: Labile Affect Description: Labile Patient Cognition Impaired: Yes Ability to Follow Directions: Fair Speech Pattern: Perseverating, Spontaneous Speech, Rambling, Soft-Spoken, Rapid, Excessive and Pressured Memory Description: Remote Impaired Hallucinations: None Delusions: Paranoid Ideation, Grandiose and Present Thought Process: Racing, Illogical and Distracted Thought Content: positive for Flight of Ideas, positive for Circumstantial, positive for Loose Associations, positive for Tangential, positive for Disorganized, positive for Suicidal Ideation (denies) and positive for Homicidal Ideation (denies) Depressive Symptoms: Increased Anxiety, Difficulty Sleeping, Thoughts of /Suicide (denies) and Difficulty Concentrating Abnormal Motor Activity Signs and Symptoms: Hyperactivity and Restlessness Judgement: Poor Diagnostics Vital Signs (24Hr): Vital Signs - 24 hr 04/23/24 20:00 04/24/24 07:59 Temperature 98.2 F 98.6 F Pulse Rate 85 83 Respiratory Rate 16 Blood Pressure 111/67 124/76 Pulse Oximetry 98 97 Oxygen Delivery Method Room Air Room Air BMI result Body Mass Index 41.6 Labs 04/20/24 12:12 04/20/24 12:12 Labs: Laboratory Results - last 48 hr 04/22/24 04/23/24 04/23/24 18:06 07:45 09:14 POC Glucose 196 H 176 H Estimat Average Glucose 163 Hemoglobin A1c % 7.3 H Triglycerides 291 H Cholesterol 193 LDL Cholesterol, Calc 99 HDL Cholesterol 36 L Vitamin B12 310 Folate 7.4 TSH 1.51 Free T4 0.84 04/23/24 04/23/24 04/23/24 12:35 17:11 21:02 POC Glucose 157 H 133 H 199 H Estimat Average Glucose Hemoglobin A1c % Triglycerides Cholesterol LDL Cholesterol, Calc HDL Cholesterol Vitamin B12 Folate TSH Free T4 04/24/24 04/24/24 07:47 12:22 POC Glucose 119 H 142 H Estimat Average Glucose Hemoglobin A1c % Triglycerides Cholesterol LDL Cholesterol, Calc HDL Cholesterol Vitamin B12 Folate TSH Free T4 Imaging Radiology Impressions: ITS Impressions Foot X-Ray 04/20/24 15:10 IMPRESSION: 1. No periosteal reaction or cortical erosion. Osteomyelitis may be occult on radiographs. 2. [id number] tibiotalar osteoarthritis. Electronically signed by: Brian Davis MD 04/20/2024 03:57 PM EDT RP Medications Medications Current Medications Acetaminophen (Acetaminophen 325 Mg Tablet) 650 mg PO Q6H PRN PRN Reason: Headache/Pain Mild Scale (1-3) Al Hydroxide/Mg Hydroxide (Magnesium Hydrox/Alum Hydrox 30 Ml Oral.Susp) 30 ml PO Q6H PRN PRN Reason: Heartburn/Nausea Last Admin: 04/23/24 22:13 Dose: 30 ml Hydroxyzine HCl (Hydroxyzine Hcl 25 Mg Tablet) 25 mg PO Q6H PRN PRN Reason: Anxiety Lorazepam (Lorazepam 1 Mg Tablet) 1 mg PO Q4H PRN PRN Reason: agitation Magnesium Hydroxide (Milk Of Magnesia 30 Ml Oral.Susp) 30 ml PO DAILY PRN PRN Reason: Constipation Nicotine (Nicotine 21 Mg Patch.Td24) 21 mg TRANSDERMA DAILY PRN PRN Reason: nicotine cravings Nicotine Polacrilex (Nicotine Polacrilex 2 Mg Gum) 4 mg BUCCAL Q2H PRN PRN Reason: Nicotine Cravings Olanzapine (Olanzapine 5 Mg Tablet) 5 mg PO TID PRN PRN Reason: agitation, ulysses, psychosis Trazodone HCl (Trazodone Hcl 50 Mg Tablet) 50 mg PO BEDTIME MRX1 PRN PRN Reason: Insomnia Allergies Allergies Allergy/AdvReac Type Severity Reaction Status Date / Time morphine [Morphine] Allergy Unknown HIVES Verified 04/20/24 11:27 shellfish derived Allergy Redness of Verified 04/20/24 11:27 Skin Iodinated Contrast Media AdvReac Anxiety Verified 04/20/24 11:27 [Contrast Dye] Assessment & Plan Assessment & Plan (1) Schizoaffective disorder: Status: Acute Code(s): F25.9 - Schizoaffective disorder, unspecified Assessment and Plan: Olanzapine 10 mg HS. (2) Diabetes mellitus: Status: Acute Code(s): E11.9 - Type 2 diabetes mellitus without complications (3) Wound of right foot: Status: Acute Code(s): S91.301A - Unspecified open wound, right foot, initial encounter Plan Wound looks chronic There is no acute drainage. Even if wound OM there is no active are at this time so unlikely antibiotics do much to close wound. Follow per Wound Clinic and can readdress in future. Reason for continued inpatient stay Substantial Risk for: rapid decompensation Time Spent With Patient Time: Total time managing care of this patient today ____ minutes.
[2024-04-24 17:28] LABS: Glucose, Whole Blood 189 mg/dL (60-115)
[2024-04-24 20:00] VITALS: BP 160/83; PULSE 92; TEMP 37.1; O2SAT 96
[2024-04-24 23:31] LABS: Glucose, Whole Blood 216 mg/dL (60-115)
[2024-04-25 08:00] VITALS: BP 136/75; PULSE 77; RESP 16; TEMP 36.4; O2SAT 98
[2024-04-25 08:16] LABS: Glucose, Whole Blood 173 mg/dL (60-115)
--- NOTE | 2024-04-25 10:47 | PC.NURSE ---
signed 3 day on 04/24. up on 04/29.
[2024-04-25 11:58] LABS: Glucose, Whole Blood 150 mg/dL (60-115)
[2024-04-25] MEDS: hydrOXYzine HCL 25 MG TABLET PO (16:00)
--- NOTE | 2024-04-25 16:20 | HO.PSYCHPN ---
Subjective Subjective Date of Service: 04/25/24 Reason For Visit: schizoaffective disorder bipolar type Subjective Notes: Conditional Voluntary and 3 Day Healthcare Proxy: No Guardianship: No Medical Problems Affecting Mental Status: No Interim History: Refuses olanzapine Remains with disorganization, pressure of speech, tangential content, lability. Expressed much anger with tw and team for not discharging him today. Education attempted regarding current sx presentation and need for stabilization. Pt agreed to begin Risperdal and is considering re-start of Metformin, but refuses any and all insulin. He remains angry, caustic and targeting to tw and team this afternoon. Medication Compliance: No Side effects from medications: No Attending Groups: No Review of Systems Acute medical concerns: No Medical Review of Systems: unchanged Mental Status Exam Mental Status Exam Patient Appearance: Fatigued and Disheveled Patient Orientation: Person and Place Level of Consciousness: Awake, Restless and Alert Patient Behavior: Talkative, Hyperactive, Cooperative, Restless, Anxious, Resistive to Care, Distractible, Confused and Good Eye Contact Mood Description: Labile Affect Description: Labile Patient Cognition Impaired: Yes Ability to Follow Directions: Fair Speech Pattern: Perseverating, Spontaneous Speech, Rambling, Soft-Spoken, Rapid, Excessive and Pressured Memory Description: Remote Impaired Hallucinations: None Delusions: Paranoid Ideation, Grandiose and Present Thought Process: Racing, Illogical and Distracted Thought Content: positive for Flight of Ideas, positive for Circumstantial, positive for Loose Associations, positive for Tangential, positive for Disorganized, positive for Suicidal Ideation (denies) and positive for Homicidal Ideation (denies) Depressive Symptoms: Increased Anxiety, Difficulty Sleeping, Thoughts of /Suicide (denies) and Difficulty Concentrating Abnormal Motor Activity Signs and Symptoms: Hyperactivity and Restlessness Judgement: Poor Diagnostics Vital Signs (24Hr): Vital Signs - 24 hr 04/24/24 20:00 04/25/24 08:00 Temperature 98.8 F 97.5 F Pulse Rate 92 77 Respiratory Rate 16 Blood Pressure 160/83 H 136/75 Pulse Oximetry 96 98 Oxygen Delivery Method Room Air Room Air BMI result Body Mass Index 41.6 Labs 04/20/24 12:12 04/20/24 12:12 Labs: Laboratory Results - last 48 hr 04/23/24 04/23/24 04/24/24 17:11 21:02 07:47 POC Glucose 133 H 199 H 119 H 04/24/24 04/24/24 04/24/24 12:22 17:24 22:39 POC Glucose 142 H 189 H 216 H 04/25/24 04/25/24 08:13 11:54 POC Glucose 173 H 150 H Imaging Radiology Impressions: ITS Impressions Foot X-Ray 04/20/24 15:10 IMPRESSION: 1. No periosteal reaction or cortical erosion. Osteomyelitis may be occult on radiographs. 2. [id number] tibiotalar osteoarthritis. Electronically signed by: Brian Davis MD 04/20/2024 03:57 PM EDT RP Medications Medications Current Medications Acetaminophen (Acetaminophen 325 Mg Tablet) 650 mg PO Q6H PRN PRN Reason: Headache/Pain Mild Scale (1-3) Al Hydroxide/Mg Hydroxide (Magnesium Hydrox/Alum Hydrox 30 Ml Oral.Susp) 30 ml PO Q6H PRN PRN Reason: Heartburn/Nausea Last Admin: 04/23/24 22:13 Dose: 30 ml Hydroxyzine HCl (Hydroxyzine Hcl 25 Mg Tablet) 25 mg PO Q6H PRN PRN Reason: Anxiety Last Admin: 04/25/24 16:00 Dose: 25 mg Lorazepam (Lorazepam 1 Mg Tablet) 1 mg PO Q4H PRN PRN Reason: agitation Magnesium Hydroxide (Milk Of Magnesia 30 Ml Oral.Susp) 30 ml PO DAILY PRN PRN Reason: Constipation Nicotine (Nicotine 21 Mg Patch.Td24) 21 mg TRANSDERMA DAILY PRN PRN Reason: nicotine cravings Nicotine Polacrilex (Nicotine Polacrilex 2 Mg Gum) 4 mg BUCCAL Q2H PRN PRN Reason: Nicotine Cravings Risperidone (Risperidone 1 Mg Tablet) 1 mg PO BID BOOGIE Risperidone (Risperidone 1 Mg Tablet) 1 mg PO BID PRN PRN Reason: agitation, ulysses,psychosis Trazodone HCl (Trazodone Hcl 50 Mg Tablet) 50 mg PO BEDTIME MRX1 PRN PRN Reason: Insomnia Allergies Allergies Allergy/AdvReac Type Severity Reaction Status Date / Time morphine [Morphine] Allergy Unknown HIVES Verified 04/20/24 11:27 shellfish derived Allergy Redness of Verified 04/20/24 11:27 Skin Iodinated Contrast Media AdvReac Anxiety Verified 04/20/24 11:27 [Contrast Dye] Assessment & Plan Assessment & Plan (1) Schizoaffective disorder: Status: Acute Code(s): F25.9 - Schizoaffective disorder, unspecified Assessment and Plan: 04/25- Discontinue Olanzapine Risperdal 1 mg bid and prn for psychosis, agitation. (2) Diabetes mellitus: Status: Acute Code(s): E11.9 - Type 2 diabetes mellitus without complications (3) Wound of right foot: Status: Acute Code(s): S91.301A - Unspecified open wound, right foot, initial encounter Plan Wound looks chronic There is no acute drainage. Even if wound OM there is no active are at this time so unlikely antibiotics do much to close wound. Follow per [facility]ound Clinic and can readdress in future. Reason for continued inpatient stay Substantial Risk for: rapid decompensation Time Spent With Patient Time: Total time managing care of this patient today ____ minutes.
[2024-04-25 16:49] LABS: Glucose, Whole Blood 144 mg/dL (60-115)
[2024-04-25 20:00] VITALS: BP 138/77; PULSE 82; RESP 20; TEMP 36.4; O2SAT 98
[2024-04-25] MEDS: risperiDONE 1 MG TABLET PO (20:43)
[2024-04-25 22:31] LABS: Glucose, Whole Blood 270 mg/dL (60-115)
[2024-04-26 08:00] VITALS: BP 123/68; PULSE 61; RESP 16; TEMP 36.4; O2SAT 97
[2024-04-26 08:06] LABS: Glucose, Whole Blood 156 mg/dL (60-115)
[2024-04-26] MEDS: risperiDONE 1 MG TABLET PO ×2 (08:25→22:04)
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
[2024-04-26 18:55] LABS: Glucose, Whole Blood 256 mg/dL (60-115)
[2024-04-26 20:00] VITALS: BP 169/96; PULSE 115; RESP 16; TEMP 36.2; O2SAT 97
[2024-04-26 22:05] LABS: Glucose, Whole Blood 222 mg/dL (60-115)
[2024-04-26] MEDS: metFORMIN HCl ER 500 MG TAB.ER.24H PO (22:05)
[2024-04-27 08:00] VITALS: BP 135/73; PULSE 78; RESP 16; TEMP 36.4; O2SAT 99
[2024-04-27 08:07] LABS: Glucose, Whole Blood 192 mg/dL (60-115)
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
[2024-04-27 08:31] LABS: Estimated Glomerular Filt Rate > 60
[2024-04-27] MEDS: metFORMIN HCl ER 500 MG TAB.ER.24H PO ×2 (09:51→20:50)
[2024-04-27] MEDS: risperiDONE 1 MG TABLET PO (09:51)
[2024-04-27 20:00] VITALS: BP 153/77; PULSE 91; RESP 16; TEMP 36.4; O2SAT 98
[2024-04-27] MEDS: risperiDONE 2 MG TABLET PO (20:50)
[2024-04-27 22:40] LABS: Glucose, Whole Blood 217 mg/dL (60-115)
[2024-04-28 07:57] LABS: Glucose, Whole Blood 287 mg/dL (60-115)
[2024-04-28 08:00] VITALS: BP 106/56; PULSE 74; RESP 16; TEMP 36.6; O2SAT 98
[2024-04-28] MEDS: metFORMIN HCl ER 500 MG TAB.ER.24H PO ×2 (08:47→20:35)
[2024-04-28] MEDS: risperiDONE 2 MG TABLET PO ×2 (08:47→20:35)
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
[2024-04-28 20:00] VITALS: BP 104/53; PULSE 82; TEMP 36.8; O2SAT 98
[2024-04-28 20:20] LABS: Glucose, Whole Blood 198 mg/dL (60-115)
[2024-04-28] MEDS: Acetaminophen 325 MG TABLET 650 MG PO (20:35)
[2024-04-29 08:00] VITALS: BP 138/74; PULSE 98; RESP 16; TEMP 36.9; O2SAT 96
[2024-04-29] MEDS: metFORMIN HCl ER 500 MG TAB.ER.24H PO (08:32)
[2024-04-29] MEDS: risperiDONE 2 MG TABLET PO (08:33)
[2024-04-29] MEDS: hydrOXYzine HCL 25 MG TABLET PO (08:33)
--- NOTE | 2024-04-29 16:02 | P.DS_ITS ---
DS: Providers Provider Date of Service: 04/29/24 Date of admission: 04/22/24 12:51 Date of discharge: 04/29/24 Primary care physician: Unknown Physician Admitting clinician: Jojo Quiñonez Attending physician on admission: Wes Hill Consults: 04/23/24 17:13 Consult to Wound Care Routine Reason for consultation: Right foot 04/23/24 17:17 Consult to Hospitalist Routine Comment: Consulting Provider: Hospitalist Reason For Exam: staph aureus R foot wound- 04/23/24 19:30 Consult to Infectious Diseases Routine Consulting Provider: [facility] Reason for consultation: Chronic diabetic foot ulcer w/?osteo, ?abx coverage Attending physician on discharge: Wes Hill Discharging clinician: Jojo Quiñonez DS: Diagnosis Discharge Diagnosis (1) Schizoaffective disorder: Status: Acute (2) Diabetes mellitus: Status: Acute (3) Wound of right foot: Status: Acute DS: Medications Discharge Medications Home Medications: Previous Rx's ?Medication ?Instructions ?Recorded metformin 500 mg tablet,extended 500 mg PO BID #60 tabs 04/29/24 release 24 hr risperidone 2 mg tablet 2 mg PO BID #60 tabs 04/29/24 Mental Status Exam Mental Status Exam Patient Appearance: Appropriate Patient Orientation: Person, Place and Situation Level of Consciousness: Alert Patient Behavior: Appropriate, Talkative, Cooperative and Good Eye Contact Mood Description: Apprehensive Affect Description: Anxious Patient Cognition Impaired: No Ability to Follow Directions: Good Speech Pattern: Perseverating, Spontaneous Speech, Soft-Spoken, Rapid, Pressured and Poor Articulation Memory Description: Episodic Impaired Hallucinations: None Delusions: Not Present Perceptual Disturbances: Depersonalization and Derealization Thought Process: Racing Thought Content: positive for Racing, positive for Suicidal Ideation (denies) and positive for Homicidal Ideation (denies) Depressive Symptoms: Increased Anxiety, Diff. Making Decisions and Difficulty Concentrating Judgement: Fair Data Data Completed and Pending Completed studies during hospitalization [Text1]: 04/22/24 04/23/24 04/23/24 18:06 07:45 09:14 Creatinine Estim Creat Clear Calc Estimated GFR POC Glucose 196 H 176 H Estimat Average Glucose 163 Hemoglobin A1c % 7.3 H Triglycerides 291 H Cholesterol 193 LDL Cholesterol, Calc 99 HDL Cholesterol 36 L Vitamin B12 310 Folate 7.4 TSH 1.51 Free T4 0.84 04/23/24 04/23/24 04/23/24 12:35 17:11 21:02 Creatinine Estim Creat Clear Calc Estimated GFR POC Glucose 157 H 133 H 199 H Estimat Average Glucose Hemoglobin A1c % Triglycerides Cholesterol LDL Cholesterol, Calc HDL Cholesterol Vitamin B12 Folate TSH Free T4 04/24/24 04/24/24 04/24/24 07:47 12:22 17:24 Creatinine Estim Creat Clear Calc Estimated GFR POC Glucose 119 H 142 H 189 H Estimat Average Glucose Hemoglobin A1c % Triglycerides Cholesterol LDL Cholesterol, Calc HDL Cholesterol Vitamin B12 Folate TSH Free T4 04/24/24 04/25/24 04/25/24 22:39 08:13 11:54 Creatinine Estim Creat Clear Calc Estimated GFR POC Glucose 216 H 173 H 150 H Estimat Average Glucose Hemoglobin A1c % Triglycerides Cholesterol LDL Cholesterol, Calc HDL Cholesterol Vitamin B12 Folate TSH Free T4 04/25/24 04/25/24 04/26/24 16:45 22:26 08:02 Creatinine Estim Creat Clear Calc Estimated GFR POC Glucose 144 H 270 H 156 H Estimat Average Glucose Hemoglobin A1c % Triglycerides Cholesterol LDL Cholesterol, Calc HDL Cholesterol Vitamin B12 Folate TSH Free T4 04/26/24 04/26/24 04/27/24 18:50 21:56 07:52 Creatinine 0.72 Estim Creat Clear Calc 168.0 Estimated GFR > 60 POC Glucose 256 H 222 H Estimat Average Glucose Hemoglobin A1c % Triglycerides Cholesterol LDL Cholesterol, Calc HDL Cholesterol Vitamin B12 Folate TSH Free T4 04/27/24 04/27/24 04/28/24 08:03 21:53 07:53 Creatinine Estim Creat Clear Calc Estimated GFR POC Glucose 192 H 217 H 287 H Estimat Average Glucose Hemoglobin A1c % Triglycerides Cholesterol LDL Cholesterol, Calc HDL Cholesterol Vitamin B12 Folate TSH Free T4 04/28/24 20:17 Creatinine Estim Creat Clear Calc Estimated GFR POC Glucose 198 H Estimat Average Glucose Hemoglobin A1c % Triglycerides Cholesterol LDL Cholesterol, Calc HDL Cholesterol Vitamin B12 Folate TSH Free T4 04/20/24 12:13 Blood - Venous Blood Culture - Final No growth after 5 days. 04/20/24 12:18 Blood - Venous Blood Culture - Final No growth after 5 days. 04/20/24 12:19 Foot Right Gram Stain - Final 04/20/24 12:19 Foot Right Routine Culture - Final Staphylococcus aureus Proteus penneri Imaging Diagnostic Imaging Impressions Foot X-Ray 04/20/24 15:10 IMPRESSION: 1. No periosteal reaction or cortical erosion. Osteomyelitis may be occult on radiographs. 2. Rdjx-oa-kvaqbarh tibiotalar osteoarthritis. Electronically signed by: Brian Davis MD 04/20/2024 03:57 PM EDT RP DS: Summary Hospital Course Hospital Course: Admission to adult psychiatry for exacerbation of schizoaffective disorder, bip olar type. Pt presented at the police station asking for help and was admitted on a Section XII, signing a conditional voluntary on the unit and a three day notice of intent. He exhibited paranoid and delusional sx along with pressure of speech and scientologist preoccupations. He refused insulin for treatment for diabetes, however, re-established Metformin dosage. He agreed and complied with Risperdal, 2 mg bid. He allowed wound consultation for his right foot, where he has a chronic wound that was evaluated with recommendations. Pt discharges on a three day notice of intent. He plans to return to [facility] for ongoing care and is aware he may call or return as needed. Status at Discharge Functional status at discharge: independent ambulation Overall status at discharge: patient is progressing back to baseline Time Spent with Patient Time attestation: Total time managing care of this patient today ____ minutes. Time spent: Less than 30 minutes Discharge Plan Discharge Anticipated Discharge Date/Time: 04/29/24 12:00 Patient Disposition: Home, Self-Care Discharge Diagnosis: Schizoaffective Disorder, bipolar type R Foot Wound Diabetes- refuses insulin treatment Referrals: [facility]: Psychiatry services [Other] - Tomorrow (Hospital Discharge Appointment Patient will need to self present at [facility] for follow-up psychiatry appointment during walk in hours 8:30 am as agency did not provide scheduled appointment ) Physician,Unknown J [Primary Care Provider] - 1 Week Discharge Medications: New risperidone 2 mg Tablet 2 mg PO BID Qty: 60 0RF metformin 500 mg Tablet Extended Release 24 Hr 500 mg PO BID Qty: 60 0RF Discharge Orders: Discharge Order (Routine); Ordered 04/29/24 Ordered By: Jojo Quiñonez Diet: Advance to usual diet Activity on Discharge: As tolerated Stand Alone Forms: Patient Portal Discharge page, Community Support Print Language: Welsh Care Plan Goals: Mood and Behavioral Stabilization Health Concerns: Mood and Behavioral Stabilization Plan of Treatment: Attend scheduled appointments Take medications as directed Assessment: Denies SI/HI/AH/VH. No overt sx of psychosis. Pt was asked to continue his stay to work on mood, he declined He leaves on a three day notice of intent. He reports he will follow up with [facility] providers. Discharge Date/Time: 04/29/24 11:43
== END 2024-04-29 11:43 | disposition home or self-care (01) | DRG 885 ==
LOC: HO.ED 17:32 → HO.PM5 04-22 13:14
PROVIDERS: Admitting Provider Clinical Nurse Specialist Psychiatric/Mental Health, Adult; Emergency Provider Emergency Medicine Emergency Medical Services; Visit Provider Clinical Nurse Specialist Psychiatric/Mental Health, Adult
DX: F25.0 Schizoaffective disorder, bipolar type (principal); L97.419 Non-pressure chronic ulcer of right heel and midfoot with unspecified severity; I10 Essential (primary) hypertension; E11.65 Type 2 diabetes mellitus with hyperglycemia; E11.621 Type 2 diabetes mellitus with foot ulcer; Z79.84 Long term (current) use of oral hypoglycemic drugs; Z79.899 Other long term (current) drug therapy
CPT/HCPCS: 36415; 73630; 80053; 80061; 80307; 81001; 82565; 82607; 82746; 82947; 83036; 83605; 83880; 84439; 84443; 85025; 85652; 86140; 87040; 87070; 87077; 87186; 87205; 99285; S9485

== ENCOUNTER → 2024-04-22 12:51 | Outpatient (BNV) | payer OTHER, SELFPAY | PROVIDERS: Admitting Provider Clinical Nurse Specialist Psychiatric/Mental Health, Adult; Emergency Provider Emergency Medicine Emergency Medical Services; Visit Provider Clinical Nurse Specialist Psychiatric/Mental Health, Adult | DX: F25.0 Schizoaffective disorder, bipolar type (principal); E11.9 Type 2 diabetes mellitus without complications; S91.301A Unspecified open wound, right foot, initial encounter | CPT/HCPCS: 90792; 99231; 99232; 99238 ==

== ENCOUNTER → 2024-04-22 12:51 | Outpatient (BNV) | payer OTHER, SELFPAY | PROVIDERS: Admitting Provider Clinical Nurse Specialist Psychiatric/Mental Health, Adult; Emergency Provider Emergency Medicine Emergency Medical Services; Visit Provider Internal Medicine | DX: F25.9 Schizoaffective disorder, unspecified (principal); E11.9 Type 2 diabetes mellitus without complications; S91.301A Unspecified open wound, right foot, initial encounter | CPT/HCPCS: 99222 ==

== ENCOUNTER 2024-07-25 05:31 | Emergency (ER) | payer OTHER, SELFPAY ==
--- NOTE | ~2024-07-25 | XR_ITS ---
EXAMINATION: XR FOOT, LEFT CLINICAL INFORMATION: pain, injury COMPARISON: None available. TECHNIQUE: AP, lateral, and oblique views of the left foot. FINDINGS: Normal bone mineralization. No fracture, dislocation, or suspicious bone lesion. No malalignment. Normal plantar arch. Midfoot and hindfoot appear intact. Small moderate-sized plantar and dorsal calcaneal spurs. No soft tissue abnormalities. XR/XR foot LT min 3V IMPRESSION: No acute findings left foot. Electronically signed by: Moises Ritchie MD 07/25/2024 09:09 AM [facility]
--- NOTE | ~2024-07-25 | XR_ITS ---
EXAMINATION: XR FOOT, RIGHT CLINICAL INFORMATION: pain, injury COMPARISON: 04/20/2024. TECHNIQUE: AP, lateral, and oblique views of the right foot. FINDINGS: Normal bone mineralization. No fracture, dislocation, or suspicious bone lesion. No malalignment. Normal plantar arch. Midfoot and hindfoot appear normal. Small to moderate-sized plantar and dorsal calcaneal spurs. Mild to moderate osteoarthritic changes noted in the ankle joint. Normal-appearing soft tissues. XR/XR foot RT min 3V IMPRESSION: No acute findings right foot. Electronically signed by: Moises Ritchie MD 07/25/2024 09:11 AM [facility]
[2024-07-25 05:52] VITALS: BP 142/90; PULSE 60; O2SAT 96
[2024-07-25 06:12] VITALS: BP 123/61; PULSE 79; RESP 20; TEMP 36.4; O2SAT 96; BMI 42.1
--- OUTSIDE RECORDS SUMMARY | 2024-07-25 06:38 | XMS_ITS | Encounter Summary ---
Author Organization [facility] Address [address] [place] [address] Care Team Providers Care Financial Planning Assistant Name Role Phone No, Pcp (Do Not Change Name) Primary Care Provid er Unavailable Encounter Details Date Type Department Care Team (Late st Contact Info) Description 06/20/2023 Scanned Document [facility] [address] [place] [address] External, Provider Social History Tobacco Use Types Packs/Day Years Used Date Smoking Tobacco: Former Smokeless Tobacco: Never Alcohol Use Standard Drinks/Week Comments Yes 0 (1 standard drink = 0.6 oz pur e alcohol) PHQ-2 Answer Date Recorded PHQ-2 Total Score 2 08/10/2021 Sex and Gender Information Value Date Recorded Sex Assigned at Male 11/24/2023 12:44 AM EDT Legal Sex Male 10:20 AM EDT Gender Identity Male 11/24/2023 12:44 AM EDT Sexual Orientation Straight 11/24/2023 12 :44 AM EDT documented as of this encounter Plan of Treatment Not on file documented as of this encounter Visit Diagnoses Not on filedocumented in this encounter Additional Health Concerns Assessment Noted Time PHQ-9 Depression Total Score: 2 08/10/19 22 7:00 PM EST documented as of this encounter Care Teams Financial Planning Assistant Relationship Specialty Start Date End Date No, Pcp (Do Not Change Name) PCP - General 11/24/23 documented as of this encounter
--- OUTSIDE RECORDS SUMMARY | 2024-07-25 06:38 | XMS_ITS ---
Author Name [facility] Organization Unknown Results Test Name/Text Value Interpretation Date Range Source CRP SerPl HS-mCnc 4.6mg/L Above high normal [id number] - [facility] Calcium SerPl-mCnc 9.1mg/dL Normal 8.8 - 10 .2 [facility] Anion Gap3 SerPl-sCnc 11 Normal 7 - 17 [facility] BUN SerPl-mCnc 19mg/dL Normal 6 - 20 [facility] HCO3 SerPl-sCnc 22mmol/L Normal 20 - 30 [facility] Creat SerPl-mCnc 0.61mg/dL Normal 0.4 - 1.3 [facility] Chloride SerPl-sCnc 106mmol/L Normal 98 - 10 7 [facility] BUN/Creat SerPl 31.1 Above high normal 8 - 23 [facility] GFR/BSA.pred SerPlBld ARO-TRN-MbJQlq 60mL/min/1.73 m2 Normal [id number] - [facility] Potassium SerPl-sCnc 5mmol/L Normal 3.3 - 5.3 [facility] Sodium SerPl-sCnc 139mmol/L Normal 136 - 144 [facility] Glucose SerPl-mCnc 112mg/dL Above high normal 70 - 100 [facility] Monocytes # Bld Auto 0.78a1835/uL Normal [id number] 0 - 1 [facility] nRBC/100 WBC Bld Auto-Rto 0% Normal [id number] 0 - 1 [facility] Eosinophil # Bld Auto 0.56d7393/uL Normal [id number] 0 - 1 [facility] nRBC # Bld Auto 1a4817/uL Normal [id number] 0 - 1 [facility] Neutrophils # Bld Auto 6.58r1061/uL Normal [id number] 2 - 7.6 [facility] MCHC RBC Auto-mCnc 31.4g/dL Normal [id number] 31 - 36 [facility] Monocytes/leuk NFr Bld Auto 4.8% Normal [id number] 4 - 12 [facility] Basophils # Bld Auto 0.03u6350/uL Normal [id number] 0 - 1 [facility] WBC # Bld Auto 10.6g5567/uL Normal [id number] 4 - 11 [facility] Hct VFr Bld Auto 40.8% Normal [id number] 38.5 - 50 [facility] RDW RBC Auto-Rto 13.4% Normal [id number] 11 - 15 [facility] PMV Bld Auto 11.7fL Normal [id number] 8 - 12 [facility] Eosinophil/leuk NFr Bld Auto 3.7% Normal [id number] 0 - 5 [facility] MCH RBC Qn Auto 27.6pg Normal [id number] 27 - 33 [facility] Basophils/leuk NFr Bld Auto 0.6% Normal [id number] 0 - 1.4 [facility] Lymphocytes # Bld Auto 2.93j0790/uL Normal [id number] 0.6 - 3.7 [facility] RBC # Bld Auto 4.63M/uL Normal [id number] 4 - 6 [facility] Neutrophils/leuk NFr Bld Auto 65.1% Normal [id number] 39 - 72 [facility] Imm Granulocytes # Bld Auto 0.44v4968/uL Normal [id number] 0 - 0.3 [facility] Platelet # Bld Auto 352e2917/uL Normal [id number] 150 - 420 [facility] MCV RBC Auto 88.1fL Normal [id number] 80 - 100 [facility] Lymphocytes/leuk NFr Bld Auto 25.1% Normal [id number] 17 - 50 [facility] Imm Granulocytes/leuk NFr Bld Auto 0.7% Normal [id number] 0 - 1 [facility] Hgb Bld-mCnc 12.8g/dL Below low normal [id number] 13.2 - 17.1 [facility] Potassium SerPl-sCnc 4.2mmol/L Normal [id number] 3.3 - 5.3 [facility] Glucose SerPl-mCnc 203mg/dL Above high normal [id number] 70 - 100 [facility] Chloride SerPl-sCnc 104mmol/L Normal [id number] 98 - 10 7 [facility] BUN SerPl-mCnc 17mg/dL Normal [id number] 6 - 20 [facility] Calcium SerPl-mCnc 8.7mg/dL Below low normal [id number] 8 .8 - 10.2 [facility] Creat SerPl-mCnc 0.6mg/dL Normal [id number] 0.4 - 1.3 [facility] BUN/Creat SerPl 28.3 Above high normal [id number] 8 - 23 [facility] Sodium SerPl-sCnc 138mmol/L Normal [id number] 136 - 144 [facility] Anion Gap3 SerPl-sCnc 8 Normal [id number] 7 - 17 [facility] GFR/BSA.pred SerPlBld WDO-YUY-DnJCnz 60mL/min/1.73 m2 Normal [id number] - [facility] HCO3 SerPl-sCnc 26mmol/L Normal [id number] 20 - 30 [facility] ALP SerPl-cCnc 109U/L Normal [id number] 9 - 122 [facility] AST/ALT SerPl-cRto 1 Normal [id number] - [facility] Bilirub Direct SerPl-mCnc 0.2mg/dL Normal [id number] - [facility] Albumin SerPl BCG-mCnc 4g/dL Normal [id number] 3.6 - 5.1 [facility] ALT SerPl w/o P-5'-P-cCnc 19U/L Normal [id number] 9 - 59 [facility] Albumin/Glob SerPl 1.3 Normal [id number] 1 - 2.2 [facility] Globulin Plas-mCnc 3.2g/dL Normal [id number] 2 - 3.9 [facility] Bilirub SerPl-mCnc 0.2mg/dL Normal [id number] - [facility] AST SerPl w P-5'-P-cCnc 19U/L Normal [id number] 10 - 35 [facility] Prot SerPl-mCnc 7.2g/dL Normal [id number] 5.9 - 8.3 [facility] Magnesium SerPl-mCnc 2mg/dL Normal [id number] 1.7 - 2.4 [facility] MCH RBC Qn Auto 28.3pg Normal [id number] 27 - 33 [facility] RBC # Bld Auto 4.45M/uL Normal [id number] 4 - 6 [facility] Lymphocytes # Bld Auto 2.25x6675/uL Normal [id number] 0.6 - 3.7 [facility] Neutrophils/leuk NFr Bld Auto 67.7% Normal [id number] 39 - 72 [facility] Basophils # Bld Auto 0.79n5288/uL Normal [id number] 0 - 1 [facility] Lymphocytes/leuk NFr Bld Auto 22% Normal [id number] 17 - 50 [facility] PMV Bld Auto 11fL Normal [id number] 8 - 12 [facility] Imm Granulocytes # Bld Auto 0.62d0594/uL Normal [id number] 0 - 0.3 [facility] Monocytes/leuk NFr Bld Auto 6.8% Normal [id number] 4 - 12 [facility] Basophils/leuk NFr Bld Auto 0.5% Normal [id number] 0 - 1.4 [facility] nRBC/100 WBC Bld Auto-Rto 0% Normal [id number] 0 - 1 [facility] MCHC RBC Auto-mCnc 32.5g/dL Normal [id number] 31 - 36 [facility] Monocytes # Bld Auto 0.51r9596/uL Normal [id number] 0 - 1 [facility] Hct VFr Bld Auto 38.8% Normal [id number] 38.5 - 50 [facility] Eosinophil/leuk NFr Bld Auto 2.8% Normal [id number] 0 - 5 [facility] Neutrophils # Bld Auto 7.97j9278/uL Normal [id number] 2 - 7.6 [facility] Platelet # Bld Auto 295g9517/uL Normal [id number] 150 - 420 [facility] RDW RBC Auto-Rto 12.8% Normal [id number] 11 - 15 [facility] Imm Granulocytes/leuk NFr Bld Auto 0.2% Normal [id number] 0 - 1 [facility] Eosinophil # Bld Auto 0.43g1224/uL Normal [id number] 0 - 1 [facility] Hgb Bld-mCnc 12.6g/dL Below low normal [id number] 13.2 - 17.1 [facility] nRBC # Bld Auto 2t2595/uL Normal [id number] 0 - 1 [facility] MCV RBC Auto 87.2fL Normal [id number] 80 - 100 [facility] WBC # Bld Auto 10.3x7339/uL Normal [id number] 4 - 11 [facility]
--- OUTSIDE RECORDS SUMMARY | 2024-07-25 06:38 | XMS_ITS | Encounter Summary ---
Author Organization [facility] Address [address] [place] [address] Care Team Providers Care Second Facing Baster Name Role Phone No, Pcp (Do Not Change Name) Primary Care Provid er Unavailable Encounter Details Date Type Department Care Team (Late st Contact Info) Description 09/01/2023 Scanned Document [facility] [address] [place] [address] External, Provider Social History Tobacco Use Types [...] documented as of this encounter Care Teams Second Facing Baster Relationship Specialty Start Date End Date No, Pcp (Do Not Change Name) PCP - General 11/24/23 documented as of this encounter
--- OUTSIDE RECORDS SUMMARY | 2024-07-25 06:38 | XMS_ITS | Encounter Summary ---
Author Organization [facility] Address [address] [place] [address] Care Team Providers Care Rv Technician Name Role Phone No, Pcp (Do Not Change Name) Primary Care Provid er Unavailable Encounter Details Date Type Department Care Team (Late st Contact Info) Description 01/24/2023 Scanned Document [facility] [address] [place] [address] External, Provider Social History Tobacco Use Types [...] documented as of this encounter Care Teams Rv Technician Relationship Specialty Start Date End Date No, Pcp (Do Not Change Name) PCP - General 11/24/23 documented as of this encounter
--- OUTSIDE RECORDS SUMMARY | 2024-07-25 06:38 | XMS_ITS | Encounter Summary ---
Author Organization [facility] Address [address] [place] [address] Care Team Providers Care Claims Counsel Name Role Phone No, Pcp (Do Not Change Name) Primary Care Provid er Unavailable Encounter Details Date Type Department Care Team (Late st Contact Info) Description 09/24/2023 Scanned Document [facility] [address] [place] [address] External, Provider Social History Tobacco Use Types [...] documented as of this encounter Care Teams Claims Counsel Relationship Specialty Start Date End Date No, Pcp (Do Not Change Name) PCP - General 11/24/23 documented as of this encounter
--- OUTSIDE RECORDS SUMMARY | 2024-07-25 06:38 | XMS_ITS | Encounter Summary ---
Author Organization [facility] Address [address] [place] [address] Care Team Providers Care Commercial Electrician Name Role Phone No, Pcp (Do Not Change Name) Primary Care Provid er Unavailable Encounter Details Date Type Department Care Team (Late st Contact Info) Description 07/19/2023 Scanned Document [facility] [address] [place] [address] External, Provider Social History Tobacco Use Types [...] documented as of this encounter Care Teams Commercial Electrician Relationship Specialty Start Date End Date No, Pcp (Do Not Change Name) PCP - General 11/24/23 documented as of this encounter
--- OUTSIDE RECORDS SUMMARY | 2024-07-25 06:39 | XMS_ITS ---
Author Organization [facility] Address [address], [place] [id number] Care Team Providers Care Biofuels Operations Manager Name Role Phone [facility] Primary [facility] Unavailable [phone] Encounters Encounter Location Date Provider Diagnosis [facility] [address], [place] [phone] 07/19/2023 [facility] Plan Of Treatment No Information Progress Notes * Adrián MORGAN MDOB:[birth year] (42 yo M)Acc No.[id number]:07/19/2023 Patient:?Koko Adrián Jonas :1980???Age:42 Y???Sex:Male Address:[address] [place] [id number] * true * Date:? Generated for Ania diaz/Jarrell/eTransmitting on:?07/25/2024 06:38 AM EST
--- NOTE | 2024-07-25 06:46 | ED_ITS ---
HPI - General Adult General Chief complaint: General Medical Stated complaint: wound bottom R foot, diabetes med refill Time Seen by Provider: 07/25/24 06:40 Source: patient and EMS Mode of arrival: EMS Limitations: no limitations History of Present Illness ED Provider: Jeana Gallego PA-C HPI narrative: Patient is a 43 year old assigned male at with a history of depression, anxiety, HTN, DM, and schizoaffective disorder presenting to the emergency department today with bilateral foot pain. Patient states that he stepped on a crack pipe with his right foot and has had a piece stuck in his foot ever since. Patient states that both of his feet have been continually wet and cold because he is homeless. Patient denies any dizziness, lightheadedness, abdominal pain, nausea, vomiting, fever, chills, blurry vision, double vision, loss of vision, chest pain, difficulty breathing, shortness of breath, back pain, night sweats, pain with urination, increased urinary frequency, increased urinary urgency, blood in his urine or stool, syncope or a near syncopal episode, bowel incontinence, bladder incontinence, or any other complaints at this time. Relieving factors: none Exacerbating factors: none Associated symptoms: denies other symptoms Treatments prior to arrival: none Related Data Previous Rx's ?Medication ?Instructions ?Recorded metformin 500 mg tablet,extended 500 mg PO BID #60 tabs 04/29/24 release 24 hr risperidone 2 mg tablet 2 mg PO BID #60 tabs 04/29/24 metformin 500 mg tablet 500 mg PO BID #60 tabs 07/25/24 naproxen 500 mg tablet 500 mg PO BID 7 days #14 tabs 07/25/24 Allergies Allergy/AdvReac Type Severity Reaction Status Date / Time morphine [Morphine] Allergy Unknown HIVES Verified 07/25/24 06:14 shellfish derived Allergy Redness of Verified 07/25/24 06:14 Skin Iodinated Contrast Media AdvReac Anxiety Verified 07/25/24 06:14 [Contrast Dye] Review of Systems 2 Constitutional: Constitutional: Reports no additional constitutional complaints, Denies chills, Denies fever(s) and Denies night sweats Eyes: Eyes: Reports no additional eye complaints, Denies blurry vision, Denies change in vision, Denies diplopia, Denies eye discharge, Denies loss of vision and Denies eye pain ENT: Denies dizziness Cardiovascular: Cardiovascular: Reports no additional cardiovascular complaints, Denies chest pain, Denies lightheadedness, Denies Loss of Consciousness and Denies dyspnea Respiratory: Respiratory: Reports no additional respiratory complaints and Denies dyspnea Gastrointestinal: Gastrointestinal: Reports no additional gastrointestinal complaints, Denies abdominal pain, Denies melena, Denies hematochezia, Denies change in bowel habits and Denies change in stool character Genitourinary: Genitourinary: Reports no additional male genitourinary complaints, Denies hematuria, Denies oliguria, Denies difficulty urinating, Denies dysuria, Denies urinary frequency, Denies urinary hesitancy, Denies urinary incontinence and Denies urinary urgency Musculoskeletal: Musculoskeletal: Reports no additional musculoskeletal complaints, Denies numbness and Denies tingling Comments: bilateral foot pain Neurologic: Denies dizziness, Denies loss of vision, Denies numbness and Denies tingling Psychiatric: Psychiatric: Reports no additional psychiatric complaints Endocrine: Endocrine: Reports no additional endocrine complaints Hematologic/Lymphatic: Hematologic/Lymphatic: Reports no additional hematologic/lymphatic complaints Allergic/Immunologic: Allergic/Immunologic: Reports no additional allergic/immunologic complaints [facility] Past Medical History Attestation statement: The following information was validated with the patient. Source: old records reviewed and nursing notes reviewed Medical History Bipolar 1 disorder Wound of right foot GERD (gastroesophageal reflux disease) Essential (primary) hypertension Diabetes mellitus Schizoaffective disorder Surgical History No pertinent past surgical history Family History Family History Father Heart disease Chronic mental illness Depression Mother Cancer Sister Cancer Social History Social History Household Members: Unknown / Unable to assess Housing: Apartment Do you presently have visiting nurse or other home services: No Unable to assess alcohol history related to: Unknown Alcohol intake: never Patient Tobacco Use Status: Never used Tobacco e-Cigarette/Vaping Use: Never Used Second Hand Smoke Exposure: No Substance Use Type: Marijuana service: No Current occupational status: disabled Sexual orientation: Straight/Heterosexual Physical Exam ED Vital Signs: Vital Signs - 24 hr 07/25/24 06:12 07/25/24 07:22 07/25/24 10:40 Temperature 97.6 F 97.6 F 98.6 F Pulse Rate 79 79 66 Respiratory Rate 20 16 14 Blood Pressure 123/61 134/75 121/82 Pulse Oximetry 96 98 98 Oxygen Delivery Method Room Air Room Air Room Air 07/25/24 10:41 Temperature 98.6 F Pulse Rate 66 Respiratory Rate 14 Blood Pressure 121/82 Pulse Oximetry 98 Oxygen Delivery Method Room Air BMI result Body Mass Index 42.1 Const General: cooperative, no acute distress, alert and awake Nutritional Appearance: well nourished Orientation/consciousness: patient oriented x3 Limitations: no limitations HENMT Head: Yes normal to inspection and Yes atraumatic Ears: hearing grossly normal bilaterally and external ears normal General nose exam: Normal external nose present, no nasal discharge noted and no epistaxis Face and sinus: Yes normal facial exam, No abrasion and No laceration Mouth: Normal oral and palatal mucosa present, no drooling and no muffled voice Eyes General: appearance normal, both eyes and all related structures Periorbital: periorbital findings normal Eyelids: Yes eyelids normal Conjunctivae: conjunctivae normal Pupils: Equal, round and reactive pupils present EOM: EOMs intact bilaterally Neck Neck: Yes normal visual inspection, Yes full ROM and Yes no lymphadenopathy Chest Chest palpation & inspection: normal inspection of the chest Resp Effort & Inspection: normal respiratory effort and able to speak in complete sentences GI Inspection: Yes normal to inspection Neuro General: patient oriented x3 and moves all extremities Cranial nerves: Yes Equal, round and reactive pupils present Cognition (Neuro): normal cognition Extrem Other: General: Yes full ROM and Yes capillary refill normal Psych Appearance: grossly normal Mental Status: mental status grossly normal Affect: normal affect Attitude: cooperative Thought process: Normal thought process present Thought content: Normal thought content present Insight: Good insight present (Psych) Medical Decision Making Medical Decision Making MDM Narrative: Patient is a 43 year old assigned male at with a history of depression, anxiety, HTN, DM, and schizoaffective disorder presenting to the emergency department today with bilateral foot pain. Patient's physical exam was as noted in the physical exam portion of this note. Patient's blood work showed an elevated ESR of 22 but were otherwise unremarkable. Patient's bilateral feet x- ray showed no acute process. I spoke to the genera surgeon, Dr. Connelly, who came and examined the patient. He stated the patient's wound is chronic in nature, not acutely infected, and there is nothing to be done but for him to follow up with podiatry. I explained my physical exam findings as well as all test results to the patient. I answered all questions asked by the patient. I stressed the importance of the patient taking his medication as directed (either prescribed or as the over the counter packaging recommends). I stressed the importance of the patient frequently changing his socks and keep his feet dry / warm. I stressed the importance of the patient following up with his primary care provider, the wound center, and podiatry. I stressed the importance of the patient returning to the emergency department immediately if his symptoms were to worsen or if he were to develop any dizziness, shortness of breath, difficulty breathing, chest pain, blurry vision, loss of vision, nausea, vomiting, abdominal pain, fever, chills, back pain, or any other complaints. Patient verbalized agreement and understanding with this treatment plan and discharge. Differential Diagnosis Differential Diagnoses: The differential diagnosis associated with the presentation includes Trench feet Trench foot Chronic wound Admission/Observation Consideration of admission/observation: Escalation of care including admission/observation considered Patient would have been admitted to the hospital had his work up had any findings where hospital admission was appropriate and his clinical presentation warranted hospital admission. Consult Healthcare Provider Management of the patient was discussed with: Yard Truck Driver (spoke with the general surgeon as noted in the MDM Rationale portion of this note.) Lab Data [facility] Lab Attestation statement: I reviewed the patient's lab results. My interpretation of these results are in the MDM Rationale portion of this note. 07/25/24 07:20 07/25/24 07:20 Labs: Lab Results 07/25/24 Range/Units 07:20 WBC 9.8 (4.8-10.8) X10*3/uL RBC 4.60 (4.60-5.80) X10*6/uL Hgb 13.0 L (14.0-18.0) g/dl Hct 40.2 L (42.0-52.0) % MCV 87.4 (80.0-98.0) fL MCH 28.3 (27.0-33.0) pg MCHC 32.3 (31.0-36.0) g/dl RDW 13.2 (11.0-16.0) % Plt Count 239 (160-400) X10*3/uL MPV 10.9 (9.4-12.4) fL Immature Gran % (Auto) 0.3 (0.0-0.4) % Neut % (Auto) 69.5 (45-73) % Lymph % (Auto) 20.0 (20-40) % [place] % (Auto) 6.3 (2-11) % Eos % (Auto) 3.4 (0-4) % Baso % (Auto) 0.5 (0-2) % Lymph # (Auto) 2.0 (1.2-4.9) X10*3/uL [place] # (Auto) 0.6 (0.1-1.2) X10*3/uL Eos # (Auto) 0.3 (0.0-0.4) X10*3/uL Baso # (Auto) 0.1 (0.0-0.2) X10*3/uL Abs Immat Gran (auto) 0.03 (0.00-0.03) X10*3/uL Absolute Neuts (auto) 6.8 (2.0-8.3) x10*3/uL Absolute Nucleated RBC 0.000 (0.0-0.012) X10*3/uL Nucleated RBC % (auto) 0.0 (0.0-0.2) /100WBC ESR 22 H (0-15) MM/HR Sodium 141 (135-145) mmol/L Potassium 4.2 (3.3-5.1) mmol/L Chloride 111 H (96-108) mmol/L Carbon Dioxide 24 (22-29) mmol/L Anion Gap 10 L (12-20) BUN 15 (9-16) mg/dL Creatinine 0.61 (0.5-1.4) mg/dL Estim Creat Clear Calc 199.6 Estimated GFR > 60 Random Glucose 157 H (60-115) mg/dL Calcium 8.4 D (8.4-10.2) mg/dL Magnesium 2.0 (1.6-2.6) mg/dL Total Bilirubin 0.2 (0.0-1.0) mg/dL AST 21 (5-37) U/L ALT 18 (0-40) U/L Alkaline Phosphatase 105 (39-117) U/L C-Reactive Protein 0.39 (< or = 0.50) mg/dL Total Protein 7.4 (6.5-8.0) g/dL Albumin 3.8 (3.5-5.0) g/dL Urine Color Yellow Urine Appearance Clear Urine pH 5.5 (5.0-9.0) Ur Specific [place] 1.025 (1.005-1.025) Urine Protein Negative (Neg-Trace) mg/dL Urine Glucose (UA) Negative (Negative) mg/dL Urine Ketones Trace (Negative) mg/dL Urine Blood Negative (Negative) Urine Nitrite Negative (Negative) Ur Leukocyte Esterase Negative (Negative) Independent Interpretation I performed an independent interpretation of an: Plain X-Ray Interpretation: My interpretation is in agreement with the radiologist's impression of these imaging studies. L EXAMINATION: XR FOOT, RIGHT CLINICAL INFORMATION: pain, injury COMPARISON: 04/20/2024. TECHNIQUE: AP, lateral, and oblique views of the right foot. FINDINGS: Normal bone mineralization. No fracture, dislocation, or suspicious bone lesion. No malalignment. Normal plantar arch. Midfoot and hindfoot appear normal. Small to moderate-sized plantar and dorsal calcaneal spurs. Mild to moderate osteoarthritic changes noted in the ankle joint. Normal-appearing soft tissues. XR/XR foot RT min 3V IMPRESSION: No acute findings right foot. Electronically signed by: Moises Ritchie MD 07/25/2024 09:11 AM [facility] Dictated By: Moises Ritchie MD Signed By: Electronically signed by Moises Ritchie MD 07/25/24 0911 EXAMINATION: XR FOOT, LEFT CLINICAL INFORMATION: pain, injury COMPARISON: None available. TECHNIQUE: AP, lateral, and oblique views of the left foot. FINDINGS: Normal bone mineralization. No fracture, dislocation, or suspicious bone lesion. No malalignment. Normal plantar arch. Midfoot and hindfoot appear intact. Small moderate-sized plantar and dorsal calcaneal spurs. No soft tissue abnormalities. XR/XR foot LT min 3V IMPRESSION: No acute findings left foot. Electronically signed by: Moises Ritchie MD 07/25/2024 09:09 AM EST Dictated By: Moises Ritchie MD Signed By: Electronically signed by Moises Ritchie MD 07/25/24 0909 Radiology Impression Discussion of test interpretation with radiology: I have reviewed the radiologist's reading. Independent Historian Clinical information obtained from an independent historian. History obtained from or confirmed by: EMS (EMS provided additional history and confirmed the history provided by the patient.) Chronic Conditions Patient?s care impacted by: Diabetes Discharge Plan Discharge Clinical Impression: Chronic wound, Trench feet Patient Disposition: Home, Self-Care Instructions: Chronic Wounds (ED) Additional Instructions: Follow up with your primary care provider, the wound center, and podiatry. Return to the emergency department immediately if your symptoms worsen or if you develop any dizziness, shortness of breath, difficulty breathing, chest pain, blurry vision, loss of vision, nausea, vomiting, abdominal pain, fever, chills, back pain, or any other complaints. Prescriptions: New metformin 500 mg tablet 500 mg PO BID Qty: 60 3RF naproxen 500 mg tablet 500 mg PO BID 7 Days Qty: 14 0RF No Action risperidone 2 mg Tablet 2 mg PO BID Qty: 60 0RF metformin 500 mg Tablet Extended Release 24 Hr 500 mg PO BID Qty: 60 0RF Referrals: [facility] Family Medicine [Provider Group] (Call to establish and follow up with a primary care provider. If you already have a primary care provider, please follow up with them.) [facility] Primary CareLana [Provider Group] (Call to establish and follow up with a primary care provider. If you already have a primary care provider, please follow up with them.) [facility] Primary CareGisella [Provider Group] (Call to establish and follow up with a primary care provider. If you already have a primary care provider, please follow up with them.) [facility] Wound Care Management [Provider Group] (Call to establish and follow up with the wound center.) Foreign [facility]on DPM [Physician] - (Call to establish and follow up with a assistant professor of english.) Interventions: ED Discharge Assessment Last Done: 07/25/24 10:41 Discharge Date/Time: 07/25/24 10:42 Print Language: Sinhala
[2024-07-25 07:22] VITALS: BP 134/75; PULSE 79; RESP 16; TEMP 36.4; O2SAT 98
[2024-07-25 07:30] LABS: MANUAL DIFF FLAG NO
[2024-07-25 07:34] LABS: Appearance Urine Clear; Color Urine Yellow; Glucose Urine UA Negative (Negative); Leukocyte Esterase Urine Negative (Negative); Nitrite Urine Negative (Negative); PH 5.5 (5.0-9.0); Specific Gravity - Urine 1.025 (1.005-1.025); Urine Blood Negative (Negative); Urine Ketones Trace mg/dL (Negative); Urine Protein Negative (Neg-Trace)
[2024-07-25 07:35] LABS: Basophils Absolute Auto 0.1 X10*3/uL (0.0-0.2); Basophils Percent Auto 0.5 % (0-2); Eosinophils Absolute Auto 0.3 X10*3/uL (0.0-0.4); Eosinophils Percent Auto 3.4 % (0-4); Hematocrit 40.2 % (42.0-52.0); Imm Gran Abs Auto 0.03 X10*3/uL (0.00-0.03); Imm Gran Pct Auto 0.3 % (0.0-0.4); Mean Corpuscular HGB Conc 32.3 g/dl (31.0-36.0); Mean Corpuscular Hemoglobin 28.3 pg (27.0-33.0); Mean Corpuscular Volume 87.4 fL (80.0-98.0); Mean Platelet Volume 10.9 fL (9.4-12.4); Monocytes Absolute Auto 0.6 X10*3/uL (0.1-1.2); Monocytes Percent Auto 6.3 % (2-11); Neutrophils Absolute Auto 6.8 x10*3/uL (2.0-8.3); Neutrophils Percent Auto 69.5 % (45-73); Platelet Count 239 X10*3/uL (160-400); Red Cell Distribution Width 13.2 % (11.0-16.0); White Blood Count 9.8 X10*3/uL (4.8-10.8)
[2024-07-25 07:47] LABS: Alanine Aminotransferase 18 U/L (0-40); Albumin Level 3.8 g/dL (3.5-5.0); Alkaline Phosphatase 105 U/L (39-117); Anion Gap 10 (12-20); Aspartate Amino Transferase 21 U/L (5-37); Bilirubin Total 0.2 mg/dL (0.0-1.0); Blood Urea Nitrogen 15 mg/dL (9-16); C Reactive Protein 0.39 mg/dL (< or = 0.50); Calcium 8.4 mg/dL (8.4-10.2); Carbon Dioxide 24 mmol/L (22-29); Chloride 111 mmol/L (96-108); Creatinine Clr Calc Pharmacy 199.6; Estimated Glomerular Filt Rate > 60; Glucose Random 157 mg/dL (60-115); Potassium 4.2 mmol/L (3.3-5.1); Sodium 141 mmol/L (135-145); Total Protein 7.4 g/dL (6.5-8.0)
[2024-07-25 08:11] LABS: Erythrocyte Sedimentation Rate 22 MM/HR (0-15)
--- OUTSIDE RECORDS SUMMARY | 2024-07-25 10:21 | XMS_ITS | Clinical Summary ---
Author Organization [facility] Address [address] [place] [address] Care Team Providers Care Dental Associate Name Role Phone Unavailable Primary Care Provider Unavailabl e Allergies Active Allergy Reactions Criticality Noted Date Comments Iodinated Contrast Media GI Intolerance/Nausea/Vomitin g Low 08/01/2021 Morphine Hives Medium 08/01/2021 Shellfish-Derived Products Rash/Dermatitis Low 11/2021 Medications Medication Sig Dispensed Refills Start Date End Date Status Vitamin D3 (CHOLECALCIFEROL) 50 MCG (1999) tablet Take 2,000 Units by mouth daily. 07/12/2021 Active NovoLOG FLEXPEN, insulin aspart, 100 UNIT/ML prefilled pen injection Inject 35 Units under the skin 2 (two) times a day before meals. Breakfast & Dinner 05/17/2021 Active LevEMIR FLEXTOUCH 100 UNIT/ML prefilled pen injection Inject 80 Units under the skin 2 (two) times a day. AM & PM 07/12/2021 Active metFORMIN (GLUCOPHAGE) 500 MG tablet Take 1,000 mg by mouth 2 (two) times a day with meals. 04/30/2021 Active atorvastatin (LIPITOR) 20 MG tablet Take 20 mg by mouth daily. Active lisinopril (PRINIVIL,ZeSTRIL) 5 MG tablet Take 5 mg by mouth daily. Active lurasidone (LATUDA) 80 MG Tab tablet Take 80 mg by mouth every evening with dinner. Active folic acid (FOLVITE) 1 MG tablet Take 1 mg by mouth daily. Active OMEprazole (PriLOSEC) 20 MG capsule Take 20 mg by mouth every morning before breakfast. Active cloNIDine (CATAPRES) 0.1 MG tablet Take 0.1 mg by mouth every morning. Active glucose monitoring kit (FREESTYLE) monitoring kit check fingerstick glucose twice daily 1 each 08/01/2021 Active insulin detemir (LevEMIR FlexTouch) 100 UNIT/ML prefilled pen injection Inject 80 Units under the skin 2 (two) times a day. 15 mL 08/01/2021 Active Family History Relation Name Status Comments Father Social History Tobacco Use Types Packs/Day Years Used Date Smoking Tobacco: Never Smokeless Tobacco: Never Alcohol Use Standard Drinks/Week Comments Yes 0 (1 standard drink = 0.6 oz pur e alcohol) socailly Sex and Gender Information Value Date Recorded Sex Assigned at Not on file Gender Identity Not on file Sexual Orientation Not on file Last Filed Vital Signs Vital Sign Reading Time Taken Comments Blood Pressure 112/73 12/02/2021 11:14 AM EDT Pulse 72 12/02/2021 11:14 AM EDT Temperature 36.3 ??C (97.4 ??F) 12/02/2021 7:47 AM ED T Respiratory Rate 18 12/02/2021 11:14 AM EDT Oxygen Saturation 98% 12/02/2021 11:14 AM EDT Inhaled Oxygen Concentration - - Weight - - Height - - Body Mass Index - - Plan of Treatment Health Maintenance Due Date Last Done Comments Hepatitis C Virus Screening 1980 DTaP/Tdap/Td Vaccines (1 - Tdap) 11/01/1998 Hepatitis B Vaccines (1 of 3 - 19+ 3-dose series) 11/01/1998 Influenza Vaccine 01/25/2024 COVID-19 Vaccine ( - 2023-2 5 season) 2024 HIV Screening Completed 11/12/2021 HPV Vaccines Aged Out No longer eligi ble based on patient's age to complete this topic Pneumococcal Vaccine: Pediat [place] (0-5 Years) and At-Risk Patients (6 to 49 Years) Aged Out No longer eligible b ased on patient's age to complete this topic
--- OUTSIDE RECORDS SUMMARY | 2024-07-25 10:21 | XMS_ITS | Clinical Summary ---
Author Organization [facility] Address [address] [place] [address] Care Team Providers Care Individual Pension Consultant Name Role Phone Sada Ramirez PA-C Primary Care Provider [phone] Source Comments PLEASE NOTE, if this patient is a minor, it may be UNLAWFUL to discuss sensitive information that is contained in these records (such as FAMILY PLANNING, MENTAL HEALTH or SUBSTANCE ABUSE) with the minor patient's parent or other person without the patient's specific authorization.[facility] Allergies Active Allergy Reactions Criticality Noted Date Comments Morphine 01/28/2013 Shellfish Derived Hives,Rash 08/21/2014 Medications omeprazole (PRILOSEC) [address] capsule Take 20 mg by mouth daily 1 Active bacitracin 500 unit/gram ointmentIndication s:Abrasion of left knee, initial encounter Apply topically 2 (two) times daily 15 g 2 3 Active albuterol HFA (VENTOLIN HFA) 90 mcg/actuation inhalerIndications :Moderate persistent asthma without complication Inhale 2 Puffs into the lungs every 4 (four) hours as needed for shortness of breath or wheezing 18 g 2 3 Active docusate sodium (COLACE) 100 mg capsuleIndications :Constipation, unspecified constipation type Take 1 Capsule by mouth 2 (two) times daily 180 Capsule 3 Active valsartan (DIOVAN) 160 mg tabletIndications: Essential hypertension Take 1 Tablet by mouth once daily 90 Tablet 1 3 Active clotrimazole (LOTRIMIN) 1 % creamIndications:B alanitis Apply topically 2 (two) times daily 30 g 3 Active ketoconazole (NIZORAL) 2 % shampooIndications :Generalized pruritus Apply topically 2x weekly for itching 120 mL 2 3 Active ibuprofen 600 mg tabletIndications: Chronic apical periodontitis Take 1 Tablet by mouth 3 (three) times daily 30 Tablet 3 Active simvastatin (ZOCOR) 40 mg tabletIndications: Type 2 diabetes mellitus with hyperglycemia, without long-term current use of insulin ([facility]),Hyperten massimo, unspecified type,Hyperlipidemi a, unspecified hyperlipidemia type Take 1 Tablet by mouth nightly at bedtime 90 Tablet 3 3 Active aspirin-acetaminop hen-caffeine (EXCEDRIN MIGRAINE) 250-250-65 mg per tabletIndications: Nonintractable headache, unspecified chronicity pattern, unspecified headache type Take 1 Tablet by mouth every 8 (eight) hours as needed for pain 90 Tablet 3 Active metFORMIN (GLUCOPHAGE) 1,000 mg tabletIndications: Type 2 diabetes mellitus with hyperglycemia, without long-term current use of insulin ([facility]) Take 1 Tablet by mouth 2 (two) times daily with a meal for 90 days 180 Tablet 3 Active insulin glargine (LANTUS U-100 INSULIN) 100 unit/mL injectionIndicatio ns:Type 2 diabetes mellitus with hyperglycemia, without long-term current use of insulin ([facility]) Inject 40 Units into the skin every morning for 90 days 36 mL 4 Active cholecalciferol (VITAMIN D-3) 50 mcg (2,000 unit) capsuleIndications :Hypertension, unspecified type,Type 2 diabetes mellitus with hyperglycemia, without long-term current use of insulin ([facility]),Hyperlip idemia, unspecified hyperlipidemia type Take 1 Tablet by mouth daily 90 Capsule 4 Active folic acid (FOLVITE) 1 mg tabletIndications: Hypertension, unspecified type,Type 2 diabetes mellitus with hyperglycemia, without long-term current use of insulin ([facility]),Hyperlip idemia, unspecified hyperlipidemia type Take 1 Tablet by mouth daily 90 Tablet 4 Active hydroCHLOROthiazid e (MICROZIDE) 12.5 mg capsuleIndications :Peripheral edema Take 1 Capsule by mouth once daily 90 Capsule 4 Active pen needle, diabetic (COMFORT EZ PEN NEEDLES) 32 gauge x ndleIndications:Ty pe 2 diabetes mellitus without complication, with long-term current use of insulin ([facility]) USE 1 pen NEEDLE 4 (FOUR) TIMES DAILY 100 Each 11 4 Active compr.rola álvarez long,x-lrgIndica tions:Peripheral edema Compress 10-15mmHg for peripheral edema. Disp 2 x99 years. 2 Each 4 Active alcohol swabs (ALCOHOL PADS)Indications:T ype 2 diabetes mellitus without complication, with long-term current use of insulin ([facility]) Apply topically 2 (two) times daily Clean the area before checking sugar. 100 Each 11 4 Active blood-glucose meter monitoring kitIndications:Typ e 2 diabetes mellitus without complication, with long-term current use of insulin ([facility]) 2 (two) times daily One touch glucose monitor to check sugar twice a day. 1 Each 4 Active lancets (EASY TOUCH LANCETS) 28 gaugeIndications:T ype 2 diabetes mellitus without complication, with long-term current use of insulin ([facility]) USE TO TEST FINGER STICK BLOOD SUGAR 2 (two) times a day 100 Each 11 4 Active blood sugar diagnostic (ONETOUCH ULTRA TEST) stripsIndications: Type 2 diabetes mellitus without complication, with long-term current use of insulin ([facility]) USE TO TEST FINGER STICK BLOOD SUGAR two (2) times a day 100 Each 5 4 Active Active Problems Problem Noted Date Diagnosed Date Schizophrenia with bipolar 04/30/2015 Venous insufficiency 04/30/2015 Addictive gambling with rep payee 04/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 Diabetes mellitus type 2, insulin dependent ([facility]) 05/21/2013 Hyperlipemia, mixed 05/21/2013 Mild vitamin D deficiency 05/21/2013 Morbid obesity with BMI of 50.0-59.9, adult ([facility]) 05/21/2013 WILLY (obstructive sleep apnea ) 08/2011: unable to tolerate CPAP 05/21/2013 Asthma, moderate persistent 05/21/2013 Dyspepsia 05/21/2013 Encounters Date Type Department Care Team Description 05/29/2024 Travel from Last 3 Months Immunizations Name Administration Dates Next Due TDAP 03/29/2024 Family History Medical History Relation Name Comments No Known Problems Father No Known Problems Mother Relation Name Status Comments Father Mother Social History Tobacco Use Types Packs/Day Years Used Date Smoking Tobacco: Never Smokeless Tobacco: Never Tobacco Cessation:Counseling Given: Yes Alcohol Use Standard Drinks/Week Comments No 0 (1 standard drink = 0.6 oz pur e alcohol) Social Connections Answer Date Recorded Connectedness 0 06/14/2023 Financial Resource Strain Answer Date R ecorded Financial Resource Strain 0 2022 Stress Answer Date Recorded Stress 0 06/14/2023 Physical Activity Answer Date Recorded Physical Activity 0 02/16/2019 Food Insecurity Answer Date Recorded Food 0 06/14/2023 Transportation Needs Answer Date Record ed Transportation 0 06/14/2023 Housing Stability Answer Date Recorded Housing 0 06/14/2023 Safety and Environment Answer Date Geo rded Safety 0 02/16/2019 Utilities Answer Date Recorded Utilities 0 06/14/2023 Employment Answer Date Recorded Stress 0 06/14/2023 Sex and Gender Information Value Date Recorded Sex Assigned at Male 05/02/2017 7:07 PM PST Legal Sex Male 11:36 AM PDT Gender Identity Male 05/02/2017 7:07 PM PST Sexual Orientation Straight 05/02/2017 7: 07 PM PST Last Filed Vital Signs Vital Sign Reading Time Taken Comments Blood Pressure 130/82 03/29/2024 9:39 AM EDT Pulse 81 03/29/2024 9:39 AM EDT Temperature 36.6 ??C (97.8 ??F) 03/29/2024 9:39 AM ED T Respiratory Rate 16 03/29/2024 9:39 AM EDT Oxygen Saturation 96% 03/29/2024 9:39 AM EDT Inhaled Oxygen Concentration - - Weight 125.4 kg (276 lb 8 oz) 03/29/2024 9:39 AM EDT Height 177.8 cm (5' 10 ) 03/29/2024 9:39 AM EDT Body Mass Index 39.67 03/29/2024 9:39 AM EDT Plan of Treatment Health Maintenance Due Date Last Done Comments Dental Perio Charting 1979 LTBI Screening (#1) 1979 Imm-Hepatitis A (1 of 2 - Ri sk 2-dose series) 11/01/1998 Dental Prophy 11/17/2023 05/17/2023 Bru-NIAEL-64 ( season) 2024 Dental BW 05/19/2024 05/17/2023 Dental Examination 05/19/2024 05/17/2023 Lipid Screening 06/14/2024 06/14/2023, 05/27, 11/11/2022, Additional history exists Medicare Annual Wellness Visit 03/29/2025 03/29/2024 Tobacco Screening 03/29/2025 03/29/2024 Dental FMX/Pano 05/19/2028 05/17/2023 Retinopathy Screening Discontinued 04/10/2014 (Managed by Outside Provider) Imm-Influenza Discontinued 07/03/2014 (Decl ined), 05/21/2013 Alcohol and Drug Screen Discontinued 11/09/19 17, 04/30/2015, 04/10/2014 (Declined) Depression Annual Screen Discontinued 017, 04/10/2014 (Managed by Outside Provider) Diabetes Microalbumin (w/Creatinine) Discontinued 05/02/2017, 11/08/2016, 10/26/2015, Additional history exists Diabetes Foot Exam Discontinued 03/31/2023, 1 (Managed by Outside Provider) HIV Screening Completed 05/03/2023, 10/24, 11/12/2021, Additional history exists Hepatitis C Screening Completed 05/03/2023, 013 Diabetes HbA1c Discontinued 06/14/2023, 10/24, 01/03/2018, Additional history exists Serum Creatinine Discontinued 06/14/2023, , 12/01/2021, Additional history exists Imm-DTaP/Tdap/Td Discontinued 03/29/2024 Imm-Hepatitis B Discontinued Imm-Pneumococcal Discontinued Procedures Procedure Name Priority Date/Time Associated Diagnosis Comments COMPREHENSIVE METABOLIC PANEL Routine 06/14/2023 3:25 PM EST Type 2 diabetes mellitus with hyperglycemia, without long-term current use of insulin ([facility]) LIPIDS W RFLX TO DIRECT LDL Routine 06/14/2023 3:25 PM EST Type 2 diabetes mellitus with hyperglycemia, without long-term current use of insulin ([facility]) HGA1C W/EAG Routine 06/14/2023 3:25 PM EST Type 2 diabetes mellitus with hyperglycemia, without long-term current use of insulin ([facility]) Full INTRAORAL - COMP SERIES OF RADIOGRAPHIC IMAGES Routine 05/17/2023 10:20 AM EST Chronic gingivitis, plaque induced Full PROPHYLAXIS - ADULT Routine 05/17/2023 10:20 AM EST Chronic gingivitis, plaque induced Full COMP ORAL EVALUATION - NEW/ESTABLISHED PATIENT Routine 05/17/2023 10:20 AM EST Chronic gingivitis, plaque induced HIV 1/2 AG & AB W/RFLX (4TH GEN) Routine 05/03/2023 10:37 AM EST Type II diabetes mellitus with hyperosmolarity, uncontrolled ([facility]) HEPATITIS C AB W/RFLX HCV RNA, QT, RT PCR Routine 05/03/2023 10:37 AM EST Type II diabetes mellitus with hyperosmolarity, uncontrolled ([facility]) MICROALBUMIN/CREATINI NE RATIO, URINE, RANDOM Routine 05/02/2017 4:00 PM EST Diabetes mellitus type 2, insulin dependent ([facility]) from Last 3 Months or Most Recently Relevant to Health Maintenance Results * (ABNORMAL) HGA1C W/EAG (06/14/2023 3:25 PM EST) HEMOGLOBIN A1C 12.4(H) <5.7 % of total Hgb [facility] Comment: For someone without known diabetes, a hemoglobin A1c value of 6.5% or greater indicates that they may have diabetes and this should be confirmed with a follow-up test. For someone with known diabetes, a value <7% indicates that their diabetes is well controlled and a value greater than or equal to 7% indicates suboptimal control. A1c targets should be individualized based on duration of diabetes, age, comorbid conditions, and other considerations. Currently, no consensus exists regarding use of hemoglobin A1c for diagnosis of diabetes for children. ?? EAG (MG/DL) 309 mg/dL [facility] EAG (MMOL/L) 17.1 mmol/L [facility] Blood Blood / Unknown 06/14/2023 3 :25 PM EST 06/14/2023 3:25 PM EST Sada Ramirez PA-C LAB - BLOOD DRAW Edited Resu lt - Final [facility] [address] [address], [facility] [address] [place] [address] * (ABNORMAL) LIPIDS W RFLX TO DIRECT LDL (06/14/2023 3:25 PM EST) CHOLESTEROL, TOTAL 226(H) <200 mg/dL [facility] HDL CHOLESTEROL 39(L) > OR = 40 mg/dL [facility] TRIGLYCERIDES 430(H) <150 mg/dL [facility] Comment: If a non-fasting specimen was collected, consider repeat triglyceride testing on a fasting specimen if clinically indicated. Danielle et al. J. of Clin. Lipidol. 2015;9:129-169. LDL-CHOLESTEROL See Note [facility] Comment: LDL cholesterol not calculated. Triglyceride levels greater than 400 mg/dL invalidate calculated LDL results. Reference range: <100 Desirable range <100 mg/dL for primary prevention; ?? <70 mg/dL for patients with CHD or diabetic patients with > or = 2 CHD risk factors. LDL-C is now calculated using the Sourav-Mat calculation, which is a validated novel method providing better accuracy than the Friedewald equation in the estimation of LDL-C. Sourav SS et al. CRISTOFER. 2013;310(19): 3564-0047 (http://education.[employer].Jetbay/faq/XPU933) CHOL/HDLC RATIO 5.8(H) <5.0 (calc) [facility] NON-HDL CHOLESTEROL 187(H) <130 mg/dL (calc) [facility] Comment: For patients with diabetes plus 1 major ASCVD risk factor, treating to a non-HDL-C goal of <100 mg/dL (LDL-C of <70 mg/dL) is considered a therapeutic option. Blood Blood / Unknown 06/14/2023 3 :25 PM EST 06/14/2023 3:25 PM EST us Sada Ramirez PA-C LAB - BLOOD DRAW Final Resul t [facility] [address] [address], [facility] [address] [place] [address] * (ABNORMAL) COMPREHENSIVE METABOLIC PANEL (06/14/2023 3:25 PM EST) GLUCOSE 342(H) 65 - 99 mg/dL [facility] Comment: ?Fasting reference interval For someone without known diabetes, a glucose value >125 mg/dL indicates that they may have diabetes and this should be confirmed with a follow-up test. UREA NITROGEN (BUN) 13 7 - 25 mg/dL [facility] CREATININE (blood) 0.69 0.60 - 1.29 mg/dL [facility] EGFR 118 > OR = 60 mL/min/1. 73m2 [facility] BUN/CREATININE RATIO SEE NOTE: [facility] Comment: ?? Not Reported: BUN and Creatinine are within ?? reference range. ? SODIUM 134(L) 135 - 146 mmol/L [facility] POTASSIUM 4.8 3.5 - 5.3 mmol/L [facility] CHLORIDE 97(L) 98 - 110 mmol/L [facility] CARBON DIOXIDE 30 20 - 32 mmol/L [facility] CALCIUM 9.2 8.6 - 10.3 mg/dL [facility] PROTEIN, TOTAL 7.2 6.1 - 8.1 g/dL [facility] ALBUMIN 4.2 3.6 - 5.1 g/dL [facility] GLOBULIN 3.0 1.9 - 3.7 g/dL (calc) [facility] ALBUMIN/GLOBULI N RATIO 1.4 1.0 - 2.5 (calc) [facility] BILIRUBIN, TOTAL 0.4 0.2 - 1.2 mg/dL [facility] ALKALINE PHOSPHATASE 114 36 - 130 U/L [facility] AST 13 10 - 40 U/L [facility] ALT 17 9 - 46 U/L [facility] Blood Blood / Unknown 06/14/2023 3:25 PM EST 06/14/2023 3:25 PM EST Sada Ramirez PASkylar LAB - BLOOD DRAW Edited Resu lt - Final Performing Organization Address [facility] [address]/ZIP Co de Phone Number [facility] [address] [address], [facility] [address] [address] * HEPATITIS C AB W/RFLX HCV RNA, QT, RT PCR (05/03/2023 10:37 AM EST) HEPATITIS C ANTIBODY NON-REACT TORI NON-REACT TORI [facility] Comment: HCV antibody was non-reactive. There is no laboratory evidence of HCV infection. In most cases, no further action is required. However, if recent HCV exposure is suspected, a test for HCV RNA (test code 48431) is suggested. For additional information please refer to http://[employer]/faq/NBP05t8 (This link is being provided for informational/ educational purposes only.) Blood Blood / Unknown 05/03/2023 1 0:37 AM EST 05/03/2023 10:38 AM EST Ej Virgie [employer] LAB - BLOOD DRAW Edited R esult - Final Performing Organization Address [facility] [address]/[facility] Co de Phone Number [facility] [address] [address], [facility] [address] [address] * HIV 1/2 AG & AB W/RFLX (4TH GEN) (05/03/2023 10:37 AM EST) HIV AG/AB, 4TH GEN NON-REAC TIVE NON-REAC TIVE [facility] Comment: HIV-1 antigen and HIV-1/HIV-2 antibodies were not detected. There is no laboratory evidence of HIV infection. PLEASE NOTE: This information has been disclosed to you from records whose confidentiality may be protected by state law. ??If your state requires such protection, then the state law prohibits you from making any further disclosure of the information without the specific written consent of the person to whom it pertains, or as otherwise permitted by law. A general authorization for the release of medical or other information is NOT sufficient for this purpose. ?? For additional information please refer to http://education.[employer]/faq/FYD853 (This link is being provided for informational/ educational purposes only.) The performance of this assay has not been clinically validated in patients less than 2 years old. Blood Blood / Unknown 05/03/2023 1 0:37 AM EST 05/03/2023 10:38 AM EST Ej Garvin [employer] LAB - BLOOD DRAW Final Re sult Performing Organization Address [facility] [address]/[facility] Co de Phone Number [facility] [address] [address], [facility] [address] [address] * (ABNORMAL) MICROALBUMIN/CREATININE RATIO, URINE, RANDOM (05/02/2017 4:00 PM EST) MICROALBUMIN, RANDOM 59.2(H) 0.0 - 29.0 mg/L [facility] MICROALB/CRE RATIO RANDOM 18.5 0.0 - 30.0 mg/G [facility] CREATININE, RANDOM URINE 319 mg/dL [facility] Urine specimen (specimen) Urine specimen / Unknown 05/02/2017 4:00 PM EST 05/02/2017 4:26 PM EST Narrative [facility] 05/02/2017 7:41 PM EST [employer] [address] [place] [address] [place] [id number] ORD# [id number] Angy Crawley PA-C LAB - NO BLOOD DRAW Edited R esult - Final Performing Organization Address [facility] [address]/[facility] Co de Phone Number [address] [address], from Last 3 Months or Most Recently Relevant to Health Maintenance Insurance [employer] [facility] Member Subscriber Plan / Payer (Ef fective 2018-Present) Name:ZEN Sutherland Relation to Subscriber:Self Name:ZEN Sutherland Payer ID:[id number] Group ID:Not on file Type:Medicare Address: [address] [place] [id number] MEDICAID [id number] Member Subscriber Plan / Payer (Ef fective 2021-Present) Name:ZEN Sutherland Relation to Subscriber:Self Name:ZEN Sutherland Payer ID:[id number] Group ID:Not on file Type:Medicaid Address: [address] [place] [address] [facility] Member Subscriber Plan / Payer (Ef fective 2022-Present) Name:ZEN Sutherland Relation to Subscriber:Self Name:ZEN Sutherland Payer ID:[id number] Group ID:Not on file Type:Indemnity Address: [address] [place] [address] Care Teams Individual Pension Consultant Relationship Specialty Start Date End Date Sada Ramirez PA-C [facility] [place] [address] PCP - General Internal Medicine 03/29/24
--- NOTE | 2024-07-25 10:29 | PM.CNGS ---
History of Present Illness Consult details Consult date: 07/25/24 Requesting physician: Jeana Gallego Narrative: Mr. Sutherland is a 43 year old male with PMH of depression, anxiety, HTN, DM, and schizoaffective disorder who presented to the ED with complaints of bilateral foot pain. Patient states that he stepped on a crack pipe with his right foot close to a year ago and developed a wound and complains of pain with ambulation. Patient also states that both of his feet have been continually wet and cold. He states he is not homeless and has an apartment but does not like to be inside and therefore spends most of his time outside. He denies significant drainage from the wound, redness, warmth. Work up in the ED included CBC, BMP, CRP which were all WNL. B/l foot xray shows no acute findings. General surgery was asked to see regarding the plantar foot wound, possible trench foot of left foot. Review of Systems Review of Systems: Yes all other systems are reviewed and are negative PMFSH Past Medical History Medical History Bipolar 1 disorder Wound of right foot GERD (gastroesophageal reflux disease) Essential (primary) hypertension Diabetes mellitus Schizoaffective disorder Family History Family History Father Heart disease Chronic mental illness Depression Mother Cancer Sister Cancer Surgical History Surgical History No pertinent past surgical history Social History Social History Household Members: Unknown / Unable to assess Housing: Apartment Do you presently have visiting nurse or other home services: No Unable to assess alcohol history related to: Unknown Alcohol intake: never Patient Tobacco Use Status: Never used Tobacco Smoked in Last 30 Days: No e-Cigarette/Vaping Use: Never Used Second Hand Smoke Exposure: No Use of substances other than those prescribed or required for medical reasons: No Substance Use Type: Marijuana Advance Directives: No Advance Directives Information Provided: Yes service: No Current occupational status: disabled Sexual orientation: Straight/Heterosexual Meds Allergies Allergy/AdvReac Type Severity Reaction Status Date / Time morphine [Morphine] Allergy Unknown HIVES Verified 07/25/24 06:14 shellfish derived Allergy Redness of Verified 07/25/24 06:14 Skin Iodinated Contrast Media AdvReac Anxiety Verified 07/25/24 06:14 [Contrast Dye] Physical Exam Vital Signs: Vital Signs: Last Vital Signs Temp 97.6 F 07/25/24 07:22 Pulse 79 07/25/24 07:22 Resp 16 07/25/24 07:22 BP 134/75 07/25/24 07:22 Pulse Ox 98 07/25/24 07:22 O2 Del Method Room Air 07/25/24 07:22 BMI result Body Mass Index 42.1 Const: General: comfortable, no acute distress and alert Orientation/consciousness: patient oriented x3 Resp: Effort & Inspection: normal respiratory effort Neuro: General: patient oriented x3 and moves all extremities Extrem: Other: right foot plantar aspect with 2cm callus with very small wound opening that is granulating, no surrounding erythema, edema, induration, fluctuance left foot without open wounds, normal appearing with very small area of slight darkening of very distal aspect of second toe Results Labs 07/25/24 07:20 07/25/24 07:20 Labs: Abnormal lab results 07/25/24 Range/Units 07:20 Hgb 13.0 L (14.0-18.0) g/dl Hct 40.2 L (42.0-52.0) % ESR 22 H (0-15) MM/HR Chloride 111 H (96-108) mmol/L Anion Gap 10 L (12-20) Random Glucose 157 H (60-115) mg/dL Short CBC 07/25/24 Range/Units 07:20 WBC 9.8 (4.8-10.8) X10*3/uL Hgb 13.0 L (14.0-18.0) g/dl Hct 40.2 L (42.0-52.0) % Plt Count 239 (160-400) X10*3/uL BMP 07/25/24 07:20 Sodium 141 Potassium 4.2 Chloride 111 H Carbon Dioxide 24 BUN 15 Creatinine 0.61 Calcium 8.4 D Liver Function 07/25/24 Range/Units 07:20 Total Bilirubin 0.2 (0.0-1.0) mg/dL AST 21 (5-37) U/L ALT 18 (0-40) U/L Alkaline Phosphatase 105 (39-117) U/L Albumin 3.8 (3.5-5.0) g/dL Urine 07/25/24 Range/Units 07:20 Urine Color Yellow Urine Appearance Clear Urine pH 5.5 (5.0-9.0) Ur Specific [place] 1.025 (1.005-1.025) Urine Protein Negative (Neg-Trace) mg/dL Urine Glucose (UA) Negative (Negative) mg/dL All other labs normal. Assessment and Plan (1) Wound of right foot: Status: Acute (2) Trench feet: Status: Acute Plan No acute surgical intervention needed. Right plantat wound clean appearing. No evidence of wound infection or surrounding cellulitis. Overall trench foot appearance present on presentation has improved and nearly resolved. Recommend follow up with podiatry for further care of the right plantar wound and callus. Can place silver alginate to wound opening. Educated patient to keep feet warm and dry. Procedures Date of Service Date of Service: 07/25/24
[2024-07-25 10:40] VITALS: BP 121/82; PULSE 66; RESP 14; TEMP 37; O2SAT 98
[2024-07-25 10:41] VITALS: BP 121/82; PULSE 66; RESP 14; TEMP 37; O2SAT 98
== END 2024-07-25 10:42 | disposition home or self-care (01) ==
PROVIDERS: Physician Assistant Medical; Emergency Provider Emergency Medicine
DX: S91.301A Unspecified open wound, right foot, initial encounter (principal); X58.XXXA Exposure to other specified factors, initial encounter; T69.022A Immersion foot, left foot, initial encounter; T69.021A Immersion foot, right foot, initial encounter; E11.9 Type 2 diabetes mellitus without complications; I10 Essential (primary) hypertension; Y93.9 Activity, unspecified; Y92.89 Other specified places as the place of occurrence of the external cause; Y99.9 Unspecified external cause status
CPT/HCPCS: 36415; 73630; 80053; 81003; 83735; 85025; 85652; 86140; 99283; 99284

== ENCOUNTER → 2024-07-25 06:32 | Outpatient (BNV) | payer OTHER, SELFPAY | PROVIDERS: Emergency Provider Emergency Medicine; Visit Provider Physician Assistant Surgical | DX: T69.021A Immersion foot, right foot, initial encounter (principal); S91.301A Unspecified open wound, right foot, initial encounter | CPT/HCPCS: 99283 ==

== ENCOUNTER → 2024-07-25 06:47 | Outpatient (BNV) | payer OTHER, SELFPAY | PROVIDERS: Emergency Provider Emergency Medicine; Visit Provider Radiology Diagnostic Radiology | DX: R52 Pain, unspecified (principal); T14.90XA Injury, unspecified, initial encounter | CPT/HCPCS: 73630 ==